=== PATIENT | female | born 1970 | race Caucasian/White ===

== ENCOUNTER → 2019-07-22 07:38 | Outpatient (CLI) | payer OTHER, SELFPAY ==
--- NOTE | 2019-07-22 | DI.RAD.S_ITS ---
PROCEDURE: FL BARIUM SWALLOW W SPEECH INDICATIONS: Other dysphagia TECHNIQUE: Examination was conducted in conjunction with speech pathology per standard protocol. In the lateral projection, filming was performed of the patient swallowing. AP projection filming may also be performed with patient swallowing. COMPARISON: [facility], [place], THORAX WITHOUT CONTRAST, 08/27/2014, 12:26. FINDINGS: Function: The oral preparatory phase appears normal, with proper containment. The subsequent oral propulsive phase, pharyngeal phase, and esophageal phase of swallowing also appear normal with all proffered substances. There is trace laryngotracheal penetration but no aspiration. There is vallecular pooling. The upper esophageal sphincter appears somewhat irregular. There is mild narrowing of the distal esophagus. The calibrated barium tablet was mildly obstructed in the distal esophagus, which eventually went down into the stomach with the help of additional water and thin liquid barium suspension. Morphology: No cricopharyngeal bar is identified. No cervical esophageal webs. No Zenker's diverticulum. No strictures. IMPRESSION: 1. Trace laryngeal penetration but no aspiration. 2. Vallecular pooling. 3. The upper esophageal sphincter appears somewhat irregular. There is mild narrowing of the distal esophagus. Mild obstruction of calibrated barium tablet in the distal esophagus is present. Recommend upper endoscopy for further evaluation. 4. Please see separate speech pathologist's report. Dictated by: Jarocho Barbosa M.D. on 07/22/2019 at 12:25 Approved by: Jarocho Barbosa M.D. on 07/22/2019 at 12:48
[2019-07-22 07:47] LABS: RBC Urine None Seen (0-5/HPF); WBC Urine None Seen (0-5/HPF)
[2019-07-22 08:22] LABS: Hematocrit 43.9 % (36-46); Hemoglobin 14.9 g/dL (12.0-16.0); Mean Corpuscular Hemoglobin 30.3 PG (26-34); Mean Corpuscular Volume 89.2 fL (80-100); Platelet Count 260 X10^3/uL (150-400); Red Blood Cell Count 4.92 X10^6/uL (4.0-5.2); Red Cell Distribution Width 13.7 % (11.6-14.8); White Blood Cell Count 8.8 X10^3/uL (4.5-11.0)
[2019-07-22 08:24] LABS: Appearance Urine UA SL CLOUDY; Bilirubin Urine UA NEGATIVE (NEGATIVE); Color Urine UA YELLOW; Glucose Urine UA NEGATIVE (Negative); Ketones Urine UA NEGATIVE (NEGATIVE); Leukocyte Esterase Urine UA NEGATIVE (NEGATIVE); Nitrite Urine UA NEGATIVE (Negative); Occult Blood Urine UA NEGATIVE (Negative); Protein Urine UA NEGATIVE (Negative); Specific Gravity Urine UA 1.025 (1.000-1.035); Urobilinogen Urine UA 0.2 E.U./dL (0.2)
[2019-07-22 08:33] LABS: Alanine Aminotransferase 33 IU/L (<35); Albumin 4.1 g/dL (3.5-5.0); Albumin Globulin Ratio 1.3 (1.0-2.8); Alkaline Phosphatase 59 U/L (38-126); Aspartate Aminotransferase 28 IU/L (14-36); BUN Creatinine Ratio 22.9 (6-22); Bilirubin Total 0.3 mg/dL (0.2-1.3); Blood Urea Nitrogen 16 mg/dL (7-17); Calcium 9.3 mg/dL (8.4-10.2); Carbon Dioxide 29 mmol/L (22-32); Chloride 106 mmol/L (98-107); Cholesterol 166 mg/dL (140-199); Estimated Glomerular Filt Rate > 60.0 mL/min (>60); Globulin 3.2 g/dL (1.7-4.1); Glucose 96 mg/dL (70-100); HDL Cholesterol 33 mg/dL (40-60); HEMOLYSIS < 15 (0-50); LDL Cholesterol Calculated 84 mg/dL (<100); Sodium 141 mmol/L (137-145); Total Protein 7.3 g/dL (6.3-8.2); Triglycerides 247 mg/dL (35-150)
[2019-07-22 08:44] LABS: Creatinine Urine Random 121.9 mg/dL
[2019-07-22 08:48] LABS: Microalbumi Creatinin Ratio Ur 9.8 ug/mg CR (<30); Microalbumin Urine Random 1.2 mg/dL (0-1.6)
[2019-07-22 08:55] LABS: pH Urine UA 6.5 (4.5-8.0)
[2019-07-22 08:56] LABS: Amorphous Sediment Urine 2+; Bacteria Urine Many (>30); Culture Indicated Urine Cult Not Indicated; Squamous Epithelial Cell Urine 10-30 /HPF (0-5/HPF)
[2019-07-22 09:04] LABS: Free T3, Triiodothyronine Free 3.79 pg/mL (2.77-5.27); Free T4, Direct Thyroxine 0.85 ng/dL (0.78-2.19)
[2019-07-22 09:17] LABS: Thyroid Stimulating Hormone 4.49 uIU/mL (0.47-4.68)
--- NOTE | 2019-07-22 13:33 | ST.SWALLOW ---
Visit Care Team Role Provider Type JENNIFER Carey Primary Care Provider Advanced Cleaning Technician Specialty: Family Practice Address: [address] [place] [address], [id number] Email: [email or web address] Manny Preston MD Attending Provider Physician Specialty: Ear, Nose, Throat Address: [address] [place] [address], [id number] Email: [email or web address] Modified Barium Swallow Study THREAD CUTTER Modified Barium Swallow Study Start: 07/22/19 10:03 Freq: Status: Active Protocol: Document 07/22/19 10:03 TLC (Rec: 07/22/19 10:32 TLC [id number]) Modified Barium Swallow Study Total Time Visit Start Time 09:30 Visit Stop Time 09:45 Total Visit Minutes [address] Preston, ENT Reason for Referral Dysphagia Setting Setting Outpatient Care Patient Information Identification Type Name Patient History Patient has a history of dysphagia following ACDF surgery in 2013. She reports pills often get stuck in her throat and she chokes on bread and water often having to regurgitate her food and pills . She had a previous MBS in [place] ~ 2 years ago and was told to take small bites/sips . She has a history of reflux. Subjective Observations Patient arrived on time. She was alert, oriented and cooperative. Patient Positioning Position View Lat-A/P Imaging Lateral View Textures Administered Trials Presented Thin Liquid via Spoon,Thin Liquid via Cup,Bison Liquid via Spoon,Bison Liquid via Cup,Honey Liquid via Spoon, Dysphagia Blenderized Textures ,Regular Textures Oral Phase Source: MBSIMP (TM) (C) Bolus Specific Scoring Grid Lip Closure No Impairment (WNL) Tongue Control During Bolus Hold No Impairment (WNL) Bolus Prep/Mastication No Impairment (WNL) Bolus Transport/Lingual Motion No Impairment (WNL) Oral Residue No Impairment (WNL) Pharyngeal Phase Source: MBSIMP (TM) (C) Bolus Specific Scoring Grid Soft Palate Elevation No Impairment (WNL) Tongue Base Strength/Range of Motion Minimal Impairment Laryngeal Elevation Minimal Impairment Anterior Hyoid Movement No Impairment (WNL) Epiglottic Range of Motion No Impairment (WNL) Vallecular Residue Yes: trace Laryngeal Vestibular Closure Minimal Impairment Pharyngeal Stripping Wave No Impairment (WNL) Upper Esophageal Sphincter Opening No Impairment (WNL) Residue in the Pyriform Sinuses Yes: trace Additional Pharyngeal Phase Observations Laryngeal elevation and laryngeal vestibular closure were incomplete. Observed flash penetration which was ejected from the airway after the swallow during consecutive cup sips of thin liquids consistent with a score of 2 on the Penetration Aspiration Scale. No other penetration or aspiration observed during the study. Trace pharyngeal residue in the vallecula and pyriform sinuses cleared with additional swallows. A/P View Textures Administered Trials Presented Thin Liquid via Cup,Barium Tablet A/P View Observations Additional Observations Minimal to no esophageal clearance of barium tablet after primary and secondary peristalsis. Clinical Impressions Findings Despite mild pharyngeal phase impairments characterized by incomplete laryngeal elevation and laryngeal vestibular closure, patient presents with functional oral and pharyngeal phases of swallowing. Verbal education was provided regarding ongoing implementation of compensatory strategies to assist with esophageal clearance including small bites/sips, slow rate, frequent rest breaks, upright posture. Recommend further evaluation of esophageal phase of swallow which are likely the cause of her symptoms. See radiologist report. Recommendations Diet Liquids Order Thin Diet Order Mechanical Soft Aspiration Precautions Recommended Precautions Upright at 90 Degrees, Alternate Liquids/Solids, Frequent Rest Periods,Small Bites/Sips Treatment Plan Recommended Referrals GI Consult Placement Recommendation After Discharge Home
== END ==
PROVIDERS: PCP Nurse Practitioner; Visit Provider Otolaryngology
DX: Z00.00 Encounter for general adult medical examination without abnormal findings (principal); R13.19 Other dysphagia; I10 Essential (primary) hypertension; Z78.0 Asymptomatic menopausal state
CPT/HCPCS: 36415; 74230; 80053; 80061; 81001; 82043; 82570; 83001; 84439; 84443; 84481; 85027; 92611

== ENCOUNTER 2019-08-15 22:07 | Emergency (ER) | payer OTHER, SELFPAY ==
[2019-08-15 22:14] VITALS: BP 149/86; PULSE 89; RESP 17; TEMP 37.1; O2SAT 97; BMI 24.0
--- NOTE | 2019-08-15 22:17 | PC.NURSE ---
reports recieving threatening phone calls from unknown number, calls to her and her daughter. Patient ok'd staff to call apd for her to report threatening calls.
--- NOTE | 2019-08-15 22:19 | DI.RAD.S_ITS ---
PROCEDURE: XR CHEST 1V INDICATIONS: chest pain TECHNIQUE: One view of the chest was acquired. COMPARISON: [facility], CHEST 2 VIEW, 04/13/2014, 10:57. [facility], CHEST 2 VIEW, 04/03/2012, 13:29. FINDINGS: Surgical changes and devices: Postoperative changes overlying the right breast are evident. Lungs and pleura: Vague area of increased attenuation is identified within the right infrahilar region. No large effusion or pneumothorax is identified. Mediastinum: Mediastinal contours appear normal. Heart size is normal. Bones and chest wall: No suspicious bony lesions. Overlying soft tissues appear unremarkable. IMPRESSION: Possible developing right lower lobe pneumonia versus atelectasis. Dictated by: Jack Manning M.D. on 08/15/2019 at 22:01 Approved by: Jack Manning M.D. on 08/15/2019 at 22:03
[2019-08-15 22:27] LABS: Add Manual Diff / Slide Review NO; Basophils Absolute Auto 100 /uL (0-100); Eosinophils Absolute Auto 500 /uL (0-450); Eosinophils Percent Auto 4.9 % (2-4); Hematocrit 43.9 % (36-46); Hemoglobin 15.3 g/dL (12.0-16.0); Lymphocytes Absolute Auto 3300 /uL (1100-4500); Lymphocytes Percent Auto 30.7 % (25-40); Mean Corpuscular HGB Conc 34.9 % (30-36); Mean Corpuscular Volume 88.6 fL (80-100); Monocytes Absolute Auto 900 /uL (0-900); Monocytes Percent Auto 8.1 % (3-14); Neutrophils Absolute Auto 6000 /uL (1500-7000); Neutrophils Percent Auto 55.3 % (50-75); Platelet Count 279 X10^3/uL (150-400); Red Blood Cell Count 4.95 X10^6/uL (4.0-5.2); White Blood Cell Count 10.9 X10^3/uL (4.5-11.0)
[2019-08-15] MEDS: SODIUM CHLORIDE 0.9% 1,000 ML 150 ML IV (22:33)
[2019-08-15] MEDS: ASPIRIN 81 MG CHEW TAB 324 MG PO (22:33)
[2019-08-15 22:34] LABS: Alanine Aminotransferase 63 IU/L (<35); Albumin 4.8 g/dL (3.5-5.0); Albumin Globulin Ratio 1.3 (1.0-2.8); Alkaline Phosphatase 72 U/L (38-126); Aspartate Aminotransferase 51 IU/L (14-36); BUN Creatinine Ratio 18.6 (6-22); Bilirubin Total 0.6 mg/dL (0.2-1.3); Blood Urea Nitrogen 13 mg/dL (7-17); Calcium 9.9 mg/dL (8.4-10.2); Carbon Dioxide 27 mmol/L (22-32); Chloride 106 mmol/L (98-107); Creatine Kinase 111 U/L (30-135); Estimated Glomerular Filt Rate > 60.0 mL/min (>60); Globulin 3.8 g/dL (1.7-4.1); Glucose 102 mg/dL (70-100); Lipase 164 U/L (23-300); Sodium 143 mmol/L (137-145); Total Protein 8.6 g/dL (6.3-8.2)
[2019-08-15 22:39] LABS: Potassium 4.2 mmol/L (3.4-5.1)
--- NOTE | 2019-08-15 22:40 | PC.NURSE ---
called 911 for patient, [facility] law en[employer] returned call, I gave him patient cell with patient permission. Patient now speaking with law enforcement
[2019-08-15 22:42] VITALS: BP 149/86; PULSE 97
[2019-08-15] MEDS: NITROGLYCERIN 0.4 MG SL TAB SL (22:42)
[2019-08-15 22:45] LABS: Troponin I < 0.012 ng/mL (0.01-0.034)
[2019-08-15 22:49] LABS: CKMB % Relative Index 0.6 % (1.5-5.0)
[2019-08-15 22:52] LABS: HEMOLYSIS 103 (0-50)
--- NOTE | 2019-08-15 22:57 | ED_ITS ---
HPI - Chest Pain General Chief Complaint: Chest Pain Stated Complaint: Chest Pain Time Seen by Provider: 08/15/19 22:45 Source: patient Mode of arrival: EMS Limitations: no limitations History of Present Illness HPI narrative: CC: chest pain HPI: The patient is a 48-year-old female [facility] chest pain. The pain and discomfort did not radiate to her neck jaw. The chest pain was intermittently sharp dull and achy. The patient felt mildly lightheaded. The pain and discomfort was made worse with movement. She denied having any cough or increased pain and discomfort on deep breathing or coughing. She denies any fall injury or trauma. She states that in the past she has had abnormal liver functions and has high cholesterol. She complains of posterior neck pain and left shoulder pain. She has had no numbness or tingling. She denies any palpitations or racing of her heart. She however has been mildly dizzy and lightheaded. She has had no fever chills but did feel little bit clammy. She has had no headache. She denies any abdominal pain nausea vomiting diarrhea. She has had no urinary symptoms frequency or urgency. Related Data Previous Rx's Medication Instructions Recorded amitriptyline 75 mg tablet 75 mg PO BEDTIME #90 tab 06/19/19 diph,pertuss(acel),tet vac(PF) 2 0.5 ml IM ONCE #0.5 ml 06/19/19 Lf-(2.5-5-3-5mcg)-5 Lf/0.5 mL IM syringe fluconazole 150 mg tablet 150 mg PO Q3D #2 tab 08/14/19 varenicline 0.5 mg (11)-1 mg (42) See Rx Instructions PO PER PKG DIR 08/14/19 tablets in a dose pack #53 each cyclobenzaprine 10 mg PO TID PRN #14 tab 08/16/19 naproxen 500 mg PO BID PRN #20 tab 08/16/19 nitroglycerin 0.4 mg SL Q5-15M PRN #20 tab 08/16/19 Allergies Allergy/AdvReac Type Severity Reaction Status Date / Time codeine [CODEINE] Allergy Mild RASH Verified 08/14/19 09:12 morphine [MORPHINE] Allergy Unknown Verified 08/14/19 09:12 PENICILLIN Allergy Mild RASH Uncoded 08/14/19 09:12 Review of Systems Review of Systems ROS Unobtainable: All systems reviewed & are unremarkable except as noted in HPI and below Patient History Medical History (Updated 08/18/19 @ 06:55 by JENNIFER Carey) Bulging of cervical intervertebral disc (Resolved) Cervical radiculopathy (Chronic) Hemorrhoids (Acute) IBS (irritable bowel syndrome) (Chronic) Interstitial cystitis (Chronic) Surgical History H/O left breast biopsy (Resolved) H/O right breast biopsy (Resolved) H/O: hysterectomy (Resolved) History of bilateral tubal ligation (Resolved) S/P cervical spinal fusion (Resolved 2013) S/P surgery on nasal septum (Resolved) Family History Father Alcoholism Cancer Lung cancer Mother Age: 70 Lung cancer Social History Smoking Status: Current every day smoker Smoking Status: Current every day smoker tobacco type: cigarettes alcohol intake frequency: 0-2 drinks per day Substance Use Type: does not use Exam Narrative Exam Narrative: PHYSICAL EXAM: CONSTITUTIONAL: Awake, Alert, Oriented, Coherent, Cooperative in mild distress. The patient is thin and appears older than her stated age.. HEAD: AT/NC EENT: PERRL, FROM of eyes, no discharge. Oral mucosa is moist and pink, posterior pharynx is without erythema or exudate. NECK: Supple, no obvious JVD, Trachea is midline without stridor, no palpable LN or masses. SPINE: No gross deformity. There is diffuse tenderness to palpation over the patient's cervical spine diffusely as well as the thoracic spine. To a lesser degree there is tenderness over the lumbar spine. There is no significant costovertebral angle tenderness. The patient is diffusely tender to palpation over the left trapezius muscle infraspinatus and supraspinatus as well as deltoid muscles. The patient has tenderness to abduction of the shoulder internal and external rotation as well as flexion and extension. THORAX: No deformity, retractions. However, there is tenderness to palpation along the left costal sternal margin without crepitus or subcutaneous emphysema which somewhat mimics the pain described. This discomfort is reproducible. LUNGS: Clear with symmetrical breath sounds without respiratory distress HEART: Normal heart tones, regular rhythm and rate without murmur. ABDOMEN: Soft, non-tender, normal bowel sounds without guarding, rebound, rigidity or palpable mass. EXTREMITIES: No edema, cyanosis, deformity or tenderness. SKIN: No rash, bruising, petechiae or purpura. NEURO: Awake, alert, oriented, conversive, cranial nerves II-XII are symmetrical and normal, moves all 4 extremities and is ambulatory Initial Vital Signs Initial Vital Signs: Vital Signs Temperature 98.7 F 08/15/19 22:14 Pulse Rate 89 08/15/19 22:14 Respiratory Rate 17 08/15/19 22:14 Blood Pressure 149/86 H 08/15/19 22:14 Pulse Oximetry 97 08/15/19 22:14 Course Course Course Narrative: 1238: The patient's 2nd troponin remains pending. The 1st troponin is negative. Orders Ordered: Discontinued Medications Aspirin (Aspirin Chew) 324 mg PO NOW ONE Stop: 08/15/19 22:20 Last Admin: 08/15/19 22:33 Dose: 324 mg Documented by: LUIZA Cyclobenzaprine HCl (Flexeril) 10 mg PO NOW ONE Stop: 08/15/19 22:58 Last Admin: 08/15/19 23:21 Dose: 10 mg Documented by: LUIZA Sodium Chloride (Normal Saline 0.9%) 1,000 mls @ 150 mls/hr IV CONT SANDRINE Last Infusion: 08/16/19 01:51 Dose: 0 mls/hr Documented by: Admin: 08/15/19 22:33 Dose: 150 mls/hr Documented by: LUIZA Ketorolac Tromethamine (Toradol) 30 mg IV NOW ONE Stop: 08/15/19 22:56 Last Admin: 08/15/19 23:21 Dose: 30 mg Documented by: LUIZA Nitroglycerin (Nitrostat) 0.4 mg SL [id number] PRN PRN Reason: Chest Pain Last Admin: 08/15/19 22:42 Dose: 0.4 mg Documented by: LUIZA Nitroglycerin (Nitro-Bid) 1 inch TOP NOW ONE Stop: 08/15/19 22:56 Last Admin: 08/15/19 23:19 Dose: 1 inch Documented by: LUIZA Vital Signs Vital signs: Vital Signs - 8 hr 08/15/19 23:43 08/16/19 01:20 08/16/19 01:43 Temperature 97.8 F Pulse Rate 82 79 80 Respiratory Rate 20 24 Blood Pressure 119/69 Blood Pressure [Right Arm] 129/75 119/69 Pulse Oximetry 98 99 MDM - Chest Pain Lab Data Attestation: I reviewed the patient's lab results. Result diagrams: 08/15/19 21:30 08/15/19 21:30 Labs: Lab Results 08/15/19 08/15/19 08/16/19 Range/Units 21:30 21:30 00:03 WBC 10.9 (4.5-11.0) X10^3/uL RBC 4.95 (4.0-5.2) X10^6/uL Hgb 15.3 (12.0-16.0) g/dL Hct 43.9 (36-46) % MCV 88.6 (80-100) fL MCH 31.0 (26-34) PG MCHC 34.9 (30-36) % RDW 14.0 (11.6-14.8) % Plt Count 279 (150-400) X10^3/uL Neut % (Auto) 55.3 (50-75) % Lymph % (Auto) 30.7 (25-40) % [place] % (Auto) 8.1 (3-14) % Eos % (Auto) 4.9 H (2-4) % Baso % (Auto) 1.0 (0-2) % Neut # (Auto) 6000 (2420-7617) /uL Lymph # (Auto) 3300 (7868-9906) /uL [place] # (Auto) 900 (0-900) /uL Eos # (Auto) 500 H (0-450) /uL Baso # (Auto) 100 (0-100) /uL Sodium 143 (137-145) mmol/L Potassium 4.2 (3.4-5.1) mmol/L Chloride 106 (98-107) mmol/L Carbon Dioxide 27 (22-32) mmol/L BUN 13 (7-17) mg/dL Creatinine 0.70 (0.52-1.04) mg/dL Estimated GFR > 60.0 (>60) mL/min BUN/Creatinine Ratio 18.6 (6-22) Glucose 102 H (70-100) mg/dL Calcium 9.9 (8.4-10.2) mg/dL Total Bilirubin 0.6 (0.2-1.3) mg/dL AST 51 H (14-36) IU/L ALT 63 H (<35) IU/L Alkaline Phosphatase 72 (38-126) U/L Total Creatine Kinase 111 (30-135) U/L CK-MB (CK-2) 0.70 (<2.37) ng/mL CK-MB (CK-2) Rel Index 0.6 L (1.5-5.0) % Troponin I < 0.012 < 0.012 (0.01-0.034) ng/mL Total Protein 8.6 H (6.3-8.2) g/dL Albumin 4.8 (3.5-5.0) g/dL Globulin 3.8 (1.7-4.1) g/dL Albumin/Globulin Ratio 1.3 (1.0-2.8) Lipase 164 (23-300) U/L ECG Data Attestation: I personally reviewed and interpreted this ECG as follows: Interpretation: The patient's EKG obtained on August 15 at 22:0 9:24 a.m. revealed a normal sinus rhythm with a ventricular rate of 96. Intervals are nor mal axis is normal. The patient has nonspecific ST segment changes. He she has ST depressions in lead V3 and V4 without any acute diagnostic changes. She has a T-wave inversion in V1 otherwise EKG looks normal. Discharge Plan Departure Patient Disposition: Home Clinical Impression: Atypical chest pain, Neck pain, Acute chest wall pain Back pain, thoracic Qualifiers: Chronicity: unspecified Back pain laterality: midline Qualified Code(s): M54.6 - Pain in thoracic spine Discharge Date/Time: 08/16/19 01:50 Instructions: DI for Atypical Chest Pain, DI for Neck Pain Activity Restrictions/Additional Instructions: TAKE MEDICATIONS PRESCRIBED FOR YOUR CHEST PAIN NECK PAIN. If you develop worsening shortness of breath, dizziness passing-out you need to return to the emergency department. Otherwise you need to follow-up with your primary care physician for further evaluation in 48-72 hours. Your chest pain does not appear to be cardiac in nature but musculoskeletal. Take the Naprosyn for your pain and discomfort and Flexeril. Prescriptions: New cyclobenzaprine 10 mg tablet 10 mg PO TID PRN (Reason: muscle spasm) Qty: 14 RF: 0 naproxen 500 mg tablet 500 mg PO BID PRN (Reason: pain) Qty: 20 RF: 0 nitroglycerin 0.4 mg tablet, sublingual 0.4 mg SL Q5-15M PRN (Reason: chest pain) Qty: 20 RF: 0 No Action Chantix Starting Month Box 0.5 mg (11)- 1 mg (42) tablets,dose pack See Rx Instructions PO PER PKG DIR Qty: 53 RF: 0 fluconazole 150 mg tablet 150 mg PO Q3D Qty: 2 RF: 0 Adacel(Tdap Adolesn/Adult)(PF) 2 Lf-(2.5-5-3-5 mcg)-5Lf/0.5 mL syringe 0.5 ml IM ONCE Qty: 0.5 RF: 0 amitriptyline 75 mg tablet 75 mg PO BEDTIME Qty: 90 RF: 3 Referrals: Destiny Mckeon ARNP [Primary Care Provider] - Stand Alone Forms: Work Release Note
[2019-08-15 23:19] VITALS: BP 134/79; PULSE 85
[2019-08-15] MEDS: NITROGLYCERIN OINT 1 INCH/GM OINT...G. TOP (23:19)
[2019-08-15] MEDS: KETOROLAC 60 MG/2 ML VIAL 30 MG IV (23:21)
[2019-08-15] MEDS: CYCLOBENZAPRINE 10 MG TABLET PO (23:21)
[2019-08-15 23:43] VITALS: BP 129/75; PULSE 82
--- NOTE | 2019-08-15 23:45 | PC.NURSE ---
patient reports a reduced pain number of 4/10 on nitro paste. Provider notified.
[2019-08-16 00:37] LABS: Troponin I < 0.012 ng/mL (0.01-0.034)
[2019-08-16 01:20] VITALS: BP 119/69; PULSE 79; RESP 20; TEMP 36.6; O2SAT 98
--- NOTE | 2019-08-16 01:34 | PC.NURSE ---
patient concerned for symptoms vs diagnosis. She wanted to know why her jaw, chest and left arm were hurting and why her blood pressure is elevated. Provider notified and went to bedside to explain better to patient.
[2019-08-16 01:43] VITALS: BP 119/69; PULSE 80; RESP 24; O2SAT 99
== END 2019-08-16 01:50 | disposition home or self-care (01) ==
PROVIDERS: Emergency Provider Emergency Medicine; PCP Nurse Practitioner
DX: R07.89 Other chest pain (principal); M54.2 Cervicalgia; M54.6 Pain in thoracic spine
CPT/HCPCS: 36415; 71045; 80053; 82550; 82553; 83690; 84484; 85025; 93005; 96361; 96374; 99284; 99285; J1885

== ENCOUNTER 2019-08-21 14:54 | Emergency (ER) | payer OTHER, SELFPAY ==
[2019-08-21] VITALS (8 sets, daily range): BP systolic 119–141; BP diastolic 76–84; PULSE 80–101; RESP 16–20; TEMP 36.7; O2SAT 98–100; BMI 22.6
--- NOTE | 2019-08-21 14:58 | DI.RAD.S_ITS ---
PROCEDURE: XR CHEST 1V INDICATIONS: chest pain TECHNIQUE: One view of the chest was acquired. COMPARISON: [facility], , XR CHEST 1V, 08/15/2019, 22:23. [facility], , CHEST 2 VIEW, 04/03/2012, 13:29. FINDINGS: Surgical changes and devices: Surgical clips are seen overlying the right breast. Lungs and pleura: Lungs are clear. No pleural effusions or pneumothorax. Mediastinum: Mediastinal contours appear normal. Heart size is normal. There may be a hiatal hernia. Bones and chest wall: No suspicious bony lesions. Overlying soft tissues appear unremarkable. IMPRESSION: No acute cardiopulmonary process is evident. Dictated by: Jcak Manning M.D. on 08/21/2019 at 14:47 Approved by: Jack Manning M.D. on 08/21/2019 at 14:47
[2019-08-21 15:20] LABS: Add Manual Diff / Slide Review NO; Basophils Absolute Auto 100 /uL (0-100); Basophils Percent Auto 0.8 % (0-2); Eosinophils Absolute Auto 300 /uL (0-450); Eosinophils Percent Auto 3.1 % (2-4); Hematocrit 45.4 % (36-46); Hemoglobin 15.5 g/dL (12.0-16.0); Lymphocytes Absolute Auto 2500 /uL (1100-4500); Lymphocytes Percent Auto 27.2 % (25-40); Mean Corpuscular HGB Conc 34.2 % (30-36); Mean Corpuscular Hemoglobin 30.5 PG (26-34); Mean Corpuscular Volume 89.3 fL (80-100); Monocytes Absolute Auto 600 /uL (0-900); Monocytes Percent Auto 6.7 % (3-14); Neutrophils Absolute Auto 5800 /uL (1500-7000); Neutrophils Percent Auto 62.2 % (50-75); Platelet Count 273 X10^3/uL (150-400); Red Blood Cell Count 5.08 X10^6/uL (4.0-5.2); Red Cell Distribution Width 13.7 % (11.6-14.8); White Blood Cell Count 9.3 X10^3/uL (4.5-11.0)
[2019-08-21 15:26] LABS: Prothrombin Time 11.7 SECONDS (10.1-12.7)
[2019-08-21 15:28] LABS: PTT Partial Thromboplastin Tim 33 SECONDS (26.4-36.2)
[2019-08-21 15:31] LABS: Alanine Aminotransferase 41 IU/L (<35); Albumin 4.5 g/dL (3.5-5.0); Albumin Globulin Ratio 1.4 (1.0-2.8); Alkaline Phosphatase 75 U/L (38-126); Aspartate Aminotransferase 36 IU/L (14-36); Bilirubin Total 0.4 mg/dL (0.2-1.3); Blood Urea Nitrogen 15 mg/dL (7-17); Calcium 9.6 mg/dL (8.4-10.2); Carbon Dioxide 24 mmol/L (22-32); Chloride 107 mmol/L (98-107); Creatine Kinase 60 U/L (30-135); Estimated Glomerular Filt Rate > 60.0 mL/min (>60); Globulin 3.3 g/dL (1.7-4.1); Glucose 152 mg/dL (70-100); HEMOLYSIS < 15 (0-50); Lipase 111 U/L (23-300); Potassium 3.7 mmol/L (3.4-5.1); Sodium 141 mmol/L (137-145); Total Protein 7.8 g/dL (6.3-8.2)
[2019-08-21 15:43] LABS: Troponin I < 0.012 ng/mL (0.01-0.034)
[2019-08-21] MEDS: SODIUM CHLORIDE 0.9% 1,000 ML 1000 ML IV (16:36)
[2019-08-21] MEDS: ONDANSETRON 4 MG/2 ML INJ (16:36)
--- NOTE | 2019-08-21 16:59 | ED.CHESTPAIN ---
HPI - Chest Pain General Chief Complaint: Chest Pain Stated Complaint: chest heaviness, difficulty breathing Time Seen by Provider: 08/21/19 16:33 Source: patient Mode of arrival: Ambulatory History of Present Illness HPI narrative: cc: Chest Pain HPI: The patient states that she was seen by her primary care physician and complained of having chest pain that she was sent into the emergency department to be evaluated. The patient was seen last week on Sunday and diagnosed to have musculoskeletal chest wall pain and was prescribed Naprosyn and Flexeril. The patient states that she took some of the medicine and still has it. She states that on Sunday she had high blood pressure associated with chest pain. She states that it feels like an elephant sitting on her chest. She has complained of shortness of breath with left arm numbness. She has had a headache with dizziness and being lightheaded. She has felt nauseous without any vomiting. She has had no diarrhea or abdominal pain. She denies any indigestion heartburn and admits to a history of migraine headaches. She has had intermittent periods in which she felt clammy but has had no fever or chills. She has been short of breath but has had no cough. She complains of palpitations and dizziness. She has had normal bowel movements without melena or hematochezia. She denies any urinary symptoms. She states that her last stress test was 25 years ago. Related Data Previous Rx's Medication Instructions Recorded amitriptyline 75 mg tablet 75 mg PO BEDTIME #90 tab 06/19/19 varenicline 0.5 mg (11)-1 mg (42) See Rx Instructions PO PER PKG DIR 08/14/19 tablets in a dose pack #53 each cyclobenzaprine 10 mg PO TID PRN #14 tab 08/16/19 naproxen 500 mg PO BID PRN #20 tab 08/16/19 nitroglycerin 0.4 mg SL Q5-15M PRN #20 tab 08/16/19 Allergies Allergy/AdvReac Type Severity Reaction Status Date / Time codeine [CODEINE] Allergy Mild RASH Verified 08/21/19 14:58 morphine [MORPHINE] Allergy Unknown Verified 08/21/19 14:58 PENICILLIN Allergy Mild RASH Uncoded 08/21/19 14:58 Review of Systems Review of Systems Narrative: Her review of systems were all negative except for those mentioned in the history of present illness. Patient History Medical History Bulging of cervical intervertebral disc (Resolved) Cervical radiculopathy (Chronic) Hemorrhoids (Acute) IBS (irritable bowel syndrome) (Chronic) Interstitial cystitis (Chronic) Surgical History H/O left breast biopsy (Resolved) H/O right breast biopsy (Resolved) H/O: hysterectomy (Resolved) History of bilateral tubal ligation (Resolved) S/P cervical spinal fusion (Resolved 2013) S/P surgery on nasal septum (Resolved) Social History Smoking Status: Current every day smoker Smoking Status: Current every day smoker tobacco type: cigarettes alcohol intake frequency: 0-2 drinks per day Substance Use Type: does not use Exam Narrative Exam Narrative: PHYSICAL EXAM: CONSTITUTIONAL: Awake, Alert, Oriented, Coherent, Cooperative in NAD. Does not appear toxic or ill. HEAD: AT/NC EENT: PERRL, FROM of eyes, no discharge, Oral mucosa is moist and pink, posterior pharynx is without erythema or exudate. NECK: Supple, no obvious JVD, Trachea is midline without stridor, SPINE: No gross deformity, no palpable tenderness of the cervical, thoracic, lumbar or sacral spine. No CVA tenderness. THORAX: There is no deformity of her ribs or chest wall. However chest pain is reproducible and mimics the chest pain described palpating along the left costal sternal margin and right costal sternal margin as well as directly over the sternum. LUNGS: Clear with symmetrical breath sounds without respiratory distress HEART: Normal heart tones, regular rhythm and rate without murmur. ABDOMEN: Soft, non-tender, normal bowel sounds without guarding, rebound, rigidity or palpable mass EXTREMITIES: No edema, cyanosis, deformity or tenderness. SKIN: No rash, bruising, petechiae or purpura. NEURO: Awake, alert, oriented, conversive, cranial nerves II-XII are symmetrical and normal, moves all 4 extremities and is ambulatory Initial Vital Signs Initial Vital Signs: Vital Signs Temperature 98.0 F 08/21/19 14:58 Pulse Rate 101 H 08/21/19 14:58 Respiratory Rate 16 08/21/19 14:58 Blood Pressure 140/84 08/21/19 14:58 Pulse Oximetry 100 08/21/19 14:58 Course Course Course Narrative: Both troponins are normal at 0.012. The patient states that her physician is Dr. navarrete who center into the emergency department to be evaluated. 1905: The patient states that she sees Dr. navarrete. I have been waiting for the hospitalist to call back to admit the patient to rule her out and to perform a stress test since this is the 2nd time the patient has been seen in the emergency department in less than a week for the same complaint. She now tells the nurse that she is worried about insurance pain for her stress test and hospitalization that she wants to go home. 1907 the patient states that she is still having some pain and discomfort. However on re-examination palpation of her chest wall mimics the pain and is reproducible. The patient has acute musculoskeletal chest wall pain. Orders Ordered: ED Orders 08/21/19 14:58 XR chest 1V Stat EKG-12 Lead Stat 08/21/19 15:06 Complete Blood Count AUTO DIFF Stat Comprehensive Metabolic Panel Stat Lipase Stat Partial Thromboplastin Time Stat Prothrombin Time INR Stat Troponin & CK Cardiac Panel Stat 08/21/19 17:16 Troponin I Stat Discontinued Medications Aspirin (Aspirin Chew) 324 mg PO NOW ONE Stop: 08/21/19 17:07 Last Admin: 08/21/19 17:32 Dose: 243 mg Documented by: YARELI Sodium Chloride (Normal Saline 0.9%) 1,000 mls @ 1,000 mls/hr IV BOLUS ONE Stop: 08/21/19 17:05 Last Admin: 08/21/19 17:33 Dose: Not Given Documented by: MARQUEZ Sodium Chloride (Normal Saline 0.9%) 1,000 mls @ 1,000 mls/hr IV BOLUS ONE Stop: 08/21/19 17:05 Last Infusion: 08/21/19 18:00 Dose: 0 mls/hr Documented by: Admin: 08/21/19 16:36 Dose: 1,000 mls/hr Documented by: YARELI Ketorolac Tromethamine (Toradol) 30 mg IV NOW ONE Stop: 08/21/19 17:07 Last Admin: 08/21/19 17:32 Dose: 30 mg Documented by: BTONER Nitroglycerin (Nitro-Bid) 1 inch TOP NOW ONE Stop: 08/21/19 17:07 Last Admin: 08/21/19 17:31 Dose: 1 inch Documented by: YARELI Tramadol HCl (Ultram) 50 mg PO NOW ONE Stop: 08/21/19 19:11 Last Admin: 08/21/19 19:19 Dose: 50 mg Documented by: MARQUEZ Vital Signs Vital signs: Vital Signs - 8 hr 08/21/19 14:58 08/21/19 16:05 08/21/19 16:30 Temperature 98.0 F Pulse Rate 101 H 90 90 Respiratory Rate 16 18 18 Blood Pressure 140/84 Blood Pressure [Left Arm] 129/81 119/76 Pulse Oximetry 100 98 99 08/21/19 17:00 08/21/19 17:30 08/21/19 17:31 Temperature Pulse Rate 84 80 80 Respiratory Rate 20 16 Blood Pressure 127/80 Blood Pressure [Left Arm] 127/80 128/81 Pulse Oximetry 99 99 08/21/19 18:35 08/21/19 19:05 Temperature Pulse Rate 83 87 Respiratory Rate 17 18 Blood Pressure Blood Pressure [Left Arm] 141/83 H 136/82 Pulse Oximetry 98 98 MDM - Chest Pain Medical Records Data Attestation: I reviewed the patient's medical records. Lab Data Attestation: I reviewed the patient's lab results. Result diagrams: 08/21/19 15:06 08/21/19 15:06 Labs: Lab Results 08/21/19 08/21/19 08/21/19 Range/Units 15:06 15:06 15:06 WBC 9.3 (4.5-11.0) X10^3/uL RBC 5.08 (4.0-5.2) X10^6/uL Hgb 15.5 (12.0-16.0) g/dL Hct 45.4 (36-46) % MCV 89.3 (80-100) fL MCH 30.5 (26-34) PG MCHC 34.2 (30-36) % RDW 13.7 (11.6-14.8) % Plt Count 273 (150-400) X10^3/uL Neut % (Auto) 62.2 (50-75) % Lymph % (Auto) 27.2 (25-40) % [place] % (Auto) 6.7 (3-14) % Eos % (Auto) 3.1 (2-4) % Baso % (Auto) 0.8 (0-2) % Neut # (Auto) 5800 (9086-6213) /uL Lymph # (Auto) 2500 (7415-2119) /uL [place] # (Auto) 600 (0-900) /uL Eos # (Auto) 300 (0-450) /uL Baso # (Auto) 100 (0-100) /uL PT 11.7 (10.1-12.7) SECONDS INR 1.0 (0.9-1.3) APTT 33 (26.4-36.2) SECONDS Sodium 141 (137-145) mmol/L Potassium 3.7 (3.4-5.1) mmol/L Chloride 107 (98-107) mmol/L Carbon Dioxide 24 (22-32) mmol/L BUN 15 (7-17) mg/dL Creatinine 0.60 (0.52-1.04) mg/dL Estimated GFR > 60.0 (>60) mL/min BUN/Creatinine Ratio 25.0 H (6-22) Glucose 152 H (70-100) mg/dL Calcium 9.6 (8.4-10.2) mg/dL Total Bilirubin 0.4 (0.2-1.3) mg/dL AST 36 (14-36) IU/L ALT 41 H (<35) IU/L Alkaline Phosphatase 75 (38-126) U/L Total Creatine Kinase 60 (30-135) U/L CK-MB (CK-2) TNP CK-MB (CK-2) Rel Index TNP Troponin I < 0.012 (0.01-0.034) ng/mL Total Protein 7.8 (6.3-8.2) g/dL Albumin 4.5 (3.5-5.0) g/dL Globulin 3.3 (1.7-4.1) g/dL Albumin/Globulin Ratio 1.4 (1.0-2.8) Lipase 111 (23-300) U/L 08/21/19 Range/Units 17:16 WBC (4.5-11.0) X10^3/uL RBC (4.0-5.2) X10^6/uL Hgb (12.0-16.0) g/dL Hct (36-46) % MCV (80-100) fL MCH (26-34) PG MCHC (30-36) % RDW (11.6-14.8) % Plt Count (150-400) X10^3/uL Neut % (Auto) (50-75) % Lymph % (Auto) (25-40) % [place] % (Auto) (3-14) % Eos % (Auto) (2-4) % Baso % (Auto) (0-2) % Neut # (Auto) (4170-2997) /uL Lymph # (Auto) (7047-6231) /uL [place] # (Auto) (0-900) /uL Eos # (Auto) (0-450) /uL Baso # (Auto) (0-100) /uL PT (10.1-12.7) SECONDS INR (0.9-1.3) APTT (26.4-36.2) SECONDS Sodium (137-145) mmol/L Potassium (3.4-5.1) mmol/L Chloride (98-107) mmol/L Carbon Dioxide (22-32) mmol/L BUN (7-17) mg/dL Creatinine (0.52-1.04) mg/dL Estimated GFR (>60) mL/min BUN/Creatinine Ratio (6-22) Glucose (70-100) mg/dL Calcium (8.4-10.2) mg/dL Total Bilirubin (0.2-1.3) mg/dL AST (14-36) IU/L ALT (<35) IU/L Alkaline Phosphatase (38-126) U/L Total Creatine Kinase (30-135) U/L CK-MB (CK-2) CK-MB (CK-2) Rel Index Troponin I < 0.012 (0.01-0.034) ng/mL Total Protein (6.3-8.2) g/dL Albumin (3.5-5.0) g/dL Globulin (1.7-4.1) g/dL Albumin/Globulin Ratio (1.0-2.8) Lipase (23-300) U/L Urine Dip Bedside Urine Glucose Negative Bedside Urine Bilirubin - Negative Bedside Urine Ketone - Negative Urine Specific [place] 1.015 Bedside Urine Occult Blood - Negative Bedside Urine pH 7.0 Bedside Urine Protein - Negative Bedside Urine Urobilinogen - Negative Bedside Urine Nitrite - Negative Bedside Urine Leukocytes - Negative Esterase ECG Data Attestation: I personally reviewed and interpreted this ECG as follows: Interpretation: The patient's EKG obtained on August 21 at 14:5 9:01 a.m. reveals a sinus tachycardia with a ventricular rate of 106. Intervals are normal axis is normal and there are nonspecific ST segment changes. The patient has an inverted T-wave in lead V1 and a questionable biphasic T-wave in lead III. ST segments are nonspecific and questionably slightly depressed in V4 V5 V6. Discharge Plan Departure Patient Disposition: Home Clinical Impression: Sinus tachycardia, Anterior chest wall pain Chest pain Qualifiers: Chest pain type: unspecified Qualified Code(s): R07.9 - Chest pain, unspecified Discharge Date/Time: 08/21/19 19:27 Instructions: DI for Angina, DI for Atypical Chest Pain Activity Restrictions/Additional Instructions: 1. Take 1 aspirin per day 325 mg. 2. Continue taking the cyclobenzaprine and Naprosyn that was prescribed for you last week. 3. Follow-up with your primary care physician to be scheduled for a cardiac stress test as an outpatient. 4. If you develop worsening pain fever chills sweats shortness of breath cough dizziness and feel as though your passing-out you need to be re-evaluated. Otherwise follow-up with your primary care physician. Drink 2-3 L of fluid per day. Prescriptions: No Action Chantix Starting Month Box 0.5 mg (11)- 1 mg (42) tablets,dose pack See Rx Instructions PO PER PKG DIR Qty: 53 RF: 0 amitriptyline 75 mg tablet 75 mg PO BEDTIME Qty: 90 RF: 3 cyclobenzaprine 10 mg tablet 10 mg PO TID PRN (Reason: muscle spasm) Qty: 14 RF: 0 naproxen 500 mg tablet 500 mg PO BID PRN (Reason: pain) Qty: 20 RF: 0 nitroglycerin 0.4 mg tablet, sublingual 0.4 mg SL Q5-15M PRN (Reason: chest pain) Qty: 20 RF: 0 Referrals: Destiny Navarrete ARNP [Primary Care Provider] -
[2019-08-21] MEDS: NITROGLYCERIN OINT 1 INCH/GM OINT...G. TOP (17:31)
[2019-08-21] MEDS: KETOROLAC 60 MG/2 ML VIAL 30 MG IV (17:32)
[2019-08-21] MEDS: ASPIRIN 81 MG CHEW TAB 324 MG PO (17:32)
[2019-08-21 17:54] LABS: Troponin I < 0.012 ng/mL (0.01-0.034)
[2019-08-21] MEDS: TRAMADOL 50 MG TABLET PO (19:19)
== END 2019-08-21 19:27 | disposition home or self-care (01) ==
PROVIDERS: Emergency Provider Emergency Medicine; PCP Nurse Practitioner
DX: R07.89 Other chest pain (principal)
CPT/HCPCS: 36415; 71045; 80053; 81003; 82550; 83690; 84484; 85025; 85610; 85730; 93005; 96361; 96374; 99284; 99285; J1885; J2405

== ENCOUNTER → 2019-09-29 11:00 | Outpatient (CLI) | payer OTHER, SELFPAY ==
--- NOTE | 2019-09-29 | DI.US.S_ITS ---
PROCEDURE: US ABDOMEN COMPLETE INDICATIONS: IBS AND EPIGATRIC PAIN TECHNIQUE: Real-time scanning was performed of the abdominal and retroperitoneal organs, with image documentation. COMPARISON: [facility], CT, KIDNEY/ URETER/BLADDER, 08/07/2010, 13:48. [facility], US, US PELVIC COMPLETE, 09/29/2019, 11:57. FINDINGS: Liver: The liver demonstrates normal size. The liver demonstrates generalized increased echogenicity. This decreases ultrasound sensitivity for detection of hepatic masses. Gallbladder: No findings of gallstones or sludge are seen. The gallbladder wall is not thickened, measuring 3 mm or less. No specific pericholecystic fluid is seen. The sonographic Vuong sign is negative. Biliary ducts: Intrahepatic bile ducts are non-dilated. Extrahepatic bile duct caliber measures 4 mm. Normal is 6-7 mm or less in diameter, or 10 mm or less post-cholecystectomy. Pancreas: Visualized portions of the pancreas are sonographically normal. Spleen: Spleen is normal in size and homogeneous in echotexture. Kidneys: Kidneys are normal in size and echotexture. Right kidney measures 10.5 cm long; left kidney measures 11.2 cm long. No hydronephrosis or nephrolithiasis. No solid masses. Aorta: Visualized aorta is normal in caliber at less than 3 cm. Iliacs: Proximal common iliac arteries are normal in caliber at less than 2.5 cm. IVC: Intrahepatic inferior vena cava is patent. Miscellaneous: No free abdominal fluid. IMPRESSION: The gallbladder demonstrates a normal sonographic appearance. No biliary dilatation is seen. The liver demonstrates increased echogenicity. This finding is nonspecific, yet it is most commonly attributed to fatty infiltration. Dictated by: Robert Cagle M.D. on 09/29/2019 at 13:49 Approved by: Robert Cagle M.D. on 09/29/2019 at 13:51
--- NOTE | 2019-09-29 11:02 | DI.US.S_ITS ---
PROCEDURE: US PELVIC COMPLETE INDICATIONS: ADNEXAL TENDERNESS BILATERALLY TECHNIQUE: Real-time scanning was performed of the pelvic organs, with image documentation. Additional endovaginal scanning was necessary due to incomplete visualization of the adnexal and endometrial structures by transabdominal scanning. COMPARISON: [facility], CT, KIDNEY/ URETER/BLADDER, 08/07/2010, 13:48. [facility], US, US ABDOMEN COMPLETE, 09/29/2019, 11:41. FINDINGS: Transabdominal scanning: Limited scanning through the kidneys shows no hydronephrosis. No pathologic free abdominal or pelvic fluid. Endovaginal scanning: Uterus: Removed. Ovaries: The right ovary measures 2.5 x 1.7 x 1.5 cm and demonstrates an unremarkable sonographic appearance. The left ovary measures 3.5 x 1.7 x 1.5 cm. Within the left ovary, there is a solid, well-circumscribed mass that measures 9 x 8 x 9 mm, without abnormal vascularity. A mildly complex cyst up to 1.4 cm calcification within the right ovary. There is a likely 1.6 cm left ovarian cysts also seen. There is an oblong tubular structure involving the left adnexa, which is attributed to hydrosalpinx, measuring 5 mm in diameter. Apparent right hydrosalpinx is also seen, measuring 6 mm in diameter. IMPRESSION: Apparent bilateral hydrosalpinx. A mildly complex cyst measuring 1.4 cm can be seen involving the left ovary. There is also a 9 mm solid-appearing focus within the left ovary. This may be related to a hemorrhagic cyst. Please consider a followup pelvic ultrasound in 6 weeks to assure resolution/ improvement. Status post hysterectomy. Dictated by: Robert Cagle M.D. on 09/29/2019 at 13:51 Approved by: Robert Cagle M.D. on 09/29/2019 at 13:55
== END ==
PROVIDERS: PCP Nurse Practitioner; Referring Provider Nurse Practitioner; Visit Provider Nurse Practitioner
DX: K58.9 Irritable bowel syndrome, unspecified (principal); R10.13 Epigastric pain; R10.2 Pelvic and perineal pain; N83.292 Other ovarian cyst, left side; N70.11 Chronic salpingitis; Z90.710 Acquired absence of both cervix and uterus
CPT/HCPCS: 76700; 76830; 76856

== ENCOUNTER → 2019-10-30 10:06 | Outpatient (CLI) | payer OTHER, SELFPAY ==
[2019-10-30 11:33] LABS: Add Manual Diff / Slide Review NO; Basophils Absolute Auto 100 /uL (0-100); Basophils Percent Auto 0.6 % (0-2); Eosinophils Absolute Auto 500 /uL (0-450); Eosinophils Percent Auto 4.7 % (2-4); Hematocrit 42.6 % (36-46); Hemoglobin 14.7 g/dL (12.0-16.0); Lymphocytes Absolute Auto 2800 /uL (1100-4500); Lymphocytes Percent Auto 24.9 % (25-40); Mean Corpuscular HGB Conc 34.6 % (30-36); Mean Corpuscular Volume 89.4 fL (80-100); Monocytes Absolute Auto 800 /uL (0-900); Neutrophils Absolute Auto 6900 /uL (1500-7000); Neutrophils Percent Auto 62.8 % (50-75); Platelet Count 275 X10^3/uL (150-400); Red Blood Cell Count 4.76 X10^6/uL (4.0-5.2); Red Cell Distribution Width 13.9 % (11.6-14.8)
[2019-10-30 12:11] LABS: Alanine Aminotransferase 52 IU/L (<35); Albumin 4.2 g/dL (3.5-5.0); Albumin Globulin Ratio 1.3 (1.0-2.8); Alkaline Phosphatase 73 U/L (38-126); Amylase 100 U/L (30-110); Aspartate Aminotransferase 41 IU/L (14-36); BUN Creatinine Ratio 23.5 (6-22); Bilirubin Total 0.3 mg/dL (0.2-1.3); Blood Urea Nitrogen 16 mg/dL (7-17); Calcium 9.2 mg/dL (8.4-10.2); Carbon Dioxide 27 mmol/L (22-32); Chloride 107 mmol/L (98-107); Estimated Glomerular Filt Rate > 60.0 mL/min (>60); Globulin 3.3 g/dL (1.7-4.1); Glucose 86 mg/dL (70-100); HEMOLYSIS < 15 (0-50); Lipase 141 U/L (23-300); Sodium 140 mmol/L (137-145); Total Protein 7.5 g/dL (6.3-8.2)
[2019-10-30 12:47] LABS: Hepatitis B Surface Antigen NEGATIVE s/c (NEGATIVE)
[2019-10-30 12:59] LABS: HIV 1 & 2 Ab/Ag 4th Gen Combo NEGATIVE (NEGATIVE); Hep C Virus Ab w/Reflex Quant NEGATIVE s/c (NEGATIVE)
[2019-11-01 11:37] LABS: H. Pylori Antigen Stool Negative (Negative)
== END ==
PROVIDERS: PCP Nurse Practitioner; Referring Provider Internal Medicine; Visit Provider Internal Medicine
DX: Z01.419 Encounter for gynecological examination (general) (routine) without abnormal findings (principal); K58.9 Irritable bowel syndrome, unspecified; R10.13 Epigastric pain; A64 Unspecified sexually transmitted disease; Z71.6 Tobacco abuse counseling; Z72.0 Tobacco use
CPT/HCPCS: 36415; 80053; 82150; 83001; 83690; 85025; 86803; 87338; 87340; 87389

== ENCOUNTER → 2020-01-22 11:14 | Outpatient (CLI) | payer OTHER, SELFPAY ==
[2020-01-25 12:11] LABS: COVID19 Sendout Not Detected (Not Detected)
== END ==
PROVIDERS: PCP Nurse Practitioner; Visit Provider Physician Assistant
DX: R05 Cough (principal)
CPT/HCPCS: 87635

== ENCOUNTER → 2020-01-22 11:45 | Outpatient (CLI) | payer OTHER, SELFPAY ==
--- NOTE | 2020-01-22 11:47 | DI.RAD.S_ITS ---
PROCEDURE: XR CHEST 2V INDICATIONS: Cough, chest pressure r/o copd/chf/infection TECHNIQUE: 2 views of the chest were acquired. COMPARISON: [facility], CR, XR CHEST 1V, 08/21/2019, 15:20. FINDINGS: Surgical changes and devices: Right breast surgical clips again noted. Lungs and pleura: Lungs are clear. No pleural effusions or pneumothorax. Mediastinum: Mediastinal contours are normal. Heart size is normal. Bones and chest wall: No suspicious bony abnormalities. Soft tissues appear unremarkable. IMPRESSION: No acute cardiopulmonary process demonstrated radiographically. Dictated by: Lewis Ayala M.D. on 01/22/2020 at 12:09 Approved by: Lewis Ayala M.D. on 01/22/2020 at 12:11
[2020-01-22 12:16] LABS: Add Manual Diff / Slide Review NO; Basophils Absolute Auto 100 /uL (0-100); Basophils Percent Auto 1.1 % (0-2); Eosinophils Absolute Auto 300 /uL (0-450); Eosinophils Percent Auto 3.3 % (2-4); Hematocrit 45.1 % (36-46); Hemoglobin 15.3 g/dL (12.0-16.0); Lymphocytes Absolute Auto 3100 /uL (1100-4500); Lymphocytes Percent Auto 31.1 % (25-40); Mean Corpuscular HGB Conc 34.1 % (30-36); Mean Corpuscular Hemoglobin 30.5 PG (26-34); Mean Corpuscular Volume 89.7 fL (80-100); Monocytes Absolute Auto 800 /uL (0-900); Monocytes Percent Auto 8.3 % (3-14); Neutrophils Absolute Auto 5600 /uL (1500-7000); Neutrophils Percent Auto 56.2 % (50-75); Platelet Count 269 X10^3/uL (150-400); Red Blood Cell Count 5.03 X10^6/uL (4.0-5.2); Red Cell Distribution Width 13.8 % (11.6-14.8)
[2020-01-22 12:30] LABS: Alanine Aminotransferase 59 IU/L (<35); Albumin 4.4 g/dL (3.5-5.0); Albumin Globulin Ratio 1.4 (1.0-2.8); Alkaline Phosphatase 63 U/L (38-126); Aspartate Aminotransferase 45 IU/L (14-36); BUN Creatinine Ratio 17.5 (6-22); Bilirubin Total 0.4 mg/dL (0.2-1.3); Blood Urea Nitrogen 11 mg/dL (7-17); Calcium 9.7 mg/dL (8.4-10.2); Carbon Dioxide 25 mmol/L (22-32); Chloride 109 mmol/L (98-107); Creatine Kinase 57 U/L (30-135); Estimated Glomerular Filt Rate > 60.0 mL/min (>60); Globulin 3.2 g/dL (1.7-4.1); Glucose 75 mg/dL (70-100); HEMOLYSIS 26 (0-50); Potassium 4.1 mmol/L (3.4-5.1); Sodium 140 mmol/L (137-145); Total Protein 7.6 g/dL (6.3-8.2)
[2020-01-22 12:42] LABS: NT-proBNP (BNP-Adult 18+) 36 pg/mL (<125); Troponin I < 0.012 ng/mL (0.01-0.034)
== END ==
PROVIDERS: PCP Nurse Practitioner; Referring Provider Physician Assistant; Visit Provider Physician Assistant
DX: Z20.828 Contact with and (suspected) exposure to other viral communicable diseases (principal); R05 Cough; R07.89 Other chest pain
CPT/HCPCS: 36415; 71046; 80053; 82550; 83880; 84484; 85025; 87635

== ENCOUNTER → 2020-03-21 10:54 | Outpatient (CLI) | payer OTHER, SELFPAY ==
[2020-03-24 06:49] LABS: COVID19 Sendout Not Detected (Not Detect)
== END ==
PROVIDERS: PCP Nurse Practitioner; Visit Provider Nurse Practitioner
DX: Z11.59 Encounter for screening for other viral diseases (principal)
CPT/HCPCS: 87635

== ENCOUNTER 2020-03-24 09:44 | Day surgery (SDC) | payer OTHER, SELFPAY ==
--- NOTE | 2020-03-24 | PATH_ITS ---
[facility] Accession Number: [id number] . 01 Material submitted: . PART A: esophagus - DISTAL ESOPHAGUS BIOPSY PART B: esophagus - PROXIMAL ESOPHAGUS BIOPSY PART C: colon - ASCENDING COLON MASS BIOPSY PART D: rectum - RECTAL SIGMOID AND RECTAL POLYP BIOPSY . 01 Clinical history: . SDC . 02 Diagnosis: A. Distal Esophagus, Biopsy: Squamous epithelium with increased intraepithelial eosinophils (greater than 50 per high-power field). See comment. Negative for dysplasia and malignancy. . B. Proximal Esophagus, Biopsy: Squamous mucosa with increased intraepithelial eosinophils (greater than 50 per high-power field). See comment. Negative for dysplasia and malignancy. . C. Ascending Colon Mass, Biopsy: Tubulovillous adenoma. Negative for high-grade dysplasia or malignancy; please see comment. Additional step sections examined. . D. Rectosigmoid and Rectal Polyp, Biopsy: Fragments of tubular adenoma. [facility] 03/29/2020 1343 Local . 02 Comment: A and B) In the proper clinical setting, the histopathologic appearance would support a clinical impression of eosinophilic esophagitis. The differential diagnosis includes drug reaction, gastroesophageal reflux, and food allergies. . C) The endoscopic impression of an ascending colon mass is noted. There is no evidence of high-grade dysplasia or malignancy in the sampled material. That said, given the endoscopic impression of a mass, assurance of complete removal of the lesion and close clinical followup are recommended. . 02 Electronically signed: . German Bose MD, PhD, Pathologist NPI- [id number] . 01 Gross description: . A. Received in formalin, labeled distal esophagus, and consists of three bright-white fragments of soft tissue measuring 0.5 x 0.5 x 0.2 cm in aggregate. The specimen is entirely submitted in cassette A1. B. Received in formalin, labeled proximal esophagus, and consists of three bright-white fragments of soft tissue measuring 0.6 x 0.5 x 0.2 cm in aggregate. The specimen is entirely submitted in cassette B1. C. Received in formalin, labeled ascending colon mass, and consists of two bright fragments of soft tissue measuring 0.4 x 0.3 x 0.2 cm in aggregate. The specimen is entirely submitted in cassette C1. D. Received in formalin, labeled rectosigmoid and rectal polyp, and consists of two bright-pink polyps measuring 0.5 and 0.5 cm. The specimen is entirely submitted in cassette D1. (EA/[id number]) /MRV 03/25/2020 1258 Local . 02 Pathologist provided ICD-10: K20.0, D12.2, D12.7 . 02 CPT . 614018, [id number], [id number], [id number] Performed at: 01 [facility] [address] [id number] MD Abrahan Duffy MD Phone: [phone] Performed at: 02 [facility] [place] [address] [place] [id number] MD Michelle Luna MD Phone: [phone]
[2020-03-24] MEDS: LACTATED RINGERS 1,000 ML 42 ML IV ×2 (10:35→13:19)
[2020-03-24 10:40] VITALS: BP 131/80; PULSE 101; RESP 16; TEMP 36.7; O2SAT 94; BMI 25.7
--- NOTE | 2020-03-24 12:38 | PM.PREOP ---
Pre-operative Note COVID-19 COVID-19 status: Negative Interval Note History & Physical reviewed/Exam performed by Physician: Yes Changes to H&P: No ASA Class (for procedural sedation): I
--- NOTE | 2020-03-24 12:50 | PM.OP.ENDO ---
Operative Date/Time/Diagnoses Date of procedure: 03/24/20 Procedure & Clinicians Study performed: EGD with biopsy Moderate conscious sedation was administered by the endoscopy nurse and supervised by the endoscopist. The following parameters were monitored: Oxygen saturation, heart rate, blood pressure, and response to care. 4 mg midazolam and 100 mcg fentanyl given Same procedure as scheduled: Yes Indications: Esophageal dysphagia. History of EOE, assess response to therapy Procedure Notes Procedure in detail: Prior to the procedure, history and physical was performed, and patient medications and allergies were reviewed. Preprocedure nursing history and assessment was reviewed. Patient identification and proposed procedure were verified by the physician and nurse in the procedure room. The physical status of the patient was reassessed after the procedure. After informed consent was obtained including risks, benefits, and alternatives, the scope was passed under direct vision. Throughout the procedure, the patient's blood pressure, pulse, and oxygen saturations were monitored continuously. The upper endoscope was introduced through the mouth and advanced to the 2nd portion of the duodenum. Retroflexion was performed in the stomach. The patient tolerated the procedure well. Mucosal changes in the esophagus included mild rings and mild longitudinal furrows throughout the entire esophagus. Biopsies were taken in the proximal and distal esophagus respectively. The Z-line was regular and was located at 40 cm. 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 Biopsied Normal appearing stomach and duodenum Complications: other (EBL minimal, no complications) Post-procedure Plan for aftercare: Follow-up pathology results Colonoscopy today. Additional recommendations to follow
[2020-03-24] MEDS: fentaNYL 250 MCG/5 ML INJ IV (13:09)
[2020-03-24] MEDS: MIDAZOLAM 5 MG/5 ML VIAL IV (13:09)
--- NOTE | 2020-03-24 13:38 | PM.OP.ENDO ---
Operative Date/Time/Diagnoses Date of procedure: 03/24/20 Procedure & Clinicians Study performed: Colonoscopy with biopsy, snare polypectomy, tattoo ink injection, hemoclip placement Moderate conscious sedation was administered by the endoscopy nurse and supervised by the endoscopist. The following parameters were monitored: Oxygen saturation, heart rate, blood pressure, and response to care. 4 mg midazolam and 100 mcg fentanyl given plus medications given during EGD Same procedure as scheduled: Yes Indications: Colon cancer screening. Last colonoscopy was in 2009. Procedure Notes Procedure in detail: Prior to the procedure, history and physical was performed, and patient medications and allergies were reviewed. Preprocedure nursing history and assessment was reviewed. Patient identification and proposed procedure were verified by the physician and nurse in the procedure room. The physical status of the patient was reassessed after the procedure. After informed consent was obtained including risks, benefits, and alternatives, the scope was passed under direct vision. Throughout the procedure, the patient's blood pressure, pulse, and oxygen saturations were monitored continuously. The colonoscope was introduced through the anus and advanced to the cecum as identified by the appendiceal orifice and ileocecal valve. The patient tolerated the procedure well. Bowel prep was deemed adequate to detect polyps greater than 5 mm. KASH and perianal exam, and retroflexion in the rectum notable for grade 2 internal hemorrhoids. Two sessile polyps measuring 7 mm and 9 mm were noted in the rectosigmoid colon and rectum respectively. These were removed with a cold snare and retrieved. A hemoclip was applied to the polypectomy defect in the rectum due to mucosal hemorrhage related to polypectomy. A few small diverticula were noted in the sigmoid colon A 2.5 cm semi pedunculated mass was noted in the proximal ascending colon. This was biopsied. A tattoo was placed using spot ink just proximal and just distal to the mass. Sedation minutes: 53 Complications: other (EBL minimal. No complications) Post-procedure Plan for aftercare: Follow-up pathology results Consider referral to a surgeon for removal of ascending colon mass Make a gastroenterology follow-up appointment Repeat colonoscopy at a date to be determined based on pathology results Resume home medications Resume previous diet Patient has a contact number available for emergencies. The signs and symptoms of potential delayed complications were discussed with the patient. Return to normal activities tomorrow. Written discharge instructions were provided to the patient. Discharge home with escort
[2020-03-24 13:42] VITALS: BP 116/83; PULSE 83; RESP 14; TEMP 37; O2SAT 94
[2020-03-24 13:47] VITALS: BP 113/81; PULSE 86; RESP 23; O2SAT 96
--- NOTE | 2020-03-24 13:49 | SUR.PHASEI ---
hand off to Hector Jones RN
[2020-03-24 13:53] VITALS: BP 130/89; PULSE 91; RESP 14; O2SAT 97
[2020-03-24 13:57] VITALS: BP 129/87; PULSE 89; RESP 15; TEMP 36.2; O2SAT 96
[2020-03-24 14:10] VITALS: BP 121/84; PULSE 90; RESP 16; TEMP 36.6; O2SAT 97
--- NOTE | 2020-03-24 14:24 | SUR.PHASEII ---
Pt dcd in stable condition via wc with all dc instructions pt verbalized understanding.
== END 2020-03-24 14:21 | disposition home or self-care (01) ==
PROVIDERS: PCP Nurse Practitioner; Referring Provider Internal Medicine; Visit Provider Internal Medicine
PROC: 0DJ08ZZ Inspection of Upper Intestinal Tract, Via Natural or Artificial Opening Endoscopic (ICD-10-PCS; CPT 43235; principal; 2020-03-24 11:00)
PROC: 0DJD8ZZ Inspection of Lower Intestinal Tract, Via Natural or Artificial Opening Endoscopic (ICD-10-PCS; CPT 45378; 2020-03-24 11:00)
DX: Z12.11 Encounter for screening for malignant neoplasm of colon (principal); Z86.010 Personal history of colon polyps; K57.30 Diverticulosis of large intestine without perforation or abscess without bleeding; K64.1 Second degree hemorrhoids; K20.0 Eosinophilic esophagitis; D12.2 Benign neoplasm of ascending colon; D12.7 Benign neoplasm of rectosigmoid junction
CPT/HCPCS: 45385; 45381; 45382; 45380; 43239; J2250; J3010

== ENCOUNTER → 2020-04-29 13:12 | Outpatient (CLI) | payer OTHER, SELFPAY ==
[2020-04-29 14:09] LABS: Alanine Aminotransferase 63 IU/L (<35); Albumin 4.4 g/dL (3.5-5.0); Albumin Globulin Ratio 1.4 (1.0-2.8); Alkaline Phosphatase 70 U/L (38-126); Aspartate Aminotransferase 47 IU/L (14-36); Bilirubin Total 0.5 mg/dL (0.2-1.3); Bilirubin Unconjugated 0.5 mg/dL (0.0-1.1); Globulin 3.1 g/dL (1.7-4.1); HEMOLYSIS < 15 (0-50); Total Protein 7.5 g/dL (6.3-8.2)
== END ==
PROVIDERS: PCP Nurse Practitioner; Referring Provider Internal Medicine; Visit Provider Internal Medicine
DX: R79.89 Other specified abnormal findings of blood chemistry (principal)
CPT/HCPCS: 36415; 80076

== ENCOUNTER → 2020-04-30 14:01 | Outpatient (CLI) | payer OTHER, SELFPAY ==
[2020-05-01 19:20] LABS: COVID19 Sendout Not Detected (Not Detect)
== END ==
PROVIDERS: PCP Nurse Practitioner; Visit Provider Physician Assistant
DX: Z11.59 Encounter for screening for other viral diseases (principal)
CPT/HCPCS: 87635

== ENCOUNTER 2020-05-03 09:53 | Inpatient (IN) | payer OTHER, SELFPAY ==
[2020-04-26 10:03] VITALS: BMI 23.0
[2020-05-03] VITALS (18 sets, daily range): BP systolic 89–127; BP diastolic 50–96; PULSE 80–104; RESP 10–22; TEMP 36.2–37.2; O2SAT 91–99; BMI 23.0
--- NOTE | 2020-05-03 | PATH_ITS ---
[facility] Accession Number: [id number] . 01 Material submitted: . colon - RIGHT HEMICOLECTOMY . 02 Diagnosis: Right Hemicolectomy: 1. Tubulovillous adenoma, 3 cm. 2. Appendix with no diagnostic abnormality. 3. All margins are negative for neoplasm. 4. Negative for malignancy or high-grade dysplasia. MRV 05/06/2020 1526 Local . 02 Electronically signed: . Michelle Luna MD, Pathologist NPI- [id number] . 01 Gross description: . The specimen is received in formalin, labeled right hemicolectomy and consists of a 2.5 cm in length x 2.5 cm in diameter portion of terminal ileum with attached cecum and ascending colon, measuring 15 cm in length x 6.0 cm in circumference. The proximal and distal margins are stapled. The serosa is bright-pink and smooth, and there is a moderate amount of attached mesenteric adipose tissue. The attached appendix measures 5.0 cm in length x 0.5 cm in diameter and displays a bright-pink smooth serosa. Sectioning reveals a bright mucosa and a lumen measuring 0.2 cm in diameter. The specimen is opened to reveal a 3.0 x 2.5 x 1.2 cm bright-pink exophytic mass within the ascending colon, located greater than 5 cm from the proximal and distal margins. Sectioning reveals no gross extension into the muscularis propria. The mass comes to within 2.5 cm from the nearest mesenteric margin. The remaining mucosa is brihgt-pink with normal mucosal folds, and the wall thickness ranges from 0.1 to 0.2 cm. There is a 15.0 x 8.5 x 4.0 cm portion of attached omentum with bright-yellow lobulated cut surfaces. Sectioning through the attached adipose tissue reveals multiple lymph nodes ranging from 0.2 to 0.4 cm. Also, identified is a 2.0 x 2.0 cm area of submucosal tattooing within the cecum, located 1.5 cm from the mass. Clerk Typist sections are submitted. . A1 - Proximal margin, sales and merchandising representative perpendicular sections (blue). A2 - Distal margin, sales and merchandising representative perpendicular sections (blue). A3 - Closest mesenteric margin, sales and merchandising representative perpendicular sections (blue). A4-A5 - Full thickness mass. A6 - Remainder of mass. A7 - Ileocecal valve. A8 - Appendix, cross-sections and bisected tip. A9 - Clerk Typist omentum. A10-A11 - Intact lymph nodes. A12 - Clerk Typist submucosal tattooing. ([id number]) /[facility] 05/04/2020 1737 Local . 02 Pathologist provided ICD-10: D12.2 . 02 CPT . 180349 Performed at: 01 [facility] [address] [address] [place] [address], [place], [place] [id number] MD Abrahan Duffy MD Phone: [phone] Performed at: 02 [facility] [address] [place] [id number] MD Michelle Luna MD Phone: [phone]
[2020-05-03] MEDS: LACTATED RINGERS 1,000 ML 100 ML IV ×3 (10:20→13:37)
[2020-05-03] MEDS: levoFLOXacin 500 MG/100 ML PIGGYBACK 100 MG IV (10:25)
--- NOTE | 2020-05-03 10:25 | PM.PREOP ---
Pre-operative Note COVID-19 COVID-19 status: Negative Result date/Date tested (Pos, Neg/Pending): 04/30/20 Interval Note History & Physical reviewed/Exam performed by Physician: Yes Changes to H&P: Yes H&P completed within 30 days and has changed as indicated here:: Patient hypoglycemic this morning. She is not diabetic and takes no medication to reduce her blood glucose. Given a half amp of but 50% dextrose.
[2020-05-03] MEDS: DEXTROSE 50 % IN WATER 25 GM/50 ML SYRINGE IV (10:26)
--- NOTE | 2020-05-03 10:47 | SUR.PREOP ---
Pt arrived, stated she was very nervous about pending surgery. Pt diaphoretic, blood sugar checked per orders, 48, rechecked at 47, Dr Alcaraz here, 1/2 amp glucose ordered and administered. Pt with no further diaphoresis, attentive.
--- NOTE | 2020-05-03 11:07 | SUR.PREOP ---
repeat blood sugar 89, lab up and ordered blood drawn.
[2020-05-03] MEDS: metroNIDAZOLE 500 MG/100 ML PIGGYBACK 100 MG IV (11:18)
[2020-05-03 11:26] LABS: Add Manual Diff / Slide Review NO; Basophils Absolute Auto 100 /uL (0-100); Basophils Percent Auto 1.2 % (0-2); Eosinophils Absolute Auto 300 /uL (0-450); Eosinophils Percent Auto 3.4 % (2-4); Hematocrit 46.1 % (36-46); Hemoglobin 15.4 g/dL (12.0-16.0); Lymphocytes Absolute Auto 2300 /uL (1100-4500); Lymphocytes Percent Auto 22.6 % (25-40); Mean Corpuscular HGB Conc 33.5 % (30-36); Mean Corpuscular Hemoglobin 29.9 PG (26-34); Mean Corpuscular Volume 89.4 fL (80-100); Monocytes Absolute Auto 800 /uL (0-900); Monocytes Percent Auto 7.9 % (3-14); Neutrophils Absolute Auto 6500 /uL (1500-7000); Neutrophils Percent Auto 64.9 % (50-75); Platelet Count 260 X10^3/uL (150-400); Red Blood Cell Count 5.16 X10^6/uL (4.0-5.2); Red Cell Distribution Width 13.4 % (11.6-14.8); White Blood Cell Count 10.1 X10^3/uL (4.5-11.0)
[2020-05-03 11:35] LABS: Prothrombin Time 11.7 SECONDS (10.1-12.7)
--- NOTE | 2020-05-03 11:36 | SUR.OPER ---
Lithotomy on padded OR bed. [place] Pad Positioner under torso. Head on pillow, left arm padded and tucked at side, right arm supported on armboard. Legs secured in padded yellow fins stirrups.
[2020-05-03 11:38] LABS: PTT Partial Thromboplastin Tim 32 SECONDS (26.4-36.2)
[2020-05-03] MEDS: BUPIVACAINE 0.5% (PF) VIAL 30 ML INJ (12:10)
--- NOTE | 2020-05-03 15:46 | P.OP_ITS ---
Operative Date/Time/Diagnoses Date of procedure: 05/03/20 Time of procedure: 15:46 Pre-op diagnosis: Neoplasm of uncertain behavior in the ascending colon. Post-op diagnosis: same Procedure & Clinicians Procedure: Laparoscopic Right hemicolectomy with primary and end anastomosis Same procedure as scheduled: Yes Indications: Patient has a lesion in her ascending colon too large to snare. Biopsies consistent with adenoma however patient did not want read biopsied and wanted this treated with a more extensive resection than just a simple resection of the lesion. She was brought in for right colon resection after outpatient bowel prep that included oral antibiotics. Surgeon: Casper Alcaraz Manager Food Beverage: Mitchell Oliver Anesthesia Type: General Operative Notes Findings: Fairly large polyp in the ascending colon. Limited mobility of the terminal ileum. Closure Type: primary Specimen(s): other (Right colon) Estimated Blood Loss (mL): 50 Blood products transfused: none Procedure in detail: The patient was placed supine on the operating room table u nderwent general endotracheal anesthesia. She had a Moy placed and was put in low lithotomy. Patient was prepped and draped the usual fashion. Small incision was made beneath the umbilicus through an old scar and carried under direct vision in the peritoneal cavity. Stay sutures of 0 Vicryl were placed and the fascia. A 12 mm port was inserted. Two additional ports were placed 1 in the upper mid abdomen and 1 in the left upper quadrant. Dissection was begun along the ascending colon where the ink injection area was quite visible. Attachments of the colon to this area were taken down using the Harmonic scalpel. I divided the attachments along the transverse colon and dissected it inferiorly. I returned to the right colon and dissected all along the right colon flipping it medially to the point where I could easily see the duodenum. The terminal ileum was somewhat stuck down and I dissected it is best I could and felt I had adequately done so. I then decided to complete the operation and removed the colon through a small midline incision. Vertical midline incision was made and carried in the peritoneal cavity. An Trini was inserted to protect the skin From contamination. The colon was easily delivered into the wound but the terminal ileum had limited mobility. With great difficulty I was able to expose the attachments and divide them. I literally have to had to dissect this off the 3rd portion of the duodenum. Ultimately was mobile enough to bring into the wound but not so mobile that I could do a stapled anastomosis. Therefore I cleaned the edges of the cut ends and placed a back wall of interrupted 3 0 silk sutures. The staple lines were removed and a running classic Symone inner layer of 3 0 Vicryl was placed. That another outer layer on the anterior wall of interrupted 3 0 silk. The anastomosis was tested and palpated and appeared to be patent with no leak. The abdomen was irrigated and suctioned free of fluid. There was no ongoing bleeding noted. The midline fascia was closed with a a running 0 PDS double-stranded suture and occasional interrupted [id number] o Vicryl. The subcu was irrigated and loosely reapproximated with 3 0 Vicryl the skin was closed a running 4 0 Vicryl subcuticular stitch and interrupted Vicryl is in the 2 other port sites that remained. And occasional interrupted 5 O nylon was used around the umbilicus to approximate the skin there well. Mastisol and Steri-Strips were applied and the dressing was applied the patient was awakened extubated taken recovery room good condition. Complications: none Post-operative Condition: stable Disposition: PACU Plan for aftercare: admit
[2020-05-03] MEDS: fentaNYL 100 MCG/2 ML INJ IV ×4 (15:50→16:55)
[2020-05-03] MEDS: HYDROMORPHONE 2 MG INJ IV ×4 (16:00→16:15)
[2020-05-03] MEDS: diphenhydrAMINE 50 MG/ML VIAL 25 MG IV ×2 (16:30→17:10)
--- NOTE | 2020-05-03 16:58 | SUR.PHASEI ---
Report called to THOMAS Browning
--- NOTE | 2020-05-03 17:28 | SUR.PHASEI ---
Pt transferred upstairs to room 208 in stable condition and handoff to THOMAS Browning in room
[2020-05-03] MEDS: LACTATED RINGERS 1,000 ML 125 ML IV (17:45)
[2020-05-03] MEDS: hydrOXYzine pamoate 25 MG CAPSULE PO ×2 (17:45→21:21)
[2020-05-03] MEDS: KETOROLAC 30 MG/ML VIAL IV (17:56)
[2020-05-03] MEDS: NICOTINE 21 MG PATCH TOP (18:58)
[2020-05-03] MEDS: GABAPENTIN 300 MG CAPSULE PO (20:08)
[2020-05-03] MEDS: HYDROMORPHONE 1 MG INJ IV (20:08)
[2020-05-03] MEDS: LORazepam 2 MG/ML INJ 1 MG IV (22:52)
[2020-05-03] MEDS: TRAMADOL 50 MG TABLET 100 MG PO (22:52)
--- NOTE | 2020-05-03 23:29 | PC.NURSE ---
Evening Shift/Admit Note- Patient arrived to room via bed from PACU at 1915. Patient alert and oriented and able to make needs known to staff. Patient complaints of abdominal pain at 8-10/10. PRN pain medications given as ordered. Patient NPO except for chips and sips. dressing to abdomin c/d/i. admit questions done, medications reviewed, physical assessment done, and skin check completed. Oriented patient to bed and bed cointrols, room, lights, phone, and call max/tv remote. Safety measures in place. bed alarm activated. Call max and phone within reach. will continue to monitor.
[2020-05-04] VITALS (10 sets, daily range): BP systolic 108–132; BP diastolic 57–80; PULSE 83–115; RESP 16–20; TEMP 37.2–37.9; O2SAT 94–98
[2020-05-04] MEDS: HYDROMORPHONE 1 MG INJ IV ×5 (00:10→16:19)
[2020-05-04] MEDS: LACTATED RINGERS 1,000 ML 125 ML IV ×3 (01:36→17:12)
[2020-05-04] MEDS: KETOROLAC 30 MG/ML VIAL IV ×3 (04:39→20:04)
[2020-05-04 05:36] LABS: Add Manual Diff / Slide Review NO; Basophils Absolute Auto 100 /uL (0-100); Basophils Percent Auto 0.4 % (0-2); Eosinophils Absolute Auto 0 /uL (0-450); Hematocrit 38.5 % (36-46); Hemoglobin 12.8 g/dL (12.0-16.0); Lymphocytes Absolute Auto 1200 /uL (1100-4500); Mean Corpuscular HGB Conc 33.2 % (30-36); Mean Corpuscular Hemoglobin 29.6 PG (26-34); Mean Corpuscular Volume 89.1 fL (80-100); Monocytes Absolute Auto 1000 /uL (0-900); Monocytes Percent Auto 5.8 % (3-14); Neutrophils Absolute Auto 15000 /uL (1500-7000); Neutrophils Percent Auto 86.8 % (50-75); Platelet Count 230 X10^3/uL (150-400); Red Blood Cell Count 4.32 X10^6/uL (4.0-5.2); Red Cell Distribution Width 13.5 % (11.6-14.8); White Blood Cell Count 17.2 X10^3/uL (4.5-11.0)
[2020-05-04 05:47] LABS: BUN Creatinine Ratio 15.4 (6-22); Blood Urea Nitrogen 10 mg/dL (7-17); Calcium 8.7 mg/dL (8.4-10.2); Carbon Dioxide 26 mmol/L (22-32); Chloride 109 mmol/L (98-107); Estimated Glomerular Filt Rate > 60.0 mL/min (>60); Glucose 125 mg/dL (70-100); HEMOLYSIS < 15 (0-50); Magnesium 1.8 mg/dL (1.6-2.3); Sodium 138 mmol/L (137-145)
--- NOTE | 2020-05-04 08:27 | PC.NURSE ---
Day shift: Per Dr Alcaraz telephone order it is ok for Pt to have PO medications at this time.
[2020-05-04] MEDS: NICOTINE 21 MG PATCH TOP (08:35)
[2020-05-04] MEDS: GABAPENTIN 300 MG CAPSULE PO ×2 (08:35→20:04)
[2020-05-04] MEDS: hydrOXYzine pamoate 25 MG CAPSULE PO ×2 (08:35→11:58)
[2020-05-04] MEDS: ENOXAPARIN 40 MG/0.4 ML SYRINGE SUBCUT (08:36)
[2020-05-04] MEDS: diphenhydrAMINE 50 MG/ML VIAL 25 MG IV ×2 (08:37→11:58)
[2020-05-04] MEDS: ACETAMINOPHEN 325 MG TABLET 650 MG PO (12:04)
--- NOTE | 2020-05-04 15:53 | CM.DANOTE ---
Addendum entered by Nikia Galindo 05/19/20 17:03: Received call on 05-19-20 from NATHAN/Diane phone# [phone]. Diane requesting clarification of admit and d/c dates. Clinical faxed as requested to [phone] case# [id number]. Diane requesting clinical from patient's first visit which was 05-03 thru 05-06-20. HERON/Lizzeth notified and will follow up as requested by insurance carrier. WILLIAMS Original Note: DCP/Assessment: Reviewed chart. Patient is a 49yr old female admitted to [facility] for right hemicolectomy performed on 05-03-[address] Alcaraz. PCP listed is Destiny Mckeon. Primary payor is 1)Healthcare Management. Met with patient explained CM/SW role. Patient reports that she is in a lot of pain. RN notified. Current d/c plan is for patient to d/c home when medically stable. Patient reports that she resides with her family and is completely I in all ADL's. P: Home when stable. CM team to continue to follow. INEZ Eaton Discharge Planning/Care Management CM Discharge Assessment Start: 05/04/20 15:14 Freq: Status: Active Protocol: Document 05/04/20 15:14 WILLIAMS (Rec: 05/04/20 15:53 KJ [id number]) Discharge Planning Assessment Assigned Medical Records Analyst INEZ Eaton Contact Information Carlos A Fields (spouse) [phone] Advance Directives? No History Provided By Patient Prior Living Arrangements Apartment/Condo Household Members spouse Type of transporation used prior to Drives own vehicle admit Independent with ADL's Yes Is patient alert and oriented? Yes Caregiver for Another No Barriers to Discharge No Transportation Arrangement Family to provide transport. Referrals Initiated None needed Whiteboard Updated in Patient Room with Yes name and ext. # of Medical Records Analyst Review Status In Process Next Review Type Continued Stay Review Pre-Anesthesia Assessment Start: 04/26/20 10:03 Freq: Status: Complete Protocol: Document 04/26/20 10:03 CAB (Rec: 04/26/20 10:40 CAB [id number]) Pre-Anesthesia Assessment PAC Comment Difficult IV start, I was poked 6 times last time and it was an awful experience Pt would like a nicotine patch for inpatient stay Preferred Name Kellie Patient Information Reviewed Via Phone Assessment Assessment Completed With Patient Comment COVID screen @ 04/30/20 Primary Care Provider Destiny Mckeon Seen Specialist in Last 12 Months Yes Specialist Seen General surgeon,Other Comment GI Primary Language Congolese Preferred Language Congolese Height 175.26 cm Weight 70.76 kg Body Mass Index (BMI) 23.0 Hearing Ability Normal Visual Assist Glasses Dentition Type Full- Upper & Lower Barriers to Learning None Hx Anesthesia Reactions No Hx Family Anesthesia Reaction No Hx Malignant Hyperthermia No Hx Blood Transfusions No Hx Blood Transfusion Reaction No Anesthesia Review Requested No alcohol intake current alcohol intake frequency a few times a month Smoking Status Current every day smoker Tobacco type cigarettes Smoking cigarettes per day 8 Substance Use Type does not use Pain Present Pain Reported Comment Colon from biopsy area History of Falling (Recent or History of No ) Patient is completely paralyzed or No completely immobile Mental Status Oriented to own ability Is patient on oxygen? No Does patient have TOBIAS/SOB Yes: Because I smoke Hx Sleep Apnea No CPAP/BIPAP use not prescribed Currently Taking a Beta Edith No Can You Climb a Flight of Stairs Without No: Because I smoke SOB Hx Chest Pain No Hx SOB No Hx Syncope or Dizziness No Anti-Coagulant Therapy No Has a Fixture Fabricator Repairer No Cardiac Testing No Hx Pacemaker/ICD No Pacemaker Rep Required? No Diet Type At Home Gluten Free dysphagia Yes: Also diary-free. Difficulty w/breads, chicken, noodles, rice Gastrointestinal Symptoms Abdominal Pain,Bloating, Constipation,Cramping,Diarrhea ,Painful Swallowing Bladder Pattern Urgency Urinary Catheter Present No Hx Urinary Self Catheterization No Diabetes No Patient No Lactating No Hx Drug Resistant Organism No Presence of External or Internal Medical Yes: Cervical hardware Devices Have you had any close contact with Yes: 4 months ago someone diagnosed with COVID-19? Marital Status Lives With spouse Prior Living Arrangements Apartment/Condo Support System Child/Children,Spouse Does the Patient Have Assistance After Yes Surgery Patient Discharge Plan Description Return Home Comment Pt advised 3-4 day length of stay per surgeon Feels Safe in Current Environment Yes Been Physically Hurt or Threatened By a No Person in Current Environment Do you have thoughts of harming yourself None or others? Are you currently considering suicide? No Do you have a plan to hurt yourself or No Plan others? Do You Have Any Spiritual Beliefs That No May Affect Your HC Choices? Do You Have Any Cultural Practices That No May Affect Your HC Choices? Comment Alonzo Who Can We Speak to About Patient's Care Family, friends Identifying Code for Release of Patient Declines to issue Information Health Care Proxy/Next of Kin [place] (daughter) Health Care Proxy Emergency Contact Name Carlos A () Emergency Contact Advance Directives? No Power of Display Associate No PAC Instructions No ETOH/petroleum product on skin DOS,NPO,Pre-op antibiotic ,Pre-surgical wash,Sturdy shoes/comfortable clothes,Do not bring valuables and remove jewelry
--- NOTE | 2020-05-04 19:52 | PM.PNPO.1 ---
Subjective Subjective Date Patient Seen: 05/04/20 Time Patient Seen: 19:52 Interval history: Patient was OOB today. She has had several loose stools and is passing flatus. c/o severe pain. still itching. dilaudid not helping pain much Exam Vital Signs (past 8 hours): - 05/04/20 12:04 05/04/20 12:30 05/04/20 14:17 Temperature 100.1 F H 100.1 F H 100.2 F H Pulse Rate 103 H Respiratory Rate 18 Blood Pressure 125/77 Pulse Oximetry 94 05/04/20 15:25 05/04/20 16:45 05/04/20 19:22 Temperature 99.4 F 99.6 F 98.9 F Pulse Rate 98 H 99 H Respiratory Rate 17 16 Blood Pressure 121/80 132/79 Pulse Oximetry 94 94 Oxygen Delivery Method Room Air Oxygen Flow Rate 0 Narrative Exam Narrative: lungs decrease breath sounds in the bases. Clear anteriorly. heart rrr. abd moderately distended but soft. Dressing intact. One small area of drainage. Objective Labs Result Diagrams: 05/04/20 05:00 05/04/20 05:00 Labs: Laboratory Results - last 24 hr 05/04/20 05/04/20 05:00 05:00 WBC 17.2 H D RBC 4.32 Hgb 12.8 Hct 38.5 MCV 89.1 MCH 29.6 MCHC 33.2 RDW 13.5 Plt Count 230 Neut % (Auto) 86.8 H D Lymph % (Auto) 7.0 L [place] % (Auto) 5.8 Eos % (Auto) 0.0 L Baso % (Auto) 0.4 Neut # (Auto) 44086 H Lymph # (Auto) 1200 [place] # (Auto) 1000 H Eos # (Auto) 0 Baso # (Auto) 100 Sodium 138 Potassium 4.0 Chloride 109 H Carbon Dioxide 26 BUN 10 Creatinine 0.65 Estimated GFR > 60.0 BUN/Creatinine Ratio 15.4 Glucose 125 H Calcium 8.7 Magnesium 1.8 Assessment & Plan Post-op Postoperative Procedures: Procedures Operation Date: 05/03/20 11:15 Actual Procedures Side Surgeon p Laparoscopic Right Hemicolectomy Right Casper Alcaraz MD Postoperative status: doing well Postoperative status narrative: pain control limited by rx to narcotics. will try to rely more on NSAIA and ativan. Postoperative plan narrative: work on deep breathing. Encourage ambulation. Will try to advance diet cautiously. check labs in AM
[2020-05-04] MEDS: LORazepam 2 MG/ML INJ 1 MG IV (20:04)
[2020-05-05 01:10] VITALS: BP 125/77; PULSE 104; RESP 18; TEMP 36.6; O2SAT 95
[2020-05-05] MEDS: HYDROMORPHONE 1 MG INJ IV (01:19)
[2020-05-05] MEDS: LACTATED RINGERS 1,000 ML 125 ML IV (01:22)
[2020-05-05] MEDS: LORazepam 2 MG/ML INJ 1 MG IV (03:43)
[2020-05-05] MEDS: KETOROLAC 30 MG/ML VIAL IV ×4 (03:43→20:14)
[2020-05-05 04:20] VITALS: BP 133/77; PULSE 96; RESP 18; TEMP 36.8; O2SAT 92
[2020-05-05 06:12] LABS: Add Manual Diff / Slide Review NO; Basophils Absolute Auto 100 /uL (0-100); Basophils Percent Auto 0.8 % (0-2); Eosinophils Absolute Auto 100 /uL (0-450); Eosinophils Percent Auto 0.9 % (2-4); Hematocrit 34.3 % (36-46); Hemoglobin 11.5 g/dL (12.0-16.0); Lymphocytes Absolute Auto 2800 /uL (1100-4500); Lymphocytes Percent Auto 24.7 % (25-40); Mean Corpuscular HGB Conc 33.5 % (30-36); Mean Corpuscular Hemoglobin 30.1 PG (26-34); Monocytes Absolute Auto 800 /uL (0-900); Monocytes Percent Auto 6.7 % (3-14); Neutrophils Absolute Auto 7600 /uL (1500-7000); Neutrophils Percent Auto 66.9 % (50-75); Platelet Count 202 X10^3/uL (150-400); Red Blood Cell Count 3.81 X10^6/uL (4.0-5.2); Red Cell Distribution Width 13.8 % (11.6-14.8); White Blood Cell Count 11.4 X10^3/uL (4.5-11.0)
[2020-05-05 06:34] LABS: BUN Creatinine Ratio 13.3 (6-22); Blood Urea Nitrogen 8 mg/dL (7-17); Calcium 8.1 mg/dL (8.4-10.2); Carbon Dioxide 31 mmol/L (22-32); Chloride 109 mmol/L (98-107); Estimated Glomerular Filt Rate > 60.0 mL/min (>60); Glucose 104 mg/dL (70-100); HEMOLYSIS < 15 (0-50); Potassium 3.4 mmol/L (3.4-5.1); Sodium 139 mmol/L (137-145)
[2020-05-05 08:00] VITALS: BP 129/83; PULSE 97; RESP 15; TEMP 36.7; O2SAT 96
[2020-05-05] MEDS: TRAMADOL 50 MG TABLET 100 MG PO ×3 (08:57→19:13)
[2020-05-05] MEDS: GABAPENTIN 300 MG CAPSULE PO ×2 (09:04→20:14)
[2020-05-05] MEDS: SODIUM CHLORIDE 0.9% FLUSH 10 ML IV ×2 (09:04→20:14)
[2020-05-05] MEDS: ENOXAPARIN 40 MG/0.4 ML SYRINGE SUBCUT (09:04)
[2020-05-05] MEDS: NICOTINE 21 MG PATCH TOP (09:04)
--- NOTE | 2020-05-05 10:24 | PC.NURSE ---
Addendum entered by Nell Mendoza R.N. 05/05/20 13:47: Patient given toradol around 1300. She states that no pain medication is really effective for her pain but she wants to keep the tramadol and toradol going. No ativan needed. Patient has been calm and not anxious this shift. She is resting now. Original Note: Patient given toradol and tramadol for discomfort. She has been up to the bathroom and had a loose bowel movement and is voiding. She has a ml incision that is dressed and cdi. Steady on her feet with walker. Abdomen is distended but bowel tones are active x4. She tolerated her full liquid diet, but states that she may have eaten to fast. This RN encouraged her to eat slowly before the meal was brought. She has no nausea, and was able to get her po meds down fine. Resting in bed now.
[2020-05-05 11:00] VITALS: BP 149/96; PULSE 106; RESP 16; TEMP 37.4; O2SAT 96
--- NOTE | 2020-05-05 15:03 | P.PN_ITS ---
Subjective Subjective Date Patient Seen: 05/05/20 Time Patient Seen: 15:03 Interval history: Patient complains of continued pain. She is moving she says much better. Breathing better. She would like to shower. Tolerated full liquids but found that she could not eat many the items brought because she does not tolerate them. She did not make me aware of these issues but I have since the changed my dietary orders. Exam Vital Signs (past 8 hours): - 05/05/20 08:00 05/05/20 11:00 Temperature 98.0 F 99.3 F Pulse Rate 97 H 106 H Respiratory Rate 15 16 Blood Pressure 129/83 149/96 H Pulse Oximetry 96 96 Oxygen Delivery Method Room Air Oxygen Flow Rate 0 Narrative Exam Narrative: Cooperative in no apparent distress. Moving freely as compared other days. Lungs are clear. Good respiratory effort. Heart regular rate and rhythm without murmur gallop. Abdomen is still mildly distended but soft. The midline is intact. No cellulitis. Dressing was removed. Objective Labs Result Diagrams: 05/05/20 05:45 05/05/20 05:45 Labs: Laboratory Results - last 24 hr 05/05/20 05/05/20 05:45 05:45 WBC 11.4 H RBC 3.81 L Hgb 11.5 L Hct 34.3 L MCV 90.0 MCH 30.1 MCHC 33.5 RDW 13.8 Plt Count 202 Neut % (Auto) 66.9 Lymph % (Auto) 24.[address] [place] [place] % (Auto) 6.7 Eos % (Auto) 0.9 L Baso % (Auto) 0.8 Neut # (Auto) 7600 H Lymph # (Auto) 2800 [place] # (Auto) 800 Eos # (Auto) 100 Baso # (Auto) 100 Sodium 139 Potassium 3.4 Chloride 109 H Carbon Dioxide 31 BUN 8 Creatinine 0.60 Estimated GFR > 60.0 BUN/Creatinine Ratio 13.3 Glucose 104 H Calcium 8.1 L Assessment & Plan Post-op Postoperative Procedures: Procedures Operation Date: 05/03/20 11:15 Actual Procedures Side Surgeon p Laparoscopic Right Hemicolectomy Right Casper Alcaraz MD Postoperative day: 2 Postoperative status narrative: Patient doing much better today. Still experiencing some pain issues which have not responded to the variety of meds she is on. Tolerating diet. Postoperative plan narrative: Will stop her IV fluids and lower to shower. Adjusted her diet. Regular food in the morning.
[2020-05-05 15:25] VITALS: BP 146/96; PULSE 94; RESP 16; TEMP 36.6; O2SAT 94
[2020-05-05 19:50] VITALS: BP 144/87; PULSE 103; RESP 16; TEMP 36.6; O2SAT 96
--- NOTE | 2020-05-05 20:17 | PC.NURSE ---
Patient reports no change in her pain level despite multiple modalities but would like to keep taking them. aware.
[2020-05-06] VITALS: BP 134/82; PULSE 98; RESP 18; TEMP 37.2; O2SAT 96
[2020-05-06] MEDS: ACETAMINOPHEN 325 MG TABLET 650 MG PO ×3 (00:05→13:29)
[2020-05-06] MEDS: LORazepam 2 MG/ML INJ 1 MG IV ×2 (00:05→06:15)
[2020-05-06 08:10] VITALS: BP 135/96; PULSE 94; RESP 16; TEMP 37.1; O2SAT 96
[2020-05-06] MEDS: ENOXAPARIN 40 MG/0.4 ML SYRINGE SUBCUT (08:25)
[2020-05-06] MEDS: TRAMADOL 50 MG TABLET 100 MG PO (08:25)
[2020-05-06] MEDS: NICOTINE 21 MG PATCH TOP (08:26)
[2020-05-06] MEDS: GABAPENTIN 300 MG CAPSULE PO (08:26)
[2020-05-06] MEDS: KETOROLAC 30 MG/ML VIAL IV (08:26)
[2020-05-06] MEDS: SODIUM CHLORIDE 0.9% FLUSH 10 ML IV (08:31)
[2020-05-06] MEDS: hydrOXYzine pamoate 25 MG CAPSULE PO (08:31)
[2020-05-06] MEDS: ONDANSETRON 4 MG/2 ML INJ IV (12:22)
[2020-05-06] MEDS: diphenhydrAMINE 50 MG/ML VIAL 25 MG IV (12:22)
[2020-05-06] MEDS: HYDROMORPHONE 2 MG TABLET PO (13:29)
[2020-05-06] MEDS: LORazepam 1 MG TABLET PO (13:29)
--- NOTE | 2020-05-09 14:53 | P.DS_ITS ---
History of Present Illness History of Present Illness Chief complaint: Right Laparoscopically Assisted Colectomy Discharge Providers Provider Date of admission: 05/03/20 09:53 Discharge Date: 05/06/20 Primary care physician: JENNIFER Carey Consults: 04/26/20 10:40 Consult to Respiratory Therapy Evaluate & Treat Comment: INPT 05/03-Pt is wanting a nicotine patch Physician Instructions: Evaluate and treat 05/03/20 10:25 Consult to Respiratory Therapy Evaluate & Treat Comment: Physician Instructions: Evaluate and treat 05/03/20 10:41 Consult to Respiratory Therapy Evaluate & Treat Comment: Physician Instructions: Evaluate and treat 05/03/20 17:23 Consult to Discharge Planning Routine Comment: Discharge provider: Casper Alcaraz MD Summary Hospital Course Discharge Diagnosis: Tubulovillous adenoma of the ascending colon. Postoperative anemia acute Eosinophilic esophagitis chronic Chronic tobacco use Hospital Course: Patient underwent a right hemicolectomy with a primary anastomosis. Her postoperative course was smooth. She did have a fair amount of itching related to narcotic use which is a chronic problem for her. We tried multiple narcotics ended up settling for oxycodone on discharge. She was discharged on a general diet. Status at Discharge Cognitive/behavioral status at discharge: oriented Functional status at discharge: independent ambulation Overall status at discharge: patient is progressing back to baseline Exam Vital Signs (past 8 hours): Oxygen Delivery Method Room Air Oxygen Flow Rate 0 Narrative Exam Narrative: Lungs were clear no rales or rhonchi. Excellent effort. Heart regular rate and rhythm without murmur gallop. Abdomen is soft mild tenderness in the right upper quadrant. Incision is intact. No cellulitis. Objective Labs Result Diagrams: 05/05/20 05:45 05/05/20 05:45 Discharge Plan Discharge Plan Patient Disposition: Home Provider Discharge Comment: If you become constipated use a laxative such as milk of magnesia. If you have any questions or problems please call our office. You should take a multiple vitamin that has iron in it each day for the next 2 months. Discharge orders & Medications Prescriptions: New oxycodone 5 mg tablet See Rx Instructions .ROUTE .COMPLEX PRN (Reason: pain) Qty: 25 RF: 0 Continued Chantix Starting Month Box 0.5 mg (11)- 1 mg (42) tablets,dose pack See Rx Instructions PO PER PKG DIR Qty: 53 RF: 0 budesonide 0.5 mg/2 mL suspension for nebulization See Rx Instructions INHALATION .COMPLEX Qty: 60 RF: 0 amitriptyline 25 mg tablet 25 mg PO BEDTIME RF: 0 Discontinued erythromycin 500 mg tablet See Rx Instructions PO TID Qty: 6 RF: 0 neomycin 500 mg tablet 1 gram PO TID Qty: 6 RF: 0 Follow up/Referrals: Destiny Mckeon ARNP [Primary Care Provider] - Casper Alcaraz MD [Physician] - 05/13/20 1:15 pm (If you need to reach a doctor please call our office. If our office is closed please listen to the entire message and at the end you will be connected to the page felt hat mellowing machine operator who will page the doctor on-call for our practice.) Diet/Activity/Treatments Diet: Diet as Tolerated Activity: Do not drive until pain-free off of medication. Do not lift over 10 lb or strain for the next 6 weeks. You may walk. You may shower. No pool or tub for least 2 weeks. Skin/Wound/Dressing Care Report to your healthcare provider any signs of infection, such as:: increased pain, unusual drainage and unusual redness Visit Report/Discharge Packet Instructions: DI for Colectomy, DI for Laparoscopy, DI for Prescription Opioid Use Visit Report Forms: Patient Portal/API, Stroke Signs & Symptoms Discharge Data Primary Care Provider: Destiny Mckeon Discharges patient from system. Discharge Date/Time: 05/06/20 14:20
== END 2020-05-06 14:20 | disposition home or self-care (01) | DRG 331 ==
PROVIDERS: Admitting Provider Specialist; PCP Nurse Practitioner; Referring Provider Specialist; Visit Provider Specialist
PROC: 0DTE0ZZ Resection of Large Intestine, Open Approach (ICD-10-PCS; principal; 2020-05-03 11:15)
DX: D12.2 Benign neoplasm of ascending colon (principal); K20.0 Eosinophilic esophagitis; F17.210 Nicotine dependence, cigarettes, uncomplicated
CPT/HCPCS: 36415; 44204; 80048; 83735; 85025; 85610; 85730; 94762; 99406; J1100; J1170; J1200; J1650; J1885; J1956; J2060; J2250; J2405; J2704; J3010

== ENCOUNTER 2020-05-06 22:07 | Observation (INO) | payer OTHER, SELFPAY ==
[2020-05-06 12:58] VITALS: BMI 23.0
[2020-05-06 22:08] VITALS: BP 143/87; PULSE 110; RESP 20; TEMP 37.1; O2SAT 96
--- NOTE | 2020-05-06 22:42 | ED.GENADULT ---
HPI - General Adult General Chief complaint: Abdominal Pain Stated complaint: Bloody stool s/p surgery today Time Seen by Provider: 05/06/20 22:38 Source: patient Mode of arrival: Ambulatory Limitations: no limitations History of Present Illness HPI narrative: Patient is a 49-year-old female who within the past couple days underwent a right colon resection secondary to a fairly large polyp that was seen on a colonoscopy. She was discharged from the hospital within the past 24 hours. She states that earlier today she had 1 bloody bowel movement. Afterwards she started having bilateral lower abdominal pain. She contact the on-call surgeon who told her that if the symptoms happened again that she should return to the emergency department. She states she had another episode of bloody bowel movement so she came the emergency department. Related Data Home Medications Medication Instructions Recorded Confirmed amitriptyline 25 mg tablet 25 mg PO BEDTIME 11/19/19 05/07/20 Excedrin Migraine 1 tab PO DAILY 04/26/20 05/07/20 Previous Rx's Medication Instructions Recorded varenicline 0.5 mg (11)-1 mg (42) See Rx Instructions PO PER PKG DIR 08/14/19 tablets in a dose pack #53 each budesonide 0.5 mg/2 mL suspension See Rx Instructions INHALATION 11/19/19 for nebulization .COMPLEX #60 ml oxycodone See Rx Instructions .ROUTE 05/06/20 .COMPLEX PRN #25 tab Allergies Allergy/AdvReac Type Severity Reaction Status Date / Time Penicillins Allergy Intermediate Rash Verified 05/03/20 08:01 codeine [CODEINE] Allergy Mild RASH Verified 04/06/20 15:23 morphine [MORPHINE] Allergy Mild Rash Verified 04/26/20 10:10 Review of Systems Constitutional Constitutional: Denies fever(s) and Denies headache(s) ENT Ears, Nose, Mouth, and Throat: Denies headache(s) Cardiovascular Cardiovascular: Denies chest pain and Denies dyspnea Respiratory Respiratory: Denies dyspnea Gastrointestinal Gastrointestinal: Reports abdominal pain, Reports hematochezia, Denies nausea and Denies vomiting Genitourinary Genitourinary: Denies dysuria Genitourinary: Denies dysuria and Denies vaginal discharge Musculoskeletal Musculoskeletal: Denies arthralgias and Denies myalgias Integumentary/Breasts Skin/Breast: Denies rash Neurologic Neurologic: Denies behavioral changes and Denies headache(s) Psychiatric Psychiatric: Denies behavioral changes Hematologic/Lymphatic Hematologic/Lymphatic: Denies easy bleeding and Denies easy bruising Patient History Medical History Bulging of cervical intervertebral disc (Resolved) Cervical radiculopathy (Chronic) Cough (Acute) Depression with anxiety (Acute) Dilation of bladder (Acute) Eczema (Acute) Elevated liver enzymes (Acute) Eosinophilic esophagitis (Acute) Esophageal obstruction (Acute) Exposure to COVID-19 virus (Acute) Hemorrhoids (Acute) IBS (irritable bowel syndrome) (Chronic) Interstitial cystitis (Chronic) Swallowing disorder (Acute) Surgical History (Updated 04/26/20 @ 10:12 by Oanh Dotson RN) H/O left breast biopsy (Resolved) H/O right breast biopsy (Resolved) H/O: hysterectomy (Resolved) History of bilateral tubal ligation (Resolved) Hx of tonsillectomy (Acute) S/P cervical spinal fusion (Resolved 2013) S/P surgery on nasal septum (Resolved) Family History Father Alcoholism Cancer Lung cancer Mother Age: 71 Lung cancer Diabetes mellitus Hypertension Social History marital status: household members: spouse occupational status: employed Smoking Status: Current every day smoker alcohol intake: current substance use type: does not use Smoking Status: Current every day smoker tobacco type: cigarettes alcohol intake frequency: holidays/special occasions only Substance Use Type: does not use Exam Initial Vital Signs Initial Vital Signs: Vital Signs Temperature 98.7 F 05/06/20 22:08 Pulse Rate 110 H 05/06/20 22:08 Respiratory Rate 20 05/06/20 22:08 Blood Pressure 143/87 H 05/06/20 22:08 Pulse Oximetry 96 05/06/20 22:08 Const General: cooperative and comfortable Limitations: mental status not altered HENMT Head: normal to inspection and normocephalic Resp Effort & Inspection: normal respiratory effort Auscultation: clear to auscultation bilaterally Cardio Rate: tachycardic Rhythm: regular rhythm Pulses: radial pulses present GI Inspection: non-distended Palpation: soft, No guarding and tender (Bilateral lower abdomen) Skin Other: Surgical incision midline abdomen appears well without dehiscence or drainage or redness Neuro General: patient alert and patient awake Cognition: normal cognition Speech: speech normal Extrem General: normal to inspection and capillary refill normal Psych Appearance: grossly normal and well kempt Course Orders Ordered: ED Orders 05/06/20 23:45 Complete Blood Count AUTO DIFF Stat Comprehensive Metabolic Panel Stat Lactate (Lactic Acid) Stat Lipase Stat 05/06/20 23:54 Consult to General Surgery Urgent 05/06/20 23:59 COVID19 -ED/INPAT/OR/L&D Stat Hydromorphone HCl (Dilaudid) 0.5 mg IV Q2H PRN PRN Reason: Pain, Severe (7-10) Sodium Chloride (Normal Saline 0.9%) 1,000 mls @ 125 mls/hr IV CONT SANDRINE Last Infusion: 05/07/20 00:17 Dose: 125 mls/hr Documented by: Admin: 05/06/20 23:52 Dose: 125 mls/hr Documented by: АЛЕКСАНДР Ondansetron HCl (Zofran) 4 mg IV Q4HR PRN PRN Reason: Nausea And Vomiting Last Admin: 05/07/20 01:48 Dose: 4 mg Documented by: ESTHER Discontinued Medications Hydromorphone HCl (Dilaudid) 0.5 mg IV NOW ONE Stop: 05/06/20 23:32 Last Admin: 05/06/20 23:52 Dose: 0.5 mg Documented by: АЛЕКСАНДР Vital Signs Vital signs: Vital Signs - 8 hr 05/06/20 22:08 Temperature 98.7 F Pulse Rate 110 H Respiratory Rate 20 Blood Pressure [Left Arm] 143/87 H Pulse Oximetry 96 Medical Decision Making Lab Data Lab results reviewed: Yes I reviewed the patient's lab results. Result diagrams: 05/06/20 23:45 05/06/20 23:45 Labs: Lab Results 05/06/20 05/06/20 05/06/20 Range/Units 23:45 23:45 23:45 WBC 11.7 H (4.5-11.0) X10^3/uL RBC 4.31 (4.0-5.2) X10^6/uL Hgb 12.8 (12.0-16.0) g/dL Hct 38.3 (36-46) % MCV 89.0 (80-100) fL MCH 29.6 (26-34) PG MCHC 33.3 (30-36) % RDW 13.6 (11.6-14.8) % Plt Count 261 (150-400) X10^3/uL Neut % (Auto) 65.6 (50-75) % Lymph % (Auto) 22.8 L (25-40) % [place] % (Auto) 6.6 (3-14) % Eos % (Auto) 4.1 H (2-4) % Baso % (Auto) 0.9 (0-2) % Neut # (Auto) 7700 H (2020-1797) /uL Lymph # (Auto) 2700 (6157-6547) /uL [place] # (Auto) 800 (0-900) /uL Eos # (Auto) 500 H (0-450) /uL Baso # (Auto) 100 (0-100) /uL Sodium 141 (137-145) mmol/L Potassium 3.2 L (3.4-5.1) mmol/L Chloride 105 (98-107) mmol/L Carbon Dioxide 31 (22-32) mmol/L BUN 7 (7-17) mg/dL Creatinine 0.58 (0.52-1.04) mg/dL Estimated GFR > 60.0 (>60) mL/min BUN/Creatinine Ratio 12.1 (6-22) Glucose 117 H (70-100) mg/dL Lactate 1.4 (0.7-2.1) mmol/L Calcium 9.0 (8.4-10.2) mg/dL Total Bilirubin 0.5 (0.2-1.3) mg/dL AST 115 H (14-36) IU/L ALT 129 H (<35) IU/L Alkaline Phosphatase 67 (38-126) U/L Total Protein 6.8 (6.3-8.2) g/dL Albumin 3.7 (3.5-5.0) g/dL Globulin 3.1 (1.7-4.1) g/dL Albumin/Globulin Ratio 1.2 (1.0-2.8) Lipase 62 (23-300) U/L [facility] Narrative Medical decision making narrative: Patient does have bilateral lower abdominal tenderness. The surgical incision looks well. I did discuss the case with Dr. Oliver with General surgery who recommended that we admit the patient for observation. He stated that we could hold on radiologic studies for now. Labs were ordered per his request. Patient does have a relatively benign exam however she did have a significant abdominal surgery within the past week. I did discuss admission to the hospital in the reasons for this with the patient. She expressed understanding and agreement. Discharge Plan Departure Patient Disposition: Admitted as Observation Clinical Impression: Bright red rectal bleeding Abdominal pain Qualifiers: Abdominal location: generalized Qualified Code(s): R10.84 - Generalized abdominal pain Discharge Date/Time: 05/07/20 00:18 Admit Date/Time: 05/06/20 23:55 Admit Provider: Mitchell Oliver
[2020-05-06] MEDS: HYDROMORPHONE 0.5 MG INJ IV (23:52)
[2020-05-06] MEDS: SODIUM CHLORIDE 0.9% 1,000 ML 125 ML IV (23:52)
[2020-05-06 23:58] LABS: Add Manual Diff / Slide Review NO; Basophils Absolute Auto 100 /uL (0-100); Basophils Percent Auto 0.9 % (0-2); Eosinophils Absolute Auto 500 /uL (0-450); Eosinophils Percent Auto 4.1 % (2-4); Hematocrit 38.3 % (36-46); Hemoglobin 12.8 g/dL (12.0-16.0); Lymphocytes Absolute Auto 2700 /uL (1100-4500); Lymphocytes Percent Auto 22.8 % (25-40); Mean Corpuscular HGB Conc 33.3 % (30-36); Mean Corpuscular Hemoglobin 29.6 PG (26-34); Monocytes Absolute Auto 800 /uL (0-900); Monocytes Percent Auto 6.6 % (3-14); Neutrophils Absolute Auto 7700 /uL (1500-7000); Neutrophils Percent Auto 65.6 % (50-75); Platelet Count 261 X10^3/uL (150-400); Red Blood Cell Count 4.31 X10^6/uL (4.0-5.2); Red Cell Distribution Width 13.6 % (11.6-14.8); White Blood Cell Count 11.7 X10^3/uL (4.5-11.0)
[2020-05-07] VITALS (10 sets, daily range): BP systolic 120–147; BP diastolic 71–94; PULSE 82–94; RESP 14–19; TEMP 36.2–36.9; O2SAT 94–99; BMI 24.6
[2020-05-07 00:05] LABS: Alanine Aminotransferase 129 IU/L (<35); Albumin 3.7 g/dL (3.5-5.0); Albumin Globulin Ratio 1.2 (1.0-2.8); Alkaline Phosphatase 67 U/L (38-126); Aspartate Aminotransferase 115 IU/L (14-36); BUN Creatinine Ratio 12.1 (6-22); Bilirubin Total 0.5 mg/dL (0.2-1.3); Blood Urea Nitrogen 7 mg/dL (7-17); Carbon Dioxide 31 mmol/L (22-32); Chloride 105 mmol/L (98-107); Estimated Glomerular Filt Rate > 60.0 mL/min (>60); Globulin 3.1 g/dL (1.7-4.1); Glucose 117 mg/dL (70-100); HEMOLYSIS < 15 (0-50); Lipase 62 U/L (23-300); Potassium 3.2 mmol/L (3.4-5.1); Sodium 141 mmol/L (137-145); Total Protein 6.8 g/dL (6.3-8.2)
[2020-05-07 00:06] LABS: Lactate (Lactic Acid) 1.4 mmol/L (0.7-2.1)
--- NOTE | 2020-05-07 00:13 | PC.NURSE ---
0005 - Pt received into room 210. Able to walk from the stretcher to the bed. Then need to use the bathroom. With ambulation to the bathroom, patient reported feeling slightly lightheaded, unsteady gait. VSS. Educated to safety, call light use, and bedside commode. Bed alarm on. Pt requesting water. Oral swab provided, educated to NPO until evaluated by .
[2020-05-07 00:18] LABS: COVID19 -Nasal RAPID Negative (Negative)
--- NOTE | 2020-05-07 01:27 | PC.NURSE ---
in one liter ns was started at 0017 05/07/20 and she was transferred to the [facility] floor at 0018 so appox 1 ml ns infused in the ED.The iv was still infusing at a rate of 125ml per hour when she was transferred.
[2020-05-07] MEDS: ONDANSETRON 4 MG/2 ML INJ IV ×2 (01:48→17:38)
--- NOTE | 2020-05-07 03:06 | PC.ADMIT ---
Addendum entered by Nikki Alves R.N. 05/07/20 06:13: Slept most of shift. Complains of sharp, stabbing pain in abdomen this morning; medicated with Dilaudid. Original Note: Patient admitted to room 210 per stretcher from ER. States she was discharged yesterday following surgery for colon resection and began having bloody, liquid stools. Is alert and oriented. Breath sounds CTA with RA sat of 98%. HRR w/BP of 147/71. Initially denied nausea but then at 0148 requested/medicated with Zofran for complaint of nausea. BT present. Complained of 7/10 burning, sharp, stabbing abdominal pain which she states had improved since receiving pain medication in ER prior to transfer to floor. Is able to turn herself in bed. Is getting up to bathroom with 1 assist as is unsteady and complained of lightheadedness. Incision to abdomen is well approximated with steri strips in place. Bruising noted around incision. Denies dysuria, frequency or urgency with urination. Fall risk score is moderate and bed alarm is activated; patient instructed not to get out of bed without assistance. [email or web address] [facility]. [address] Admission Note: The patient,Cecy Fields,49 y/o, was given written information regarding hospital policies, unit procedures and contact persons. Patient's smoking status: Current every day smoker. Vital Signs - 8 hr 05/06/20 22:08 05/07/20 00:13 Temperature 98.7 F 97.1 F L Pulse Rate 110 H 91 H Respiratory Rate 20 16 Blood Pressure 147/71 H Blood Pressure [Left Arm] 143/87 H Pulse Oximetry 96 98
[2020-05-07] MEDS: HYDROMORPHONE 0.5 MG INJ IV ×6 (06:06→21:38)
[2020-05-07] MEDS: SODIUM CHLORIDE 0.9% 1,000 ML 125 ML IV ×2 (07:46→16:36)
--- NOTE | 2020-05-07 07:50 | P.HP_ITS ---
History of Present Illness History of Present Illness Date Patient Seen: 05/07/20 Time Patient Seen: 07:50 Chief complaint: Bloody stool s/p surgery today Narrative: 49-year-old female admitted for anastamotic bleed sp right hemicolectomy 4 days ago. Hospital course unremarkable was discharged home yesterday. Last night had angelo hematochezia presented to ER and had a second similar episodes, none further. Currently, 120/78, Hr 90, Hct 38 was 34 yesterday prior to symptoms. Mild incisional abodminal pain no nausea emesis. Patient History Medical History Bulging of cervical intervertebral disc (Resolved) Cervical radiculopathy (Chronic) Cough (Acute) Depression with anxiety (Acute) Dilation of bladder (Acute) Eczema (Acute) Elevated liver enzymes (Acute) Eosinophilic esophagitis (Acute) Esophageal obstruction (Acute) Exposure to COVID-19 virus (Acute) Hemorrhoids (Acute) IBS (irritable bowel syndrome) (Chronic) Interstitial cystitis (Chronic) Swallowing disorder (Acute) Surgical History H/O left breast biopsy (Resolved) H/O right breast biopsy (Resolved) H/O: hysterectomy (Resolved) History of bilateral tubal ligation (Resolved) Hx of tonsillectomy (Acute) S/P cervical spinal fusion (Resolved 2013) S/P surgery on nasal septum (Resolved) Family & Social History Family History Father Alcoholism Cancer Lung cancer Mother Age: 71 Lung cancer Diabetes mellitus Hypertension Social History: household members spouse Prior Living Arrangements Apartment/Condo Safety & Behavioral: Feels Safe in Current Yes Environment Been Physically Hurt or No Threatened By a Person Suicidal Ideation Description None Tobacco & Substance use: Tobacco type cigarettes Smoking Status Current every day smoker alcohol intake current alcohol intake frequency holiday/special occasion Substance Use Type does not use Meds Home Medications and Allergies Home Medications Medication Instructions Recorded Confirmed Type varenicline 0.5 mg (11)-1 mg (42) See Rx Instructions PO PER PKG DIR 08/14/19 05/07/20 Rx tablets in a dose pack #53 each amitriptyline 25 mg tablet 25 mg PO BEDTIME 11/19/19 05/07/20 History budesonide 0.5 mg/2 mL suspension See Rx Instructions INHALATION 11/19/19 05/07/20 Rx for nebulization .COMPLEX #60 ml Excedrin Migraine 1 tab PO DAILY 04/26/20 05/07/20 History oxycodone See Rx Instructions .ROUTE 05/06/20 05/07/20 Rx .COMPLEX PRN #25 tab Allergies Allergy/AdvReac Type Severity Reaction Status Date / Time Penicillins Allergy Intermediate Rash Verified 05/03/20 08:01 codeine [CODEINE] Allergy Mild RASH Verified 04/06/20 15:23 morphine [MORPHINE] Allergy Mild Rash Verified 04/26/20 10:10 Review of Systems Review of Systems Narrative: A 10 point review of systems is negative except as noted in the HPI Exam Vital Signs (past 8 hours): - 05/07/20 00:13 05/07/20 06:00 Temperature 97.1 F L 98.4 F Pulse Rate 91 H 89 Respiratory Rate 16 16 Blood Pressure 147/71 H 120/78 Pulse Oximetry 98 94 Oxygen Delivery Method Room Air Oxygen Flow Rate 0 Narrative Exam Narrative: General-no acute distress, adult female HEENT-moist mucous membranes, no scleral icterus Neck-supple, no lymphadenopathy Chest- non labored respirations, clear to auscultation bilaterally Cardiac-regular rate no peripheral edema Abdomen-soft, appropriately tender to palpation, midline incision clean dry intact Steri-Strips, Rectal-no gross blood Extremities-warm, well perfused Neurological-alert and oriented, no focal deficits Objective Labs Result Diagrams: 05/06/20 23:45 05/06/20 23:45 Labs: Laboratory Results - last 24 hr 05/06/20 05/06/20 05/06/20 23:45 23:45 23:45 WBC 11.7 H RBC 4.31 Hgb 12.8 Hct 38.3 MCV 89.0 MCH 29.6 MCHC 33.3 RDW 13.6 Plt Count 261 Neut % (Auto) 65.6 Lymph % (Auto) 22.8 L [place] % (Auto) 6.6 Eos % (Auto) 4.1 H Baso % (Auto) 0.9 Neut # (Auto) 7700 H Lymph # (Auto) 2700 [place] # (Auto) 800 Eos # (Auto) 500 H Baso # (Auto) 100 Sodium 141 Potassium 3.2 L Chloride 105 Carbon Dioxide 31 BUN 7 Creatinine 0.58 Estimated GFR > 60.0 BUN/Creatinine Ratio 12.1 Glucose 117 H Lactate 1.4 Calcium 9.0 Total Bilirubin 0.5 AST 115 H ALT 129 H Alkaline Phosphatase 67 Total Protein 6.8 Albumin 3.7 Globulin 3.1 Albumin/Globulin Ratio 1.2 Lipase 62 COVID-19 PCR 05/06/20 23:59 WBC RBC Hgb Hct MCV MCH MCHC RDW Plt Count Neut % (Auto) Lymph % (Auto) [place] % (Auto) Eos % (Auto) Baso % (Auto) Neut # (Auto) Lymph # (Auto) [place] # (Auto) Eos # (Auto) Baso # (Auto) Sodium Potassium Chloride Carbon Dioxide BUN Creatinine Estimated GFR BUN/Creatinine Ratio Glucose Lactate Calcium Total Bilirubin AST ALT Alkaline Phosphatase Total Protein Albumin Globulin Albumin/Globulin Ratio Lipase COVID-19 PCR Negative Assessment & Plan Assessment and plan (1) Hemorrhage of surgical anastomosis site of digestive tract: Status: Acute Assessment & Plan narrative: 49-year-old female readmitted to the hospital for anastomotic bleed 4 days after a right hemicolectomy. She is hemodynamically stable initial hematocrit 38 no further hematochezia in the past 8 hours. I told her majority anastomotic bleeding stops spontaneously with conservative management and if does not that she may require colonoscopy for therapeutic purpose. Plan -observation -clear liquid diet -SCDs -pain control
[2020-05-07] MEDS: OXYCODONE IR 5 MG TABLET PO (09:08)
[2020-05-07] MEDS: NICOTINE 21 MG PATCH TOP (12:24)
[2020-05-07] MEDS: OXYCODONE IR 10 MG TABLET PO ×2 (12:24→18:39)
[2020-05-07] MEDS: ACETAMINOPHEN 325 MG TABLET 650 MG PO ×2 (12:25→18:39)
--- NOTE | 2020-05-07 15:30 | DIET.PN ---
Addendum entered by Kaylah Valadez 05/07/20 15:37: Monitoring/ Evaluation: Stew and overall PO tolerance Original Note: Dietary Progress Note Assessment: 49y F readmission c anastomotic bleed 4 days post hemicolectomy. Pt has hx of Eosinophilic esophagitis (EoE). Pt indicates she has had EoE for a few years but was only dx apr 2019. Reports taking steroids has helped, initially she couldn?t swallow pills at all but now she can swallow small pills but still needs larger pills broken up. Pt says she has not had much of an appetite for a while now. She says she has somewhat of a fear of food because of her EoE and being unsure of when she might have a reaction. Pt says she cannot have fish, eggs, or gluten and has a reaction with grains of rice, noodles, whole nuts and seeds, seafood, gluten, soy sauce, and has a problem with chunks of meat.] Pt says she can handle purred beans like hummus, nut and seed butters, soft cooked moist meats, rice cereal. Says she loves hummus. Pt reports eating mostly just vegetables and fruits for the day and knows her appetite is poor but unsure what to eat. Gets a lot of salads from work. Reports she has oatmeal for breakfast occasionally but doesn't typically eat breakfast. Pt reports making a lot of smoothies at home with lactose free yogurt and fruit. Pt says she did try to drink some boost or ensure meal replacements in the weeks leading up to the surgery to supplement her nutrition. Pt cannot handle lactose and using lactose free milk and yogurt at home. Pt open to trying non-dairy versions of these while once diet is transitioned. Pt want to try an elimination diet but has been discouraged because she can't figure out what foods she can eat with her EoE. Pt says she really needs someone to help her because she knows her diet is poor but doesn't know what to do. Pt is very interested in outpatient nutrition educations with an RD. HT: 167.64cm WT:69.2kg BMI: 24.6 MNA:8 at risk for malnutrition Abbe: 18 Nutrition Diagnosis: Inadequate protein energy intake r/t significant food avoidance and food and nutrition related knowledge deficit aeb pt having EoE with significant food avoidances, pt reporting low protein intake in usual diet, increased protein needs 4 days post hemicolectomy and pt on clear liquid diet. Interventions: 1.Prioritize protein in diet to support healing. Encouraged pt to incorporate protein with all meals by including hummus, nut butters and soft moist meat more frequently in her diet at home post surgery. Pt trialling Stew to support protein needs while on clear liquid diet. Recc Stew BID with lunch and dinner to provide 32g Pro. Diet Order: Clear liquid diet EER: 1730kcal ( 25kcal/kg) 83g Pro (1.2g/kg) Monitoring/Evaluations:
--- NOTE | 2020-05-07 15:58 | CM.IDA ---
Initial DCP Assessment Note Patient is a 49 yo, resident of [place]. Patient is s/p right hemicolectomy 4 days ago, DC home w/no needs yesterday, now returns w/Hemorrhage of surgical anastomosis site of digestive tract PCP listed is Destiny Mckeon. Primary payor is 1)[employer]. Details of DCP assessment completed 05.04.20 remain the same: Current d/c plan is for patient to d/c home when medically stable. Patient reports that she resides with her family and is completely I in all ADL's. P: Home when stable. CM team to continue to follow. Dr martinez hoping to keep management conservative and DC patient home if bleeding stops, otherwise may need colonoscopy. observation, clear liquid diet, pain control today. Will follow closely for needs JW
--- NOTE | 2020-05-07 16:35 | PC.NURSE ---
Pain: Having crampy type pain and abd feels bloated. oxy 5mg hasn't been effective for pain. MD Oliver made aware. No changes for now, give IV med. Given Dilaudid IV. Med giving fair relief. Pt reports she needs her oxy increased for pain if it will work. Requesting 10mg. Has been teary off and on today. Doesn't want to be here but understands why. She still doesn't know what the pathology is, she is missing her family, doesn't want to be here for Halloween. Dr. Darby notified in OR about pt's requests for her pain meds. MD Thornton did come and see pt, oxy was increased. Did receive 10mg dose but requesting IV dilaudid after 30 mins. Rubbing abd, saying she is still having crampy pain. IV Dilaudid was given. Results have been mixed, she was able to sleep for a short time but still rates her pain at 6-7. She is willing to see how things go. She also had a 200ml bloody stool and made aware of same. Had a scant amt of bloody stool later in the shift. Pt has been speaking with her family off and on via phone. They bring her comfort.
[2020-05-07] MEDS: AMITRIPTYLINE 25 MG TABLET PO (21:37)
[2020-05-08] VITALS (9 sets, daily range): BP systolic 119–138; BP diastolic 78–92; PULSE 80–90; RESP 15–17; TEMP 36.5–36.7; O2SAT 95–100
[2020-05-08] MEDS: OXYCODONE IR 5 MG TABLET PO ×3 (01:10→11:33)
[2020-05-08] MEDS: ACETAMINOPHEN 325 MG TABLET 650 MG PO ×5 (01:10→23:26)
[2020-05-08] MEDS: SODIUM CHLORIDE 0.9% 1,000 ML 125 ML IV ×3 (01:14→17:22)
--- NOTE | 2020-05-08 03:39 | PC.NURSE ---
Patient having 8/10 pain consistently throughout shift. Given PRN oxycodone 5 mg and IV Dilaudid 0.5 mg with some relief.
--- NOTE | 2020-05-08 03:43 | PC.NURSE ---
Pt is resting in bed with eyes closed at time of safety checks with nurse change.
[2020-05-08 05:53] LABS: Add Manual Diff / Slide Review NO; Basophils Absolute Auto 100 /uL (0-100); Basophils Percent Auto 1.2 % (0-2); Eosinophils Absolute Auto 600 /uL (0-450); Eosinophils Percent Auto 7.4 % (2-4); Hematocrit 35.9 % (36-46); Hemoglobin 12.1 g/dL (12.0-16.0); Lymphocytes Absolute Auto 2600 /uL (1100-4500); Lymphocytes Percent Auto 31.5 % (25-40); Mean Corpuscular HGB Conc 33.7 % (30-36); Mean Corpuscular Volume 89.1 fL (80-100); Monocytes Absolute Auto 600 /uL (0-900); Monocytes Percent Auto 7.2 % (3-14); Neutrophils Absolute Auto 4300 /uL (1500-7000); Neutrophils Percent Auto 52.7 % (50-75); Platelet Count 260 X10^3/uL (150-400); Red Blood Cell Count 4.02 X10^6/uL (4.0-5.2); Red Cell Distribution Width 13.4 % (11.6-14.8); White Blood Cell Count 8.1 X10^3/uL (4.5-11.0)
[2020-05-08 06:06] LABS: BUN Creatinine Ratio 9.6 (6-22); Blood Urea Nitrogen 5 mg/dL (7-17); Calcium 8.4 mg/dL (8.4-10.2); Carbon Dioxide 29 mmol/L (22-32); Chloride 109 mmol/L (98-107); Estimated Glomerular Filt Rate > 60.0 mL/min (>60); Glucose 90 mg/dL (70-100); HEMOLYSIS < 15 (0-50); Potassium 3.3 mmol/L (3.4-5.1); Sodium 140 mmol/L (137-145)
[2020-05-08] MEDS: NICOTINE 21 MG PATCH TOP (08:08)
--- NOTE | 2020-05-08 12:02 | PC.NURSE ---
Day Shift- Took over care and rec'd report form THOMAS Ramsey at 1100. Pt alert, states pain to right upper abd/flank 8/10 aching. Pt is currently abd splinting. Pain management plan discussed. PRN Oxycodone and scheduled Tylenol at 1130. Pt OOB to BR with SBA, slightly unsteady gait, stated feeling slightly light-headed. This RN ambulated with pt around [place] and Main nursing station then settled back into recliner chair at bedside. Pt wants to upgrade diet, does not like clear liquid diet choices, doesn't taste good. Awaiting surgery to round on pt.
--- NOTE | 2020-05-08 14:15 | PM.DS.1 ---
History of Present Illness History of Present Illness Date Patient Seen: 05/09/20 Time Patient Seen: 15:01 Chief complaint: Bloody stool s/p surgery today Narrative: The patient underwent a right hemicolectomy and was actually discharged earlier the day of re-admission. She developed rectal bleeding and was brought in for observation. Discharge Providers Provider Date of admission: 05/06/20 23:55 Discharge Date: 05/09/20 Primary care physician: JENNIFER Carey Consults: 05/06/20 23:54 Consult to General Surgery Urgent Comment: Consulting Provider: Mitchell Oliver Reason for consultation: Admission Has provider been notified: Yes 05/07/20 00:30 Consult to Dietitian, Adult Routine Comment: Reason For Exam: MNA score = 8 has many food allergies Discharge provider: Casper Alcaraz MD Summary Hospital Course Discharge Diagnosis: GI tract bleeding presumptively from the anastomosis. Limited and spontaneously resolved. Eosinophilic esophagitis chronic Depression with anxiety. Chronic. Tobacco dependency. Acute blood loss anemia Hospital Course: The patient had a right hemicolectomy performed several days prior to admission. She developed GI tract bleeding. She was brought in observe. Once she was off any medication that would cause dysfunction of her bleeding cascade or platelet function her bleeding ceased. She was observed and the advanced in her diet. She was discharged to follow up in the office. Status at Discharge Cognitive/behavioral status at discharge: at baseline, oriented Functional status at discharge: independent ambulation Overall status at discharge: patient is progressing back to baseline Exam Vital Signs (past 8 hours): - 05/08/20 06:35 05/08/20 08:18 05/08/20 08:19 Temperature 98.0 F Pulse Rate 80 81 Respiratory Rate 15 16 Blood Pressure 120/89 119/79 Pulse Oximetry 96 95 95 05/08/20 13:00 Temperature 98.1 F Pulse Rate 90 Respiratory Rate 16 Blood Pressure 137/92 H Pulse Oximetry 97 Oxygen Delivery Method Room Air Oxygen Flow Rate 0 Narrative Exam Narrative: Cooperative no apparent distress. Lungs clear. Good effort. Heart regular rate and rhythm without murmur gallop. Abdomen is soft nontender except for mild incisional tenderness. No cellulitis. Incision is intact. Objective Labs Result Diagrams: 05/09/20 05:25 05/09/20 05:25 Labs: Laboratory Results - last 24 hr 05/08/20 05/08/20 05:10 05:10 WBC 8.1 RBC 4.02 Hgb 12.1 Hct 35.9 L MCV 89.1 MCH 30.0 MCHC 33.7 RDW 13.4 Plt Count 260 Neut % (Auto) 52.7 Lymph % (Auto) 31.5 [place] % (Auto) 7.2 Eos % (Auto) 7.4 H Baso % (Auto) 1.2 Neut # (Auto) 4300 Lymph # (Auto) 2600 [place] # (Auto) 600 Eos # (Auto) 600 H Baso # (Auto) 100 Sodium 140 Potassium 3.3 L Chloride 109 H Carbon Dioxide 29 BUN 5 L Creatinine 0.52 Estimated GFR > 60.0 BUN/Creatinine Ratio 9.6 Glucose 90 Calcium 8.4 Discharge Plan Discharge Plan Patient Disposition: Home Discharge orders & Medications Prescriptions: Continued Chantix Starting Month Box 0.5 mg (11)- 1 mg (42) tablets,dose pack See Rx Instructions PO PER PKG DIR Qty: 53 RF: 0 budesonide 0.5 mg/2 mL suspension for nebulization See Rx Instructions INHALATION .COMPLEX Qty: 60 RF: 0 amitriptyline 25 mg tablet 25 mg PO BEDTIME RF: 0 oxycodone 5 mg tablet See Rx Instructions .ROUTE .COMPLEX PRN (Reason: pain) Qty: 25 RF: 0 Discontinued Excedrin Migraine 250-250-65 mg Tablet 1 tab PO DAILY RF: 0 Follow up/Referrals: Destiny Mckeon ARNP [Primary Care Provider] - Casper Alcaraz MD [Physician] - As previously scheduled Diet/Activity/Treatments Diet: Diet as Tolerated Diet comment: As tolerated Activity: Do not lift over 10 lb or strain for the next 5 weeks. You may walk. Do not drive into your pain-free off medication. No pool or tub for least 2 weeks. Skin/Wound/Dressing Care Report to your healthcare provider any signs of infection, such as:: chills, fever, night sweats, increased pain, unusual drainage and unusual redness Dressing: None needed Visit Report/Discharge Packet Instructions: DI for Rectal Bleeding, How to Prevent Falls, DI for Postoperative Pain, Gastrointestinal Bleeding Visit Report Forms: Patient Portal/API, Stroke Signs & Symptoms Discharge Data Primary Care Provider: Destiny Mckeon Attending Provider: Mitchell Oliver Admit Date/Time: 05/06/20 23:55 Discharges patient from system. Discharge Date/Time: 05/09/20 14:22
--- NOTE | 2020-05-08 14:22 | PM.PNPO.1 ---
Subjective Subjective Date Patient Seen: 05/08/20 Time Patient Seen: 14:22 Interval history: Patient is a woman who had a right hemicolectomy with an end-to-end hand-sewn anastomosis. She is having rectal bleeding presumptively from her anastomosis. Bleeding has slowed in according to what I see in the stool right now appears to have stopped. Brown stool is in the specimen collection container. She is feeling all right. Having right-sided abdominal pain. Remainder abdomen is not tender. Exam Vital Signs (past 8 hours): - 05/08/20 06:35 05/08/20 08:18 05/08/20 08:19 Temperature 98.0 F Pulse Rate 80 81 Respiratory Rate 15 16 Blood Pressure 120/89 119/79 Pulse Oximetry 96 95 95 05/08/20 13:00 Temperature 98.1 F Pulse Rate 90 Respiratory Rate 16 Blood Pressure 137/92 H Pulse Oximetry 97 Oxygen Delivery Method Room Air Oxygen Flow Rate 0 Narrative Exam Narrative: Lungs clear. Good effort. Heart regular rate and rhythm without murmur gallop. Abdomen is soft mildly protuberant. Has some mild tenderness without guarding in the right abdomen. No cellulitis. Wound is intact. Objective Labs Result Diagrams: 05/08/20 05:10 05/08/20 05:10 Labs: Laboratory Results - last 24 hr 05/08/20 05/08/20 05:10 05:10 WBC 8.1 RBC 4.02 Hgb 12.1 Hct 35.9 L MCV 89.1 MCH 30.0 MCHC 33.7 RDW 13.4 Plt Count 260 Neut % (Auto) 52.7 Lymph % (Auto) 31.5 [place] % (Auto) 7.2 Eos % (Auto) 7.4 H Baso % (Auto) 1.2 Neut # (Auto) 4300 Lymph # (Auto) 2600 [place] # (Auto) 600 Eos # (Auto) 600 H Baso # (Auto) 100 Sodium 140 Potassium 3.3 L Chloride 109 H Carbon Dioxide 29 BUN 5 L Creatinine 0.52 Estimated GFR > 60.0 BUN/Creatinine Ratio 9.6 Glucose 90 Calcium 8.4 Assessment & Plan Post-op Postoperative Postoperative status narrative: Doing well. Bleeding seems to have ceased. Postoperative plan narrative: Advance diet. Check labs in the morning.
[2020-05-08] MEDS: OXYCODONE IR 10 MG TABLET PO ×2 (17:22→23:26)
--- NOTE | 2020-05-08 20:13 | PC.NURSE ---
Pt having a relatively uneventful evening. States discomfort in right flank area Med at 1720 for discomfort w/ relief. IVF infusing into RFA via pump as per orders w/o incidence. Steri strips on abd. CDI Assisted to BR w/o issues. Call light w/in reach, pt calls appropriately for needs. Continue w/plan of care.
[2020-05-08] MEDS: AMITRIPTYLINE 25 MG TABLET PO (22:17)
[2020-05-09] VITALS: BP 159/94; PULSE 87; RESP 18; TEMP 36.6; O2SAT 100
--- NOTE | 2020-05-09 01:31 | PC.NURSE ---
Addendum entered by Nikki Alves R.N. 05/09/20 05:14: Complaining of 7/10 right abdominal pain which remains sharp in nature; medicated with Oxycodone + scheduled Tylenol. Original Note: Patient seen and assessed at 2334. Is alert and oriented. Breath sounds diminished throughout with RA sat of 100%; discussed smoking cessation and CDB. HRR but BP elevated at 159/94. Denies nausea. Complains of pain/tenderness in right abdomen with 8/10 severity so was medicated with Oxycodone as well as scheduled Tylenol and is now asleep. BT present and abdomen is soft. Patient states she is still passing some blood rectally but has decreased. Incision to abdomen is well approximated with intact steri strips. Denies dysuria, frequency or urgency with urination Is able to move herself in bed and gets up with SBA for safety but reports no dizziness and appears steady. Refusing SCD's so reminded to ankle wave. Noted to have scratches on upper back and inner buttocks; patient reports she has been scratching. Fall risk score is moderate; verbalizes agreement to call for staff assist when getting out of bed. Spouse rooming in.
[2020-05-09] MEDS: SODIUM CHLORIDE 0.9% 1,000 ML 125 ML IV ×2 (01:32→08:42)
[2020-05-09 05:00] VITALS: BP 135/79; PULSE 77; RESP 18; TEMP 36.6; O2SAT 97
[2020-05-09] MEDS: OXYCODONE IR 5 MG TABLET PO ×2 (05:11→11:22)
[2020-05-09] MEDS: ACETAMINOPHEN 325 MG TABLET 650 MG PO ×2 (05:11→11:23)
[2020-05-09 05:46] LABS: Add Manual Diff / Slide Review NO; Basophils Absolute Auto 0 /uL (0-100); Basophils Percent Auto 0.3 % (0-2); Eosinophils Absolute Auto 600 /uL (0-450); Eosinophils Percent Auto 7.7 % (2-4); Hematocrit 37.9 % (36-46); Hemoglobin 12.7 g/dL (12.0-16.0); Lymphocytes Absolute Auto 2700 /uL (1100-4500); Mean Corpuscular HGB Conc 33.6 % (30-36); Mean Corpuscular Hemoglobin 29.9 PG (26-34); Mean Corpuscular Volume 88.9 fL (80-100); Monocytes Absolute Auto 600 /uL (0-900); Monocytes Percent Auto 7.8 % (3-14); Neutrophils Absolute Auto 4200 /uL (1500-7000); Neutrophils Percent Auto 51.2 % (50-75); Platelet Count 281 X10^3/uL (150-400); Red Blood Cell Count 4.26 X10^6/uL (4.0-5.2); Red Cell Distribution Width 13.7 % (11.6-14.8); White Blood Cell Count 8.2 X10^3/uL (4.5-11.0)
[2020-05-09 05:53] LABS: BUN Creatinine Ratio 9.1 (6-22); Blood Urea Nitrogen 5 mg/dL (7-17); Calcium 8.7 mg/dL (8.4-10.2); Carbon Dioxide 28 mmol/L (22-32); Chloride 110 mmol/L (98-107); Estimated Glomerular Filt Rate > 60.0 mL/min (>60); Glucose 104 mg/dL (70-100); HEMOLYSIS < 15 (0-50); Potassium 3.4 mmol/L (3.4-5.1); Sodium 140 mmol/L (137-145)
[2020-05-09 08:00] VITALS: BP 133/82; PULSE 82; RESP 17; TEMP 36.4; O2SAT 97
[2020-05-09] MEDS: MULTIVIT,CALC,MINS/IRON/FOLIC 1 TABLET 1 TAB PO (08:45)
[2020-05-09] MEDS: NICOTINE 21 MG PATCH TOP (08:45)
[2020-05-09 11:49] VITALS: BP 138/91; PULSE 89; RESP 19; TEMP 36.9; O2SAT 97
--- NOTE | 2020-05-09 14:22 | PC.NURSE ---
Day Shift- Discharge summary packet reviewed with pt, pt states already having follow up appointment with Dr. Velásquez scheduled. No new medications upon discharge. No further voiced concerns. Pt states is ready to go home. pt left unit via wheelchair at 1422 with all belongings with [employer] escort. Pt's at ED entrance to drive pt home.
--- NOTE | 2020-05-12 14:10 | CM.DPNOTE ---
Faxed DC Summary to [facility]# [phone] per request
== END 2020-05-09 14:22 | disposition home or self-care (01) ==
LOC: ED 23:54 → AC 05-07 07:29
PROVIDERS: Specialist; Admitting Provider Surgery; Emergency Provider Emergency Medicine; PCP Nurse Practitioner; Referring Provider Emergency Medicine; Visit Provider Surgery
DX: K91.840 Postprocedural hemorrhage of a digestive system organ or structure following a digestive system procedure (principal); F17.210 Nicotine dependence, cigarettes, uncomplicated; Z90.49 Acquired absence of other specified parts of digestive tract; K20.0 Eosinophilic esophagitis; F32.9 Major depressive disorder, single episode, unspecified; F41.9 Anxiety disorder, unspecified; D62 Acute posthemorrhagic anemia; Z11.59 Encounter for screening for other viral diseases
CPT/HCPCS: 36415; 80048; 80053; 82962; 83605; 83690; 85025; 87635; 96361; 96374; 96375; 96376; 99284; 99406; G0378; J1170; J2405

== ENCOUNTER 2020-05-29 19:36 | Observation (INO) | payer OTHER, SELFPAY ==
[2020-05-07 00:21] VITALS: BMI 24.6
[2020-05-29] VITALS (10 sets, daily range): BP systolic 132–167; BP diastolic 84–100; PULSE 90–114; RESP 18–28; TEMP 36.2–36.6; O2SAT 86–99; BMI 23.6
--- NOTE | 2020-05-29 19:48 | DI.CT.S_ITS ---
PROCEDURE: CT ABDOMEN PELVIS W CON INDICATIONS: severe abdominal pain, recent bowel resection TECHNIQUE: After the administration of intravenous contrast, 5 mm thick sections acquired from the diaphragm to the symphysis. 5 mm coronal and sagittal reformats were acquired. For radiation dose reduction, the following was used: automated exposure control, adjustment of mA and/or kV according to patient size. COMPARISON: None. FINDINGS: Image quality: Excellent. ABDOMEN: Lung bases: Lung bases are clear. Heart size is normal. Solid organs: Moderate hepatic steatosis. Otherwise normal CT appearance of the liver, spleen, pancreas, gallbladder, adrenal glands, and kidneys. Peritoneum and bowel: Postsurgical changes of midline laparotomy. Small volume free fluid in the right pericolic gutter with adjacent mild peritoneal thickening and fat stranding surrounding the ascending colon and cecum in this region. There is no free air. No abnormally dilated loop of bowel. Nodes and vessels: No retroperitoneal or mesenteric adenopathy by size criteria. Aorta and inferior vena cava are normal in size. Miscellaneous: No ventral hernias. PELVIS: Genitourinary: Bladder wall thickness is normal. Miscellaneous: No inguinal hernias or adenopathy. Bones: No suspicious bony lesions. No vertebral body compression fractures. IMPRESSION: Postsurgical changes of midline laparotomy, presumably for the provided history of bowel resection. A fluid and inflammatory changes adjacent to the ascending colon, nonspecific. No intra-abdominal abscess. Dictated by: Lewis Ayala M.D. on 05/29/2020 at 20:14 Approved by: Lewis Ayala M.D. on 05/29/2020 at 20:17
--- NOTE | 2020-05-29 19:52 | ED_ITS ---
HPI - Abdominal Pain General Chief Complaint: Abdominal Pain Stated Complaint: recent abdominal surgery, now has extreme pain Time Seen by Provider: 05/29/20 19:36 Source: patient Mode of arrival: Ambulatory Limitations: no limitations History of Present Illness HPI narrative: 49F daily smoker with a history of a benign cyst in her bowel and a recent hemicolectomy presents with a chief complaint of severe right lower quadrant pain has been gradually worsening over the past 3 days. Today she has had a few episodes of nausea and vomiting and has a poor appetite. She is passing gas but denies bowel movement. She has had chills but denies any fever. She denies runny nose, sore throat or cough. She has been taking her medications as directed and denies any abnormal or significantly exertional activities. She had her surgery here in the end of April and had her most recent postoperative follow-up last week MD complaint: abdominal pain Onset (ago): day(s) Pain Consistency: constant Location: RLQ Severity: severe Quality: stabbing and aching Relieving factors: rest Exacerbating factors: bowel movement and movement Associated symptoms: nausea, vomiting and chills Related Data Home Medications Medication Instructions Recorded Confirmed amitriptyline 25 mg tablet 25 mg PO BEDTIME 11/19/19 05/26/20 Previous Rx's Medication Instructions Recorded varenicline 0.5 mg (11)-1 mg (42) See Rx Instructions PO PER PKG DIR 08/14/19 tablets in a dose pack #53 each budesonide 0.5 mg/2 mL suspension See Rx Instructions INHALATION 11/19/19 for nebulization .COMPLEX #60 ml oxycodone See Rx Instructions .ROUTE 05/06/20 .COMPLEX PRN #25 tab nystatin-triamcinolone 100,000 See Rx Instructions TOP BID #30 05/13/20 unit/g-0.1 % topical cream gram Allergies Allergy/AdvReac Type Severity Reaction Status Date / Time gluten Allergy Severe Anaphylaxis Verified 05/26/20 13:08 lactose Allergy Intermediate Swelling Verified 05/26/20 13:08 of Lip/Tongue/Throat Penicillins Allergy Intermediate Rash Verified 05/26/20 13:08 codeine [CODEINE] Allergy Mild RASH Verified 05/26/20 13:08 morphine [MORPHINE] Allergy Mild Rash Verified 05/26/20 13:08 egg AdvReac Severe Diarrhea Verified 05/26/20 13:08 Review of Systems Constitutional Constitutional: Reports chills, Denies fatigue, Denies fever(s), Denies frequent falls, Denies lethargy and Denies weakness Eyes Eyes: Denies change in vision, Denies eye discharge, Denies irritation and Denies loss of vision ENT Ears, Nose, Mouth, and Throat: Denies change in voice, Denies dizziness, Denies neck pain, Denies sore throat and Denies throat swelling Cardiovascular Cardiovascular: Denies chest pain, Denies irregular heart rhythm, Denies lightheadedness, Denies palpitations, Denies dyspnea, Denies dyspnea on exertion and Denies orthopnea Respiratory Respiratory: Denies cough, Denies dyspnea, Denies dyspnea on exertion and Denies wheezing Gastrointestinal Gastrointestinal: Reports abdominal pain, Reports change in bowel habits, Denies diarrhea, Reports nausea and Reports vomiting Musculoskeletal Musculoskeletal: Denies neck pain and Denies numbness Integumentary/Breasts Skin/Breast: Denies pruritus, Denies erythema, Denies rash and Denies wounds Neurologic Neurologic: Denies behavioral changes, Denies confusion, Denies dizziness, Denies frequent falls, Denies loss of vision, Denies numbness and Denies weakness Psychiatric Psychiatric: Denies anxiety, Denies behavioral changes, Denies confusion, Denies depression, Denies homicidal ideation and Denies suicidal ideation Endocrine Endocrine: Denies fatigue, Denies flushing and Denies palpitations Hematologic/Lymphatic Hematologic/Lymphatic: Denies easy bruising Allergic/Immunologic Allergic/Immunologic: Denies urticaria, Denies throat swelling and Denies wheezing Patient History Medical History (Updated 05/30/20 @ 02:08 by Mike Trivedi DO) Bulging of cervical intervertebral disc Cervical radiculopathy Cough Depression with anxiety Dilation of bladder Eczema Elevated liver enzymes Eosinophilic esophagitis Esophageal obstruction Exposure to COVID-19 virus Hemorrhoids IBS (irritable bowel syndrome) Interstitial cystitis Swallowing disorder Surgical History H/O left breast biopsy H/O right breast biopsy H/O: hysterectomy History of bilateral tubal ligation Hx of tonsillectomy S/P cervical spinal fusion (2013) S/P surgery on nasal septum Family History Father Alcoholism Cancer Lung cancer Mother Age: 71 Lung cancer Diabetes mellitus Hypertension Social History marital status: household members: spouse occupational status: employed Smoking Status: Current every day smoker alcohol intake: current substance use type: does not use Smoking Status: Current every day smoker tobacco type: cigarettes alcohol intake frequency: holidays/special occasions only Substance Use Type: does not use Exam Narrative Exam Narrative: GENERAL: [49] year old patient appears stated age. Well- nourished, well-developed patient, in obvious distress. Tearful, obviously in significant pain and rubbing her right lower abdomen HEAD: Atraumatic. Normocephalic. EYES: Pupils equal round and reactive. Extraocular motions intact. No scleral icterus. No injection or drainage. ENT: Nose without bleeding, purulent drainage. Throat without erythema, tonsillar hypertrophy or exudate. Airway patent. NECK: Trachea midline. Non tender CARDIOVASCULAR: Regular rate and rhythm without murmurs, gallops, or rubs. RESPIRATORY: Clear to auscultation. Breath sounds equal bilaterally. No wheezes, rales, or rhonchi. GASTROINTESTINAL: Abdomen soft, significant tenderness in the right lower quadrant with decreased bowel sounds on the right, normal on the left, nondistended. EXTREMITIES: No edema or joint tenderness. BACK: Nontender without deformity or crepitance. No flank tenderness. NEURO: AOx3. SKIN: No rash or erythema of visible areas Initial Vital Signs Initial Vital Signs: Vital Signs Temperature 98 F 05/29/20 19:47 Pulse Rate 111 H 05/29/20 19:47 Respiratory Rate 20 05/29/20 19:47 Blood Pressure 167/100 H 05/29/20 19:47 Pulse Oximetry 97 05/29/20 19:47 Course Orders Ordered: ED Orders 05/29/20 19:47 EKG-12 Lead Stat 05/29/20 19:48 CT abdomen pelvis w con Stat 05/29/20 19:49 COVID19 Stat Complete Blood Count AUTO DIFF Stat Comprehensive Metabolic Panel Stat Lactate (Lactic Acid) Stat Lipase Stat Diphenhydramine HCl (Diphenhydramine 50 Mg/Ml Vial) 25 mg IV Q4HR PRN PRN Reason: Itching Last Admin: 05/30/20 00:16 Dose: 25 mg Documented by: SAUL Hydromorphone HCl (Hydromorphone 0.5 Mg Inj) 0.5 mg IV Q2H PRN PRN Reason: Pain, Severe (7-10) Last Admin: 05/30/20 01:15 Dose: 0.5 mg Documented by: Admin: 05/29/20 22:34 Dose: 0.5 mg Documented by: KRISTYN Sodium Chloride (Normal Saline 0.9%) 1,000 mls @ 150 mls/hr IV CONT COUNTS INCLUDE 234 BEDS AT THE [facility] Last Infusion: 05/30/20 00:52 Dose: 150 mls/hr Documented by: Infusion: 05/29/20 21:36 Dose: 0 mls/hr Documented by: Admin: 05/29/20 19:57 Dose: 150 mls/hr Documented by: ELIESER Metronidazole (Flagyl) 500 mg in 100 mls @ 100 mls/hr IV Q8H COUNTS INCLUDE 234 BEDS AT THE [facility] Last Admin: 05/30/20 01:16 Dose: 100 mls/hr Documented by: SAUL Ondansetron HCl (Ondansetron 4 Mg/2 Ml Inj) 4 mg IV Q4HR PRN PRN Reason: Nausea And Vomiting Discontinued Medications Diphenhydramine HCl (Diphenhydramine 50 Mg/Ml Vial) 25 mg IV NOW ONE Stop: 05/29/20 20:59 Last Admin: 05/29/20 21:02 Dose: 25 mg Documented by: LEXUS Hydromorphone HCl (Hydromorphone 0.5 Mg Inj) 0.5 mg IV NOW ONE Stop: 05/29/20 19:48 Last Admin: 05/29/20 20:35 Dose: 0.5 mg Documented by: LEXUS Levofloxacin (Levaquin) 500 mg in 100 mls @ 100 mls/hr IV NOW ONE Stop: 05/29/20 21:39 Last Infusion: 05/29/20 21:36 Dose: 0 mls/hr Documented by: Admin: 05/29/20 21:32 Dose: 100 mls/hr Documented by: MEENA Metronidazole (Flagyl) 500 mg in 100 mls @ 100 mls/hr IV NOW ONE Stop: 05/29/20 21:39 Last Admin: 05/30/20 01:08 Dose: Not Given Documented by: DLOUIS Famotidine (Pepcid) 20 mg in 50 mls @ 200 mls/hr IV NOW ONE Stop: 05/29/20 21:12 Last Infusion: 05/29/20 21:31 Dose: 0 mls/hr Documented by: Admin: 05/29/20 21:13 Dose: 200 mls/hr Documented by: MEENA Metronidazole (Flagyl) 500 mg in 100 mls @ 100 mls/hr IV Q8H SANDRINE Ondansetron HCl (Ondansetron 4 Mg/2 Ml Inj) 4 mg IV NOW ONE Stop: 05/29/20 19:48 Last Admin: 05/29/20 19:57 Dose: 4 mg Documented by: ELIESER Consultations Consultation #1: Dr. Oliver happy to accept patient on his service. Requests NPO, fluids, pain meds, nausea, ABX (levaquin/flagyl) Vital Signs Vital signs: Vital Signs - 8 hr 05/29/20 19:47 05/29/20 19:49 05/29/20 19:50 Temperature 98 F Pulse Rate 111 H 114 H 111 H Respiratory Rate 20 25 H 19 Blood Pressure 167/100 H 167/100 H Pulse Oximetry 97 86 L 99 05/29/20 20:00 05/29/20 20:30 05/29/20 20:31 Temperature Pulse Rate 108 H 101 H 100 H Respiratory Rate 23 28 H 22 Blood Pressure 161/95 H 132/86 Pulse Oximetry 98 98 98 MDM - Abdominal Pain Lab Data Result diagrams: 05/29/20 19:49 05/29/20 19:49 Labs: Lab Results 05/29/20 05/29/20 05/29/20 Range/Units 19:49 19:49 19:49 WBC 11.5 H (4.5-11.0) X10^3/uL RBC 4.71 (4.0-5.2) X10^6/uL Hgb 14.2 (12.0-16.0) g/dL Hct 42.1 (36-46) % MCV 89.3 (80-100) fL MCH 30.1 (26-34) PG MCHC 33.7 (30-36) % RDW 13.6 (11.6-14.8) % Plt Count 323 (150-400) X10^3/uL Neut % (Auto) 56.4 (50-75) % Lymph % (Auto) 31.0 (25-40) % [place] % (Auto) 7.1 (3-14) % Eos % (Auto) 4.4 H (2-4) % Baso % (Auto) 1.1 (0-2) % Neut # (Auto) 6500 (8205-4508) /uL Lymph # (Auto) 3600 (1813-8117) /uL [place] # (Auto) 800 (0-900) /uL Eos # (Auto) 500 H (0-450) /uL Baso # (Auto) 100 (0-100) /uL Sodium 140 (137-145) mmol/L Potassium 3.6 (3.4-5.1) mmol/L Chloride 106 (98-107) mmol/L Carbon Dioxide 27 (22-32) mmol/L BUN 10 (7-17) mg/dL Creatinine 0.78 (0.52-1.04) mg/dL Estimated GFR > 60.0 (>60) mL/min BUN/Creatinine Ratio 12.8 (6-22) Glucose 102 H (70-100) mg/dL Lactate 1.7 (0.7-2.1) mmol/L Calcium 9.7 (8.4-10.2) mg/dL Total Bilirubin 0.5 (0.2-1.3) mg/dL AST 59 H (14-36) IU/L ALT 67 H (<35) IU/L Alkaline Phosphatase 97 (38-126) U/L Total Protein 8.2 (6.3-8.2) g/dL Albumin 4.7 (3.5-5.0) g/dL Globulin 3.5 (1.7-4.1) g/dL Albumin/Globulin Ratio 1.3 (1.0-2.8) Lipase 140 (23-300) U/L COVID-19 PCR (Negative) 05/29/20 Range/Units 19:49 WBC (4.5-11.0) X10^3/uL RBC (4.0-5.2) X10^6/uL Hgb (12.0-16.0) g/dL Hct (36-46) % MCV (80-100) fL MCH (26-34) PG MCHC (30-36) % RDW (11.6-14.8) % Plt Count (150-400) X10^3/uL Neut % (Auto) (50-75) % Lymph % (Auto) (25-40) % [place] % (Auto) (3-14) % Eos % (Auto) (2-4) % Baso % (Auto) (0-2) % Neut # (Auto) (4089-7000) /uL Lymph # (Auto) (3883-9309) /uL [place] # (Auto) (0-900) /uL Eos # (Auto) (0-450) /uL Baso # (Auto) (0-100) /uL Sodium (137-145) mmol/L Potassium (3.4-5.1) mmol/L Chloride (98-107) mmol/L Carbon Dioxide (22-32) mmol/L BUN (7-17) mg/dL Creatinine (0.52-1.04) mg/dL Estimated GFR (>60) mL/min BUN/Creatinine Ratio (6-22) Glucose (70-100) mg/dL Lactate (0.7-2.1) mmol/L Calcium (8.4-10.2) mg/dL Total Bilirubin (0.2-1.3) mg/dL AST (14-36) IU/L ALT (<35) IU/L Alkaline Phosphatase (38-126) U/L Total Protein (6.3-8.2) g/dL Albumin (3.5-5.0) g/dL Globulin (1.7-4.1) g/dL Albumin/Globulin Ratio (1.0-2.8) Lipase (23-300) U/L COVID-19 PCR Negative (Negative) Point of care testing: Urine Dip Bedside Urine Glucose Negative Bedside Urine Bilirubin - Negative Bedside Urine Ketone - Negative Urine Specific [place] 1.015 Bedside Urine Occult Blood - Negative Bedside Urine pH 6.5 Bedside Urine Protein - Negative Bedside Urine Urobilinogen - Negative Bedside Urine Nitrite - Negative Bedside Urine Leukocytes - Negative Esterase Imaging Data CT scan - abdomen/pelvis: Radiologist's Impression: [address] [id number] Scan ReportSigned Patient: Cecy Fields ZMR#: [id number]: 1970Acct:[id number]/Sex: 49 / FDate of Service: 05/29/20Loc: EDAccession Number: [id number] Procedure: CT abdomen pelvis w con Ordering Provider: Mike Trivedi D.O. PROCEDURE: CT ABDOMEN PELVIS W CON INDICATIONS: severe abdominal pain, recent bowel resection TECHNIQUE: After the administration of intravenous contrast, 5 mm thick sections acquired from the diaphragm to the symphysis. 5 mm coronal and sagittal reformats were acquired. For radiation dose reduction, the following was used: automated exposure control, adjustment of mA and/or kV according to patient size. COMPARISON: None. FINDINGS: Image quality: Excellent. ABDOMEN: Lung bases: Lung bases are clear. Heart size is normal. Solid organs: Moderate hepatic steatosis. Otherwise normal CT appearance of the liver, spleen, pancreas, gallbladder, adrenal glands, and kidneys. Peritoneum and bowel: Postsurgical changes of midline laparotomy. Small volume free fluid in the right pericolic gutter with adjacent mild peritoneal thickening and fat stranding surrounding the ascending colon and cecum in this region. There is no free air. No abnormally dilated loop of bowel. Nodes and vessels: No retroperitoneal or mesenteric adenopathy by size criteria. Aorta and inferior vena cava are normal in size. Miscellaneous: No ventral hernias. PELVIS: Genitourinary: Bladder wall thickness is normal. Miscellaneous: No inguinal hernias or adenopathy. Bones: No suspicious bony lesions. No vertebral body compression fractures. IMPRESSION: Postsurgical changes of midline laparotomy, presumably for the provided history of bowel resection. A fluid and inflammatory changes adjacent to the ascending colon, nonspecific. No intra-abdominal abscess. Dictated by: Lewis Ayala M.D. on 05/29/2020 at 20:14 Approved by: Lewis Ayala M.D. on 05/29/2020 at 20:17 [facility] Narrative Medical decision making narrative: Patient with 3 days of gradually worsening abdominal pain vomiting, subjective fever and chills with CT findings suggesting inflammatory change and fat stranding. She has a slight elevation in her white blood cell count and was feeling quite well with a normal exam a few days ago on a postsurgical follow-up. She requires admission for IV antibiotics, serial abdominal exams and monitoring. Discharge Plan Departure Patient Disposition: Admitted As Inpatient Clinical Impression: Abdominal pain Qualifiers: Abdominal location: right lower quadrant Qualified Code(s): R10.31 - Right lower quadrant pain Leukocytosis Qualifiers: Leukocytosis type: unspecified Qualified Code(s): D72.829 - Elevated white blood cell count, unspecified Admit Date/Time: 05/29/20 20:47 Admit Provider: Mitchell Oliver
[2020-05-29 19:57] LABS: Add Manual Diff / Slide Review NO; Basophils Absolute Auto 100 /uL (0-100); Basophils Percent Auto 1.1 % (0-2); Eosinophils Absolute Auto 500 /uL (0-450); Eosinophils Percent Auto 4.4 % (2-4); Hematocrit 42.1 % (36-46); Hemoglobin 14.2 g/dL (12.0-16.0); Lymphocytes Absolute Auto 3600 /uL (1100-4500); Mean Corpuscular HGB Conc 33.7 % (30-36); Mean Corpuscular Hemoglobin 30.1 PG (26-34); Mean Corpuscular Volume 89.3 fL (80-100); Monocytes Absolute Auto 800 /uL (0-900); Monocytes Percent Auto 7.1 % (3-14); Neutrophils Absolute Auto 6500 /uL (1500-7000); Neutrophils Percent Auto 56.4 % (50-75); Platelet Count 323 X10^3/uL (150-400); Red Blood Cell Count 4.71 X10^6/uL (4.0-5.2); Red Cell Distribution Width 13.6 % (11.6-14.8); White Blood Cell Count 11.5 X10^3/uL (4.5-11.0)
[2020-05-29] MEDS: SODIUM CHLORIDE 0.9% 1,000 ML 150 ML IV (19:57)
[2020-05-29] MEDS: ONDANSETRON 4 MG/2 ML INJ IV (19:57)
[2020-05-29 20:09] LABS: Alanine Aminotransferase 67 IU/L (<35); Albumin 4.7 g/dL (3.5-5.0); Albumin Globulin Ratio 1.3 (1.0-2.8); Alkaline Phosphatase 97 U/L (38-126); Aspartate Aminotransferase 59 IU/L (14-36); BUN Creatinine Ratio 12.8 (6-22); Bilirubin Total 0.5 mg/dL (0.2-1.3); Blood Urea Nitrogen 10 mg/dL (7-17); Calcium 9.7 mg/dL (8.4-10.2); Carbon Dioxide 27 mmol/L (22-32); Chloride 106 mmol/L (98-107); Estimated Glomerular Filt Rate > 60.0 mL/min (>60); Globulin 3.5 g/dL (1.7-4.1); Glucose 102 mg/dL (70-100); HEMOLYSIS < 15 (0-50); Lactate (Lactic Acid) 1.7 mmol/L (0.7-2.1); Lipase 140 U/L (23-300); Potassium 3.6 mmol/L (3.4-5.1); Sodium 140 mmol/L (137-145); Total Protein 8.2 g/dL (6.3-8.2)
[2020-05-29 20:12] LABS: COVID19 -Nasal RAPID Negative (Negative)
[2020-05-29] MEDS: HYDROMORPHONE 0.5 MG INJ IV ×2 (20:35→22:34)
[2020-05-29] MEDS: diphenhydrAMINE 50 MG/ML VIAL 25 MG IV (21:02)
[2020-05-29] MEDS: FAMOTIDINE 20 MG/50 ML PIGGYBACK 200 MG IV (21:13)
[2020-05-29] MEDS: levoFLOXacin 500 MG/100 ML PIGGYBACK 100 MG IV (21:32)
--- NOTE | 2020-05-29 23:11 | PC.NURSE ---
Admit/Evening Shift Note- Patient arrived to [facility] via stretcher from ER at 2140. Patient walked on her own with steady gait from stretcher to bed. Admit questions done, medicals reviewed, physical assessment compeleted. PRN IV dilaudid given for complaints of pain at 8/10. Patient oriented to bed and bed controls, room, bathroom, lights, phone, menu, and call max/tv remote. Safety measures in place. Patient agrees to call for assistance. call max and phone within reach. will continue to monitor.
[2020-05-30 00:05] VITALS: BP 140/92; PULSE 90; RESP 12; TEMP 36.5; O2SAT 96
[2020-05-30] MEDS: diphenhydrAMINE 50 MG/ML VIAL 25 MG IV ×2 (00:16→05:19)
[2020-05-30] MEDS: HYDROMORPHONE 0.5 MG INJ IV ×3 (01:15→07:51)
[2020-05-30] MEDS: metroNIDAZOLE 500 MG/100 ML PIGGYBACK 100 MG IV ×2 (01:16→07:52)
[2020-05-30 05:18] VITALS: BP 120/70; PULSE 97; RESP 12; TEMP 36.2; O2SAT 96
[2020-05-30] MEDS: SODIUM CHLORIDE 0.9% 1,000 ML 150 ML IV (06:47)
[2020-05-30 07:42] VITALS: BP 123/77; PULSE 88; RESP 19; TEMP 36.4; O2SAT 96
[2020-05-30 09:23] LABS: Add Manual Diff / Slide Review NO; Basophils Absolute Auto 100 /uL (0-100); Basophils Percent Auto 0.9 % (0-2); Eosinophils Absolute Auto 500 /uL (0-450); Eosinophils Percent Auto 6.5 % (2-4); Hemoglobin 12.8 g/dL (12.0-16.0); Lymphocytes Absolute Auto 2500 /uL (1100-4500); Lymphocytes Percent Auto 35.9 % (25-40); Mean Corpuscular HGB Conc 33.6 % (30-36); Mean Corpuscular Volume 89.3 fL (80-100); Monocytes Absolute Auto 600 /uL (0-900); Monocytes Percent Auto 8.9 % (3-14); Neutrophils Absolute Auto 3400 /uL (1500-7000); Neutrophils Percent Auto 47.8 % (50-75); Platelet Count 262 X10^3/uL (150-400); Red Blood Cell Count 4.25 X10^6/uL (4.0-5.2); Red Cell Distribution Width 13.5 % (11.6-14.8); White Blood Cell Count 7.1 X10^3/uL (4.5-11.0)
[2020-05-30 09:26] LABS: BUN Creatinine Ratio 13.2 (6-22); Blood Urea Nitrogen 9 mg/dL (7-17); Calcium 8.6 mg/dL (8.4-10.2); Carbon Dioxide 28 mmol/L (22-32); Chloride 109 mmol/L (98-107); Estimated Glomerular Filt Rate > 60.0 mL/min (>60); Glucose 91 mg/dL (70-100); HEMOLYSIS < 15 (0-50); Potassium 3.7 mmol/L (3.4-5.1); Sodium 139 mmol/L (137-145)
--- NOTE | 2020-05-30 09:55 | CM.DANOTE ---
DCP: Case received, EMR reviewed and met with patient. Introduced self and role. Was able to obtain information from patient regarding her baseline status prior to hospitalization, as well as some health information. DCP assessment completed with information currently available. Patient is a 49 year old female who admitted yesterday evening to the care of the hospitalist/surgical team. PCP: JENNIFER Carey. Payer: confirmed: [employer]. Patient came to the hospital secondary to having right lower quadrant pain, as well as nausea. She was recently here in April with abdominal surgery. She is noted to have increased WBC, and is currently getting some IV antibiotics. Her CT scan noted some inflammatory changes. Met with patient in her room. She is alert and oriented. She resides in [place] with her spouse, Carlos A. Patient indicated and confirmed that she is employed at [employer] in [employer], and stated, 'I think that I'm going to get fired, because I have called out sick so much. Asked her if she needed any type of note, and stated, it doesn't matter, they will probably fire me anyways. Patient concerned that her insurance will not pay much for her hospital stay, and is concerned about finances. Encouraged her to contact the admission counselors tomorrow, when they are in, to discuss, and can discuss her bill as well. P: DCP to continue to be available for any resources needed. She should be able to go home when she is medically stable. Veronique Earl RN/Hr Operations Advisor
[2020-05-30] MEDS: ACETAMINOPHEN 325 MG TABLET 650 MG PO (09:59)
[2020-05-30] MEDS: ONDANSETRON 4 MG/2 ML INJ IV (09:59)
--- NOTE | 2020-05-30 10:33 | P.HP_ITS ---
History of Present Illness History of Present Illness Date Patient Seen: 05/30/20 Time Patient Seen: 10:33 Chief complaint: recent abdominal surgery, now has extreme pain Narrative: 49-year-old female who underwent a recent right ariadne colectomy for benign disease 3 weeks ago presents with principally right sided abdominal pain. Her operation was unremarkable as was her early postoperative course. She was seen in the clinic 4 days ago where she was doing fairly well was having some occasional episodes of diarrhea but she was off all pain medication and return ing to work. She says that she has been unable have a bowel movement for the last 4 days she is passing flatus has nausea but no emesis and feels bloated. CT abdomen pelvis demonstrates no bowel obstruction, no intra-abdominal abscess, there is some fluid along the right colic gutter and constipation. Admission white blood cell count 11.5 she received antibiotics in the emergency room and fluid resuscitation repeat this morning is now 7. She is hungry this morning and her pain has improved somewhat. Patient History Medical History Bulging of cervical intervertebral disc Cervical radiculopathy Cough Depression with anxiety Dilation of bladder Eczema Elevated liver enzymes Eosinophilic esophagitis Esophageal obstruction Exposure to COVID-19 virus Hemorrhoids IBS (irritable bowel syndrome) Interstitial cystitis Swallowing disorder Surgical History H/O left breast biopsy H/O right breast biopsy H/O: hysterectomy History of bilateral tubal ligation Hx of tonsillectomy S/P cervical spinal fusion (2013) S/P surgery on nasal septum Family & Social History Family History Father Alcoholism Cancer Lung cancer Mother Age: 71 Lung cancer Diabetes mellitus Hypertension Social History: household members spouse Prior Living Arrangements House Safety & Behavioral: Feels Safe in Current Yes Environment Been Physically Hurt or No Threatened By a Person Suicidal Ideation Description None Suicide Plan Description No Plan Tobacco & Substance use: Tobacco type cigarettes Smoking Status Current every day smoker Smoking packs per day 0.5 alcohol intake current alcohol intake frequency holiday/special occasion Substance Use Type does not use Meds Home Medications and Allergies Home Medications Medication Instructions Recorded Confirmed Type varenicline 0.5 mg (11)-1 mg (42) See Rx Instructions PO PER PKG DIR 08/14/19 05/30/20 Rx tablets in a dose pack #53 each amitriptyline 25 mg tablet 25 mg PO BEDTIME 11/19/19 05/30/20 History budesonide 0.5 mg/2 mL suspension See Rx Instructions INHALATION 11/19/19 05/30/20 Rx for nebulization .COMPLEX #60 ml acetaminophen [Tylenol Extra 1,000 mg PO Q6H PRN 05/30/20 05/30/20 History Strength] Allergies Allergy/AdvReac Type Severity Reaction Status Date / Time gluten Allergy Severe Anaphylaxis Verified 05/26/20 13:08 lactose Allergy Intermediate Swelling Verified 05/26/20 13:08 of Lip/Tongue/Throat Penicillins Allergy Intermediate Rash Verified 05/26/20 13:08 codeine [CODEINE] Allergy Mild RASH Verified 05/26/20 13:08 morphine [MORPHINE] Allergy Mild Rash Verified 05/26/20 13:08 egg AdvReac Severe Diarrhea Verified 05/26/20 13:08 Review of Systems Review of Systems Narrative: A 10 point review of systems is negative except as noted in the HPI Exam Vital Signs (past 8 hours): - 05/30/20 05:18 05/30/20 07:42 Temperature 97.2 F L 97.5 F L Pulse Rate 97 H 88 Respiratory Rate 12 19 Blood Pressure 120/70 123/77 Pulse Oximetry 96 96 Oxygen Delivery Method Room Air Oxygen Flow Rate 0 Narrative Exam Narrative: General-no acute distress, well nourished adult woman HEENT-moist mucous membranes, no scleral icterus Neck-supple, no lymphadenopathy Chest- non labored respirations, clear to auscultation bilaterally Cardiac-regular rate no peripheral edema Abdomen-moderately tender mid right abdomen no peritonitis, incisions have healed well Extremities-warm, well perfused Neurological-alert and oriented, no focal deficits Objective Labs Result Diagrams: 05/30/20 09:08 05/30/20 09:08 Labs: Laboratory Results - last 24 hr 05/29/20 05/29/20 05/29/20 19:49 19:49 19:49 WBC 11.5 H RBC 4.71 Hgb 14.2 Hct 42.1 MCV 89.3 MCH 30.1 MCHC 33.7 RDW 13.6 Plt Count 323 Neut % (Auto) 56.4 Lymph % (Auto) 31.0 [place] % (Auto) 7.1 Eos % (Auto) 4.4 H Baso % (Auto) 1.1 Neut # (Auto) 6500 Lymph # (Auto) 3600 [place] # (Auto) 800 Eos # (Auto) 500 H Baso # (Auto) 100 Sodium 140 Potassium 3.6 Chloride 106 Carbon Dioxide 27 BUN 10 Creatinine 0.78 Estimated GFR > 60.0 BUN/Creatinine Ratio 12.8 Glucose 102 H Lactate 1.7 Calcium 9.7 Total Bilirubin 0.5 AST 59 H ALT 67 H Alkaline Phosphatase 97 Total Protein 8.2 Albumin 4.7 Globulin 3.5 Albumin/Globulin Ratio 1.3 Lipase 140 COVID-19 PCR 05/29/20 05/30/20 05/30/20 19:49 09:08 09:08 WBC 7.1 RBC 4.25 Hgb 12.8 Hct 38.0 MCV 89.3 MCH 30.0 MCHC 33.6 RDW 13.5 Plt Count 262 Neut % (Auto) 47.8 L Lymph % (Auto) 35.9 [place] % (Auto) 8.9 Eos % (Auto) 6.5 H Baso % (Auto) 0.9 Neut # (Auto) 3400 Lymph # (Auto) 2500 [place] # (Auto) 600 Eos # (Auto) 500 H Baso # (Auto) 100 Sodium 139 Potassium 3.7 Chloride 109 H Carbon Dioxide 28 BUN 9 Creatinine 0.68 Estimated GFR > 60.0 BUN/Creatinine Ratio 13.2 Glucose 91 Lactate Calcium 8.6 Total Bilirubin AST ALT Alkaline Phosphatase Total Protein Albumin Globulin Albumin/Globulin Ratio Lipase COVID-19 PCR Negative Assessment & Plan Assessment and plan (1) Abdominal pain: Qualifiers: Abdominal location: right lower quadrant Qualified Code(s): R10.31 - Right lower quadrant pain Status: Acute Assessment & Plan narrative: 49-year-old female 3 weeks status post right hemicolectomy for benign disease admitted for acute abdominal pain. CT abdomen pelvis is fairly unremarkable, there are some postsurgical changes but no abscess or bowel obstruction. At admission she had a mild leukocytosis of 11.5 which is now normalized to 7 after Levaquin + Flagyl and IV hydration. I suspect this was largely due to dehydration. -Observation -DC IV Antibiotics -Miralax + Suppository for constipation -Clears will advance if tolerates -SCDs Quality VTE Deep Vein Thrombosis/Pulmonary Embolism Present on Admission: No
[2020-05-30] MEDS: polyethylene glycoL 3350 17 GM POWD.PACK 34 GM PO (11:24)
[2020-05-30] MEDS: CYCLOBENZAPRINE 5 MG TABLET PO ×2 (11:26→14:28)
[2020-05-30] MEDS: KETOROLAC 30 MG/ML VIAL IV (11:26)
[2020-05-30] MEDS: BISACODYL 10 MG SUPP PR (11:27)
[2020-05-30 12:06] VITALS: BP 135/78; PULSE 78; RESP 16; TEMP 36.4; O2SAT 98
--- NOTE | 2020-05-30 13:08 | PC.NURSE ---
Addendum entered by Jackelin Felder R.N. 05/30/20 14:17: Pt requesting to d/c home. Has been able to tolerate diet. MD called and made aware. Pt can be discharged home. MD will call in rx for flexaril and pt made aware of this. Original Note: GI: Pt reports she wants to d/c home if able. If she doesn't make it to work tomorrow she may lose her job and benefits. Had felt better this am, then had some bowen and was nauseated. Vomited 150mls, received zofran and nausea resolved. Took some clear liquids at lunch and a few bites of yogurt. So far no nausea. So far pain is in control. Did get a supp, lots of gas but no bm. If she conts to improve will make md aware.
== END 2020-05-30 15:00 | disposition home or self-care (01) ==
LOC: ED 19:46 → AC 05-30 02:08
PROVIDERS: Admitting Provider Surgery; Emergency Provider Emergency Medicine; PCP Nurse Practitioner; Referring Provider Emergency Medicine; Visit Provider Surgery
DX: R10.31 Right lower quadrant pain (principal); R11.2 Nausea with vomiting, unspecified; D72.829 Elevated white blood cell count, unspecified; Z90.49 Acquired absence of other specified parts of digestive tract; F17.210 Nicotine dependence, cigarettes, uncomplicated; K59.00 Constipation, unspecified; Z11.59 Encounter for screening for other viral diseases
CPT/HCPCS: 36415; 74177; 80048; 80053; 81003; 83605; 83690; 85025; 87635; 93005; 96361; 96365; 96366; 96367; 96375; 96376; 99218; 99283; 99284; G0378; J1170; J1200; J1885; J1956; J2405; Q9967

== ENCOUNTER 2020-07-05 10:20 | Emergency (ER) | payer OTHER, SELFPAY ==
[2020-06-28 13:23] VITALS: BMI 23.6
[2020-07-05] VITALS (10 sets, daily range): BP systolic 128–206; BP diastolic 67–105; PULSE 80–103; RESP 20; TEMP 36.6; O2SAT 95–100; BMI 23.3
--- NOTE | 2020-07-05 10:37 | ED_ITS ---
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 Patient reports associated symptoms such as chills, nausea, chronic urinary urgency from interstitial cystitis. Patient reports burning with bowel movements since the surgery and some loose stools. Patient reports pain is constant and worse with movement, cough, and sneeze. Patient has not taken any medications for pain. Patient denies chest pain, short of breath, dizziness, or known previous cardiac history. Patient has on appointment with Dr. Alcaraz tomorrow but decided to visit ED today since her pain is severe. Related Data Home Medications Medication Instructions Recorded Confirmed amitriptyline 25 mg tablet 25 mg PO BEDTIME 11/19/19 05/30/20 acetaminophen [Tylenol Extra 1,000 mg PO Q6H PRN 05/30/20 05/30/20 Strength] Previous Rx's Medication Instructions Recorded varenicline 0.5 mg (11)-1 mg (42) See Rx Instructions PO PER PKG DIR 08/14/19 tablets in a dose pack #53 each budesonide 0.5 mg/2 mL suspension See Rx Instructions INHALATION 11/19/19 for nebulization .COMPLEX #60 ml cyclobenzaprine 5 mg PO TID #30 tab 05/30/20 oxycodone-acetaminophen 5 mg-325 1 tab PO Q6H PRN #20 tab 06/02/20 mg tablet ondansetron 4 mg PO BID-TID PRN #10 tab 07/05/20 oxycodone-acetaminophen [Percocet] 1 tab PO Q6H PRN #10 tab 07/05/20 valacyclovir 1,000 mg PO TID 7 Days #21 tab 07/05/20 Allergies Allergy/AdvReac Type Severity Reaction Status Date / Time gluten Allergy Severe Anaphylaxis Verified 05/26/20 13:08 lactose Allergy Intermediate Swelling Verified 05/26/20 13:08 of Lip/Tongue/Throat Penicillins Allergy Intermediate Rash Verified 05/26/20 13:08 codeine [CODEINE] Allergy Mild RASH Verified 05/26/20 13:08 morphine [MORPHINE] Allergy Mild Rash Verified 05/26/20 13:08 egg AdvReac Severe Diarrhea Verified 05/26/20 13:08 Review of Systems <JENNIFER Hernandes - Last Filed: 07/05/20 15:47> Review of Systems Narrative: General: Denies fever, (+) chills, fatigue, malaise, sweats. HEENT: Denies sinus pain, ear pain, sore throat, difficulty swallowing, dizziness. Respiratory: Denies dyspnea, cough, wheezing, hemoptysis, sputum. Cardiovascular: Denies chest pain, palpitations, orthopnea, edema. Gastrointestinal: See HPI : Denies dysuria, (+) chronic urinary frequency, incontinence, hematuria, urinary retention. Musculoskeletal: See HPI. Skin: Denies rash, skin lesions, or other. Neurologic: Denies weakness, headache, numbness, change in speech, confusion, seizures, incoordination. Psychiatric: No concerning psychosocial issues. 12-point review of systems is negative except for those stated above. Patient History <JENNIFER Hernandes - Last Filed: 07/05/20 15:47> Medical History (Updated 07/05/20 @ 14:29 by JENNIFER Hernandes) Bulging of cervical intervertebral disc Cervical radiculopathy Cough Depression with anxiety Dilation of bladder Eczema Elevated liver enzymes Eosinophilic esophagitis Esophageal obstruction Exposure to COVID-19 virus Hemorrhoids IBS (irritable bowel syndrome) Interstitial cystitis Swallowing disorder Surgical History H/O left breast biopsy H/O right breast biopsy H/O: hysterectomy History of bilateral tubal ligation Hx of tonsillectomy S/P cervical spinal fusion (2013) S/P surgery on nasal septum Family History Father Alcoholism Cancer Lung cancer Mother Age: 71 Lung cancer Diabetes mellitus Hypertension Social History marital status: household members: spouse occupational status: employed Smoking Status: Current every day smoker alcohol intake: current substance use type: does not use Smoking Status: Current every day smoker tobacco type: cigarettes alcohol intake frequency: holidays/special occasions only Substance Use Type: does not use Exam <Sukhwinder JENNIFER Wilson - Last Filed: 07/05/20 15:47> Narrative Exam Narrative: GEN: Alert, oriented x 3, well nourished, and in moderate distress from pain. Head: Normal cephalic, atraumatic. No scalp or temporal tenderness, palpable mass or rash. EYES: Pupils are equal, round, and reactive to light and accommodation. Extraocular muscles are intact bilaterally. There is no subconjunctival hemor rhage, exudate and sclera non-icteric. ENT: Bilateral auditory canals and tympanic membranes clear. Hearing grossly intact. Nose without bleeding, purulent discharge or deviation. Facial sinuses nontender to palpate. Mucous membrane moist, no mucosal lesion. Throat without erythema, tonsillar hypertrophy or exudate. Uvula in midline, airway patent. Neck: Trachea in midline. No JVD, non-tender without lymphadenopathy. No masses or thyroid megaly. Supple, non-tender and no meningeal signs. CARDIAC: Normal regular rate and rhythm without murmurs, gallops, or rubs. No chest wall tenderness. No peripheral edema, cyanosis or pallor. Capillary refill is less than 2 seconds. RESPIRATORY: Lungs are clear to auscultate bilaterally. No cough, wheezes, rales, or rhonchi. No stridor, respiratory distress, increase work of breathing, or accessary muscle used. ABD: Abdomen soft and non-distended. Tender to palpate in mid epigastric and right upper quadrant. No guarding or rebound tenderness to palpate. Bowel sounds are normal in all 4 quadrants. There is no palpable masses or organomegaly. EXT: Full painless ROM of all extremities with no loss of sensation, strength, e ffusion or edema. SKIN: Warm, dry, normal color for patient. BACK: No deformity or crepitance. Right flank tenderness. Two erythematous lesions on right side adjacent to back. NEUROLOGICAL: Alert and oriented to place, time and person. Sensation and motor function intact bilaterally. No facial droops, dysphasia. PSYCHIATRIC: Good judgement and reason, without hallucinations, abnormal affect or abnormal behaviors during the examination. Patient is not suicidal. Initial Vital Signs Initial Vital Signs: Vital Signs Temperature 97.9 F 07/05/20 10:41 Pulse Rate 103 H 07/05/20 10:41 Respiratory Rate 20 07/05/20 10:41 Blood Pressure 206/105 H 07/05/20 10:41 Pulse Oximetry 100 07/05/20 10:41 <Mike Trivedi DO - Last Filed: 07/06/20 09:02> Initial Vital Signs Initial Vital Signs: Vital Signs Temperature 97.9 F 07/05/20 10:41 Pulse Rate 103 H 07/05/20 10:41 Respiratory Rate 07/05/20 10:41 Blood Pressure 206/105 H 07/05/20 10:41 Pulse Oximetry 100 07/05/20 10:41 Scores <JENNIFER Hernandes - Last Filed: 07/05/20 15:47> GCS [place] coma scale eye opening: Spontaneous [place] coma scale verbal response: Orientated [place] coma scale motor response: Obey commands [place] coma scale total score: 15 qSOFA Altered Mental Status (GCS <15): No Respiratory rate greater than/equal to 22: No Systolic blood pressure less than or equal to 100: No qSOFA Total: 0 0-1 Not High Risk 1-3 High risk Course <JENNIFER Hernandes - Last Filed: 07/05/20 15:47> Orders Ordered: Discontinued Medications Hydromorphone HCl (Hydromorphone 0.5 Mg Inj) 0.5 mg IV NOW ONE Stop: 07/05/20 10:37 Last Admin: 07/05/20 10:48 Dose: 0.5 mg Documented by: KESHIA Hydromorphone HCl (Hydromorphone 0.5 Mg Inj) 0.5 mg IV NOW ONE Stop: 07/05/20 11:44 Last Admin: 07/05/20 11:52 Dose: 0.5 mg Documented by: KESHIA Hydromorphone HCl (Hydromorphone 0.5 Mg Inj) 0.5 mg IV NOW ONE Stop: 07/05/20 13:58 Last Admin: 07/05/20 14:02 Dose: 0.5 mg Documented by: MARQUEZ Sodium Chloride (Normal Saline 0.9%) 1,000 mls @ 1,000 mls/hr IV CONT SANDRINE Last Infusion: 07/05/20 12:25 Dose: 0 mls/hr Documented by: Admin: 07/05/20 10:48 Dose: 1,000 mls/hr Documented by: KESHIA Ondansetron HCl (Ondansetron 4 Mg/2 Ml Inj) 4 mg IV NOW ONE Stop: 07/05/20 10:36 Last Admin: 07/05/20 10:48 Dose: 4 mg Documented by: KESHIA Pantoprazole Sodium (Pantoprazole 40 Mg Vial) 40 mg IV NOW ONE Stop: 07/05/20 13:59 Last Admin: 07/05/20 14:03 Dose: 40 mg Documented by: MARQUEZ Reevaluation(s) Reevaluation #1: Patient reports pain slightly improved and rates as 7/10 at this time and requesting another dose of pain medications. Time: 11:44 Reevaluation #2: Patient reports pain still about 7/10 and requesting another dose of Dilaudid. Time: 13:59 Consultations Consultation #1: Dr. Alcaraz consulted with lab, CT and US findings and physical exam. He will review CT and US images and will return a call. Time: 13:59 Consultation #2: Dr. Alcaraz called back. Advised if the patient prefers she could be hospitalized under observation with antibiotic medication or discharge home for pain medication and follow-up as scheduled next week. Time: 14:10 Consultation #3: Patient informed about the options for observation for admission versus pain management out patiently. Patient declined admission to hospitalization. Patient reassessed and states the pain in RUQ was burning in addition to sharp. She also states had some tingling and itching sensation as well. She noticed two skin lesions on right side. We discussed her pain may due to early shingles and she agrees to get treatment with antiviral medication. Time: 14:22 Vital Signs Vital signs: Vital Signs - 8 hr 07/05/20 10:41 07/05/20 10:57 07/05/20 11:00 Temperature 97.9 F Pulse Rate 103 H 98 H 91 H Respiratory Rate 20 Blood Pressure 206/105 H 140/79 Pulse Oximetry 100 96 97 07/05/20 11:30 07/05/20 12:00 07/05/20 12:30 Temperature Pulse Rate 88 85 80 Respiratory Rate Blood Pressure 145/77 H 133/76 140/81 Pulse Oximetry 99 95 97 07/05/20 13:00 07/05/20 13:30 07/05/20 14:00 Temperature Pulse Rate 83 83 83 Respiratory Rate Blood Pressure 153/77 H 134/79 128/67 Pulse Oximetry 97 99 96 07/05/20 14:30 Temperature Pulse Rate 81 Respiratory Rate Blood Pressure 130/79 Pulse Oximetry 98 <Mike Trivedi, - Last Filed: 07/06/20 09:02> Orders Ordered: Discontinued Medications Hydromorphone HCl (Hydromorphone 0.5 Mg Inj) 0.5 mg IV NOW ONE Stop: 07/05/20 10:37 Last Admin: 07/05/20 10:48 Dose: 0.5 mg Documented by: KESHIA Hydromorphone HCl (Hydromorphone 0.5 Mg Inj) 0.5 mg IV NOW ONE Stop: 07/05/20 11:44 Last Admin: 07/05/20 11:52 Dose: 0.5 mg Documented by: KESHIA Hydromorphone HCl (Hydromorphone 0.5 Mg Inj) 0.5 mg IV NOW ONE Stop: 07/05/20 13:58 Last Admin: 07/05/20 14:02 Dose: 0.5 mg Documented by: MARQUEZ Sodium Chloride (Normal Saline 0.9%) 1,000 mls @ 1,000 mls/hr IV CONT SANDRINE Last Infusion: 07/05/20 12:25 Dose: 0 mls/hr Documented by: Admin: 07/05/20 10:48 Dose: 1,000 mls/hr Documented by: KESHIA Ondansetron HCl (Ondansetron 4 Mg/2 Ml Inj) 4 mg IV NOW ONE Stop: 07/05/20 10:36 Last Admin: 07/05/20 10:48 Dose: 4 mg Documented by: KESHIA Pantoprazole Sodium (Pantoprazole 40 Mg Vial) 40 mg IV NOW ONE Stop: 07/05/20 13:59 Last Admin: 07/05/20 14:03 Dose: 40 mg Documented by: MARQUEZ Vital Signs Vital signs: Vital Signs - 8 hr 07/05/20 10:41 12/28/20 10:57 07/05/20 11:00 Temperature 97.9 F Pulse Rate 103 H 98 H 91 H Respiratory Rate 20 Blood Pressure 206/105 H 140/79 Pulse Oximetry 100 96 97 07/05/20 11:30 07/05/20 12:00 07/05/20 12:30 Temperature Pulse Rate 88 85 80 Respiratory Rate Blood Pressure 145/77 H 133/76 140/81 Pulse Oximetry 99 95 97 07/05/20 13:00 07/05/20 13:30 07/05/20 14:00 Temperature Pulse Rate 83 83 83 Respiratory Rate Blood Pressure 153/77 H 134/79 128/67 Pulse Oximetry 97 99 96 07/05/20 14:30 Temperature Pulse Rate 81 Respiratory Rate Blood Pressure 130/79 Pulse Oximetry 98 MDM - Abdominal Pain <Sukhwinder JENNIFER Wilson - Last Filed: 07/05/20 15:47> Differential Diagnosis Differential diagnosis: Likely diverticulitis, small bowel obstruction and other (liver disease etiology, cholecystitis, cholelithiasis, tumor, shingles) Medical Records Attestation: I reviewed the patient's medical records. Lab Data Attestation: I reviewed the patient's lab results. Result diagrams: 07/05/20 10:36 07/05/20 10:36 Labs: Lab Results 07/05/20 07/05/20 07/05/20 Range/Units 10:36 10:36 10:36 WBC 7.9 (4.5-11.0) X10^3/uL RBC 4.93 (4.0-5.2) X10^6/uL Hgb 14.8 (12.0-16.0) g/dL Hct 43.8 (36-46) % MCV 88.9 (80-100) fL MCH 30.0 (26-34) PG MCHC 33.8 (30-36) % RDW 13.5 (11.6-14.8) % Plt Count 280 (150-400) X10^3/uL Neut % (Auto) 55.7 (50-75) % Lymph % (Auto) 31.3 (25-40) % [place] % (Auto) 7.5 (3-14) % Eos % (Auto) 4.2 H (2-4) % Baso % (Auto) 1.3 (0-2) % Neut # (Auto) 4400 (0826-5357) /uL Lymph # (Auto) 2500 (3177-8324) /uL [place] # (Auto) 600 (0-900) /uL Eos # (Auto) 300 (0-450) /uL Baso # (Auto) 100 (0-100) /uL Sodium 141 (137-145) mmol/L Potassium 3.7 (3.4-5.1) mmol/L Chloride 108 H (98-107) mmol/L Carbon Dioxide 29 (22-32) mmol/L BUN 14 (7-17) mg/dL Creatinine 0.62 (0.52-1.04) mg/dL Estimated GFR > 60.0 (>60) mL/min BUN/Creatinine Ratio 22.6 H (6-22) Glucose 106 H (70-100) mg/dL Lactate 1.1 (0.7-2.1) mmol/L Calcium 9.4 (8.4-10.2) mg/dL Total Bilirubin 0.3 (0.2-1.3) mg/dL AST 47 H (14-36) IU/L ALT 56 H (<35) IU/L Alkaline Phosphatase 83 (38-126) U/L Total Creatine Kinase (30-135) U/L CK-MB (CK-2) CK-MB (CK-2) Rel Index Troponin I (0.01-0.034) ng/mL Total Protein 7.6 (6.3-8.2) g/dL Albumin 4.4 (3.5-5.0) g/dL Globulin 3.2 (1.7-4.1) g/dL Albumin/Globulin Ratio 1.4 (1.0-2.8) Lipase 120 (23-300) U/L Serum , Qual (Negative) 07/05/20 07/05/20 Range/Units 10:36 13:01 WBC (4.5-11.0) X10^3/uL RBC (4.0-5.2) X10^6/uL Hgb (12.0-16.0) g/dL Hct (36-46) % MCV (80-100) fL MCH (26-34) PG MCHC (30-36) % RDW (11.6-14.8) % Plt Count (150-400) X10^3/uL Neut % (Auto) (50-75) % Lymph % (Auto) (25-40) % [place] % (Auto) (3-14) % Eos % (Auto) (2-4) % Baso % (Auto) (0-2) % Neut # (Auto) (4821-9665) /uL Lymph # (Auto) (8083-8101) /uL [place] # (Auto) (0-900) /uL Eos # (Auto) (0-450) /uL Baso # (Auto) (0-100) /uL Sodium (137-145) mmol/L Potassium (3.4-5.1) mmol/L Chloride (98-107) mmol/L Carbon Dioxide (22-32) mmol/L BUN (7-17) mg/dL Creatinine (0.52-1.04) mg/dL Estimated GFR (>60) mL/min BUN/Creatinine Ratio (6-22) Glucose (70-100) mg/dL Lactate (0.7-2.1) mmol/L Calcium (8.4-10.2) mg/dL Total Bilirubin (0.2-1.3) mg/dL AST (14-36) IU/L ALT (<35) IU/L Alkaline Phosphatase (38-126) U/L Total Creatine Kinase 54 (30-135) U/L CK-MB (CK-2) TNP CK-MB (CK-2) Rel Index TNP Troponin I < 0.012 (0.01-0.034) ng/mL Total Protein (6.3-8.2) g/dL Albumin (3.5-5.0) g/dL Globulin (1.7-4.1) g/dL Albumin/Globulin Ratio (1.0-2.8) Lipase (23-300) U/L Serum , Qual Negative (Negative) Point of care testing: Urine Dip Bedside Urine Glucose Negative Bedside Urine Bilirubin - Negative Bedside Urine Ketone - Negative Urine Specific [place] 1.030 Bedside Urine Occult Blood - Negative Bedside Urine pH 7.5 Bedside Urine Protein - Negative Bedside Urine Urobilinogen - Negative Bedside Urine Nitrite - Negative Bedside Urine Leukocytes - Negative Esterase Imaging Data CT scan - abdomen/pelvis: Radiologist's Impression: [address] [place] [id number] Scan ReportSigned Patient: Cecy Fields ZMR#: [id number]: 1970Acct:[id number]/Sex: 49 / FDate of Service: 07/05/20Loc: EDAccession Number: [id number] Procedure: CT abdomen pelvis w con Ordering Provider: Sukhwinder Wilson PROCEDURE: CT ABDOMEN PELVIS W CON INDICATIONS: RUQ pain, hx 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 5 mm coronal and sagittal reformats were acquired. For radiation dose reduction, the following was used: automated exposure control, adjustment of mA and/or kV according to patient size. COMPARISON: [facility], CT, CT ABDOMEN PELVIS W CON, 05/29/2020, 20:05. FINDINGS: Image quality: Excellent. ABDOMEN: Lung bases: Dependent atelectasis at lung bases. Heart size is normal. Solid organs: There is hepatic steatosis. Liver is normal in size and enhancement. Gallbladder contains gallstones. Biliary system is non dilated. Pancreas enhances normally. Spleen is normal in size and enhancement. No adrenal nodules. Kidneys demonstrate normal size and enhancement, without hydronephrosis. Peritoneum and bowel: Terminal ileum is mildly thickened. There is a small amount of free fluid in the right lower quadrant. Appendix is not identified. There are a few colonic diverticula scattered in colon. No CT findings to suggest acute diverticulitis. Bowel loops demonstrate normal caliber. No free air. Nodes and vessels: No retroperitoneal or mesenteric adenopathy by size criteria. Aorta and inferior vena cava are normal in size. Miscellaneous: No ventral hernias. PELVIS: Genitourinary: Bladder wall thickness is normal. Miscellaneous: No inguinal hernias or adenopathy. Bones: No suspicious bony lesions. No vertebral body compression fractures. IMPRESSION: 1. Terminal ileum appears thickened. Differential diagnosis include inflammatory bowel disease versus infectious etiology. 2. Diverticulosis without acute diverticulitis. 3. There is a small amount of free fluid in the right lower quadrant, which is a nonspecific finding. No abscess. Appendix is not identified. Dictated by: Jarocho Barbosa M.D. on 07/05/2020 at 11:28 Approved by: Jarocho Barbosa M.D. on 07/05/2020 at 11:43 US - abdomen: Radiologist's Impression: [address] [id number] ReportSigned Patient: Cecy Fields ZMR#: [id number]: 1970Acct:[id number]/Sex: 49 / FDate of Service: 07/05/20Loc: EDAccession Number: [id number] Procedure: US abdomen limited Ordering Provider: Sukhwinder Wilson PROCEDURE: US ABDOMEN LIMITED INDICATIONS: RIGHT UPPER ABDOMINAL PAIN TECHNIQUE: Real-time focused scanning was performed of the abdomen, with image documentation. COMPARISON: None. FINDINGS: The liver is mildly enlarged in volume, measuring up to 17.6 cm craniocaudad. There is increased echotexture, consistent with fatty infiltration. Note is made of multiple mobile gallstones within the gallbladder lumen, which measure up to 1.3 cm. The common bile duct is not dilated at 3.8 cm. The pancreas visualized appears normal. IMPRESSION: Gallstones within the gallbladder lumen but without evidence of acute cholecystitis or biliary obstruction. Mild hepatomegaly, generalized increased echotexture throughout the liver is considered a sign of hepatic steatosis. Dictated by: Matthew Kiran M.D. on 07/05/2020 at 13:40 Approved by: Matthew Kiran M.D. on 07/05/2020 at 13:41 ECG Data Attestation: I personally reviewed and interpreted this ECG as follows: Prior ECG tracings: available for review Interpretation: Normal sinus rhythm rate at 92. Normal [place]. [place] interval 118, QRS duration 94, QT/QTC 376/[address] changes. Similar ECG tracing from previous ECGs. MDM Narrative Medical decision making narrative: This is a 49 year female who has history of right-sided hemicolectomy for tubulovillous adema on 05/03/20, fatty liver, present today with acute right upper quadrant and back pain and nausea for last 3 days. Patient also had chills no fever or vomiting. Physical exam with exquisite discomfort in right upper quadrant and right thoracic pain. Initially patient reported sharp pain in right upper quadrant and also back pain in left side. Patient is afebrile and hemodynamically stable. Initially patient had significantly elevated blood pressure and tachycardia of 103 which has improved after the pain management. There is no leukocytosis today. Lactate was normal of 1.1. Patient has slightly elevated LFTs including AST of 47, ALT of 56 which has been patient's baseline. Total bilirubin was 0.3 with alk phosphatase normal 83. No indications for urinary tract infection. EKG is normal sinus rhythm with negative cardiac enzymes. CT of abdomen and pelvis indicates thickened terminal ileum with concerns for inflammatory bowel disease versus infectious etiology. Diverticulosis without acute diverticulitis. And small amount of free fluid in right lower quadrant. There was also gallstone in gallbladder with normal biliary system. Liver size is normal with hepatics steatosis appreciated. Ultrasound of abdomen added and it indicates gallstone within the gallbladder lumen without evidence of acute cholecystitis or biliary obstruction. There is mild hepatomegaly. Dr. Alcaraz consulted with the findings. Options for patient to stay observation or discharge to home with pain medication discussed with patient and patient declined admission for observation. During this period, patient was reassessed and she states she also has burning sensation on right upper quadrant and thoracic region. There are two erythematous lesion noted in right side. Patient also states had some tingling and itching sensation with pain. Patient reports pain is severe today but has been nauseated for last 3 days and not feeling well. Patient's pain is may due to early shingles. She state had chickenpox remotely in the past. No history of shingles. In shared decision making, patient agrees to try antiviral medication. She is discharged to home with the acyclovir for 7 day course and Percocet and Torito as needed for pain and nausea. Return precautions were discussed with patient and she verbalized understanding in agreement with the treatment plan. Patient advised to follow- up with PCP and Dr. Alcaraz as scheduled as well. <Mike Trivedi, DO - Last Filed: 07/06/20 09:02> Lab Data Labs: Lab Results 07/05/20 07/05/20 07/05/20 Range/Units 10:36 10:36 10:36 WBC 7.9 (4.5-11.0) X10^3/uL RBC 4.93 (4.0-5.2) X10^6/uL Hgb 14.8 (12.0-16.0) g/dL Hct 43.8 (36-46) % MCV 88.9 (80-100) fL MCH 30.0 (26-34) PG MCHC 33.8 (30-36) % RDW 13.5 (11.6-14.8) % Plt Count 280 (150-400) X10^3/uL Neut % (Auto) 55.7 (50-75) % Lymph % (Auto) 31.3 (25-40) % [place] % (Auto) 7.5 (3-14) % Eos % (Auto) 4.2 H (2-4) % Baso % (Auto) 1.3 (0-2) % Neut # (Auto) 4400 (8103-8320) /uL Lymph # (Auto) 2500 (7271-8994) /uL [place] # (Auto) 600 (0-900) /uL Eos # (Auto) 300 (0-450) /uL Baso # (Auto) 100 (0-100) /uL Sodium 141 (137-145) mmol/L Potassium 3.7 (3.4-5.1) mmol/L Chloride 108 H (98-107) mmol/L Carbon Dioxide 29 (22-32) mmol/L BUN 14 (7-17) mg/dL Creatinine 0.62 (0.52-1.04) mg/dL Estimated GFR > 60.0 (>60) mL/min BUN/Creatinine Ratio 22.6 H (6-22) Glucose 106 H (70-100) mg/dL Lactate 1.1 (0.7-2.1) mmol/L Calcium 9.4 (8.4-10.2) mg/dL Total Bilirubin 0.3 (0.2-1.3) mg/dL AST 47 H (14-36) IU/L ALT 56 H (<35) IU/L Alkaline Phosphatase 83 (38-126) U/L Total Creatine Kinase (30-135) U/L CK-MB (CK-2) CK-MB (CK-2) Rel Index Troponin I (0.01-0.034) ng/mL Total Protein 7.6 (6.3-8.2) g/dL Albumin 4.4 (3.5-5.0) g/dL Globulin 3.2 (1.7-4.1) g/dL Albumin/Globulin Ratio 1.4 (1.0-2.8) Lipase 120 (23-300) U/L Serum , Qual (Negative) 07/05/20 07/05/20 Range/Units 10:36 13:01 WBC (4.5-11.0) X10^3/uL RBC (4.0-5.2) X10^6/uL Hgb (12.0-16.0) g/dL Hct (36-46) % MCV (80-100) fL MCH (26-34) PG MCHC (30-36) % RDW (11.6-14.8) % Plt Count (150-400) X10^3/uL Neut % (Auto) (50-75) % Lymph % (Auto) (25-40) % [place] % (Auto) (3-14) % Eos % (Auto) (2-4) % Baso % (Auto) (0-2) % Neut # (Auto) (2132-4252) /uL Lymph # (Auto) (3735-9348) /uL [place] # (Auto) (0-900) /uL Eos # (Auto) (0-450) /uL Baso # (Auto) (0-100) /uL Sodium (137-145) mmol/L Potassium (3.4-5.1) mmol/L Chloride (98-107) mmol/L Carbon Dioxide (22-32) mmol/L BUN (7-17) mg/dL Creatinine (0.52-1.04) mg/dL Estimated GFR (>60) mL/min BUN/Creatinine Ratio (6-22) Glucose (70-100) mg/dL Lactate (0.7-2.1) mmol/L Calcium (8.4-10.2) mg/dL Total Bilirubin (0.2-1.3) mg/dL AST (14-36) IU/L ALT (<35) IU/L Alkaline Phosphatase (38-126) U/L Total Creatine Kinase 54 (30-135) U/L CK-MB (CK-2) TNP CK-MB (CK-2) Rel Index TNP Troponin I < 0.012 (0.01-0.034) ng/mL Total Protein (6.3-8.2) g/dL Albumin (3.5-5.0) g/dL Globulin (1.7-4.1) g/dL Albumin/Globulin Ratio (1.0-2.8) Lipase (23-300) U/L Serum , Qual Negative (Negative) Point of care testing: Urine Dip Bedside Urine Glucose Negative Bedside Urine Bilirubin - Negative Bedside Urine Ketone - Negative Urine Specific [place] 1.030 Bedside Urine Occult Blood - Negative Bedside Urine pH 7.5 Bedside Urine Protein - Negative Bedside Urine Urobilinogen - Negative Bedside Urine Nitrite - Negative Bedside Urine Leukocytes - Negative Esterase Discharge Plan Departure Patient Disposition: Home Clinical Impression: Fatty liver Abdominal pain Qualifiers: Abdominal location: right upper quadrant Qualified Code(s): R10.11 - Right upper quadrant pain Cholelithiasis Qualifiers: Cholelithiasis location: gallbladder Cholecystitis presence: without cholecystitis Biliary obstruction: without biliary obstruction Qualified Code(s): K80.20 - Calculus of gallbladder without cholecystitis without obstruction Shingles Qualifiers: Herpes zoster complications: without complications Qualified Code(s): B02.9 - Zoster without complications Instructions: DI for Shingles, DI for Gallstones, DI for Abdominal Pain-Adult, DI for Nonalcoholic Fatty Liver Disease Activity Restrictions/Additional Instructions: You have been diagnosed with [right upper quadrant and back pain. Abdomen CT and ultrasound obtained today. Ultrasound shows gallstone without infection or obstruction and fatty liver. CT of abdomen shows diverticulosis without diverticulitis and slightly thickened terminal ileum concerns for inflammatory bowel disease versus infectious etiology. Labs are assuring.]. What to do: *Take your medications as directed. Please take valacyclovir 1000 mg 3 times a day for next 7 days. You can take [id number] Tylenol and or Motrin as needed for discomfort. Please take Percocet only for severe pain. This is narcotic medications and it can cause sedation so please take precautions not driving, drink alcohol, or operating heavy equipments. Also it can cause constipation so please take stool softener, MiraLax as needed. *Follow up with your primary care provider in 2-3 days, call for an appointment. Let them know you were seen in the ED and that we asked you to be seen in follow up. *Return to ED if you have any new, worsening, or concerning symptoms, such as [fever, worsening pain, chest pain, breathing difficulty, unable to tolerate fluids, rash becomes worse that appears to be infection or any acute concerns]. Prescriptions: New ondansetron 4 mg tablet,disintegrating 4 mg PO BID-TID PRN (Reason: nausea and vomiting) Qty: 10 RF: 0 oxycodone-acetaminophen [Percocet] 5-325 mg tablet 1 tab PO Q6H PRN (Reason: pain) Qty: 10 RF: 0 valacyclovir 1 gram tablet 1,000 mg PO TID 7 Days Qty: 21 RF: 0 No Action oxycodone-acetaminophen [Percocet] 5-325 mg tablet 1 tab PO Q6H PRN (Reason: painful procedure) Qty: 20 RF: 0 Chantix Starting Month Box 0.5 mg (11)- 1 mg (42) tablets,dose pack See Rx Instructions PO PER PKG DIR Qty: 53 RF: 0 budesonide 0.5 mg/2 mL suspension for nebulization See Rx Instructions INHALATION .COMPLEX Qty: 60 RF: 0 amitriptyline 25 mg tablet 25 mg PO BEDTIME RF: 0 acetaminophen [Tylenol Extra Strength] 500 mg Tablet 1,000 mg PO Q6H PRN (Reason: Pain (Scale Score 4-6)) RF: 0 cyclobenzaprine 5 mg tablet 5 mg PO TID Qty: 30 RF: 0 Referrals: Destiny Mckeon ARNP [Primary Care Provider] - Casper Alcaraz MD [Physician] - <Mike Trivedi DO - Last Filed: 07/06/20 09:02> [facility]: I was immediately available in the department for consultation. This documentation has been reviewed and I agree with assessment and plan. Supervised by Mike Trivedi DO
[2020-07-05 10:44] LABS: Add Manual Diff / Slide Review NO; Basophils Absolute Auto 100 /uL (0-100); Basophils Percent Auto 1.3 % (0-2); Eosinophils Absolute Auto 300 /uL (0-450); Eosinophils Percent Auto 4.2 % (2-4); Hematocrit 43.8 % (36-46); Hemoglobin 14.8 g/dL (12.0-16.0); Lymphocytes Absolute Auto 2500 /uL (1100-4500); Lymphocytes Percent Auto 31.3 % (25-40); Mean Corpuscular HGB Conc 33.8 % (30-36); Mean Corpuscular Volume 88.9 fL (80-100); Monocytes Absolute Auto 600 /uL (0-900); Monocytes Percent Auto 7.5 % (3-14); Neutrophils Absolute Auto 4400 /uL (1500-7000); Neutrophils Percent Auto 55.7 % (50-75); Platelet Count 280 X10^3/uL (150-400); Red Blood Cell Count 4.93 X10^6/uL (4.0-5.2); Red Cell Distribution Width 13.5 % (11.6-14.8); White Blood Cell Count 7.9 X10^3/uL (4.5-11.0)
[2020-07-05] MEDS: ONDANSETRON 4 MG/2 ML INJ IV (10:48)
[2020-07-05] MEDS: HYDROMORPHONE 0.5 MG INJ IV ×3 (10:48→14:02)
[2020-07-05] MEDS: SODIUM CHLORIDE 0.9% 1,000 ML 1000 ML IV (10:48)
[2020-07-05 10:56] LABS: Alanine Aminotransferase 56 IU/L (<35); Albumin 4.4 g/dL (3.5-5.0); Albumin Globulin Ratio 1.4 (1.0-2.8); Alkaline Phosphatase 83 U/L (38-126); Aspartate Aminotransferase 47 IU/L (14-36); BUN Creatinine Ratio 22.6 (6-22); Bilirubin Total 0.3 mg/dL (0.2-1.3); Blood Urea Nitrogen 14 mg/dL (7-17); Calcium 9.4 mg/dL (8.4-10.2); Carbon Dioxide 29 mmol/L (22-32); Chloride 108 mmol/L (98-107); Estimated Glomerular Filt Rate > 60.0 mL/min (>60); Globulin 3.2 g/dL (1.7-4.1); Glucose 106 mg/dL (70-100); HEMOLYSIS < 15 (0-50); Lipase 120 U/L (23-300); Potassium 3.7 mmol/L (3.4-5.1); Sodium 141 mmol/L (137-145); Total Protein 7.6 g/dL (6.3-8.2)
[2020-07-05 10:57] LABS: Lactate (Lactic Acid) 1.1 mmol/L (0.7-2.1)
--- NOTE | 2020-07-05 11:04 | DI.CT.S_ITS ---
PROCEDURE: CT ABDOMEN PELVIS W CON INDICATIONS: RUQ pain, hx 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 5 mm coronal and sagittal reformats were acquired. For radiation dose reduction, the following was used: automated exposure control, adjustment of mA and/or kV according to patient size. COMPARISON: [facility], CT, CT ABDOMEN PELVIS W CON, 05/29/2020, 20:05. FINDINGS: Image quality: Excellent. ABDOMEN: Lung bases: Dependent atelectasis at lung bases. Heart size is normal. Solid organs: There is hepatic steatosis. Liver is normal in size and enhancement. Gallbladder contains gallstones. Biliary system is non dilated. Pancreas enhances normally. Spleen is normal in size and enhancement. No adrenal nodules. Kidneys demonstrate normal size and enhancement, without hydronephrosis. Peritoneum and bowel: Terminal ileum is mildly thickened. There is a small amount of free fluid in the right lower quadrant. Appendix is not identified. There are a few colonic diverticula scattered in colon. No CT findings to suggest acute diverticulitis. Bowel loops demonstrate normal caliber. No free air. Nodes and vessels: No retroperitoneal or mesenteric adenopathy by size criteria. Aorta and inferior vena cava are normal in size. Miscellaneous: No ventral hernias. PELVIS: Genitourinary: Bladder wall thickness is normal. Miscellaneous: No inguinal hernias or adenopathy. Bones: No suspicious bony lesions. No vertebral body compression fractures. IMPRESSION: 1. Terminal ileum appears thickened. Differential diagnosis include inflammatory bowel disease versus infectious etiology. 2. Diverticulosis without acute diverticulitis. 3. There is a small amount of free fluid in the right lower quadrant, which is a nonspecific finding. No abscess. Appendix is not identified. Dictated by: Jarocho Barbosa M.D. on 07/05/2020 at 11:28 Approved by: Jarocho Barbosa M.D. on 07/05/2020 at 11:43
[2020-07-05 11:14] LABS: Creatine Kinase 54 U/L (30-135)
[2020-07-05 11:27] LABS: Troponin I < 0.012 ng/mL (0.01-0.034)
--- NOTE | 2020-07-05 12:14 | DI.US.S_ITS ---
PROCEDURE: US ABDOMEN LIMITED INDICATIONS: RIGHT UPPER ABDOMINAL PAIN TECHNIQUE: Real-time focused scanning was performed of the abdomen, with image documentation. COMPARISON: None. FINDINGS: The liver is mildly enlarged in volume, measuring up to 17.6 cm craniocaudad. There is increased echotexture, consistent with fatty infiltration. Note is made of multiple mobile gallstones within the gallbladder lumen, which measure up to 1.3 cm. The common bile duct is not dilated at 3.8 cm. The pancreas visualized appears normal. IMPRESSION: Gallstones within the gallbladder lumen but without evidence of acute cholecystitis or biliary obstruction. Mild hepatomegaly, generalized increased echotexture throughout the liver is considered a sign of hepatic steatosis. Dictated by: Matthew Kiran M.D. on 07/05/2020 at 13:40 Approved by: Matthew Kiran M.D. on 07/05/2020 at 13:41
[2020-07-05 13:14] LABS: Pregnancy Test Serum,Qual Negative (Negative)
[2020-07-05] MEDS: PANTOPRAZOLE 40 MG VIAL IV (14:03)
== END 2020-07-05 14:52 | disposition home or self-care (01) ==
PROVIDERS: Emergency Provider Nurse Practitioner Family; PCP Nurse Practitioner
DX: K80.20 Calculus of gallbladder without cholecystitis without obstruction (principal); R10.11 Right upper quadrant pain; B02.9 Zoster without complications; K76.0 Fatty (change of) liver, not elsewhere classified; R11.0 Nausea
CPT/HCPCS: 36415; 74177; 76705; 80053; 81003; 82550; 83605; 83690; 84484; 84703; 85025; 93005; 96361; 96374; 96375; 96376; 99284; C9113; J1170; J2405; Q9967

== ENCOUNTER → 2020-07-07 14:59 | Outpatient (CLI) | payer OTHER, SELFPAY ==
[2020-06-28 13:23] VITALS: BMI 23.6
== END ==
PROVIDERS: PCP Nurse Practitioner; Visit Provider Specialist
DX: K90.9 Intestinal malabsorption, unspecified (principal); R19.7 Diarrhea, unspecified
CPT/HCPCS: 87045; 87899

== ENCOUNTER 2020-07-16 16:56 | Observation (INO) | payer OTHER, SELFPAY ==
[2020-06-28 13:23] VITALS: BMI 23.6
--- NOTE | 2020-07-16 17:13 | PM.HP.1 ---
History of Present Illness History of Present Illness Date Patient Seen: 07/16/20 Time Patient Seen: 17:16 Chief complaint: Peritonitis Narrative: This is a 49 yo woman who is two months out from right hemicolectomy for an unresectable colon polyp. She called urgently today and came in for an urgent clinic visit because she has been having severe right sided abdominal pain for the past 2 weeks. She has known cholelithiasis, but has had several imaging studies which do not show any signs of cholecystitis. She had a CT scan on July 05 which showed thickening of the terminal ileum, without any signs of obstruction, leak, or bleed. She reports that her pain is constant, rather than colicky. She reports that it does not change relative to what she eats. She denies any dysuria, or hematuria. She says she is having nausea, but denies vomiting. She reports fairly normal bowel movements. She denies melena or hematochezia. She does report bloating of the abdomen. She denies subjective fevers. When she was seen in the ER on 07/05 she was noted to have some vesicles on the skin, and was given Rx for valcyclovir but she did not take it. She says she does not have shingles. ROS: Positive for malaise, fatigue, severe right-sided abdominal pain. Thirteen system review is otherwise negative other than as mentioned below and in HPI. PE: GENERAL: Alert, comfortable, in moderate distress due to severe right-sided abdominal pain. Appears stated age. Answers questions promptly and appropriately. Vital signs noted. HENT: Normocephalic, atraumatic. Hearing intact. EYES: Conjunctiva pink, sclera white, no periorbital swelling. CARDIOVASCULAR: Mild tachycardia with heart rate of 107. No pedal edema. RESPIRATORY: Non-tachypneic, breathing comfortably on room air. GASTROINTESTINAL: Abdomen soft and non-distended, exquisitely tender to palpation in the right mid and lower abdomen, no masses, well-healed periumbilical incisional scar; no significant TTP in the right upper quadrant GENITALURINARY: No flank tenderness. MUSCULOSKELETAL: Equal tone and mass bilaterally. SKIN: Warm, dry, soft, appropriate color for ethnicity. No other lesions, rashes, or wounds. NEURO: Alert and Oriented X 3. No gross sensory deficits, or cognitive issues. PSYCH: Appropriate affect and mood. Patient History Medical History Bulging of cervical intervertebral disc Cervical radiculopathy Cough Depression with anxiety Dilation of bladder Eczema Elevated liver enzymes Eosinophilic esophagitis Esophageal obstruction Exposure to COVID-19 virus Hemorrhoids IBS (irritable bowel syndrome) Interstitial cystitis Shingles Swallowing disorder Surgical History H/O left breast biopsy H/O right breast biopsy H/O: hysterectomy History of bilateral tubal ligation Hx of tonsillectomy S/P cervical spinal fusion (2013) S/P surgery on nasal septum Family & Social History Family History Father Alcoholism Cancer Lung cancer Mother Age: 71 Lung cancer Diabetes mellitus Hypertension Social History: household members spouse Tobacco & Substance use: Tobacco type cigarettes Smoking Status Current every day smoker alcohol intake current alcohol intake frequency holiday/special occasion Substance Use Type does not use Meds Home Medications and Allergies Home Medications Medication Instructions Recorded Confirmed Type varenicline 0.5 mg (11)-1 mg (42) See Rx Instructions PO PER PKG DIR 08/14/19 07/16/20 Rx tablets in a dose pack #53 each amitriptyline 25 mg tablet 25 mg PO BEDTIME 11/19/19 07/16/20 History budesonide 0.5 mg/2 mL suspension See Rx Instructions INHALATION 11/19/19 07/16/20 Rx for nebulization .COMPLEX #60 ml acetaminophen [Tylenol Extra 1,000 mg PO Q6H PRN 05/30/20 07/16/20 History Strength] oxycodone-acetaminophen 5 mg-325 1 tab PO Q6H PRN #20 tab 06/02/20 07/16/20 Rx mg tablet ondansetron 4 mg PO BID-TID PRN #10 tab 07/05/20 07/16/20 Rx oxycodone-acetaminophen [Percocet] 1 tab PO Q6H PRN #10 tab 07/05/20 07/16/20 Rx gabapentin 300 mg capsule 300 mg PO BEDTIME #20 cap 07/07/20 07/16/20 Rx Allergies Allergy/AdvReac Type Severity Reaction Status Date / Time gluten Allergy Severe Anaphylaxis Verified 07/16/20 16:09 lactose Allergy Intermediate Swelling Verified 07/16/20 16:09 of Lip/Tongue/Throat Penicillins Allergy Intermediate Rash Verified 07/16/20 16:09 codeine [CODEINE] Allergy Mild RASH Verified 07/16/20 16:09 morphine [MORPHINE] Allergy Mild Rash Verified 07/16/20 16:09 egg AdvReac Severe Diarrhea Verified 07/16/20 16:[address] scan - abdomen: Radiologist's impression: [address] [id number] Scan ReportSigned Patient: Cecy Fields ZMR#: [id number]: 1970Acct:[id number]/Sex: 49 / FDate of Service: 07/05/20Loc: EDAccession Number: [id number] Procedure: CT abdomen pelvis w con Ordering Provider: Sukhwinder Wilson PROCEDURE: CT ABDOMEN PELVIS W CON INDICATIONS: RUQ pain, hx 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 5 mm coronal and sagittal reformats were acquired. For radiation dose reduction, the following was used: automated exposure control, adjustment of mA and/or kV according to patient size. COMPARISON: [facility], CT, CT ABDOMEN PELVIS W CON, 05/29/2020, 20:05. FINDINGS: Image quality: Excellent. ABDOMEN: Lung bases: Dependent atelectasis at lung bases. Heart size is normal. Solid organs: There is hepatic steatosis. Liver is normal in size and enhancement. Gallbladder contains gallstones. Biliary system is non dilated. Pancreas enhances normally. Spleen is normal in size and enhancement. No adrenal nodules. Kidneys demonstrate normal size and enhancement, without hydronephrosis. Peritoneum and bowel: Terminal ileum is mildly thickened. There is a small amount of free fluid in the right lower quadrant. Appendix is not identified. There are a few colonic diverticula scattered in colon. No CT findings to suggest acute diverticulitis. Bowel loops demonstrate normal caliber. No free air. Nodes and vessels: No retroperitoneal or mesenteric adenopathy by size criteria. Aorta and inferior vena cava are normal in size. Miscellaneous: No ventral hernias. PELVIS: Genitourinary: Bladder wall thickness is normal. Miscellaneous: No inguinal hernias or adenopathy. Bones: No suspicious bony lesions. No vertebral body compression fractures. IMPRESSION: 1. Terminal ileum appears thickened. Differential diagnosis include inflammatory bowel disease versus infectious etiology. 2. Diverticulosis without acute diverticulitis. 3. There is a small amount of free fluid in the right lower quadrant, which is a nonspecific finding. No abscess. Appendix is not identified. Dictated by: Jarocho Barbosa M.D. on 07/05/2020 at 11:28 Approved by: Jarocho Barbosa M.D. on 07/05/2020 at 11:43 US - abdomen: Radiologist's impression: [address] [id number] ReportSigned Patient: Cecy Fields ZMR#: [id number]: 1970Acct:[id number]/Sex: 49 / FDate of Service: 07/05/20Loc: EDAccession Number: [id number] Procedure: US abdomen limited Ordering Provider: Sukhwinder Wilson PROCEDURE: US ABDOMEN LIMITED INDICATIONS: RIGHT UPPER ABDOMINAL PAIN TECHNIQUE: Real-time focused scanning was performed of the abdomen, with image documentation. COMPARISON: None. FINDINGS: The liver is mildly enlarged in volume, measuring up to 17.6 cm craniocaudad. There is increased echotexture, consistent with fatty infiltration. Note is made of multiple mobile gallstones within the gallbladder lumen, which measure up to 1.3 cm. The common bile duct is not dilated at 3.8 cm. The pancreas visualized appears normal. IMPRESSION: Gallstones within the gallbladder lumen but without evidence of acute cholecystitis or biliary obstruction. Mild hepatomegaly, generalized increased echotexture throughout the liver is considered a sign of hepatic steatosis. Dictated by: Matthew Kiran M.D. on 07/05/2020 at 13:40 Approved by: Matthew Kiran M.D. on 07/05/2020 at 13:41 Labs Result Diagrams: 07/16/20 17:45 07/16/20 17:45 Assessment & Plan Assessment and plan (1) Peritonitis: Status: Acute (2) Cholelithiasis: Qualifiers: Biliary obstruction: without biliary obstruction Cholecystitis presence: without cholecystitis Cholelithiasis location: gallbladder Qualified Code(s): K80.20 - Calculus of gallbladder without cholecystitis without obstruction Status: Acute (3) Abdominal pain: Qualifiers: Abdominal location: right upper quadrant Qualified Code(s): R10.11 - Right upper quadrant pain Status: Acute (4) Status post right hemicolectomy: Status: Acute (5) Tobacco abuse: Status: Acute Assessment & Plan narrative: This is a 49-year-old woman who is 2 months out from a right hemicolectomy for an unresectable colon polyp. She requested an urgent appointment in clinic today because of severe right-sided abdominal pain. She is noted to have focal peritonitis on exam during clinic. We attempted to send her to the ER, but it was completely overloaded, and so she is being directed admitted for an urgent workup and possible surgery for her intractable right-sided abdominal pain/peritonitis. 38 minutes were spent reviewing the patient's prior visit notes, CT scan, and ultrasound. 25 minutes were spent examining the patient, discussing her symptoms, and coordinating care to admit her as an inpatient to the hospital. An additional 8 minutes were spent discussing the patient's plan of care with the inpatient nurse. At this point the differential includes cholecystitis, inflammatory bowel disease, anastomotic leak, anastomotic bleed, abscess, anastomotic stricture, UTI, pyelonephritis, kidney stones. Plan: Clear liquid diet Home meds as appropriate P.o. and IV pain meds as needed Antiemetic Labs to include CBC, CMP, and urinalysis, procalcitonin, lipase CT scan with oral IV contrast once labs returned SCDs for DVT prophylaxis COVID-19 COVID-19 status: Result pending Time Spent With Patient Time with patient: Greater than 35 minutes Quality VTE Deep Vein Thrombosis/Pulmonary Embolism Present on Admission: No
--- NOTE | 2020-07-16 17:32 | DI.RAD.S_ITS ---
PROCEDURE: XR ACUTE ABDOMEN SERIES INDICATIONS: Focal peritonitis, rule out free air, bowel obstruction TECHNIQUE: One view chest and two views of the abdomen were acquired. COMPARISON: None. FINDINGS: Surgical changes and devices: Surgical clips projecting in the right breast Chest: Lungs are clear. Heart size is normal. No pleural effusions. No pneumoperitoneum. Abdomen: Bowel gas pattern is normal. No suspicious calcifications. Visualized solid organ contours appear normal. Bones: No suspicious bony lesions. IMPRESSION: No specific evidence of bowel obstruction seen at this time although if the patient's symptoms do not improve, continued surveillance with abdominal series radiographs could be performed. No free air identified. Dictated by: Hong Abdi M.D. on 07/16/2020 at 19:33 Approved by: Hong Abdi M.D. on 07/16/2020 at 19:34
[2020-07-16] MEDS: HYDROMORPHONE 1 MG INJ IV ×2 (18:09→20:42)
[2020-07-16] MEDS: LACTATED RINGERS 1,000 ML 100 ML IV (18:10)
[2020-07-16 18:12] VITALS: BMI 23.7
[2020-07-16 18:20] VITALS: BP 147/97; PULSE 88; RESP 19; TEMP 36.4; O2SAT 97
[2020-07-16 18:37] LABS: Add Manual Diff / Slide Review NO; Basophils Absolute Auto 100 /uL (0-100); Basophils Percent Auto 0.7 % (0-2); Eosinophils Absolute Auto 400 /uL (0-450); Eosinophils Percent Auto 4.4 % (2-4); Hematocrit 39.9 % (36-46); Hemoglobin 13.4 g/dL (12.0-16.0); Lymphocytes Absolute Auto 2600 /uL (1100-4500); Lymphocytes Percent Auto 30.8 % (25-40); Mean Corpuscular HGB Conc 33.6 % (30-36); Mean Corpuscular Hemoglobin 30.1 PG (26-34); Mean Corpuscular Volume 89.5 fL (80-100); Monocytes Absolute Auto 600 /uL (0-900); Monocytes Percent Auto 7.6 % (3-14); Neutrophils Absolute Auto 4800 /uL (1500-7000); Neutrophils Percent Auto 56.5 % (50-75); Platelet Count 248 X10^3/uL (150-400); Red Blood Cell Count 4.45 X10^6/uL (4.0-5.2); Red Cell Distribution Width 13.6 % (11.6-14.8); White Blood Cell Count 8.5 X10^3/uL (4.5-11.0)
[2020-07-16 18:49] LABS: Lactate (Lactic Acid) 0.9 mmol/L (0.7-2.1)
[2020-07-16] MEDS: HYDROMORPHONE 2 MG TABLET PO ×2 (18:49→23:13)
[2020-07-16 18:51] LABS: Alanine Aminotransferase 45 IU/L (<35); Albumin 4.1 g/dL (3.5-5.0); Albumin Globulin Ratio 1.5 (1.0-2.8); Alkaline Phosphatase 80 U/L (38-126); Aspartate Aminotransferase 41 IU/L (14-36); Bilirubin Total 0.2 mg/dL (0.2-1.3); Blood Urea Nitrogen 14 mg/dL (7-17); Calcium 9.4 mg/dL (8.4-10.2); Carbon Dioxide 29 mmol/L (22-32); Chloride 109 mmol/L (98-107); Estimated Glomerular Filt Rate > 60.0 mL/min (>60); Globulin 2.8 g/dL (1.7-4.1); Glucose 89 mg/dL (70-100); HEMOLYSIS < 15 (0-50); Potassium 3.5 mmol/L (3.4-5.1); Sodium 142 mmol/L (137-145); Total Protein 6.9 g/dL (6.3-8.2)
[2020-07-16 18:52] LABS: Lipase 153 U/L (23-300); Magnesium 2.1 mg/dL (1.6-2.3)
[2020-07-16 19:11] LABS: Procalcitonin < 0.05 ng/mL (<0.5)
[2020-07-16 19:14] LABS: COVID19 -Nasal RAPID Negative (Negative)
--- NOTE | 2020-07-16 19:19 | DI.CT.S_ITS ---
PROCEDURE: CT ABDOMEN PELVIS W CON INDICATIONS: severe right side abdominal pain s/p right hemicolectomy TECHNIQUE: After the administration of intravenous contrast, 5 mm thick sections acquired from the diaphragm to the symphysis. 5 mm coronal and sagittal reformats were acquired. For radiation dose reduction, the following was used: automated exposure control, adjustment of mA and/or kV according to patient size. COMPARISON: [facility], CT, CT ABDOMEN PELVIS W CON, 07/05/2020, 11:17. FINDINGS: Image quality: Excellent. ABDOMEN: Lung bases: Lung bases are clear. Heart size is normal. Hepatic steatosis Gallbladder contains incidental gallstones measuring 7 mm. Biliary system is non dilated. Pancreas enhances normally. Spleen is normal in size and enhancement. No adrenal nodules. Kidneys demonstrate normal size and enhancement, without hydronephrosis. Peritoneum and bowel: Bowel loops demonstrate normal wall thickness and caliber. No free fluid or air. Colonic diverticulosis is seen without evidence of acute complication. Minimal stranding in the right lower quadrant which is probably postoperative sequela. No abscess. No free air identified. Nodes and vessels: No retroperitoneal or mesenteric adenopathy by size criteria. Aorta and inferior vena cava are normal in size. Miscellaneous: No ventral hernias. PELVIS: Genitourinary: Bladder wall thickness is normal. Miscellaneous: No inguinal hernias or adenopathy. Bones: No suspicious bony lesions. No vertebral body compression fractures. IMPRESSION: Overall, no acute abnormality . Mild right lower quadrant inflammatory stranding which is probably postoperative in nature. No abscess. No evidence of free air Incidental cholelithiasis Hepatic steatosis. Colonic diverticulosis Dictated by: Hong Abdi M.D. on 07/16/2020 at 20:37 Approved by: Hong Abdi M.D. on 07/16/2020 at 20:41
[2020-07-16] MEDS: CYCLOBENZAPRINE 5 MG TABLET PO (20:40)
[2020-07-16] MEDS: AMITRIPTYLINE 25 MG TABLET PO (20:41)
[2020-07-16] MEDS: GABAPENTIN 300 MG CAPSULE PO (20:41)
[2020-07-16 21:11] LABS: Appearance Urine UA CLEAR; Bilirubin Urine UA NEGATIVE (NEGATIVE); Color Urine UA YELLOW; Glucose Urine UA NEGATIVE (Negative); Ketones Urine UA NEGATIVE (NEGATIVE); Leukocyte Esterase Urine UA NEGATIVE (NEGATIVE); Nitrite Urine UA NEGATIVE (Negative); Occult Blood Urine UA NEGATIVE (Negative); Protein Urine UA NEGATIVE (Negative); Urobilinogen Urine UA 0.2 E.U./dL (0.2)
[2020-07-16 23:30] VITALS: BP 144/84; PULSE 87; RESP 13; TEMP 36.1; O2SAT 98
[2020-07-17] MEDS: HYDROMORPHONE 1 MG INJ IV (02:20)
[2020-07-17] MEDS: LACTATED RINGERS 1,000 ML 100 ML IV (03:56)
[2020-07-17 04:45] VITALS: BP 118/78; PULSE 93; RESP 13; TEMP 36.2; O2SAT 97
[2020-07-17] MEDS: HYDROMORPHONE 2 MG TABLET PO ×3 (04:49→12:45)
[2020-07-17 08:04] VITALS: BP 121/79; PULSE 73; RESP 13; TEMP 36.2; O2SAT 98
[2020-07-17] MEDS: GABAPENTIN 300 MG CAPSULE PO (08:17)
[2020-07-17] MEDS: CYCLOBENZAPRINE 5 MG TABLET PO (08:17)
--- NOTE | 2020-07-17 11:41 | CM.DANOTE ---
Patient is a 49 year old female who admitted 07/16/20 to the surgical team for possible pancreatitis. PCP: JENNIFER Carey. Payer: confirmed: [employer]. Patient came to the hospital secondary to having right lower quadrant pain, as well as nausea. She was recently here in April and then May with abdominal surgery. Pt with hx of hemicolectomy at that time. Pt admitted for acute peritonitis and on clear liquids and possible need for surgery. Pt still resides in [place] with her spouse, Carlos A. Patient is employed at [employer] in [employer], and continues to have the worry that with all her medical complications she may be laid off from her job. Per Surgeon, pt will be discharged home today with no surgery scheduled but with an abdominal binder and outpt follow up. Per RN, no current concerns at this time. P: SW to follow for plan of discharge home today via spouse POV and outpt follow up. SW to follow for any further identified needs. [facility] [place] Discharge Planning/Care Management CM Discharge Assessment Start: 07/17/20 11:40 Freq: Status: Active Protocol: Document 07/17/20 11:40 BF (Rec: 07/17/20 11:41 BF [id number]) Discharge Planning Assessment Assigned Mental Health Unit Lead Psychologist NIEZ Snider DPOA/Assigned Designee Name spouse Carlos A informally Contact Information [phone] Advance Directives? No Advance Directives on File No History Provided By Patient,Medical Record Has Patient been admitted in last 30 No days? Prior Living Arrangements House Household Members spouse Type of transporation used prior to Drives own vehicle admit Independent with ADL's Yes Is patient alert and oriented? Yes Caregiver for Another No Comment Home Barriers to Discharge No Discharge Plan Home Transportation Arrangement Family to provide transport. Referrals Initiated None needed Whiteboard Updated in Patient Room with Yes name and ext. # of Mental Health Unit Lead Psychologist Review Status In Process Please Provide Date Initial DC 07/17/20 Assessment Was Performed Next Review Type Continued Stay Review
--- NOTE | 2020-07-17 12:49 | PC.NURSE ---
Patient medicated twice with dilaudid and helpful. She is discharging home now and daughter to pick her up. She is independent in the room and bt+x4.
== END 2020-07-17 13:05 | disposition home or self-care (01) ==
PROVIDERS: Admitting Provider Surgery; PCP Nurse Practitioner; Referring Provider Surgery; Visit Provider Surgery
DX: K65.9 Peritonitis, unspecified (principal); R10.31 Right lower quadrant pain; K80.20 Calculus of gallbladder without cholecystitis without obstruction; Z90.49 Acquired absence of other specified parts of digestive tract; Z72.0 Tobacco use
CPT/HCPCS: 36415; 74022; 74177; 80053; 81003; 83605; 83690; 83735; 84145; 85025; 87635; 99219; C9803; G0378; G0379; J1170

== ENCOUNTER 2020-08-20 00:56 | Inpatient (IN) | payer OTHER, SELFPAY ==
[2020-08-13 09:55] VITALS: BMI 23.7
[2020-08-20] VITALS (34 sets, daily range): BP systolic 111–165; BP diastolic 64–91; PULSE 72–102; RESP 12–29; TEMP 36.4–36.9; O2SAT 95–99; BMI 23.6; BMI 23.1
--- NOTE | 2020-08-20 01:13 | DI.RAD.S_ITS ---
PROCEDURE: XR CHEST 1V INDICATIONS: chest pain TECHNIQUE: One view of the chest was acquired. COMPARISON: [facility], CR, XR CHEST 1V, 08/21/2019, 15:20. FINDINGS: Surgical changes and devices: Right breast surgical clips stable Lungs and pleura: Lungs are clear. No pleural effusions or pneumothorax. Mediastinum: Mediastinal contours appear normal. Heart size is normal. Bones and chest wall: No suspicious bony lesions. Overlying soft tissues appear unremarkable. IMPRESSION: No acute cardiopulmonary disease process. Dictated by: Luz Verde MD, PhD on 08/20/2020 at 8:34 Approved by: Luz Verde MD, PhD on 08/20/2020 at 8:36
--- NOTE | 2020-08-20 01:20 | ED_ITS ---
HPI - Chest Pain General Chief Complaint: Chest Pain Stated Complaint: Major chest pain Time Seen by Provider: 08/20/20 01:04 Source: patient Mode of arrival: Ambulatory Limitations: no limitations History of Present Illness HPI narrative: Patient is a 49-year-old female of smoking and hypertension but does not take medication presenting with sudden onset of chest pain is that woke her from her sleep and radiates straight through to her back. She said it is quite severe. She did have chest discomfort a year ago and was given nitroglycerin she took 1 nitroglycerin prior to arrival and pain seems to be mildly improved. She is having some shortness of breath as well feels like her chest is tight. She denies any fever or cough. She said she has an episode like this of day ago as well while she was at work. 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 She said she was standing and has severe chest discomfort which radiated through to her back and lasted about 10 minutes and resolved. MD complaint: chest pain Duration: constant Onset: during rest Pain location: substernal Severity: moderate Quality: tightness and sharp Pain radiation: back Relieving factors: nitroglycerin Related Data Home Medications Medication Instructions Recorded Confirmed acetaminophen [Tylenol Extra 1,000 mg PO Q6H PRN 05/30/20 07/23/20 Strength] Previous Rx's Medication Instructions Recorded budesonide 0.5 mg/2 mL suspension See Rx Instructions INHALATION 11/19/19 for nebulization .COMPLEX #60 ml ondansetron 4 mg PO BID-TID PRN #10 tab 07/05/20 gabapentin 300 mg capsule 300 mg PO BEDTIME #20 cap 07/07/20 oxycodone 5 mg PO Q6H PRN #20 tab 07/17/20 amitriptyline 25 mg tablet 25 mg PO BEDTIME #30 tab 07/23/20 diclofenac sodium 1 % topical gel 2 g TOPICAL QID #100 g 07/23/20 varenicline 0.5 mg (11)-1 mg (42) See Rx Instructions PO PER PKG DIR 07/23/20 tablets in a dose pack #53 each Allergies Allergy/AdvReac Type Severity Reaction Status Date / Time gluten Allergy Severe Anaphylaxis Verified 07/23/20 13:47 lactose Allergy Intermediate Swelling Verified 07/23/20 13:47 of Lip/Tongue/Throat Penicillins Allergy Intermediate Rash Verified 07/23/20 13:47 codeine [CODEINE] Allergy Mild RASH Verified 07/23/20 13:47 morphine [MORPHINE] Allergy Mild Rash Verified 07/23/20 13:47 egg AdvReac Severe Diarrhea Verified 07/23/20 13:47 Review of Systems Review of Systems Narrative: GENERAL: Denies chills, fatigue, malaise, fever, sweats, travel HEENT: Denies sinus pain, ear pain, sore throat, difficulty swallowing, neck pain RESPIRATORY: Denies dyspnea, cough, wheezing, hemoptysis, sputum. CARDIOVASCULAR: see HPI GASTROINTESTINAL: Denies nausea, vomiting, abdominal pain, diarrhea, constipation, melena. : Denies dysuria, frequency, incontinence, hematuria, urinary retention, flank pain. MUSCULOSKELETAL: Denies weakness, joint pain, or bony pain SKIN: No rash, no erythema, no pruritus NEUROLOGIC: Denies weakness, dizziness, headache, numbness, change in speech, confusion PSYCHIATRIC: No concerning psychosocial issues. 12 point review of systems is negative except for those stated above and HPI Patient History Medical History Bulging of cervical intervertebral disc Cervical radiculopathy Cough Depression with anxiety Dilation of bladder Eczema Elevated liver enzymes Eosinophilic esophagitis Esophageal obstruction Exposure to COVID-19 virus Gallstones Hemorrhoids IBS (irritable bowel syndrome) Interstitial cystitis Lumbar pain with radiation down left leg Shingles Swallowing disorder Surgical History H/O left breast biopsy H/O right breast biopsy H/O: hysterectomy History of abdominal surgery History of bilateral tubal ligation Hx of tonsillectomy S/P cervical spinal fusion (2013) S/P surgery on nasal septum Family History Father Alcoholism Cancer Lung cancer Mother Age: 71 Lung cancer Diabetes mellitus Hypertension Social History marital status: household members: spouse occupational status: employed Smoking Status: Current every day smoker alcohol intake: current substance use type: does not use Smoking Status: Current every day smoker tobacco type: cigarettes alcohol intake frequency: holidays/special occasions only Substance Use Type: does not use Exam Initial Vital Signs Initial Vital Signs: Vital Signs Pulse Rate 92 H 08/20/20 01:05 Pulse Oximetry 98 08/20/20 01:05 GENERAL: Well-appearing, well-nourished and in no acute distress. HEENT: Head atraumatic,EOMI, pupils reactive, face symmetric, moist mucous membranes CARDIOVASCULAR: Regular rate and rhythm without murmurs, rubs or gallops. RESPIRATORY: Decreased breath sounds bilaterally no sign of respiratory distress no Route wheezing rales or rhonchi ABDOMEN: Soft, nontender. Normoactive bowel sounds all 4 quadrants. No guarding or rebound. EXTREMITIES: Normal range of motion, no clubbing or edema. Neurovascularly intact NEUROLOGICAL: Alert and oriented x4.Normal gait and speech. Cranial nerves II through XII grossly intact. SKIN: Warm, dry, no laceration, no petechiae, no rashes or lesions. Scores HEART Score Heart Score history: Moderately Suspicious Heart Score EKG: Normal Heart Score Age: 45-64 years old Heart Score risk factors: 1-2 risk factors Heart Score troponin: < or = to normal limit Heart Score Total: 3 Course Orders Ordered: ED Orders 08/20/20 01:13 XR chest 1V Stat EKG-12 Lead Stat 08/20/20 01:15 COVID19 Stat Complete Blood Count AUTO DIFF Stat Comprehensive Metabolic Panel Stat Lipase Stat NT-proBNP (BNP-Adult 18+) Stat Partial Thromboplastin Time Stat Prothrombin Time INR Stat Troponin & CK Cardiac Panel Stat 08/20/20 01:41 CT angio chest abdomen pelvis Stat Acetaminophen (Acetaminophen 325 Mg Tablet) 975 mg PO Q6H PRN PRN Reason: Pain (Scale Score 4-6) Al Hydrox/Mg Hydrox/Simethicone (Mag Hydrox/Alum/Simeth 30 Ml Udc) 30 ml PO Q6HR PRN PRN Reason: Dyspepsia Amitriptyline HCl (Amitriptyline 25 Mg Tablet) 25 mg PO BEDTIME SANDRINE Calcium Carbonate (Calcium Carbonate 500 Mg Tab) 1,000 mg PO Q4HR PRN PRN Reason: Dyspepsia Diclofenac Sodium (Diclofenac 1% Gel 100 Gm) 1 applic TOP QID PRN PRN Reason: pain Enoxaparin Sodium (Enoxaparin 40 Mg/0.4 Ml Syringe) 40 mg SUBCUT DAILY [facility] Escitalopram Oxalate (Escitalopram 10 Mg Tablet) 20 mg PO DAILY [facility] Gabapentin (Gabapentin 300 Mg Capsule) 300 mg PO BEDTIME [facility] Hydromorphone HCl (Hydromorphone 1 Mg Inj) 1 mg IV Q6H PRN PRN Reason: Pain, Severe (7-10) Lactated Ringer's (Lactated Ringers) 1,000 mls @ 60 mls/hr IV CONT [facility] Lisinopril (Lisinopril 10 Mg Tablet) 10 mg PO DAILY [facility] Naloxone HCl (Naloxone 0.4 Mg/Ml Vial) 0.2 mg IV Q2MIN PRN PRN Reason: Opiate Reversal Nitroglycerin (Nitroglycerin 0.4 Mg Sl Tab) 0.4 mg SL [id number] PRN PRN Reason: Chest Pain Ondansetron HCl (Ondansetron 4 Mg Odt) 4 mg PO TID PRN PRN Reason: NAUSEA/VOMTING Oxycodone HCl (Oxycodone Ir 5 Mg Tablet) 5 mg PO Q6H PRN PRN Reason: abdominal wall pain Pantoprazole Sodium (Pantoprazole 20 Mg Tablet) 20 mg PO DAILY@0700 [facility] Discontinued Medications Albuterol/Ipratropium (Albuterol/Ipratropium 3 Ml Ampul) 3 ml INH NOW ONE Stop: 08/20/20 01:14 Last Admin: 08/20/20 01:25 Dose: 3 ml Documented by: Aspirin (Aspirin 81 Mg Chew Tab) 324 mg PO NOW ONE Stop: 08/20/20 01:14 Last Admin: 08/20/20 01:23 Dose: 324 mg Documented by: Enoxaparin Sodium (Enoxaparin 40 Mg/0.4 Ml Syringe) 40 mg SUBCUT DAILY [facility] Hydromorphone HCl (Hydromorphone 1 Mg Inj) 1 mg IV NOW ONE Stop: 08/20/20 01:44 Last Admin: 08/20/20 01:46 Dose: 1 mg Documented by: Hydromorphone HCl (Hydromorphone 0.5 Mg Inj) 1 mg IV NOW ONE Stop: 08/20/20 03:07 Last Admin: 08/20/20 03:14 Dose: 1 mg Documented by: Potassium Chloride 20 meq/ (Sodium Chloride) 260 mls @ 130 mls/hr IV NOW ONE Stop: 08/20/20 05:59 Last Admin: 08/20/20 05:00 Dose: 130 mls/hr Documented by: Nitroglycerin (Nitroglycerin 0.4 Mg Sl Tab) 0.4 mg SL [id number] PRN PRN Reason: Chest Pain Last Admin: 08/20/20 01:36 Dose: 0.4 mg Documented by: Pantoprazole Sodium (Pantoprazole 40 Mg Vial) 40 mg IV NOW ONE Stop: 08/20/20 03:07 Last Admin: 08/20/20 03:14 Dose: 40 mg Documented by: Vital Signs Vital signs: Vital Signs - 8 hr 08/20/20 01:05 08/20/20 01:06 08/20/20 01:10 Temperature Pulse Rate 92 H 94 H 93 H Respiratory Rate 18 Blood Pressure 165/91 H Pulse Oximetry 98 98 98 08/20/20 01:15 08/20/20 01:18 08/20/20 01:20 Temperature 97.8 F Pulse Rate 83 85 88 Respiratory Rate 28 H 23 20 Blood Pressure 165/91 H Pulse Oximetry 99 98 97 08/20/20 01:24 08/20/20 01:25 08/20/20 01:30 Temperature Pulse Rate 88 90 99 H Respiratory Rate 26 H 26 H Blood Pressure 165/91 H Pulse Oximetry 98 98 08/20/20 01:31 08/20/20 01:35 08/20/20 01:36 Temperature Pulse Rate 101 H 98 H 101 H Respiratory Rate 29 H 15 Blood Pressure 138/81 143/84 H 143/84 H Pulse Oximetry 98 96 08/20/20 01:40 08/20/20 01:45 08/20/20 01:50 Temperature Pulse Rate 102 H 101 H 97 H Respiratory Rate 22 17 20 Blood Pressure 126/70 135/77 140/77 Pulse Oximetry 97 96 96 08/20/20 01:59 08/20/20 02:00 08/20/20 02:01 Temperature Pulse Rate 99 H 97 H 92 H Respiratory Rate 12 14 Blood Pressure 131/65 Pulse Oximetry 98 98 98 08/20/20 02:17 08/20/20 02:30 08/20/20 02:45 Temperature Pulse Rate 102 H 89 88 Respiratory Rate 17 23 16 Blood Pressure Pulse Oximetry 98 97 96 08/20/20 03:00 Temperature Pulse Rate 85 Respiratory Rate 18 Blood Pressure Pulse Oximetry 96 MDM - Chest Pain Lab Data Attestation: I reviewed the patient's lab results. Result diagrams: 08/20/20 01:15 08/20/20 01:15 Labs: Lab Results 08/20/20 08/20/20 08/20/20 Range/Units 01:15 01:15 01:15 WBC 8.8 (4.5-11.0) X10^3/uL RBC 4.93 (4.0-5.2) X10^6/uL Hgb 14.2 (12.0-16.0) g/dL Hct 43.9 (36-46) % MCV 89.1 (80-100) fL MCH 28.9 (26-34) PG MCHC 32.4 (30-36) % RDW 13.2 (11.6-14.8) % Plt Count 279 (150-400) X10^3/uL Neut % (Auto) 49.6 L (50-75) % Lymph % (Auto) 37.7 (25-40) % Brule % (Auto) 7.2 (3-14) % Eos % (Auto) 4.4 H (2-4) % Baso % (Auto) 1.1 (0-2) % Neut # (Auto) 4300 (9497-4293) /uL Lymph # (Auto) 3300 (9515-5473) /uL Brule # (Auto) 600 (0-900) /uL Eos # (Auto) 400 (0-450) /uL Baso # (Auto) 100 (0-100) /uL PT 11.3 (10.1-12.7) SECONDS INR 1.0 (0.9-1.3) APTT 31 (26.4-36.2) SECONDS Sodium 139 (137-145) mmol/L Potassium 3.2 L (3.4-5.1) mmol/L Chloride 108 H (98-107) mmol/L Carbon Dioxide 27 (22-32) mmol/L BUN 11 (7-17) mg/dL Creatinine 0.78 (0.52-1.04) mg/dL Estimated GFR > 60.0 (>60) mL/min BUN/Creatinine Ratio 14.1 (6-22) Glucose 139 H (70-100) mg/dL Calcium 9.4 (8.4-10.2) mg/dL Magnesium (1.6-2.3) mg/dL Total Bilirubin 0.4 (0.2-1.3) mg/dL AST 32 (14-36) IU/L ALT 38 H (<35) IU/L Alkaline Phosphatase 75 (38-126) U/L Total Creatine Kinase 81 (30-135) U/L CK-MB (CK-2) TNP CK-MB (CK-2) Rel Index TNP Troponin I < 0.012 (0.01-0.034) ng/mL NT-Pro-B Natriuret Pep 48 (<125) pg/mL Total Protein 7.8 (6.3-8.2) g/dL Albumin 4.5 (3.5-5.0) g/dL Globulin 3.3 (1.7-4.1) g/dL Albumin/Globulin Ratio 1.4 (1.0-2.8) Triglycerides (35-150) mg/dL Cholesterol (140-199) mg/dL LDL Cholesterol, Calc (<100) mg/dL HDL Cholesterol (40-60) mg/dL Lipase 146 (23-300) U/L SARS-CoV-2 (PCR) (Negative) 08/20/20 08/20/20 08/20/20 Range/Units 01:15 01:15 01:15 WBC (4.5-11.0) X10^3/uL RBC (4.0-5.2) X10^6/uL Hgb (12.0-16.0) g/dL Hct (36-46) % MCV (80-100) fL MCH (26-34) PG MCHC (30-36) % RDW (11.6-14.8) % Plt Count (150-400) X10^3/uL Neut % (Auto) (50-75) % Lymph % (Auto) (25-40) % Brule % (Auto) (3-14) % Eos % (Auto) (2-4) % Baso % (Auto) (0-2) % Neut # (Auto) (8162-4311) /uL Lymph # (Auto) (4690-6962) /uL Brule # (Auto) (0-900) /uL Eos # (Auto) (0-450) /uL Baso # (Auto) (0-100) /uL PT (10.1-12.7) SECONDS INR (0.9-1.3) APTT (26.4-36.2) SECONDS Sodium (137-145) mmol/L Potassium (3.4-5.1) mmol/L Chloride (98-107) mmol/L Carbon Dioxide (22-32) mmol/L BUN (7-17) mg/dL Creatinine (0.52-1.04) mg/dL Estimated GFR (>60) mL/min BUN/Creatinine Ratio (6-22) Glucose (70-100) mg/dL Calcium (8.4-10.2) mg/dL Magnesium 2.1 (1.6-2.3) mg/dL Total Bilirubin (0.2-1.3) mg/dL AST (14-36) IU/L ALT (<35) IU/L Alkaline Phosphatase (38-126) U/L Total Creatine Kinase (30-135) U/L CK-MB (CK-2) CK-MB (CK-2) Rel Index Troponin I (0.01-0.034) ng/mL NT-Pro-B Natriuret Pep (<125) pg/mL Total Protein (6.3-8.2) g/dL Albumin (3.5-5.0) g/dL Globulin (1.7-4.1) g/dL Albumin/Globulin Ratio (1.0-2.8) Triglycerides 90 (35-150) mg/dL Cholesterol 145 (140-199) mg/dL LDL Cholesterol, Calc 76 (<100) mg/dL HDL Cholesterol 51 (40-60) mg/dL Lipase (23-300) U/L SARS-CoV-2 (PCR) Negative (Negative) Imaging Data Chest x-ray: Radiologist's Impression: Preliminary report no acute findings CT scan - chest: Radiologist's Impression: CT angio chest abdomen pelvis preliminary finding: Chest: No pulmonary embolus, no aortic aneurysm dissection or intramural hematoma. Faint focal multi lobular ground-glass opacities. His Abdomen pelvis: Hepatomegaly with diffuse hepatic steatosis. Cholelithiasis. Sigmoid diverticulosis ECG Data Attestation: I personally reviewed and interpreted this ECG as follows: Prior ECG tracings: available for review Interpretation: Sinus rhythm rate 94 p.r. interval 138 over S1 [address] changes T-wave inversions noted in V3 slightly in V4 as well which is new from previous EKG in June of 2020 EKG 2. Sinus rhythm rate 85 persistent T-wave inversion noted in V3 and V2, no ST changes. MDM Narrative Medical decision making narrative: Patient and 3 more nitroglycerin all in the emergency department and did not affect her pain. She was given 1 of Dilaudid which seemed to help his take the edge off. She is also given albuterol nebulizer to see if that helped which it did not. Upon reviewing her records is she was seen for her squeezing chest pain approximately and almost exactly 1 year ago on 08/15/2019. At that time she was given prescription for nitroglycerin from the emergency department she has never had a stress test. CT angio does show cholelithiasis however patient does not have any right upper quadrant pain. However based on patient's previous symptoms and symptoms which have worsened over the last couple of days I recommend patient be placed in observation to have stress test and further testing. Patient does have cholelithiasis but no changes in bilirubin or LFTs this may or may not be contributing to her chest discomfort, however she has no right upper quadrant pain. Rachel RODRIGUEZ updated patient's symptoms test results agrees with observation Patient apparently is getting a divorce from her which is quite stressful. Discharge Plan Departure Patient Disposition: Admitted as Observation Clinical Impression: Chest pain Admit Date/Time: 08/20/20 03:04 Admit Provider: Rachel Langford
[2020-08-20] MEDS: ASPIRIN 81 MG CHEW TAB 324 MG PO (01:23)
[2020-08-20] MEDS: NITROGLYCERIN 0.4 MG SL TAB SL ×3 (01:24→01:36)
[2020-08-20] MEDS: ALBUTEROL/IPRATROPIUM 3 ML AMPUL INH (01:25)
[2020-08-20 01:30] LABS: Add Manual Diff / Slide Review NO; Basophils Absolute Auto 100 /uL (0-100); Basophils Percent Auto 1.1 % (0-2); Eosinophils Absolute Auto 400 /uL (0-450); Eosinophils Percent Auto 4.4 % (2-4); Hematocrit 43.9 % (36-46); Hemoglobin 14.2 g/dL (12.0-16.0); Lymphocytes Absolute Auto 3300 /uL (1100-4500); Lymphocytes Percent Auto 37.7 % (25-40); Mean Corpuscular HGB Conc 32.4 % (30-36); Mean Corpuscular Hemoglobin 28.9 PG (26-34); Mean Corpuscular Volume 89.1 fL (80-100); Monocytes Absolute Auto 600 /uL (0-900); Monocytes Percent Auto 7.2 % (3-14); Neutrophils Absolute Auto 4300 /uL (1500-7000); Neutrophils Percent Auto 49.6 % (50-75); Platelet Count 279 X10^3/uL (150-400); Red Blood Cell Count 4.93 X10^6/uL (4.0-5.2); Red Cell Distribution Width 13.2 % (11.6-14.8); White Blood Cell Count 8.8 X10^3/uL (4.5-11.0)
[2020-08-20 01:32] LABS: Prothrombin Time 11.3 SECONDS (10.1-12.7)
[2020-08-20 01:35] LABS: PTT Partial Thromboplastin Tim 31 SECONDS (26.4-36.2)
[2020-08-20 01:36] LABS: Alanine Aminotransferase 38 IU/L (<35); Albumin 4.5 g/dL (3.5-5.0); Albumin Globulin Ratio 1.4 (1.0-2.8); Alkaline Phosphatase 75 U/L (38-126); Aspartate Aminotransferase 32 IU/L (14-36); BUN Creatinine Ratio 14.1 (6-22); Bilirubin Total 0.4 mg/dL (0.2-1.3); Blood Urea Nitrogen 11 mg/dL (7-17); Calcium 9.4 mg/dL (8.4-10.2); Carbon Dioxide 27 mmol/L (22-32); Chloride 108 mmol/L (98-107); Creatine Kinase 81 U/L (30-135); Estimated Glomerular Filt Rate > 60.0 mL/min (>60); Globulin 3.3 g/dL (1.7-4.1); Glucose 139 mg/dL (70-100); HEMOLYSIS < 15 (0-50); Lipase 146 U/L (23-300); Potassium 3.2 mmol/L (3.4-5.1); Sodium 139 mmol/L (137-145); Total Protein 7.8 g/dL (6.3-8.2)
--- NOTE | 2020-08-20 01:41 | DI.CT.S_ITS ---
PROCEDURE: CT ANGIO CHEST ABDOMEN PELVIS INDICATIONS: chest pain through to back TECHNIQUE: Precontrast 5 mm thick sections acquired from the lung apices to the iliac crests. After the administration of intravenous contrast, 2.5 mm thick sections again acquired from the lung apices to the iliac crests. Maximum intensity projection (MIP) oblique sagittal and coronal reformats were then acquired. For radiation dose reduction, the following was used: automated exposure control. COMPARISON: None. FINDINGS: Image quality: Excellent. AORTA: Intramural hematoma: Absent Maximum hematoma thickness: Not applicable. Focal contrast enhancement: Intramural blood pool (< 2 mm neck or imperceptible communication with aortic lumen): Absent. Ulcer-like projection (broad communication with aortic lumen > 3 mm): Absent. Dissection: Absent Ledbetter classification: Not applicable. Maximum aortic diameter: 2.8 cm. [If Ledbetter A dissection, > 5.0 cm has a poorer prognosis. If Keyon B dissection, > 4.0 cm has a poorer prognosis.] Periaortic hematoma: Absent. CHEST: Lungs and pleura: No acute airspace opacities. 1.1 centimeter pulmonary cyst noted in the left lower lobe. No pleural effusions or pneumothorax. Central and peripheral airways are patent and normal in caliber. Mediastinum: Heart size is normal. No pericardial effusion. No mediastinal or hilar adenopathy by size criteria. Central pulmonary arteries are normal in size. Esophagus is normal in caliber. No hiatal hernias. Bones and chest wall: Surgical clips noted in the right breast. No axillary adenopathy by size criteria. Thyroid gland is normal. No suspicious bony lesions. No vertebral body compression fractures. ABDOMEN: Vasculature: Celiac trunk and mesenteric arteries are patent. Renal arteries are also patent. Solid organs: Liver is normal in size and enhancement. Diffuse fatty infiltration of the liver. Gallbladder is normal. Biliary system is non dilated. Pancreas enhances normally. Spleen is normal in size and enhancement. No adrenal nodules. Both kidneys are normal in size and enhancement, without hydronephrosis. Peritoneum and bowel: No free fluid or air. Bowel loops are normal in caliber and wall thickness. Scattered colonic diverticuli without evidence of diverticulitis. Nodes and vessels: No retroperitoneal or mesenteric adenopathy by size criteria. Inferior vena cava is normal in morphology. Miscellaneous: No ventral hernias. PELVIS: Genitourinary: Bladder wall thickness is normal. Uterus is absent. Miscellaneous: No inguinal hernias or adenopathy. No ventral hernias. Bones: No suspicious bony lesions. Chronic posterior left 7th rib fracture which is healed and slight deformity. No vertebral body compression fractures. IMPRESSION: 1. No aortic dissection. 2. No lung consolidation or pleural effusions. 3. Colonic diverticulosis without evidence of diverticulitis. 4. Hepatic steatosis. Dictated by: Luz Verde MD, PhD on 08/20/2020 at 7:37 Approved by: Luz Verde MD, PhD on 08/20/2020 at 7:46
[2020-08-20] MEDS: HYDROMORPHONE 1 MG INJ IV (01:46)
[2020-08-20 01:48] LABS: NT-proBNP (BNP-Adult 18+) 48 pg/mL (<125); Troponin I < 0.012 ng/mL (0.01-0.034)
[2020-08-20 01:52] LABS: COVID19 -Nasal RAPID Negative (Negative)
--- NOTE | 2020-08-20 03:08 | DI.ECHO.S_ITS ---
[facility]---------+ [facility] +---------+ : : [address] : [place] : : : : [id number] : : : : Phone: [phone] Echocardiogram Report + + :Name: SABINO PEACOCK Study Date: 08/20/2020 Height: 66 in : :[facility] ReadingLocation: Weight: 146 lb : : Gender: Female BSA: 1.7 m2 : :: 1970 Age: 49 yrs BP: 141/79 mmHg: :Reason For Study: Chest Pain : : Performed By: Shavon Stearns : :Referring: JOSH SEGURA : + + Interpretation Summary Normal sinus rhythm. Normal LV size and wall thickness. Mild global hypokinesis. EF is estimated at 45-50% Normal chamber sizes. No significant valvular abnormalities. No prior study available for comparison. Procedure: A two-dimensional transthoracic echocardiogram with color flow and Doppler was performed. The study quality was technically adequate. There is no prior echocardiogram noted for this patient. The patient was in normal sinus rhythm during the exam. Left Ventricle: The left ventricle is normal in size and wall thickness. The ejection fraction is estimated to be 45-50%. Right Ventricle: The right ventricle is normal in size and function. Atria: The left atrial size is normal. Right atrial size is normal. There is no Doppler evidence for an interatrial shunt. Mitral Valve: The mitral valve is normal in structure and function. There is trace mitral regurgitation. Aortic Valve: The aortic valve is trileaflet. The aortic valve opens well. No aortic regurgitation is present. Tricuspid Valve: The tricuspid valve is normal in structure and function. There is a trace or physiologic amount of tricuspid regurgitation. The right ventricular systolic pressure is estimated to be at least 30 mmHg based on an estimated right atrial pressure of 15 mm Hg. Pulmonic Valve: The pulmonic valve is not well seen, but is grossly normal. There is a trace or physiologic amount of pulmonic regurgitation. Great Vessels: The aortic root is normal size. The ascending aorta is normal in size. The pulmonary artery is not well visualized, but is probably normal size. The IVC is dilated (diameter is greater than 2.1 cm) and it collapses less than 50% with a sniff. This suggests a high right atrial pressure of 15 mm Hg. Pericardium/ Pleura There is no pericardial effusion. There is an anterior echo-free space consistent with a fat pad. MMode/2D Measurements & Calculations LVIDd: 4.5 cm LVOT diam: 2.1 cm LVIDs: 3.6 cm Ao root diam: 2.8 cm FS: 19.9 % asc Aorta Diam: 2.7 cm EPSS: 0.72 cm Ao Arch Diam (distal): 2.6 cm IVSd: 0.79 cm LVPWd: 0.77 cm LV kelley. diameter/BSA (cm/m^2): 2.6 LV sys. diameter/BSA (cm/m^2): 2.1 LA A2 area: 16.7 cm2 RA long axis: 4.1 cm LA A4 area: 16.6 cm2 RA area: 12.3 cm2 LA length (vol): 4.4 cm RA vol: 31.4 ml LA vol: 53.7 ml RA : 18.0 ml/m2 LA vol index: 30.7 ml/m2 IVC diam: 1.7 cm RVD1 (basal): 3.1 cm TAPSE: 1.7 cm Doppler Measurements & Calculations Ao V2 max: 111.9 cm/sec LVOT Max Greyson: 80.7 cm/sec Ao V2 mean: 78.1 cm/sec LV V1 max P.6 mmHg Ao max P.0 mmHg LV V1 VTI: 14.1 cm Ao mean P.7 mmHg ZOE(I,D): 2.6 cm2 Ao V2 VTI: 18.6 cm ZOE(V,D): 2.5 cm2 sev ratio: 0.76 ZOE indexed to BSA (cm^2/m^2): 1.5 MV E max greyson: 77.6 cm/sec TR max greyson: 199.5 cm/sec MV A max greyson: 57.9 cm/sec TR max P.9 mmHg MV E/A: 1.3 PA V2 max: 54.2 cm/sec Med Peak E' Greyson: 7.2 cm/sec PA V2 mean: 41.5 cm/sec E/E' med: 10.8 PA mean P.73 mmHg Lat Peak E' Greyson: 7.4 cm/sec PA Accel Time: 0.12 sec E/E' lat: 10.5 E/e' average: 10.7 MV dec time: 0.19 sec SV(LVOT): 48.1 ml Electronically signed by: Ansley Obrien M.D. on Reading Physician:08/20/2020 04:04 PM
[2020-08-20] MEDS: HYDROMORPHONE 0.5 MG INJ 1 MG IV (03:14)
[2020-08-20] MEDS: PANTOPRAZOLE 40 MG VIAL IV (03:14)
--- NOTE | 2020-08-20 03:31 | P.HP_ITS ---
History of Present Illness History of Present Illness Date Patient Seen: 08/20/20 Time Patient Seen: 03:13 Chief complaint: Major chest pain Narrative: Patient is a 49-year-old female Cecy Fields who presented to the ED with sudden onset of chest pain, that woke her from her sleep and radiates straight through to her back. Patient has a history smoking, hypertension, patient is also 1month out (04/2020) from right hemicolectomy for an unresectable tubulovillous adenoma colon polyp. She said her chest pain was quite severe. She did have chest discomfort a year ago and was given nitroglycerin she took 1 nitroglycerin prior to arrival and pain seems to be mildly improved. She is having some shortness of breath as well feels like her chest is tight. She denies any fever or cough. She said she has an episode like this a day ago as well while she was at work. 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 She said she was standing and has severe chest discomfort which radiated through to her back and lasted about 10 minutes and resolved. While the patient was in the ER her chest pain did not resolve completely with nitro but did have resolution with IV Dilaudid. Upon admit to floor patient stated that she was sleeping when she woke up with chest pain that went through to her back radiated between her shoulder blades and caused aching pain of both bilateral arms without radiation, she states, that she stood got really dizzy and that her soon-to-be ex- drove her in to the emergency room. She states that she was previously advised that she had hypertension was started on medication and was advised to follow with Cardiology approximately over 1 year ago ran out of the medication and never followed up. She reports that she is still having substernal/epigastric pain at this time a 7/10 it is like someone punched me and then it was tight. She recalls that she has been advised before that her pain and discomfort is from acid reflux which she denies. Patient states prior to this she has been unable to walk more than a mile without chest pain or shortness of breath. The chest pain at this time is constant, and worsens with deep breathing. But patient is unable to elicit pain with palpation to the chest. The pain is not improved with rest nor was it improved with the nitroglycerin in the emergency room, although her pain did decrease from a 10 to a 7/10 with Dilaudid. She states that she is unable to lift things at work as a gill box tender, it is too fatiguing, she notes that she occasionally sees speckles she reports headaches daily, she verbalizes that she consents when her blood pressure is elevated, and also reports since before her surgery in April 2020 that whenever she lies down her legs become completely numb, and that her doctor has not found a reason for this. Patient has been smoking since the age of 13 at least a pack a day, but is planning to quit has a prescription for Chantix. Patient also reports that she has an extreme hunger for thirst, and gets up to urinate nightly 3-4 times per night and sleeps poorly for which she takes amitriptyline. She also realizes that she has constant burning with urination, and has tested negative for UTI repeatedly and that her E urine is extremely dark and concentrated. Patient also discussed that she is under a great deal of stress her has asked her for divorce, in which she feels will leave her homeless and and in financial difficulties. She verbalized that she is still mourning the loss of her mother who 6 years ago, and her father who this last summer, and that she is estranged from much of her family. Patient reports that she is depressed and has been for at least a year her depression is about a 8/10, denies suicidal ideation, and is open to trying a medication. Patient is scheduled on Monday August 10, [address] Lissa zaman at [facility]. Patient's vitals upon admit temp 97.8?, BP 131/65, HR 92, RR 19, O2 saturation 98%. Potassium 3.2, chloride 108 glucose 139, 1st troponin 0.012-, proBNP 40 8- , lipase negative. Chest x-ray:no acute findings, CTA: Chest: No pulmonary embolus, no aortic aneurysm dissection or intramural hematoma. Faint focal multi lobular ground-glass opacities. Abdomen pelvis: Hepatomegaly with diffuse hepatic steatosis. Cholelithiasis. Sigmoid diverticulosis. EKG: Prior ECG tracings: available for review: 94 p.r. interval 138 over S1 [address] changes T-wave inversions noted in V3 slightly in V4 as well which is new from previous EKG in June of 2020 Patient History Medical History Bulging of cervical intervertebral disc Cervical radiculopathy Cough Depression with anxiety Dilation of bladder Eczema Elevated liver enzymes Eosinophilic esophagitis Esophageal obstruction Exposure to COVID-19 virus Gallstones Hemorrhoids IBS (irritable bowel syndrome) Interstitial cystitis Lumbar pain with radiation down left leg Shingles Swallowing disorder Surgical History H/O left breast biopsy H/O right breast biopsy H/O: hysterectomy History of abdominal surgery History of bilateral tubal ligation Hx of tonsillectomy S/P cervical spinal fusion (2013) S/P surgery on nasal septum Family & Social History Family History Father Alcoholism Cancer Lung cancer Mother Age: 71 Lung cancer Diabetes mellitus Hypertension Social History: household members spouse Safety & Behavioral: Feels Safe in Current Yes Environment Tobacco & Substance use: Tobacco type cigarettes Smoking Status Current every day smoker alcohol intake current alcohol intake frequency holiday/special occasion Substance Use Type does not use Meds Home Medications and Allergies Home Medications Medication Instructions Recorded Confirmed Type budesonide 0.5 mg/2 mL suspension See Rx Instructions INHALATION 11/19/19 07/23/20 Rx for nebulization .COMPLEX #60 ml acetaminophen [Tylenol Extra 1,000 mg PO Q6H PRN 05/30/20 07/23/20 History Strength] ondansetron 4 mg PO BID-TID PRN #10 tab 07/05/20 07/23/20 Rx gabapentin 300 mg capsule 300 mg PO BEDTIME #20 cap 07/07/20 07/23/20 Rx oxycodone 5 mg PO Q6H PRN #20 tab 07/17/20 07/23/20 Rx amitriptyline 25 mg tablet 25 mg PO BEDTIME #30 tab 07/23/20 07/23/20 Rx diclofenac sodium 1 % topical gel 2 g TOPICAL QID #100 g 07/23/20 07/23/20 Rx varenicline 0.5 mg (11)-1 mg (42) See Rx Instructions PO PER PKG DIR 07/23/20 07/23/20 Rx tablets in a dose pack #53 each Allergies Allergy/AdvReac Type Severity Reaction Status Date / Time gluten Allergy Severe Anaphylaxis Verified 07/23/20 13:47 lactose Allergy Intermediate Swelling Verified 07/23/20 13:47 of Lip/Tongue/Throat Penicillins Allergy Intermediate Rash Verified 07/23/20 13:47 codeine [CODEINE] Allergy Mild RASH Verified 07/23/20 13:47 morphine [MORPHINE] Allergy Mild Rash Verified 07/23/20 13:47 egg AdvReac Severe Diarrhea Verified 07/23/20 13:47 Review of Systems Review of Systems ROS: Yes All systems reviewed with the patient and are negative except as otherwise documented Constitutional Constitutional: Reports body ache(s), Reports difficulty sleeping, Reports fatigue, Reports headache(s) and Reports lethargy Eyes Eyes: Reports system reviewed and no additional complaints, except as documented, Reports change in vision and Reports other visual disturbances ENT Ears, Nose, Mouth, and Throat: Yes system reviewed and no additional complaints, except as documented, Yes dysphagia (R/T EosinophilicEsophagitis), Yes dizziness and Yes headache(s) Cardiovascular Cardiovascular: Reports chest pain, Reports chest pain at rest, Reports chest pain with activity, Reports diaphoresis, Reports lightheadedness, Reports radiating jaw, neck or arm pain, Reports palpitations, Reports dyspnea, Reports dyspnea on exertion and Reports orthopnea Respiratory Respiratory: Reports system reviewed and no additional complaints, except as documented, Reports pain on inspiration, Reports dyspnea and Reports dyspnea on exertion Gastrointestinal Gastrointestinal: Reports system reviewed and no additional complaints, except as documented, Reports abdominal pain and Reports dysphagia (R/T EosinophilicEsophagitis) Genitourinary Genitourinary: Reports system reviewed and no additional complaints, except as documented, Reports nocturia and Reports flank pain Comments: Dysuria Musculoskeletal Musculoskeletal: Reports system reviewed and no additional complaints, except as documented, Reports back pain and Reports numbness (Bilateral legs was laying down) Integumentary/Breasts Skin/Breast: Reports system reviewed and no additional complaints, except as documented Neurologic Neurologic: Reports system reviewed and no additional complaints, except as documented, Reports behavioral changes, Reports burning sensations (With urination), Reports dizziness, Reports headache(s) and Reports numbness (Bilateral legs was laying down) Psychiatric Psychiatric: Reports system reviewed and no additional complaints, except as documented, Reports anxiety, Reports behavioral changes, Reports depression, Reports irritability and Reports mood swings Endocrine Endocrine: Reports system reviewed and no additional complaints, except as documented, Reports fatigue, Reports polydipsia, Reports polyuria and Reports palpitations Hematologic/Lymphatic Hematologic/Lymphatic: Reports system reviewed and no additional complaints, except as documented Allergic/Immunologic Allergic/Immunologic: Reports system reviewed and no additional complaints, except as documented Exam Vital Signs (past 8 hours): - 08/20/20 01:05 08/20/20 01:06 08/20/20 01:10 Temperature Pulse Rate 92 H 94 H 93 H Respiratory Rate 18 Blood Pressure 165/91 H Pulse Oximetry 98 98 98 08/20/20 01:15 08/20/20 01:18 08/20/20 01:20 Temperature 97.8 F Pulse Rate 83 85 88 Respiratory Rate 28 H 23 20 Blood Pressure 165/91 H Pulse Oximetry 99 98 97 08/20/20 01:24 08/20/20 01:25 08/20/20 01:30 Temperature Pulse Rate 88 90 99 H Respiratory Rate 26 H 26 H Blood Pressure 165/91 H Pulse Oximetry 98 98 08/20/20 01:31 08/20/20 01:35 08/20/20 01:36 Temperature Pulse Rate 101 H 98 H 101 H Respiratory Rate 29 H 15 Blood Pressure 138/81 143/84 H 143/84 H Pulse Oximetry 98 96 08/20/20 01:40 08/20/20 01:45 08/20/20 01:50 Temperature Pulse Rate 102 H 101 H 97 H Respiratory Rate 22 17 20 Blood Pressure 126/70 135/77 140/77 Pulse Oximetry 97 96 96 08/20/20 01:59 08/20/20 02:00 08/20/20 02:01 Temperature Pulse Rate 99 H 97 H 92 H Respiratory Rate 12 14 Blood Pressure 131/65 Pulse Oximetry 98 98 98 Oxygen Delivery Method Room Air Narrative Exam Narrative: General: Patient is a well-developed, well-nourished Female, who appears in mild emotional distress, appears older than stated age and is in no physiologic distress at this time. During exam patient expressed that she was short of breath and was in 7/10 chest pain but was able to converse with me at length, in complete sentences, and displayed only mild occasional discomfort HEENT: Normocephalic, atraumatic, extraocular muscles intact, oral pharynx is clear and mucous membranes are moist. Neck is supple and symmetric, trachea is midline, no adenopathy, no thyroid enlargement, nontender, no masses palpated. Negative for JVD Chest: Normal AP diameter and contour without kyphoscoliosis, no nasal flaring, retractions, or tachypneic labored Lungs: Auscultation of all lung basurto are clear without adventitious sounds, wheezes, rhonchi, or rales. Cardio: S1 & S2 with regular rate and rhythm without murmur, rubs, or gallops, no carotid bruit, no cardiac pulsations present. Abdomen: Slightly distended, soft, and mild tenderness in the right upper and lower quadrants with palpation, negative for organomegaly, or masses. Bowel sounds are present in all 4 quadrants without guarding or rebound, no CVA tenderness. Musculoskeletal: Muscle strength and tone are equal within normal limits, no deformity, crepitus, effusions, cyanosis, clubbing or edema present. Full range of motion intact radial and pedal pulses are normal. Skin: Warm dry and intact without rashes, ulcerations or petechiae. Noted vertical well-healed surgical scar at the umbilicus, without signs of infection. Neuro: Alert and orientated x3, strength is +5/5 in all extremities, sensation to touch intact, no gross deficits noted of cranial nerves. Psych: Patient has a well-kept appearance, depressed affect, mental status attitude thought context and judgment are appropriate for age. Patient verbalized that she is depressed, an 8/10, but denied suicidal ideation. Objective Labs Result Diagrams: 08/20/20 01:15 08/20/20 01:15 Labs: Laboratory Results - last 24 hr 08/20/20 08/20/20 08/20/20 01:15 01:15 01:15 WBC 8.8 RBC 4.93 Hgb 14.2 Hct 43.9 MCV 89.1 MCH 28.9 MCHC 32.4 RDW 13.2 Plt Count 279 Neut % (Auto) 49.6 L Lymph % (Auto) 37.7 Wayne % (Auto) 7.2 Eos % (Auto) 4.4 H Baso % (Auto) 1.1 Neut # (Auto) 4300 Lymph # (Auto) 3300 Wayne # (Auto) 600 Eos # (Auto) 400 Baso # (Auto) 100 PT 11.3 INR 1.0 APTT 31 Sodium 139 Potassium 3.2 L Chloride 108 H Carbon Dioxide 27 BUN 11 Creatinine 0.78 Estimated GFR > 60.0 BUN/Creatinine Ratio 14.1 Glucose 139 H Calcium 9.4 Total Bilirubin 0.4 AST 32 ALT 38 H Alkaline Phosphatase 75 Total Creatine Kinase 81 CK-MB (CK-2) TNP CK-MB (CK-2) Rel Index TNP Troponin I < 0.012 NT-Pro-B Natriuret Pep 48 Total Protein 7.8 Albumin 4.5 Globulin 3.3 Albumin/Globulin Ratio 1.4 Lipase 146 SARS-CoV-2 (PCR) 08/20/20 01:15 WBC RBC Hgb Hct MCV MCH MCHC RDW Plt Count Neut % (Auto) Lymph % (Auto) Wayne % (Auto) Eos % (Auto) Baso % (Auto) Neut # (Auto) Lymph # (Auto) Wayne # (Auto) Eos # (Auto) Baso # (Auto) PT INR APTT Sodium Potassium Chloride Carbon Dioxide BUN Creatinine Estimated GFR BUN/Creatinine Ratio Glucose Calcium Total Bilirubin AST ALT Alkaline Phosphatase Total Creatine Kinase CK-MB (CK-2) CK-MB (CK-2) Rel Index Troponin I NT-Pro-B Natriuret Pep Total Protein Albumin Globulin Albumin/Globulin Ratio Lipase SARS-CoV-2 (PCR) Negative Assessment & Plan Assessment & Plan narrative: This patient requires acute care inpatient hospital management for acute onset chest pain unrelieved with nitroglycerin or rest. The patient is at much higher risk for medical and surgical complications because of her recent hemicolectomy 04/2020. This factor increases the difficulty and complexity of medical and surgical interventions and increases the chances of poor outcomes such as morbidity and mortality. The patient's chronic tobacco abuse will impact her oxygenation, which is a significant cardiopulmonary disease and neurological disease risk factor. 1. Acute onset chest pain, acute, present on admission -vitals upon admit temp 97.8?, BP 131/65, HR 92, RR 19, O2 saturation 98%. Potassium 3.2, chloride 108 glucose 139, 1st troponin 0.012-, proBNP 40 8-, lipase negative. Chest x-ray:no acute findings, CTA: Chest: No pulmonary embolus, no aortic aneurysm dissection or intramural hematoma. Faint focal multi lobular ground-glass opacities. Abdomen pelvis: Hepatomegaly with diffuse hepatic steatosis. Cholelithiasis. Sigmoid diverticulosis. EKG: Prior ECG tracings: available for review: 94 p.r. interval 138 over S1 [address] changes T-wave inversions noted in V3 slightly in V4 as well which is new from [facility] in June of 2020 -Monitor for hypertensive emergencies with acute end-organ damage, ventricular tachycardia, unstable SVT, hypertension, angina or [place], heart failure, renal function. - Goals: reducing blood pressure over 24-48 hours, not more than 25-30% in the 1st 24 hours. O2 to keep O2 sats greater than 92% potassium > 4 and Mag > 2, -will trial patient on Protonix once daily, to see if there is any alteration in her pain. Ordered A1c to rule out diabetes, and a TSH FT4 to rule out thyroid issues. -Troponin#1-0.012, troponin #2- ,troponin #3- , IV fluids: LR at 60 cc/hour-patient complaining severe dehydration, 20 mEq K rider -patient admit for observation, Continuous tele monitoring and order echo, and stress test, vital signs q.4 hours, intake and output monitored Q shift, weight measure daily, diet:NPO for procedure -Serial troponins 1 Q 8 hours x3, cardiac enzymes, proBNP, TSH/FT4, UA and chest x-ray, Blood pressure in both arms: -sublingual nitro glycerin 0.4 mg, aspirin 325 mg, order CTA or V/Q scan or CT. Metoprolol 5 mg IV or Cardizem 5 mg to 10 mg IV Q 15 minutes, Beta-ngozi, nitrates, MS, heparin, Plavix Wesley Vasc score: 1-2.8% risk of an event per year, Heart score:3 2. Hypertension, acute on chronic, present on admission, uncontrolled. -start patient on 10 mg once daily lisinopril, monitor for lactulose allergy, and hypotension. Will decrease dose if patient BP cannot tolerate. 3. Depression, acute on chronic, present on admission, uncontrolled -discussed risks and benefits of medication with patient, will have nursing staff provided handout, patient is open to starting a medication and had agreed to a 2 week follow-up with primary care, patient also verbalized understanding that should she have any change in mood, thoughts of suicide or injury, or any side effect complications with the medication that she is to contact a care provider and or seek immediate medical care. 4. Tobacco abuse, acute on chronic, present on admission, uncontrolled -patient Education to encourage tobacco cessation. -patient has a prescription of Chantix which she is due to start when she gets home. 5. Right upper abdominal pain, acute on chronic, present on admission - Unresectable tubulovillous adenoma colon polyp, resulting in right hemicolectomy (04/2020) -per Dr. Darby consult 07/16/2020: I do not think she is having an attack of cholecystitis or biliary colic. I do not think she is having a post op complication. I offered to take her to the OR to remove her gall bladder and take down her adhesions today. She says she would rather wait until her scheduled lap lopez with Dr. Alcaraz. I recommended she try using an abdominal binder to help take pressure off of the abdominal wall, and make sure she prevents constipation by using a bowel regimen. I will write her an Rx for pain medicine, knowing that she will be having surgery with Dr. Alcaraz in August. -patient is scheduled for surgery Sunday08/23/[address] Alcaraz @[facility], -amylase ordered. Code status: Full code Surrogate/plan of care:Turner Hoang-daughter COVLAM PCR: Negative VTE prophylaxis: Enoxaparin 40 mg and continue SCDs Scores GCS Donato coma scale eye opening: Spontaneous [place] coma scale verbal response: Orientated [place] coma scale motor response: Obey commands [place] coma scale total score: 15 Wells' Criteria for PE Clinical signs and symptoms of DVT: No PE is #1 Dx or equally likely: No Heart rate > 100: No Immobilization at least 3 days or surg in previous 4 weeks: Yes History of PE or DVT: No Hemoptysis: No Malignancy w/Treatment within 6 months or palliative: No Wells' PE Score total: 1.5
[2020-08-20 03:34] LABS: Cholesterol 145 mg/dL (140-199); HDL Cholesterol 51 mg/dL (40-60); LDL Cholesterol Calculated 76 mg/dL (<100); Magnesium 2.1 mg/dL (1.6-2.3); Triglycerides 90 mg/dL (35-150)
--- NOTE | 2020-08-20 04:43 | PC.NURSE ---
Patient has many food allergies that restrict her diet, and health issues that impair diet also.
[2020-08-20] MEDS: POTASSIUM CHLORIDE 20 MEQ in SODIUM CHLORIDE 0.9% 250 ML 130 ML IV (05:00)
[2020-08-20] MEDS: LACTATED RINGERS 1,000 ML 60 ML IV (06:55)
[2020-08-20] MEDS: OXYCODONE IR 5 MG TABLET PO (06:57)
[2020-08-20] MEDS: PANTOPRAZOLE 20 MG TABLET PO (06:57)
[2020-08-20] MEDS: ONDANSETRON 4 MG ODT PO (06:58)
--- NOTE | 2020-08-20 08:12 | OT.IPNOTE ---
Per Dr. Vang, pt has no therapy needs therefore okay to discharge OT eval orders.
[2020-08-20 08:27] LABS: Amylase 57 U/L (30-110)
[2020-08-20 08:37] LABS: NT-proBNP (BNP-Adult 18+) 75 pg/mL (<125)
[2020-08-20] MEDS: KETOROLAC 30 MG/ML VIAL IV (08:43)
--- NOTE | 2020-08-20 08:51 | DIET.PN ---
Dietary Progress Note RD note: pt allergen list shows severe anaphylactic reaction to gluten and dairy. Pt ordered wheat bagel c cream cheese for breakfast. Nursing, dietary aid, and RD confirmed c pt no severe reaction to gluten or dairy, pt requests to consume both gluten and dairy for breakfast this am, RD cleared pt to receive breakfast as ordered.
[2020-08-20 08:59] LABS: TSH w/ Reflex to FT4 6.29 uIU/mL (0.47-4.68)
[2020-08-20 09:12] LABS: Troponin I 0.268 ng/mL (0.01-0.034)
[2020-08-20] MEDS: lisinopriL 10 MG TABLET PO (09:21)
[2020-08-20] MEDS: ESCITALOPRAM 10 MG TABLET PO (09:22)
[2020-08-20] MEDS: SODIUM CHLORIDE 0.9% FLUSH 10 ML IV (09:23)
[2020-08-20 09:24] LABS: Free T4, Direct Thyroxine 1.19 ng/dL (0.78-2.19)
[2020-08-20] MEDS: MORPHINE 2 MG/ML INJ IV ×4 (09:27→12:51)
[2020-08-20] MEDS: METOPROLOL IR 50 MG TABLET PO ×2 (09:27→11:45)
[2020-08-20] MEDS: NITROGLYCERIN OINT 1 INCH/GM OINT...G. TOP (09:27)
[2020-08-20] MEDS: METOPROLOL TARTRATE 5 MG/5 ML INJ IV ×3 (09:28→10:46)
[2020-08-20] MEDS: HEPARIN 5,000 UNIT/ML VIAL 5200 UNIT IV (10:01)
[2020-08-20] MEDS: HEPARIN DRIP 25,000 UNIT/500 ML IV.SOLN 15.6 UNIT IV (10:02)
[2020-08-20] MEDS: CLOPIDOGREL 75 MG TABLET 600 MG PO (10:25)
--- NOTE | 2020-08-20 11:14 | P.DS_ITS ---
History of Present Illness History of Present Illness Chief complaint: Major chest pain Narrative: Patient is 49-year-old female current smoker, likely untreated mild hypertension, developed acute chest pain which woke her up from sleep. She describes the pain as substernal pressure radiating to the neck, arms and back. She reports pain as severe. She has associated shortness of breath. She had chest pain episode a year ago and given nitroglycerin which she took prior to arrival and it seemed to improve her pain. She was actually scheduled for lap choly on Sunday next week but this pain was clearly different from the right upper quadrant abdominal discomfort she has been experiencing in the past. In itial troponin was less than 0.012. Her initial EKG showed mild T-wave abnormalities anteriorly. Chest abdomen and pelvis CTA was done in the ED which did not show anything acute. Patient was admitted for chest pain rule out to have stress test and echo. Discharge Providers Provider Date of admission: 08/20/20 03:04 Discharge Date: 08/20/20 Primary care physician: JENNIFER Carey Consults: 08/20/20 03:14 Consult to Discharge Planning Routine Comment: Consult to Occupational Therapy Evaluate & Treat Comment: Physician Instructions: Evaluate and treat Consult to Physical Therapy Evaluate & Treat Comment: Physician Instructions: Evaluate and Treat Discharge provider: Jose Antonio Vang MD Summary Hospital Course Discharge Diagnosis: 1. NSTEMI 2. Hypertension 3. Hypothyroidism, new diagnosis 4. Depression 5. Current smoker Patient has had ongoing severe chest pain since last night. Additional sublingual nitroglycerin did not seem to relieve her pain. Patient received 324 mg aspirin around 1:00 a.m. on ED presentation. Her repeat troponin at 8:00 a.m. came back significantly positive at 0.268 which is above acute OK caught off at [place]. Her repeat EKG this morning was normal, with flipped anterior T- waves now normal. Upon ruling in for OK, patient was given heparin bolus and started on heparin drip, IV metoprolol 5 mg x 3, oral metoprolol 50 mg q.6 hours, topical nitropaste 1 in, morphine 2 mg IV as needed. After discussion with Dr. Mora, she received clopidogrel 600 mg p.o. loading dose at around 9:45 a.m.. Telemetry has been sinus rhythm. Blood pressures have been mostly 130s/80s. During the night she had some episodic elevated blood pressures into 160s over 90s and received 10 mg lisinopril at 9:00 a.m.. Patient had lipid panel which showed total cholesterol 145, LDL 76, HDL 51, triglycerides 90. She is not on lipid lowering agent. Case was discussed with Dr. Mora and my counterpart hospitalist physician Dr. Claudio at [facility] who have agreed to take patient in transfer for further cardiac assessment and possible cardiac catheterization. She is NPO and has LR running at 60 cc/hour. Noncardiac issues: Thyroid panel showed mildly elevated TSH 6.29, free T4 1.19. TSH elevation is likely subclinical in thyroid panel can be repeated in a couple of months. Also patient has had chronically depressed mood and was started on Lexapro last night. In addition patient has had some chronic abdominal pain and was scheduled for a lap choly on Sunday next week with Dr. Alcaraz which has now been canceled. Patient had been admitted to observation bed status change to acute inpatient since she has ruled in for OK. Time Spent with Patient Time spent: Greater than 30 minutes Exam Vital Signs (past 8 hours): - 08/20/20 03:15 08/20/20 03:30 08/20/20 03:35 Temperature 97.6 F Pulse Rate 84 86 94 H Respiratory Rate 24 28 H 18 Blood Pressure 141/79 H Pulse Oximetry 97 97 99 08/20/20 07:06 08/20/20 08:03 08/20/20 09:15 Temperature 98.5 F Pulse Rate 85 83 Respiratory Rate 22 22 Blood Pressure 128/80 132/84 Pulse Oximetry 95 98 98 08/20/20 09:21 08/20/20 09:27 08/20/20 10:23 Temperature Pulse Rate 83 84 81 Respiratory Rate Blood Pressure 132/84 134/84 133/79 Pulse Oximetry 96 Oxygen Delivery Method Room Air Oxygen Flow Rate 0 Objective Labs Result Diagrams: 08/20/20 01:15 08/20/20 01:15 Labs: Laboratory Results - last 24 hr 08/20/20 08/20/20 08/20/20 01:15 01:15 01:15 WBC 8.8 RBC 4.93 Hgb 14.2 Hct 43.9 MCV 89.1 MCH 28.9 MCHC 32.4 RDW 13.2 Plt Count 279 Neut % (Auto) 49.6 L Lymph % (Auto) 37.7 Storey % (Auto) 7.2 Eos % (Auto) 4.4 H Baso % (Auto) 1.1 Neut # (Auto) 4300 Lymph # (Auto) 3300 Storey # (Auto) 600 Eos # (Auto) 400 Baso # (Auto) 100 PT 11.3 INR 1.0 APTT 31 Sodium 139 Potassium 3.2 L Chloride 108 H Carbon Dioxide 27 BUN 11 Creatinine 0.78 Estimated GFR > 60.0 BUN/Creatinine Ratio 14.1 Glucose 139 H Calcium 9.4 Magnesium Total Bilirubin 0.4 AST 32 ALT 38 H Alkaline Phosphatase 75 Total Creatine Kinase 81 CK-MB (CK-2) TNP CK-MB (CK-2) Rel Index TNP Troponin I < 0.012 NT-Pro-B Natriuret Pep 48 Total Protein 7.8 Albumin 4.5 Globulin 3.3 Albumin/Globulin Ratio 1.4 Triglycerides Cholesterol LDL Cholesterol, Calc HDL Cholesterol Amylase Lipase 146 TSH Free T4 SARS-CoV-2 (PCR) 08/20/20 08/20/20 08/20/20 01:15 01:15 01:15 WBC RBC Hgb Hct MCV MCH MCHC RDW Plt Count Neut % (Auto) Lymph % (Auto) Storey % (Auto) Eos % (Auto) Baso % (Auto) Neut # (Auto) Lymph # (Auto) Storey # (Auto) Eos # (Auto) Baso # (Auto) PT INR APTT Sodium Potassium Chloride Carbon Dioxide BUN Creatinine Estimated GFR BUN/Creatinine Ratio Glucose Calcium Magnesium 2.1 Total Bilirubin AST ALT Alkaline Phosphatase Total Creatine Kinase CK-MB (CK-2) CK-MB (CK-2) Rel Index Troponin I NT-Pro-B Natriuret Pep Total Protein Albumin Globulin Albumin/Globulin Ratio Triglycerides 90 Cholesterol 145 LDL Cholesterol, Calc 76 HDL Cholesterol 51 Amylase Lipase TSH Free T4 SARS-CoV-2 (PCR) Negative 08/20/20 08/20/20 08/20/20 08:05 08:05 08:05 WBC RBC Hgb Hct MCV MCH MCHC RDW Plt Count Neut % (Auto) Lymph % (Auto) Storey % (Auto) Eos % (Auto) Baso % (Auto) Neut # (Auto) Lymph # (Auto) Storey # (Auto) Eos # (Auto) Baso # (Auto) PT INR APTT Sodium Potassium Chloride Carbon Dioxide BUN Creatinine Estimated GFR BUN/Creatinine Ratio Glucose Calcium Magnesium Total Bilirubin AST ALT Alkaline Phosphatase Total Creatine Kinase CK-MB (CK-2) CK-MB (CK-2) Rel Index Troponin I 0.268 H* NT-Pro-B Natriuret Pep 75 Total Protein Albumin Globulin Albumin/Globulin Ratio Triglycerides Cholesterol LDL Cholesterol, Calc HDL Cholesterol Amylase Lipase TSH 6.29 H Free T4 1.19 SARS-CoV-2 (PCR) 08/20/20 08:05 WBC RBC Hgb Hct MCV MCH MCHC RDW Plt Count Neut % (Auto) Lymph % (Auto) Storey % (Auto) Eos % (Auto) Baso % (Auto) Neut # (Auto) Lymph # (Auto) Storey # (Auto) Eos # (Auto) Baso # (Auto) PT INR APTT Sodium Potassium Chloride Carbon Dioxide BUN Creatinine Estimated GFR BUN/Creatinine Ratio Glucose Calcium Magnesium Total Bilirubin AST ALT Alkaline Phosphatase Total Creatine Kinase CK-MB (CK-2) CK-MB (CK-2) Rel Index Troponin I NT-Pro-B Natriuret Pep Total Protein Albumin Globulin Albumin/Globulin Ratio Triglycerides Cholesterol LDL Cholesterol, Calc HDL Cholesterol Amylase 57 Lipase TSH Free T4 SARS-CoV-2 (PCR) [facility] Medical History Bulging of cervical intervertebral disc Cervical radiculopathy Cough Depression with anxiety Dilation of bladder Eczema Elevated liver enzymes Eosinophilic esophagitis Esophageal obstruction Exposure to COVID-19 virus Gallstones Hemorrhoids IBS (irritable bowel syndrome) Interstitial cystitis Lumbar pain with radiation down left leg Shingles Swallowing disorder Surgical History H/O left breast biopsy H/O right breast biopsy H/O: hysterectomy History of abdominal surgery History of bilateral tubal ligation Hx of tonsillectomy S/P cervical spinal fusion (2013) S/P surgery on nasal septum Family History Father Alcoholism Cancer Lung cancer Mother Age: 71 Lung cancer Diabetes mellitus Hypertension Social History marital status: household members: spouse occupational status: employed Smoking Status: Current every day smoker alcohol intake: current substance use type: does not use Discharge Plan Discharge Plan Patient Disposition: [facility] Other facility: [facility] Discharge Health Status Multidrug resistant organism: No MDRO Precautions: [place] Discharge Data Primary Care Provider: Destiny Mckeon Attending Provider: Rachel Langford VTE Deep Vein Thrombosis/Pulmonary Embolism Present on Admission: Yes
[2020-08-20 11:37] LABS: PTT Partial Thromboplastin Tim > 400 SECONDS (26.4-36.2)
--- NOTE | 2020-08-20 11:40 | PC.NURSE ---
Day shift: Aptt >400 reported to MD. No changes in plan of care. Pt has had heparin bolus and heparin drip per protocol. PO Plavix given per SEP as well. Pt's chest pain better (10/16) w/ the IV Morphine per protocol. Will continue to monitor. Pt to transfer to [facility] pending bed availability.
--- NOTE | 2020-08-20 12:06 | PT-IP ANOTE ---
Per Dr. Vang, pt does not have the need for therapy service at this point. DC from PT
--- NOTE | 2020-08-20 12:38 | PC.NURSE ---
Day shift: Report given by phone to [facility] RN at approx 1230. Her name is Susana. Pt is now aware of the time (1315) she is going to transfer to [facility]. Still reports chest pain of 4/10. She remains A&Ox4. Steady on her feet and has voided.
--- NOTE | 2020-08-20 13:08 | PC.NURSE ---
Day shift: Pt is now under the care of the [facility] transport team. Report given to them at approx 1310. She is being transported to [facility] via the [facility] transport people at this time. Transport has her transport/d/c/transfer packet. Dr Vang is aware. Pt is off of [facility] tele at this time. Per flight/transport nurse they will continue the heparin drip. Pt off unit with transport at approx 1317.
--- NOTE | 2020-08-20 14:02 | CM.DANOTE ---
DCP: assessment: note: case received and discussed in Team Rounds. Dr. Vang noted that he was working on a transfer to [facility] for higher level of cardiac care. Pt left this afternoon via ALS transport, on heparin drip. Payer: Healthcare management PCP: listed as Destiny Mckeon.
== END 2020-08-20 13:17 | disposition short-term general hospital (02) | DRG 282 ==
LOC: ED 02:49 → AC 07:34
PROVIDERS: Internal Medicine; Admitting Provider Nurse Practitioner Family; Emergency Provider Emergency Medicine; PCP Nurse Practitioner; Referring Provider Emergency Medicine; Visit Provider Nurse Practitioner Family
DX: I21.4 Non-ST elevation (NSTEMI) myocardial infarction (principal); F17.210 Nicotine dependence, cigarettes, uncomplicated; I10 Essential (primary) hypertension; F32.9 Major depressive disorder, single episode, unspecified; E03.9 Hypothyroidism, unspecified; K80.20 Calculus of gallbladder without cholecystitis without obstruction; Z20.822 Contact with and (suspected) exposure to COVID-19
CPT/HCPCS: 36415; 71045; 71275; 74174; 80053; 80061; 82150; 82550; 83690; 83735; 83880; 84439; 84443; 84484; 85025; 85610; 85730; 87635; 93005; 93010; 93306; 94640; 96374; 96375; 96376; 99284; C9803; G0378; C9113; J1170; J1644; J1885; J2270; J3480; Q9967

== ENCOUNTER 2020-10-22 19:00 | Emergency (ER) | payer OTHER, SELFPAY ==
[2020-08-20 03:24] VITALS: BMI 23.1
[2020-10-22 19:13] VITALS: BP 144/76; PULSE 94; RESP 18; TEMP 36.7; O2SAT 99; BMI 20.9
--- NOTE | 2020-10-22 19:18 | DI.RAD.S_ITS ---
PROCEDURE: XR FOOT LT MIN 3V INDICATIONS: slammed her foot in the car door TECHNIQUE: 3 views of the foot were acquired. COMPARISON: None. FINDINGS: Bones: No fractures or dislocations. No suspicious bony lesions. Soft tissues: No tibiotalar joint effusion. Achilles tendon appears normal. IMPRESSION: No acute osseous abnormality. Dictated by: Ezio Sellers M.D. on 10/22/2020 at 21:10 Approved by: Ezio Sellers M.D. on 10/22/2020 at 21:11
--- NOTE | 2020-10-22 20:07 | ED.LOWEXIN ---
HPI - Extremity Injury (Lower) General Chief Complaint: Extremity Injury, Lower Stated Complaint: slammed left foot in the door, hurts Time Seen by Provider: 10/22/20 20:06 Source: patient Mode of arrival: Family Vehicle Limitations: no limitations History of Present Illness HPI Narrative: 49-year-old woman new to the area with a history of, anxiety, hypertension, valvular cardiac disease, reflux presents after closing her right foot in her car door. She has a moderate hematoma on the dorsum of her foot and is unable to bear weight. Related Data Home Medications Medication Instructions Recorded Confirmed aspirin 325 mg tablet 325 mg PO DAILY 09/30/20 10/22/20 isosorbide dinitrate 40 mg tablet 40 mg PO DAILY tab 09/30/20 10/22/20 Previous Rx's Medication Instructions Recorded diclofenac sodium 1 % topical gel 2 g TOPICAL QID #100 g 07/23/20 varenicline 0.5 mg (11)-1 mg (42) See Rx Instructions PO PER PKG DIR 07/23/20 tablets in a dose pack #53 each atorvastatin 20 mg tablet 20 mg PO BEDTIME #90 tab 08/24/20 budesonide 0.5 mg/2 mL suspension See Rx Instructions INHALATION 08/24/20 for nebulization .COMPLEX #60 ml gabapentin 300 mg capsule 300 mg PO BEDTIME #90 cap 08/24/20 lisinopril 2.5 mg tablet 1.25 mg PO DAILY #45 tab 08/24/20 metoprolol succinate 25 mg 12.5 mg PO DAILY #45 tab 08/24/20 tablet,extended release 24 hr naproxen 500 mg tablet 500 mg PO BID #180 tab 08/24/20 nitroglycerin 0.4 mg sublingual 0.4 mg SUBLINGUAL Q5M PRN #30 tab 08/24/20 tablet pantoprazole 40 mg tablet,delayed 40 mg PO BID #60 tab 08/24/20 release sucralfate 100 mg/mL oral 1 g PO Q6H #420 ml 08/24/20 suspension lffdpezrse-aksnqaawwsgev-taftfvij 1 cap PO Q8H PRN #60 cap 09/30/20 50 mg-300 mg-40 mg capsule hydrocodone 5 mg-acetaminophen 325 1 tab PO Q8H PRN #30 tab 10/15/20 mg tablet venlafaxine 150 mg 150 mg PO BEDTIME #90 cap 10/15/20 capsule,extended release 24 hr nitrofurantoin 100 mg PO Q12H 5 Days #10 cap 10/22/20 monohydrate/macrocrystals 100 mg capsule ondansetron HCl 4 mg tablet 4 mg PO Q8H #30 tab 10/22/20 oxycodone-acetaminophen 1 tab PO Q6H PRN #10 tab 10/22/20 phenazopyridine 100 mg tablet 100 mg PO TID PRN #6 tab 10/22/20 trazodone 50 mg tablet 100 mg PO BEDTIME #180 tab 10/22/20 Allergies Allergy/AdvReac Type Severity Reaction Status Date / Time gluten Allergy Severe Anaphylaxis Verified 10/22/20 19:17 lactose Allergy Intermediate Swelling Verified 10/22/20 19:17 of Lip/Tongue/Throat Penicillins Allergy Intermediate Rash Verified 10/22/20 19:17 codeine [CODEINE] Allergy Mild RASH Verified 10/22/20 19:17 morphine [MORPHINE] Allergy Mild Rash Verified 10/22/20 19:17 egg AdvReac Severe Diarrhea Verified 10/22/20 19:17 Review of Systems Review of Systems Narrative: Pertinent positive and negative findings as per HPI Remainder of review of systems is otherwise unremarkable for Constitutional: Fevers, chills, weakness ENT: No sore throat, neck pain, ear pain CV: Chest pain, palpitations, Respiratory: Cough, wheeze, dyspnea GI: Nausea, vomiting, diarrhea, : Dysuria, hematuria, Patient History Medical History (Updated 10/23/20 @ 03:39 by Rachel Lazo MD) Abdominal pain Bright red rectal bleeding Bulging of cervical intervertebral disc Chronic anticoagulation Colon polyps Colonic mass Depression with anxiety Dilation of bladder Diverticulosis Eczema Elevated liver enzymes Eosinophilic esophagitis Esophageal obstruction Gallstones Hemorrhage of surgical anastomosis site of digestive tract Hemorrhoids IBS (irritable bowel syndrome) Interstitial cystitis Lumbar pain with radiation down left leg 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 NSTEMI (non-ST elevated myocardial infarction) Shingles Stool fat increased Tobacco abuse Tobacco abuse counseling Well woman exam with routine gynecological exam Surgical History (Updated 10/23/20 @ 03:39 by Rachel Lazo MD) H/O left breast biopsy H/O: hysterectomy History of abdominal surgery History of bilateral tubal ligation Hx of tonsillectomy S/P cervical spinal fusion (2013) S/P surgery on nasal septum Status post right hemicolectomy Family History Father Alcoholism Cancer Lung cancer Mother Age: 72 Lung cancer Diabetes mellitus Hypertension Social History marital status: household members: spouse occupational status: employed Smoking Status: Current every day smoker alcohol intake: current substance use type: does not use Smoking Status: Current every day smoker tobacco type: cigarettes alcohol intake frequency: holidays/special occasions only Substance Use Type: does not use Exam Narrative Exam Narrative: General: Alert appropriate in no acute distress Respiratory: Able to speak in full sentences, no obvious respiratory distress Skin: No obvious rashes, warm and dry Neurologic: Grossly intact no obvious asymmetries or abnormalities Psych: appropriate insight and affect, cooperative Extremity: Left foot with large ecchymosis on the dorsum. No contusion to the plantar surface. Neurovascularly intact distal difficult to move the ankle because of the foot pain but there does not appear to be acute ankle injury there is no ankle swelling and no injury proximal. Initial Vital Signs Initial Vital Signs: Vital Signs Temperature 98.0 F 10/22/20 19:13 Pulse Rate 94 H 10/22/20 19:13 Respiratory Rate 18 10/22/20 19:13 Blood Pressure 144/76 H 10/22/20 19:13 Pulse Oximetry 99 10/22/20 19:13 Course Orders Ordered: ED Orders 10/22/20 19:18 XR foot LT min 3V Stat Discontinued Medications Ibuprofen (Ibuprofen 400 Mg Tablet) 400 mg PO NOW ONE Stop: 10/22/20 20:37 Last Admin: 10/22/20 20:58 Dose: 400 mg Documented by: MARQUEZ Oxycodone/Acetaminophen (Oxycodone/Acetaminophen 5/325 Tablet) 1 tab PO NOW ONE Stop: 10/22/20 20:36 Last Admin: 10/22/20 20:58 Dose: 1 tab Documented by: MARQUEZ Oxycodone/Acetaminophen (Oxycodone/Apap 5/325 Prepack) 1 bottle MISC SEEINSTR ONE Stop: 10/22/20 21:28 Last Admin: 10/22/20 21:31 Dose: 1 bottle Documented by: MARQUEZ Vital Signs Vital signs: Vital Signs - 8 hr 10/22/20 20:08 10/22/20 21:30 Temperature 97.3 F L Pulse Rate 90 72 Pulse Rate [Left Dorsalis Pedis] 70 Respiratory Rate 17 14 Blood Pressure 139/76 132/70 Pulse Oximetry 97 99 MDM - Extremity Injury (Lower) Medical Records Attestation: I reviewed the patient's medical records. Imaging Data X-ray foot: Radiologist's Impression: FINDINGS: Bones: No fractures or dislocations. No suspicious bony lesions. Soft tissues: No tibiotalar joint effusion. Achilles tendon appears normal. IMPRESSION: No acute osseous abnormality. Dictated by: Ezio Sellers M.D. on 10/22/2020 at 21:10 MDM Narrative Medical decision making narrative: 49-year-old woman with multiple medical issues who unfortunately caught her left foot in her car door. Fortunately she sustained only a hematoma and there is no evidence of fracture. She is placed in a hard sole shoe and given crutches. We did discuss possibility of small fractures that can be missed on initial x-rays and importance of follow-up if pain persists. She is safe for home discharge Discharge Plan Departure Patient Disposition: Home Clinical Impression: Contusion of foot Qualifiers: Encounter type: initial encounter Laterality: right Qualified Code(s): S90.31XA - Contusion of right foot, initial encounter Instructions: DI for Foot Pain Activity Restrictions/Additional Instructions: Thank you for coming in today Your x-rays do not show a fracture. Do you clearly have a significant injury and bruise. It likely is going to hurt more over the next 48 hours and I anticipate more swelling. Using a hard sole shoe so that your foot has less flexion when your walking will help with pain control. Keeping the foot elevated ice on the surface when the pain is controlled enough to tolerate that will also be helpful. Using 400 mg of ibuprofen (2 lshm-hwm-lszxayx pills) and 1 Tylenol every 6 hours can be very helpful in controlling pain. For severe pain using 400 mg of ibuprofen and 1 Percocet will be helpful. If you are still having severe pain mid foot by the middle of next week it will make sense to follow-up with orthopedic surgery and they may want to re-x-ray the area. Sometimes very subtle fractures do not show up until the begin to heal. If you have worsening symptoms or new findings, please feel free to return to the emergency department I hope you heal quickly Prescriptions: New oxycodone-acetaminophen 5-325 mg tablet 1 tab PO Q6H PRN (Reason: pain) Qty: 10 RF: 0 No Action diclofenac sodium 1 % gel 2 g topical QID Qty: 100 RF: 0 Chantix Starting Month Box 0.5 mg (11)- 1 mg (42) tablets,dose pack See Rx Instructions PO PER PKG DIR Qty: 53 RF: 0 gabapentin 300 mg capsule 300 mg PO BEDTIME Qty: 90 RF: 3 atorvastatin [Lipitor] 20 mg tablet 20 mg PO BEDTIME Qty: 90 RF: 3 budesonide 0.5 mg/2 mL suspension for nebulization See Rx Instructions INHALATION .COMPLEX Qty: 60 RF: 0 lisinopril 2.5 mg tablet 1.25 mg PO DAILY Qty: 45 RF: 3 metoprolol succinate 25 mg tablet extended release 24 hr 12.5 mg PO DAILY Qty: 45 RF: 3 naproxen 500 mg tablet 500 mg PO BID Qty: 180 RF: 3 nitroglycerin 0.4 mg tablet, sublingual 0.4 mg sublingual Q5M PRN (Reason: chest pain) Qty: 30 RF: 2 pantoprazole 40 mg tablet,delayed release (DR/EC) 40 mg PO BID Qty: 60 RF: 2 sucralfate [Carafate] 100 mg/mL suspension 1 g PO Q6H Qty: 420 RF: 1 isosorbide dinitrate [Isordil] 40 mg tablet 40 mg PO DAILY RF: 0 hnluqvjzhp-ggerritaagbkz-yrfb 50-300-40 mg capsule 1 cap PO Q8H PRN (Reason: pain) Qty: 60 RF: 1 aspirin 325 mg tablet 325 mg PO DAILY RF: 0 hydrocodone-acetaminophen 5-325 mg tablet 1 tab PO Q8H PRN (Reason: pain) Qty: 30 RF: 0 venlafaxine 150 mg capsule,extended release 24hr 150 mg PO BEDTIME Qty: 90 RF: 3 trazodone 50 mg tablet 100 mg PO BEDTIME Qty: 180 RF: 3 ondansetron HCl [Zofran] 4 mg tablet 4 mg PO Q8H Qty: 30 RF: 1 nitrofurantoin monohyd/m-cryst [Macrobid] 100 mg capsule 100 mg PO Q12H 5 Days Qty: 10 RF: 0 phenazopyridine [Pyridium] 100 mg tablet 100 mg PO TID PRN (Reason: pain) Qty: 6 RF: 0 Referrals: Destiny Mckeon ARNP [Primary Care Provider] -
[2020-10-22 20:08] VITALS: BP 139/76; PULSE 90; RESP 17; TEMP 36.3; O2SAT 97
[2020-10-22] MEDS: IBUPROFEN 400 MG TABLET PO (20:58)
[2020-10-22] MEDS: OXYCODONE/ACETAMINOPHEN 5/325 TABLET 1 TAB PO (20:58)
[2020-10-22 21:30] VITALS: BP 132/70; PULSE 70; PULSE 72; RESP 14; O2SAT 99
[2020-10-22] MEDS: OXYCODONE/APAP 5/325 PREPACK 1 BOTTLE MISC (21:31)
== END 2020-10-22 21:44 | disposition home or self-care (01) ==
PROVIDERS: Emergency Provider Emergency Medicine; PCP Nurse Practitioner
DX: S90.31XA Contusion of right foot, initial encounter (principal); W23.0XXA Caught, crushed, jammed, or pinched between moving objects, initial encounter
CPT/HCPCS: 73630; 99283

== ENCOUNTER → 2020-10-27 10:52 | Outpatient (CLI) | payer OTHER, SELFPAY ==
[2020-08-20 03:24] VITALS: BMI 23.1
--- NOTE | 2020-10-27 10:54 | DI.RAD.S_ITS ---
PROCEDURE: XR FOOT LT MIN 3V INDICATIONS: suspect fracture of foot TECHNIQUE: 3 views of the foot were acquired. COMPARISON: [facility], CR, XR FOOT LT MIN 3V, 10/22/2020, 19:21. FINDINGS: Bones: No fractures or dislocations. No suspicious bony lesions. Soft tissues: No tibiotalar joint effusion. Achilles tendon appears normal. IMPRESSION: No trauma found, source of pain is not identified. No sign of stress reaction or stress fracture. Dictated by: Matthew Kiran M.D. on 10/27/2020 at 11:43 Approved by: Matthew Kiran M.D. on 10/27/2020 at 11:43
[2020-10-27 11:56] LABS: Add Manual Diff / Slide Review NO; Basophils Absolute Auto 100 /uL (0-100); Eosinophils Absolute Auto 200 /uL (0-450); Eosinophils Percent Auto 3.1 % (2-4); Hematocrit 40.7 % (36-46); Hemoglobin 13.9 g/dL (12.0-16.0); Lymphocytes Absolute Auto 2000 /uL (1100-4500); Lymphocytes Percent Auto 25.4 % (25-40); Mean Corpuscular HGB Conc 34.1 % (30-36); Mean Corpuscular Hemoglobin 30.8 PG (26-34); Mean Corpuscular Volume 90.3 fL (80-100); Monocytes Absolute Auto 500 /uL (0-900); Neutrophils Absolute Auto 5000 /uL (1500-7000); Neutrophils Percent Auto 64.5 % (50-75); Platelet Count 249 X10^3/uL (150-400); Red Blood Cell Count 4.51 X10^6/uL (4.0-5.2); Red Cell Distribution Width 14.4 % (11.6-14.8); White Blood Cell Count 7.7 X10^3/uL (4.5-11.0)
[2020-10-27 12:06] LABS: Alanine Aminotransferase 29 IU/L (<35); Albumin 4.2 g/dL (3.5-5.0); Albumin Globulin Ratio 1.4 (1.0-2.8); Alkaline Phosphatase 86 U/L (38-126); Aspartate Aminotransferase 31 IU/L (14-36); BUN Creatinine Ratio 18.6 (6-22); Bilirubin Total 0.4 mg/dL (0.2-1.3); Blood Urea Nitrogen 11 mg/dL (7-17); Calcium 9.2 mg/dL (8.4-10.2); Carbon Dioxide 28 mmol/L (22-32); Chloride 105 mmol/L (98-107); Estimated Glomerular Filt Rate > 60.0 mL/min (>60); Glucose 91 mg/dL (70-100); HEMOLYSIS < 15 (0-50); Potassium 3.8 mmol/L (3.4-5.1); Sodium 139 mmol/L (137-145); Total Protein 7.2 g/dL (6.3-8.2)
[2020-10-27 12:09] LABS: C-Reactive Protein Quant < 0.5 mg/dL (<1.0); Cholesterol 103 mg/dL (140-199); HDL Cholesterol 50 mg/dL (40-60); LDL Cholesterol Calculated 27 mg/dL (<100); Triglycerides 130 mg/dL (35-150)
[2020-10-27 12:14] LABS: Rheumatoid Factor < 8.6 IU/mL (<12.0)
[2020-10-27 12:17] LABS: Erythrocyte Sedimentation Rate 6 MM/HR (0-20)
[2020-10-27 12:26] LABS: Free T3, Triiodothyronine Free 2.55 pg/mL (2.77-5.27); Free T4, Direct Thyroxine 0.81 ng/dL (0.78-2.19)
[2020-10-27 12:39] LABS: Thyroid Stimulating Hormone 0.949 uIU/mL (0.47-4.68)
[2020-10-28 06:02] LABS: Thyroid Peroxidase Antibodies 68 IU/mL (0-34)
== END ==
PROVIDERS: PCP Nurse Practitioner; Referring Provider Nurse Practitioner; Visit Provider Nurse Practitioner
DX: M79.672 Pain in left foot (principal); S90.31XA Contusion of right foot, initial encounter; F41.8 Other specified anxiety disorders; R30.0 Dysuria; R63.0 Anorexia; R63.4 Abnormal weight loss; Z72.0 Tobacco use; Z71.6 Tobacco abuse counseling
CPT/HCPCS: 36415; 73630; 80053; 80061; 84439; 84443; 84481; 85025; 85651; 86140; 86376; 86430; 87086

== ENCOUNTER → 2020-11-01 09:53 | Outpatient (CLI) | payer OTHER, SELFPAY ==
[2020-08-20 03:24] VITALS: BMI 23.1
[2020-11-01 11:07] LABS: COVID19 -Nasal RAPID Negative (Negative)
== END ==
PROVIDERS: PCP Nurse Practitioner; Visit Provider Specialist
DX: Z20.822 Contact with and (suspected) exposure to COVID-19 (principal)
CPT/HCPCS: 87635; C9803

== ENCOUNTER → 2020-11-03 13:20 | Outpatient (CLI) | payer OTHER, SELFPAY ==
[2020-08-20 03:24] VITALS: BMI 23.1
[2020-11-03 14:38] LABS: INR 0.9 (0.9-1.3); Prothrombin Time 10.6 SECONDS (10.1-12.7)
[2020-11-03 15:00] LABS: HEMOLYSIS < 15 (0-50); Iron 78 ug/dL (37-170)
[2020-11-03 15:10] LABS: Percent Iron Saturation 26 % (15-50); Total Iron Binding Capacity 303 ug/dL (265-497); Transferrin 240 mg/dL (206-381)
[2020-11-03 17:14] LABS: Hepatitis B Surface Antigen NEGATIVE s/c (NEGATIVE)
[2020-11-05 01:48] LABS: Immunoglobulin A 142 mg/dL (87-352); Immunoglobulin G, Quantitative 888 mg/dL (586-1602); Immunoglobulin M, Quantitative 54 mg/dL (26-217)
[2020-11-06 13:13] LABS: ANA Screen, IFA Negative (.)
== END ==
PROVIDERS: PCP Nurse Practitioner; Referring Provider Internal Medicine; Visit Provider Internal Medicine
DX: R79.89 Other specified abnormal findings of blood chemistry (principal)
CPT/HCPCS: 36415; 82784; 83540; 83550; 85610; 86038; 87340

== ENCOUNTER 2020-11-03 13:23 | Day surgery (SDC) | payer OTHER, SELFPAY ==
[2020-08-20 03:24] VITALS: BMI 23.1
[2020-11-02 11:37] VITALS: BMI 22.1
[2020-11-03] VITALS (10 sets, daily range): BP systolic 94–116; BP diastolic 54–75; PULSE 70–88; RESP 12–20; TEMP 36.3–36.6; O2SAT 95–99; BMI 22.0
--- NOTE | 2020-11-03 | PATH_ITS ---
[facility] Accession Number: [id number] . 01 Material submitted: . gallbladder - GALLBLADDER AND CONTENTS . 02 Diagnosis: Gallbladder and Contents: Chronic cholecystitis, cholesterolosis, and cholelithiasis. One benign cystic duct lymph node with lipogranulomas. MRV 11/10/2020 1127 Local . 02 Electronically signed: . Alexa Reid MD, Pathologist NPI- [id number] . 01 Gross description: . The specimen is received in formalin labeled gallbladder and contents and consists of a 7.0 x 2.0 x 1.8 cm intact gallbladder with a 0.2 cm in diameter cystic duct. The serosa is mitchell-bright and smooth. Opening reveals green viscous bile with multiple bright-green choleliths and cholelith fragments ranging from 0.1 to 1.0 cm and measuring 3.5 x 2.0 x 1.0 cm in aggregate. The mucosa is bright-green and velvety, and the wall thickness measures 0.1 cm. A 0.6 x 0.5 x 0.3 cm bright-pink pericystic lymph node is identified. [employer] sections are submitted, to include the en face cystic duct margin (blue) and pericystic lymph node, in cassette A1. ([id number]) /[facility] 11/05/2020 1656 Local . 02 Pathologist provided ICD-10: K81.1, K80.60 . 02 CPT . [id number] Performed at: 01 [facility] [address], [place], [place] [id number] MD Abrahan Duffy MD Phone: [phone] Performed at: 02 [facility] [address] [address] [place], [place] [id number] MD Michelle Luna MD Phone: [phone]
[2020-11-03] MEDS: LACTATED RINGERS 1,000 ML 100 ML IV (14:25)
[2020-11-03] MEDS: ACETAMINOPHEN 325 MG TABLET 975 MG PO (16:32)
[2020-11-03] MEDS: CEFAZOLIN 2 GM/100 ML FROZ.PIGGY IV (16:40)
--- NOTE | 2020-11-03 17:06 | SUR.OPER ---
Supine on padded OR bed, head on pillow, safety belt at thigh, bilateral arms secured on padded arm oard <90 degrees abduction. Legs uncrossed. Padded footboard in place. Tape over blanket to secure lower legs.
[2020-11-03] MEDS: BUPIVACAINE 0.5% (PF) VIAL 30 ML INJ (17:19)
[2020-11-03] MEDS: fentaNYL 100 MCG/2 ML INJ IV (18:21)
[2020-11-03] MEDS: hydrOXYzine pamoate 25 MG CAPSULE PO (18:24)
--- NOTE | 2020-11-03 18:24 | PM.OP.1 ---
Operative Date/Time/Diagnoses Date of procedure: 11/03/20 Time of procedure: 18:24 Pre-op diagnosis: Cholelithiasis cholecystitis Post-op diagnosis: same Procedure & Clinicians Procedure: Laparoscopic cholecystectomy Same procedure as scheduled: Yes Indications: Chronic right upper quadrant pain and gallstones. Surgeon: Casper Alcaraz Click Yes if Unassisted: Yes Anesthesia Type: General Operative Notes Findings: Gallbladder with a an enlarged node of [place]. No taken with specimen. Suspect it is benign. Closure Type: primary Specimen(s): other (Gallbladder with attached node) Prosthetic devices, grafts, tissues, transplants, or devices: None Estimated Blood Loss (mL): 5 Blood products transfused: none Procedure in detail: The patient was placed supine on the operating room table and underwent general endotracheal anesthesia. The patient was prepped and draped in the usual fashion. Local anesthetic was infiltrated in the midline in the upper abdomen and a linear incision made and carried down through fascia into the peritoneal cavity. This was done because of a prior midline incision and scar near the umbilicus done for colon resection. Stay sutures of 0 Vicryl were placed in the fascia. A 12 mm port was placed. The abdomen was insufflated. The patient was repositioned. Local anesthetic was infiltrated in 3 other areas of the abdominal wall and 3 small incisions made followed by placing 3 5 mm ports under direct laparoscopic camera vision internally. I avoided adhesions from the prior operation and placing the ports. Two under the costal margin 1 was in the right mid abdomen at the level the umbilicus. The gallbladder was grasped and elevated. Dissection was begun near its end. A ductal and vascular structure singular nature were identified the from surrounding structures. Also a lymph node was lifted and a clip placed on the common duct side of the lymph node and the vessel to it divided and the lymph node was kept with the gallbladder. Three clips were placed across the duct and it was divided leaving 2 with the patient. The artery was handled in a similar fashion. One additional clip was placed on the arterial side.. The gallbladder was then dissected from its bed in the liver using cautery. There was almost no bleeding. The gallbladder was detached and removed through the upper abdominal port site. The right upper quadrant irrigated and suctioned free of fluid. Meticulous hemostasis was achieved. Some adhesions to the right abdominal wall were taken down with sharp dissection and cautery to relax the tissues in the region. The ports were all removed. The port sites were all irrigated. The stay sutures at the umbilicus were elevated. A 2 0 PDS suture was placed between them. The Vicryl and PDS sutures were then tied. The skin in all areas was closed with interrupted 4 0 Vicryl subcuticular stitches. Steri-Strips and Mastisol were applied. Band-Aids were placed and the patient was awakened, extubated and taken to the recovery area in good condition. Complications: none Post-operative Condition: stable Disposition: PACU Plan for aftercare: Follow-up in the office
[2020-11-03] MEDS: OXYCODONE IR 5 MG TABLET PO ×2 (18:28→19:17)
[2020-11-03] MEDS: HYDROMORPHONE 2 MG INJ IV ×3 (18:30→19:00)
== END 2020-11-03 19:35 | disposition home or self-care (01) ==
PROVIDERS: PCP Nurse Practitioner; Referring Provider Specialist; Visit Provider Specialist
PROC: 0FT44ZZ Resection of Gallbladder, Percutaneous Endoscopic Approach (ICD-10-PCS; CPT 47562; principal; 2020-11-03 14:45)
DX: K80.10 Calculus of gallbladder with chronic cholecystitis without obstruction (principal); F17.210 Nicotine dependence, cigarettes, uncomplicated; I25.10 Atherosclerotic heart disease of native coronary artery without angina pectoris; I25.2 Old myocardial infarction; E06.3 Autoimmune thyroiditis
CPT/HCPCS: 47562; J0330; J0690; J1100; J1170; J1885; J2250; J2405; J2704; J3010

== ENCOUNTER 2020-11-09 11:27 | Emergency (ER) | payer OTHER, SELFPAY ==
[2020-08-20 03:24] VITALS: BMI 23.1
[2020-11-09] VITALS (8 sets, daily range): BP systolic 121–146; BP diastolic 67–84; PULSE 80–90; RESP 17; TEMP 36.5; O2SAT 97–100; BMI 22.1
--- NOTE | 2020-11-09 11:39 | ED.GENADULT ---
HPI - General Adult General Chief complaint: Abdominal Pain Stated complaint: gall bladder surgery last Sun, abd pain Time Seen by Provider: 11/09/20 11:33 Source: patient Mode of arrival: Ambulatory Limitations: no limitations History of Present Illness HPI narrative: Patient is a 49-year-old female who within the past 14 days underwent an elective laparoscopic cholecystectomy for gallbladder pathology. According to the note this went relatively smoothly. Since that time she has gone through 2 prescriptions of pain medication provided by the surgeon. She had a follow-up with the surgery department today is still complaining of epigastric abdominal pain. She states that it has been the same discomfort that she has had since the procedure. No urinary symptoms. Has had some loose stools. No nausea vomiting. No fevers but has had chills. She was sent to the emergency department for lab work and a CT scan secondary to her continued discomfort. Related Data Home Medications Medication Instructions Recorded Confirmed aspirin 325 mg tablet 325 mg PO DAILY 09/30/20 11/09/20 isosorbide dinitrate 40 mg tablet 40 mg PO DAILY tab 09/30/20 11/09/20 Previous Rx's Medication Instructions Recorded atorvastatin 20 mg tablet 20 mg PO BEDTIME #90 tab 08/24/20 lisinopril 2.5 mg tablet 1.25 mg PO DAILY #45 tab 08/24/20 metoprolol succinate 25 mg 12.5 mg PO DAILY #45 tab 08/24/20 tablet,extended release 24 hr naproxen 500 mg tablet 500 mg PO BID #180 tab 08/24/20 nitroglycerin 0.4 mg sublingual 0.4 mg SUBLINGUAL Q5M PRN #30 tab 08/24/20 tablet venlafaxine 150 mg 150 mg PO BEDTIME #90 cap 10/15/20 capsule,extended release 24 hr ondansetron HCl 4 mg tablet 4 mg PO Q8H #30 tab 10/22/20 trazodone 50 mg tablet 100 mg PO BEDTIME #180 tab 10/22/20 levothyroxine 50 mcg tablet 50 mcg PO DAILY #90 tab 10/28/20 phenazopyridine 100 mg tablet 100 mg PO TID PRN #30 tab 10/28/20 oxycodone-acetaminophen 1 tab PO Q4H PRN #14 tab 11/03/20 oxycodone 5 mg tablet 5 mg PO Q4H PRN #14 tab 11/05/20 oxycodone-acetaminophen 1 tab PO Q4-6H PRN #7 tab 11/09/20 Allergies Allergy/AdvReac Type Severity Reaction Status Date / Time gluten Allergy Severe Anaphylaxis Verified 11/09/20 11:34 lactose Allergy Intermediate Swelling Verified 11/09/20 11:34 of Lip/Tongue/Throat Penicillins Allergy Intermediate Rash Verified 11/09/20 11:34 codeine [CODEINE] Allergy Mild RASH Verified 11/09/20 11:34 itching morphine [MORPHINE] Allergy Mild Rash Verified 11/09/20 11:34 egg AdvReac Severe Diarrhea Verified 11/09/20 11:34 Review of Systems Constitutional Constitutional: Reports chills, Denies fatigue and Denies fever(s) Eyes Eyes: Denies change in vision ENT Ears, Nose, Mouth, and Throat: Denies sore throat Cardiovascular Cardiovascular: Denies chest pain and Denies dyspnea Respiratory Respiratory: Denies dyspnea Gastrointestinal Gastrointestinal: Reports abdominal pain, Denies nausea and Denies vomiting Comments: Loose stools Genitourinary Genitourinary: Denies dysuria Genitourinary: Denies abnormal vaginal bleeding and Denies dysuria Musculoskeletal Musculoskeletal: Denies arthralgias and Denies myalgias Integumentary/Breasts Skin/Breast: Denies lesions and Denies rash Neurologic Neurologic: Denies behavioral changes Psychiatric Psychiatric: Denies behavioral changes Endocrine Endocrine: Denies fatigue Hematologic/Lymphatic On Anticoagulants: No Allergic/Immunologic Allergic/Immunologic: Denies urticaria Patient History Medical History Abdominal pain Bright red rectal bleeding Bulging of cervical intervertebral disc Chronic anticoagulation Colon polyps Colonic mass Depression with anxiety Dilation of bladder Diverticulosis Eczema Elevated liver enzymes Eosinophilic esophagitis Esophageal obstruction Gallstones Live's disease Hemorrhage of surgical anastomosis site of digestive tract Hemorrhoids IBS (irritable bowel syndrome) Interstitial cystitis Lumbar pain with radiation down left leg 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 NSTEMI (non-ST elevated myocardial infarction) (08/20/20) Shingles Stool fat increased Suicidal thoughts Tobacco abuse Tobacco abuse counseling Well woman exam with routine gynecological exam Surgical History H/O left breast biopsy H/O: hysterectomy History of abdominal surgery History of bilateral tubal ligation Hx of tonsillectomy S/P cervical spinal fusion (2013) S/P surgery on nasal septum Status post right hemicolectomy Family History Father Alcoholism Cancer Lung cancer Mother Age: 72 Lung cancer Diabetes mellitus Hypertension Social History marital status: household members: other occupational status: employed Smoking Status: Current every day smoker alcohol intake: current substance use type: does not use Smoking Status: Current every day smoker tobacco type: cigarettes alcohol intake frequency: a few times a month Substance Use Type: does not use Exam Initial Vital Signs Initial Vital Signs: Vital Signs Temperature 97.7 F 11/09/20 11:29 Pulse Rate 86 11/09/20 11:29 Respiratory Rate 17 11/09/20 11:29 Blood Pressure 146/84 H 11/09/20 11:29 Pulse Oximetry 100 11/09/20 11:29 Const General: cooperative and comfortable Limitations: mental status not altered HENMT Head: normal to inspection and normocephalic Chest Chest: No tenderness Resp Effort & Inspection: normal respiratory effort Auscultation: clear to auscultation bilaterally Cardio Rate: regular rate Rhythm: regular rhythm GI Inspection: non-distended Palpation: soft and tender (Epigastric region) Skin Other: Surgical scars appear well without signs of infection Neuro General: patient alert and patient awake Cognition: normal cognition Speech: speech normal Extrem General: normal to inspection and capillary refill normal Psych Appearance: grossly normal and well kempt Course Orders Ordered: ED Orders 11/09/20 11:55 Complete Blood Count AUTO DIFF Stat Comprehensive Metabolic Panel Stat Lactate (Lactic Acid) Stat Lipase Stat Test Serum,Qual Stat 11/09/20 12:40 CT abdomen pelvis w con Stat Discontinued Medications Hydromorphone HCl (Hydromorphone 1 Mg Inj) 1 mg IV NOW ONE Stop: 11/09/20 11:43 Last Admin: 11/09/20 12:01 Dose: 1 mg Documented by: NORI Hydromorphone HCl (Hydromorphone 0.5 Mg Inj) 0.5 mg IV NOW ONE Stop: 11/09/20 12:52 Last Admin: 11/09/20 13:02 Dose: 0.5 mg Documented by: PINKY Sodium Chloride (Normal Saline 0.9%) 1,000 mls @ 1,000 mls/hr IV BOLUS ONE Stop: 11/09/20 12:32 Last Infusion: 11/09/20 13:29 Dose: 0 mls/hr Documented by: Admin: 11/09/20 12:01 Dose: 1,000 mls/hr Documented by: ONRI Ondansetron HCl (Ondansetron 4 Mg/2 Ml Inj) 4 mg IV NOW ONE Stop: 11/09/20 11:43 Last Admin: 11/09/20 12:01 Dose: 4 mg Documented by: NORI Vital Signs Vital signs: Vital Signs - 8 hr 11/09/20 11:29 11/09/20 12:06 11/09/20 12:07 Temperature 97.7 F Pulse Rate 86 86 Respiratory Rate 17 Blood Pressure 146/84 H 121/78 Pulse Oximetry 100 98 11/09/20 12:37 11/09/20 12:41 11/09/20 13:00 Temperature Pulse Rate 90 81 84 Respiratory Rate Blood Pressure 139/81 143/67 H Pulse Oximetry 98 99 98 11/09/20 13:59 11/09/20 14:00 Temperature Pulse Rate 83 80 Respiratory Rate Blood Pressure 138/84 Pulse Oximetry 98 97 Medical Decision Making Lab Data Lab results reviewed: Yes I reviewed the patient's lab results. Result diagrams: 11/09/20 11:55 11/09/20 11:55 Labs: Lab Results 11/09/20 11/09/20 11/09/20 Range/Units 11:55 11:55 11:55 WBC 9.4 (4.5-11.0) X10^3/uL RBC 4.51 (4.0-5.2) X10^6/uL Hgb 14.0 (12.0-16.0) g/dL Hct 41.2 (36-46) % MCV 91.5 (80-100) fL MCH 31.0 (26-34) PG MCHC 33.9 (30-36) % RDW 14.7 (11.6-14.8) % Plt Count 255 (150-400) X10^3/uL Neut % (Auto) 65.6 (50-75) % Lymph % (Auto) 23.1 L (25-40) % [place] % (Auto) 6.7 (3-14) % Eos % (Auto) 3.6 (2-4) % Baso % (Auto) 1.0 (0-2) % Neut # (Auto) 6100 (4960-7513) /uL Lymph # (Auto) 2200 (4251-2422) /uL [place] # (Auto) 600 (0-900) /uL Eos # (Auto) 300 (0-450) /uL Baso # (Auto) 100 (0-100) /uL Sodium 138 (137-145) mmol/L Potassium 3.8 (3.4-5.1) mmol/L Chloride 103 (98-107) mmol/L Carbon Dioxide 29 (22-32) mmol/L BUN 13 (7-17) mg/dL Creatinine 0.64 (0.52-1.04) mg/dL Estimated GFR > 60.0 (>60) mL/min BUN/Creatinine Ratio 20.3 (6-22) Glucose 100 (70-100) mg/dL Lactate 1.0 (0.7-2.1) mmol/L Calcium 9.0 (8.4-10.2) mg/dL Total Bilirubin 0.4 (0.2-1.3) mg/dL AST 71 H (14-36) IU/L ALT 102 H (<35) IU/L Alkaline Phosphatase 119 (38-126) U/L Total Protein 6.8 (6.3-8.2) g/dL Albumin 4.0 (3.5-5.0) g/dL Globulin 2.8 (1.7-4.1) g/dL Albumin/Globulin Ratio 1.4 (1.0-2.8) Lipase 41 (23-300) U/L Serum , Qual (Negative) 11/09/20 Range/Units 11:55 WBC (4.5-11.0) X10^3/uL RBC (4.0-5.2) X10^6/uL Hgb (12.0-16.0) g/dL Hct (36-46) % MCV (80-100) fL MCH (26-34) PG MCHC (30-36) % RDW (11.6-14.8) % Plt Count (150-400) X10^3/uL Neut % (Auto) (50-75) % Lymph % (Auto) (25-40) % [place] % (Auto) (3-14) % Eos % (Auto) (2-4) % Baso % (Auto) (0-2) % Neut # (Auto) (4287-0794) /uL Lymph # (Auto) (4886-2969) /uL [place] # (Auto) (0-900) /uL Eos # (Auto) (0-450) /uL Baso # (Auto) (0-100) /uL Sodium (137-145) mmol/L Potassium (3.4-5.1) mmol/L Chloride (98-107) mmol/L Carbon Dioxide (22-32) mmol/L BUN (7-17) mg/dL Creatinine (0.52-1.04) mg/dL Estimated GFR (>60) mL/min BUN/Creatinine Ratio (6-22) Glucose (70-100) mg/dL Lactate (0.7-2.1) mmol/L Calcium (8.4-10.2) mg/dL Total Bilirubin (0.2-1.3) mg/dL AST (14-36) IU/L ALT (<35) IU/L Alkaline Phosphatase (38-126) U/L Total Protein (6.3-8.2) g/dL Albumin (3.5-5.0) g/dL Globulin (1.7-4.1) g/dL Albumin/Globulin Ratio (1.0-2.8) Lipase (23-300) U/L Serum , Qual Negative (Negative) Urine Dip Bedside Urine Glucose Negative Bedside Urine Bilirubin - Negative Bedside Urine Ketone - Negative Urine Specific [place] 1.015 Bedside Urine Occult Blood - Negative Bedside Urine pH 7.5 Bedside Urine Protein - Negative Bedside Urine Urobilinogen - Negative Bedside Urine Nitrite - Negative Bedside Urine Leukocytes - Negative Esterase Point of care testing: Urine Dip Bedside Urine Glucose Negative Bedside Urine Bilirubin - Negative Bedside Urine Ketone - Negative Urine Specific [place] 1.015 Bedside Urine Occult Blood - Negative Bedside Urine pH 7.5 Bedside Urine Protein - Negative Bedside Urine Urobilinogen - Negative Bedside Urine Nitrite - Negative Bedside Urine Leukocytes - Negative Esterase Imaging Data CT scan - abdomen/pelvis: Radiologist's Impression: [address] [id number] Scan ReportSigned Patient: Cecy Fields ZMR#: [id number]: 1970Acct:[id number]/Sex: 49 / FDate of Service: 11/09/20Loc: EDAccession Number: [id number] Procedure: CT abdomen pelvis w con Ordering Provider: Corey Ruelas D.O. PROCEDURE: CT ABDOMEN PELVIS W CON INDICATIONS: Recent gb removal with increasing pain TECHNIQUE: After the administration of intravenous contrast, 5 mm thick sections acquired from the diaphragm to the symphysis. 5 mm coronal and sagittal reformats were acquired. For radiation dose reduction, the following was used: automated exposure control, adjustment of mA and/or kV according to patient size. COMPARISON: [facility], CT, CT ABDOMEN PELVIS W CON, 07/16/2020, 20:15. [facility], CT, CT ABDOMEN PELVIS W CON, 07/05/2020, 11:17. FINDINGS: Image quality: Excellent. ABDOMEN: Lung bases: Lung bases are clear. Heart size is normal. Solid organs: Liver is normal in size and enhancement. Gallbladder surgically absent. Biliary system is non dilated. Pancreas enhances normally. Spleen is normal in size and enhancement. No adrenal nodules. Kidneys demonstrate normal size and enhancement, without hydronephrosis. Peritoneum and bowel: Bowel loops demonstrate normal wall thickness and caliber. No free fluid or air. Nodes and vessels: No retroperitoneal or mesenteric adenopathy by size criteria. Aorta and inferior vena cava are normal in size. Miscellaneous: No ventral hernias. There is a small amount of edema in the subcutaneous fat just above the inferior margin of the liver, without evidence of fluid collection. This may represent a laparoscopic port access site. PELVIS: Genitourinary: Bladder wall thickness is normal. Miscellaneous: No inguinal hernias or adenopathy. Bones: No suspicious bony lesions. No vertebral body compression fractures. IMPRESSION: Recent cholecystectomy. No evidence of bile leak. Expected postsurgical change at the gallbladder fossa. Note is made of a small amount of edema at the exact midline above the inferior margin of the liver level, potentially a port access site during the operative procedure. The mild edema is not associated with a rim enhancing fluid collection and measures only 1.5 cm in maximal diameter, vaguely marginated. Dictated by: Matthew Kiran M.D. on 11/09/2020 at 13:59 Approved by: Matthew Kiran M.D. on 11/09/2020 at 14:01 [facility] Narrative Medical decision making narrative: Patient's labs are unremarkable. Does not have a leukocytosis. Has an exam that I would anticipate that this portion of her postoperative course. She is afebrile. CT scan shows no signs of bile leak. No skin signs of bowel obstruction. No signs of abscess formation. I discussed this with the patient. Informed her that her discomfort is most likely postoperative in nature. We did informed her that she should start to wean herself off of pain medication and the issues that come along with pain medication to include constipation which can make her abdominal pain worse. Will have her follow up as previously scheduled and to follow all the postoperative instructions given by the surgeons. She was given return precautions. She expressed understanding Discharge Plan Departure Patient Disposition: Home Clinical Impression: Post-operative pain Instructions: DI for Abdominal Pain-Adult Activity Restrictions/Additional Instructions: Your workup here in the emergency department is very reassuring. The CT scan shows no signs of any bile leak nor any signs of infection. I recommend that you follow all of the postoperative instructions given to you by the general surgeons. Keep all of your scheduled medical appointments. Return to the emergency department for any new or worsening symptoms. Prescriptions: New oxycodone-acetaminophen 5-325 mg tablet 1 tab PO Q4-6H PRN (Reason: pain) Qty: 7 RF: 0 No Action oxycodone 5 mg tablet 5 mg PO Q4H PRN (Reason: painful procedure) Qty: 14 RF: 0 atorvastatin [Lipitor] 20 mg tablet 20 mg PO BEDTIME Qty: 90 RF: 3 lisinopril 2.5 mg tablet 1.25 mg PO DAILY Qty: 45 RF: 3 metoprolol succinate 25 mg tablet extended release 24 hr 12.5 mg PO DAILY Qty: 45 RF: 3 naproxen 500 mg tablet 500 mg PO BID Qty: 180 RF: 3 nitroglycerin 0.4 mg tablet, sublingual 0.4 mg sublingual Q5M PRN (Reason: chest pain) Qty: 30 RF: 2 isosorbide dinitrate [Isordil] 40 mg tablet 40 mg PO DAILY RF: 0 aspirin 325 mg tablet 325 mg PO DAILY RF: 0 venlafaxine 150 mg capsule,extended release 24hr 150 mg PO BEDTIME Qty: 90 RF: 3 trazodone 50 mg tablet 100 mg PO BEDTIME Qty: 180 RF: 3 ondansetron HCl [Zofran] 4 mg tablet 4 mg PO Q8H Qty: 30 RF: 1 phenazopyridine [Pyridium] 100 mg tablet 100 mg PO TID PRN (Reason: pain) Qty: 30 RF: 0 levothyroxine 50 mcg tablet 50 mcg PO DAILY Qty: 90 RF: 1 oxycodone-acetaminophen 5-325 mg tablet 1 tab PO Q4H PRN (Reason: painful procedure) Qty: 14 RF: 0 Referrals: Destiny Mckeon ARNP [Primary Care Provider] -
[2020-11-09] MEDS: ONDANSETRON 4 MG/2 ML INJ IV (12:01)
[2020-11-09] MEDS: HYDROMORPHONE 1 MG INJ IV (12:01)
[2020-11-09] MEDS: SODIUM CHLORIDE 0.9% 1,000 ML 1000 ML IV (12:01)
[2020-11-09 12:03] LABS: Add Manual Diff / Slide Review NO; Basophils Absolute Auto 100 /uL (0-100); Eosinophils Absolute Auto 300 /uL (0-450); Eosinophils Percent Auto 3.6 % (2-4); Hematocrit 41.2 % (36-46); Lymphocytes Absolute Auto 2200 /uL (1100-4500); Lymphocytes Percent Auto 23.1 % (25-40); Mean Corpuscular HGB Conc 33.9 % (30-36); Mean Corpuscular Volume 91.5 fL (80-100); Monocytes Absolute Auto 600 /uL (0-900); Monocytes Percent Auto 6.7 % (3-14); Neutrophils Absolute Auto 6100 /uL (1500-7000); Neutrophils Percent Auto 65.6 % (50-75); Platelet Count 255 X10^3/uL (150-400); Red Blood Cell Count 4.51 X10^6/uL (4.0-5.2); Red Cell Distribution Width 14.7 % (11.6-14.8); White Blood Cell Count 9.4 X10^3/uL (4.5-11.0)
[2020-11-09 12:17] LABS: Alanine Aminotransferase 102 IU/L (<35); Albumin Globulin Ratio 1.4 (1.0-2.8); Alkaline Phosphatase 119 U/L (38-126); Aspartate Aminotransferase 71 IU/L (14-36); BUN Creatinine Ratio 20.3 (6-22); Bilirubin Total 0.4 mg/dL (0.2-1.3); Blood Urea Nitrogen 13 mg/dL (7-17); Carbon Dioxide 29 mmol/L (22-32); Chloride 103 mmol/L (98-107); Estimated Glomerular Filt Rate > 60.0 mL/min (>60); Globulin 2.8 g/dL (1.7-4.1); Glucose 100 mg/dL (70-100); HEMOLYSIS < 15 (0-50); Lipase 41 U/L (23-300); Potassium 3.8 mmol/L (3.4-5.1); Sodium 138 mmol/L (137-145); Total Protein 6.8 g/dL (6.3-8.2)
[2020-11-09 12:24] LABS: Pregnancy Test Serum,Qual Negative (Negative)
--- NOTE | 2020-11-09 12:40 | DI.CT.S_ITS ---
PROCEDURE: CT ABDOMEN PELVIS W CON INDICATIONS: Recent gb removal with increasing pain TECHNIQUE: After the administration of intravenous contrast, 5 mm thick sections acquired from the diaphragm to the symphysis. 5 mm coronal and sagittal reformats were acquired. For radiation dose reduction, the following was used: automated exposure control, adjustment of mA and/or kV according to patient size. COMPARISON: [facility], CT, CT ABDOMEN PELVIS W CON, 07/16/2020, 20:15. [facility], CT, CT ABDOMEN PELVIS W CON, 07/05/2020, 11:17. FINDINGS: Image quality: Excellent. ABDOMEN: Lung bases: Lung bases are clear. Heart size is normal. Solid organs: Liver is normal in size and enhancement. Gallbladder surgically absent. Biliary system is non dilated. Pancreas enhances normally. Spleen is normal in size and enhancement. No adrenal nodules. Kidneys demonstrate normal size and enhancement, without hydronephrosis. Peritoneum and bowel: Bowel loops demonstrate normal wall thickness and caliber. No free fluid or air. Nodes and vessels: No retroperitoneal or mesenteric adenopathy by size criteria. Aorta and inferior vena cava are normal in size. Miscellaneous: No ventral hernias. There is a small amount of edema in the subcutaneous fat just above the inferior margin of the liver, without evidence of fluid collection. This may represent a laparoscopic port access site. PELVIS: Genitourinary: Bladder wall thickness is normal. Miscellaneous: No inguinal hernias or adenopathy. Bones: No suspicious bony lesions. No vertebral body compression fractures. IMPRESSION: Recent cholecystectomy. No evidence of bile leak. Expected postsurgical change at the gallbladder fossa. Note is made of a small amount of edema at the exact midline above the inferior margin of the liver level, potentially a port access site during the operative procedure. The mild edema is not associated with a rim enhancing fluid collection and measures only 1.5 cm in maximal diameter, vaguely marginated. Dictated by: Matthew Kiran M.D. on 11/09/2020 at 13:59 Approved by: Matthew Kiran M.D. on 11/09/2020 at 14:01
[2020-11-09] MEDS: HYDROMORPHONE 0.5 MG INJ IV (13:02)
== END 2020-11-09 14:33 | disposition home or self-care (01) ==
PROVIDERS: Emergency Provider Emergency Medicine; PCP Nurse Practitioner
DX: G89.18 Other acute postprocedural pain (principal); R10.13 Epigastric pain
CPT/HCPCS: 36415; 74177; 80053; 81003; 83605; 83690; 84703; 85025; 96361; 96374; 96375; 96376; 99284; J1170; J2405

== ENCOUNTER → 2020-11-30 14:14 | Outpatient (CLI) | payer OTHER, SELFPAY ==
[2020-08-20 03:24] VITALS: BMI 23.1
--- NOTE | 2020-11-30 14:16 | DI.US.S_ITS ---
PROCEDURE: US ABDOMEN COMPLETE INDICATIONS: epigastric and RUQ pain TECHNIQUE: Real-time scanning was performed of the abdominal and retroperitoneal organs, with image documentation. COMPARISON: [facility], , US ABDOMEN LIMITED, 07/05/2020, 12:26. FINDINGS: Liver: Liver measures 16.3 cm in length. There is mild diffuse increased echogenicity. No focal hepatic lesion. Gallbladder: Surgically absent Biliary ducts: Intrahepatic bile ducts are non-dilated. Extrahepatic bile duct caliber measures 3 mm. Normal is 6-7 mm or less in diameter, or 10 mm or less post-cholecystectomy. Pancreas: Visualized portions of the pancreas are sonographically normal. Spleen: Spleen is normal in size and homogeneous in echotexture. Kidneys: Kidneys are normal in size and echotexture. Right kidney measures 9.7 cm long; left kidney measures 11.0 cm long. No hydronephrosis or nephrolithiasis. No solid masses. Aorta: Visualized aorta is normal in caliber at less than 3 cm. Iliacs: Proximal common iliac arteries are normal in caliber at less than 2.5 cm. IVC: Intrahepatic inferior vena cava is patent. Miscellaneous: No free abdominal fluid. IMPRESSION: Coarse echogenic liver suggesting diffuse hepatocellular disease/fatty infiltration. Please correlate with LFTs. Status post cholecystectomy Dictated by: Hong Abdi M.D. on 11/30/2020 at 16:03 Approved by: Hong Abdi M.D. on 11/30/2020 at 16:05
--- NOTE | 2020-11-30 14:16 | DI.RAD.S_ITS ---
PROCEDURE: XR LUMBAR SPINE 2-3V INDICATIONS: low back pain TECHNIQUE: 3 views of the lumbar spine were acquired. COMPARISON: None. FINDINGS: Bones: No acute fracture. Minimal dextrocurvature. Multilevel degenerative endplate sclerosis and spurring. Diffuse facet arthropathy. Mild narrowing of the L1-L2 disc space. Soft tissues: Right upper quadrant surgical clips. IMPRESSION: Lower lumbar facet arthropathy Mild L1-L2 spondylosis. Minimal dextrocurvature Dictated by: Hong Abdi M.D. on 11/30/2020 at 15:05 Approved by: Hong Abdi M.D. on 11/30/2020 at 15:06
== END ==
PROVIDERS: PCP Nurse Practitioner; Referring Provider Nurse Practitioner; Visit Provider Nurse Practitioner
DX: R10.11 Right upper quadrant pain (principal); R10.13 Epigastric pain; M54.5 Low back pain; M47.816 Spondylosis without myelopathy or radiculopathy, lumbar region; M79.605 Pain in left leg; Z90.49 Acquired absence of other specified parts of digestive tract
CPT/HCPCS: 72100; 76700

== ENCOUNTER → 2020-12-07 13:57 | Outpatient (CLI) | payer OTHER, SELFPAY ==
[2020-08-20 03:24] VITALS: BMI 23.1
[2020-12-07 15:26] LABS: Alanine Aminotransferase 20 IU/L (<35); Albumin 4.2 g/dL (3.5-5.0); Albumin Globulin Ratio 1.6 (1.0-2.8); Alkaline Phosphatase 89 U/L (38-126); Aspartate Aminotransferase 24 IU/L (14-36); Bilirubin Total 0.3 mg/dL (0.2-1.3); Bilirubin Unconjugated 0.3 mg/dL (0.0-1.1); Globulin 2.7 g/dL (1.7-4.1); HEMOLYSIS < 15 (0-50); Total Protein 6.9 g/dL (6.3-8.2)
== END ==
PROVIDERS: PCP Nurse Practitioner; Referring Provider Nurse Practitioner; Visit Provider Nurse Practitioner
DX: K76.0 Fatty (change of) liver, not elsewhere classified (principal); R10.11 Right upper quadrant pain
CPT/HCPCS: 36415; 80076

== ENCOUNTER 2020-12-14 17:28 | Emergency (ER) | payer OTHER, SELFPAY ==
[2020-12-07 14:07] VITALS: BMI 23.1
[2020-12-14] VITALS (8 sets, daily range): BP systolic 125–158; BP diastolic 78–96; PULSE 81–91; RESP 18–31; TEMP 36.6; O2SAT 96–99
--- NOTE | 2020-12-14 17:43 | DI.RAD.S_ITS ---
PROCEDURE: XR CHEST 1V INDICATIONS: right sided chest pain TECHNIQUE: One view of the chest was acquired. COMPARISON: [facility], CR, XR CHEST 1V, 08/20/2020, 1:17. FINDINGS: Surgical changes and devices: Right lumpectomy clips Lungs and pleura: Lungs are clear. No pleural effusions or pneumothorax. Mediastinum: Mediastinal contours appear normal. Heart size is normal. Bones and chest wall: No suspicious bony lesions. Overlying soft tissues appear unremarkable. IMPRESSION: No evidence acute pulmonary process. Dictated by: Monty Shirley M.D. on 12/14/2020 at 18:02 Approved by: Monty Shirley M.D. on 12/14/2020 at 18:02
[2020-12-14 18:02] LABS: Add Manual Diff / Slide Review NO; Basophils Absolute Auto 100 /uL (0-100); Basophils Percent Auto 0.9 % (0-2); Eosinophils Absolute Auto 400 /uL (0-450); Eosinophils Percent Auto 3.4 % (2-4); Hematocrit 40.3 % (36-46); Hemoglobin 13.9 g/dL (12.0-16.0); Lymphocytes Absolute Auto 2700 /uL (1100-4500); Lymphocytes Percent Auto 25.8 % (25-40); Mean Corpuscular HGB Conc 34.4 % (30-36); Mean Corpuscular Hemoglobin 31.2 PG (26-34); Mean Corpuscular Volume 90.7 fL (80-100); Monocytes Absolute Auto 700 /uL (0-900); Monocytes Percent Auto 6.5 % (3-14); Neutrophils Absolute Auto 6700 /uL (1500-7000); Neutrophils Percent Auto 63.4 % (50-75); Platelet Count 257 X10^3/uL (150-400); Red Blood Cell Count 4.44 X10^6/uL (4.0-5.2); Red Cell Distribution Width 13.7 % (11.6-14.8); White Blood Cell Count 10.6 X10^3/uL (4.5-11.0)
[2020-12-14 18:15] LABS: Alanine Aminotransferase 24 IU/L (<35); Albumin 4.3 g/dL (3.5-5.0); Albumin Globulin Ratio 1.4 (1.0-2.8); Alkaline Phosphatase 91 U/L (38-126); Aspartate Aminotransferase 32 IU/L (14-36); BUN Creatinine Ratio 18.6 (6-22); Bilirubin Total 0.2 mg/dL (0.2-1.3); Blood Urea Nitrogen 13 mg/dL (7-17); Calcium 9.1 mg/dL (8.4-10.2); Carbon Dioxide 29 mmol/L (22-32); Chloride 106 mmol/L (98-107); Creatine Kinase 67 U/L (30-135); Estimated Glomerular Filt Rate > 60.0 mL/min (>60); Globulin 3.1 g/dL (1.7-4.1); Glucose 105 mg/dL (70-100); HEMOLYSIS < 15 (0-50); Lipase 140 U/L (23-300); Potassium 3.6 mmol/L (3.4-5.1); Sodium 141 mmol/L (137-145); Total Protein 7.4 g/dL (6.3-8.2)
[2020-12-14 18:27] LABS: Troponin I < 0.012 ng/mL (0.01-0.034)
--- NOTE | 2020-12-14 18:29 | ED_ITS ---
HPI - Chest Pain General Chief Complaint: Chest Pain Stated Complaint: rt arm pain to chest Time Seen by Provider: 12/14/20 17:42 Source: patient Mode of arrival: Ambulatory Limitations: no limitations History of Present Illness HPI narrative: This is a 50-year-old female comes emergency department with complaint of 5 days of right axillary pain extending into her right chest and down her right arm. Patient states that she has had symptoms starting 5 days ago that have gradually worsened. She has noted a line in her axilla which is very tender. She denies fevers or chills. She states she has pain or discom fort into her right breast. She denies any shortness of breath. No diaphoresis. No nausea or vomiting. She denies any new diarrhea, constipation or urinary symptoms. She does not appreciate any swelling in her right extremity in comparison to her left. She denies any numbness, tingling or weak ness. She does states pain radiates from the axilla apartment down her arm. Patient has not had similar symptoms in the past. She is not appreciate any nodules or fluctuance other than the bump be line. Patient states she has not had similar symptoms in the past. She does have a cardiac history she states she had an HI in the past and cardiac catheterization which was negative for atherosclerosis but she was told her vessels are too narrow. She states she is on cholesterol medication, hypertensive medication and medicine to dilate her blood vessels which appears to be isosorbide. She does not take any anticoagulant daily because of bruising. She also has a history of breast biopsy on the right breast many years ago. She did not have any swelling or lymphedema post biopsy. She has history of hysterectomy, colon tumor resection and cholecystectomy. She does smoke tobacco, she denies use of alcohol or illicit. Destiny Mckeon is her PCP. Related Data Home Medications Medication Instructions Recorded Confirmed aspirin 325 mg tablet 325 mg PO DAILY 09/30/20 12/14/20 isosorbide dinitrate 40 mg tablet 40 mg PO DAILY tab 09/30/20 12/14/20 Previous Rx's Medication Instructions Recorded atorvastatin 20 mg tablet 20 mg PO BEDTIME #90 tab 08/24/20 lisinopril 2.5 mg tablet 1.25 mg PO DAILY #45 tab 08/24/20 metoprolol succinate 25 mg 12.5 mg PO DAILY #45 tab 08/24/20 tablet,extended release 24 hr nitroglycerin 0.4 mg sublingual 0.4 mg SUBLINGUAL Q5M PRN #30 tab 08/24/20 tablet venlafaxine 150 mg 150 mg PO BEDTIME #90 cap 10/15/20 capsule,extended release 24 hr trazodone 50 mg tablet 100 mg PO BEDTIME #180 tab 10/22/20 levothyroxine 50 mcg tablet 50 mcg PO DAILY #90 tab 10/28/20 oxycodone 5 mg tablet 5 mg PO Q4H PRN #14 tab 11/05/20 clobetasol 0.05 % topical ointment 1 applic TOPICAL BID PRN #15 g 11/11/20 gabapentin 300 mg capsule 300 mg PO Q8H #90 cap 11/11/20 hydromorphone 4 mg tablet 4 mg PO Q8H PRN #14 tab 11/11/20 ondansetron HCl 4 mg tablet 4 mg PO Q8H #30 tab 11/11/20 sulfamethoxazole 800 1 tab PO BID #10 tab 11/11/20 mg-trimethoprim 160 mg tablet cholestyramine (with sugar) 4 gram See Rx Instructions PO DAILY #15 ea 11/18/20 powder for susp in a packet doxycycline hyclate 100 mg PO BID 7 Days #14 tab 12/14/20 Allergies Allergy/AdvReac Type Severity Reaction Status Date / Time gluten Allergy Severe Anaphylaxis Verified 12/14/20 17:23 lactose Allergy Intermediate Swelling Verified 12/14/20 17:23 of Lip/Tongue/Throat Penicillins Allergy Intermediate Rash Verified 12/14/20 17:23 codeine [CODEINE] Allergy Mild RASH Verified 12/14/20 17:23 itching morphine [MORPHINE] Allergy Mild Rash Verified 12/14/20 17:23 egg AdvReac Severe Diarrhea Verified 12/14/20 17:23 Review of Systems Review of Systems ROS Unobtainable: All systems reviewed & are unremarkable except as noted in HPI and below Patient History Medical History Abdominal pain Bright red rectal bleeding Bulging of cervical intervertebral disc Chronic anticoagulation Colon polyps Colonic mass Depression with anxiety Dilation of bladder Diverticulosis Eczema Elevated liver enzymes Eosinophilic esophagitis Esophageal obstruction Gallstones Live's disease Hemorrhage of surgical anastomosis site of digestive tract Hemorrhoids IBS (irritable bowel syndrome) Interstitial cystitis Lumbar pain with radiation down left leg 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 NSTEMI (non-ST elevated myocardial infarction) (08/20/20) Shingles Stool fat increased Suicidal thoughts Tobacco abuse Tobacco abuse counseling Well woman exam with routine gynecological exam Surgical History H/O left breast biopsy H/O: hysterectomy History of abdominal surgery History of bilateral tubal ligation Hx of tonsillectomy S/P cervical spinal fusion (2013) S/P surgery on nasal septum Status post right hemicolectomy Family History Father Alcoholism Cancer Lung cancer Mother Age: 72 Lung cancer Diabetes mellitus Hypertension Social History marital status: household members: other occupational status: employed Smoking Status: Current every day smoker alcohol intake: current substance use type: does not use Smoking Status: Current every day smoker tobacco type: cigarettes alcohol intake frequency: a few times a month Substance Use Type: does not use Exam Narrative Exam Narrative: GENERAL: Alert and oriented x three, well-nourished female in mild distress. HEENT: Head normocephalic, atraumatic, EOMI, pupils reactive, face symmetric, moist mucous membranes NECK: Supple, full range of motion CARDIOVASCULAR: Regular rate and rhythm without murmurs, rubs or gallops. RESPIRATORY: Breath sounds equal bilaterally, no wheezes rales or rhonchi. ABDOMEN: Soft, nontender. Normoactive bowel sounds all 4 quadrants. No guarding or rebound, rigidity, no mass : No CVA tenderness EXTREMITIES: Normal range of motion, no clubbing or edema. Neurovascularly intact. Patient does a thin knotty, tender, rope-like swelling in the right axilla that is linear extending up towards the arm. It feels like a superficial vessel that is thrombosed. There is no discrete warmth, erythema or signs of abscess or infection. I do not appreciate any swelling right versus left upper extremities. Patient notes that pain also in the right upper breast at the 11 o'clock position which is mildly tender to palpation but with no swelling, skin changes, fluctuance mass or nodules noted. NEUROLOGICAL: Cranial nerves II through XII grossly intact. Moving all extremities SKIN: Warm, dry, no petechiae, no rashes or lesions. Initial Vital Signs Initial Vital Signs: Vital Signs Temperature 97.8 F 12/14/20 17:35 Pulse Rate 91 H 12/14/20 17:35 Respiratory Rate 20 12/14/20 17:35 Blood Pressure 158/96 H 12/14/20 17:35 Pulse Oximetry 99 12/14/20 17:35 Scores HEART Score Heart Score history: Slightly Suspicious Heart Score EKG: Normal Heart Score Age: 45-64 years old Heart Score risk factors: 1-2 risk factors Heart Score troponin: < or = to normal limit Heart Score Total: 2 Course Orders Ordered: ED Orders 12/14/20 17:43 XR chest 1V Stat 12/14/20 17:55 Complete Blood Count AUTO DIFF Stat Comprehensive Metabolic Panel Stat Lipase Stat Troponin & CK Cardiac Panel Stat 12/14/20 18:41 US periph venous up extrem rt Stat 12/14/20 19:33 Partial Thromboplastin Time Stat Prothrombin Time INR Stat Discontinued Medications Hydrocodone Bitart/Acetaminophen (Hydrocodone/Acet 5/325 Prepack) 1 bottle MISC SEEINSTR ONE Stop: 12/14/20 20:18 Last Admin: 12/14/20 20:23 Dose: 1 bottle Documented by: MY Doxycycline Hyclate (Doxycycline Hyclate 100 Mg Tablet) 100 mg PO NOW ONE Stop: 12/14/20 20:15 Last Admin: 12/14/20 20:23 Dose: 100 mg Documented by: MY Hydromorphone HCl (Hydromorphone 0.5 Mg Inj) 0.5 mg IV NOW ONE Stop: 12/14/20 20:15 Last Admin: 12/14/20 20:23 Dose: 0.5 mg Documented by: MY Ketorolac Tromethamine (Ketorolac 30 Mg/Ml Vial) 30 mg IV NOW ONE Stop: 12/14/20 18:42 Last Admin: 12/14/20 18:47 Dose: 30 mg Documented by: FANY Vital Signs Vital signs: Vital Signs - 8 hr 12/14/20 17:35 12/14/20 17:44 12/14/20 18:00 Temperature 97.8 F Pulse Rate 91 H 89 87 Respiratory Rate 20 18 28 H Blood Pressure 158/96 H 132/78 Pulse Oximetry 99 99 97 12/14/20 18:01 12/14/20 18:30 12/14/20 19:00 Temperature Pulse Rate 88 90 81 Respiratory Rate 31 H 27 H 23 Blood Pressure 125/78 137/80 136/81 Pulse Oximetry 98 96 97 12/14/20 19:30 12/14/20 20:00 Temperature Pulse Rate 84 82 Respiratory Rate 25 H Blood Pressure 132/81 126/80 Pulse Oximetry 98 98 MDM - Chest Pain Lab Data Attestation: I reviewed the patient's lab results. Result diagrams: 12/14/20 17:55 12/14/20 17:55 Labs: Lab Results 12/14/20 12/14/20 12/14/20 Range/Units 17:55 17:55 19:33 WBC 10.6 (4.5-11.0) X10^3/uL RBC 4.44 (4.0-5.2) X10^6/uL Hgb 13.9 (12.0-16.0) g/dL Hct 40.3 (36-46) % MCV 90.7 (80-100) fL MCH 31.2 (26-34) PG MCHC 34.4 (30-36) % RDW 13.7 (11.6-14.8) % Plt Count 257 (150-400) X10^3/uL Neut % (Auto) 63.4 (50-75) % Lymph % (Auto) 25.8 (25-40) % [place] % (Auto) 6.5 (3-14) % Eos % (Auto) 3.4 (2-4) % Baso % (Auto) 0.9 (0-2) % Neut # (Auto) 6700 (6899-1066) /uL Lymph # (Auto) 2700 (1877-4577) /uL [place] # (Auto) 700 (0-900) /uL Eos # (Auto) 400 (0-450) /uL Baso # (Auto) 100 (0-100) /uL PT 10.5 (10.1-12.7) SECONDS INR 0.9 (0.9-1.3) APTT 32 D (26.4-36.2) SECONDS Sodium 141 (137-145) mmol/L Potassium 3.6 (3.4-5.1) mmol/L Chloride 106 (98-107) mmol/L Carbon Dioxide 29 (22-32) mmol/L BUN 13 (7-17) mg/dL Creatinine 0.70 (0.52-1.04) mg/dL Estimated GFR > 60.0 (>60) mL/min BUN/Creatinine Ratio 18.6 (6-22) Glucose 105 H (70-100) mg/dL Calcium 9.1 (8.4-10.2) mg/dL Total Bilirubin 0.2 (0.2-1.3) mg/dL AST 32 (14-36) IU/L ALT 24 (<35) IU/L Alkaline Phosphatase 91 (38-126) U/L Total Creatine Kinase 67 (30-135) U/L CK-MB (CK-2) TNP CK-MB (CK-2) Rel Index TNP Troponin I < 0.012 (0.01-0.034) ng/mL Total Protein 7.4 (6.3-8.2) g/dL Albumin 4.3 (3.5-5.0) g/dL Globulin 3.1 (1.7-4.1) g/dL Albumin/Globulin Ratio 1.4 (1.0-2.8) Lipase 140 (23-300) U/L Imaging Data Chest x-ray: Radiologist's Impression: [address] [id number] ReportSigned Patient: Cecy Fields ZMR#: [id number]: 1970Acct:[id number]/Sex: 50 / FDate of Service: 12/14/20Loc: EDAccession Number: [id number] Procedure: XR chest 1V Ordering Provider: Corey Ruelas D.O. PROCEDURE: XR CHEST 1V INDICATIONS: right sided chest pain TECHNIQUE: One view of the chest was acquired. COMPARISON: [facility], CR, XR CHEST 1V, 08/20/2020, 1:17. FINDINGS: Surgical changes and devices: Right lumpectomy clips Lungs and pleura: Lungs are clear. No pleural effusions or pneumothorax. Mediastinum: Mediastinal contours appear normal. Heart size is normal. Bones and chest wall: No suspicious bony lesions. Overlying soft tissues appear unremarkable. IMPRESSION: No evidence acute pulmonary process. Dictated by: Monty Shirley M.D. on 12/14/2020 at 18:02 Approved by: Monty Shirley M.D. on 12/14/2020 at 18:02 US - DVT: Radiologist's Impression: [address] [id number] ReportSigned Patient: Cecy Fields ZMR#: [id number]: 1970Acct:[id number]/Sex: 50 / FDate of Service: 12/14/20Loc: EDAccession Number: [id number] Procedure: US periph venous up extrem rt Ordering Provider: Анна Plascencia D.O. PROCEDURE: US PERIPH VENOUS UP EXTREM RT INDICATIONS: PAIN TECHNIQUE: Real-time imaging, as well as color and pulse Doppler interrogation, was per formed of the right upper extremity deep veins from the inferior neck to the antecubital fossa. COMPARISON: None. FINDINGS: The internal jugular vein, visualized portions of the subclavian vein , axillary, and brachial veins are free of intraluminal thrombus. Where physically possible, the veins are normally compressible. Color and pulse Doppler demonstrate normal intraluminal flow, with expected phasicity and pulsatility. Additional scanning of the cephalic and basilic veins of the superficial system demonstrate normal compressibility, without thrombus. IMPRESSION: Negative right upper extremity duplex venous ultrasound for DVT. Dictated by: Monty Shirley M.D. on 12/14/2020 at 19:35 Approved by: Monty Shirley M.D. on 12/14/2020 at 19:35 ECG Data Attestation: I personally reviewed and interpreted this ECG as follows: Interpretation: NSR, rate of 88, DE 138, QRS of 94, QTC 452. No ST elevation or depression. Patient has prior EKG from 08/20/2020 which appears similar. MDM Narrative Medical decision making narrative: 50-year-old female comes with complaint of pain in her right axilla extending into her arm and chest. Patient has a thin area that appears to feels like a thrombosed superficial vessel. Patient's EKG, labs and chest x-ray do not show any clear cause. Ultrasound does not show DVT. Engineering And Operations Director was able to palpate the area but was unable to bead picker any skin changes with her probe. Patient had a prelim evaluation of the upper tissue of her breast which also did not show any changes. Discussed with patient I suspect she may have a thrombosed vein. There is no other signs of abscess or fluid collection on ultrasound or physical exam. Plan to cover with a short course of antibiotics, continue her aspirin daily and use warm compresses to the affected area. I asked patient to return for re-evaluation she is not having any improvement or had any new or worsening symptoms. Patient has not had similar symptoms in this area before, she did have lymph nodes biopsied on that right breast many years ago but has not had chronic lymphedema or changes since then. Patient denies any IV drug use. Discharge Plan Departure Patient Disposition: Home Clinical Impression: Phlebitis Instructions: Phlebitis/DVT (Alternative Therapy) Activity Restrictions/Additional Instructions: Follow up with your your physician next 2-3 days for recheck. Use warm compresses to the affected area regularly at least 4-6 times daily for 20 minutes. Continue your aspirin daily. Your ultrasound for DVT is negative today. There may be a component of infection involved in your symptoms and recommend starting oral antibiotic. Take antibiotic until gone. Prescription to [facility] in [place]. Return for fevers greater 100.4 F, rapidly worsening pain in your chest, arm or axilla, new redness, increasing swelling, new chest pain shortness of breath, persistent vomiting, lightheadedness or passing out or other new or worsening symptoms. Prescriptions: New doxycycline hyclate 100 mg tablet 100 mg PO BID 7 Days Qty: 14 RF: 0 No Action oxycodone 5 mg tablet 5 mg PO Q4H PRN (Reason: painful procedure) Qty: 14 RF: 0 atorvastatin [Lipitor] 20 mg tablet 20 mg PO BEDTIME Qty: 90 RF: 3 lisinopril 2.5 mg tablet 1.25 mg PO DAILY Qty: 45 RF: 3 metoprolol succinate 25 mg tablet extended release 24 hr 12.5 mg PO DAILY Qty: 45 RF: 3 nitroglycerin 0.4 mg tablet, sublingual 0.4 mg sublingual Q5M PRN (Reason: chest pain) Qty: 30 RF: 2 isosorbide dinitrate [Isordil] 40 mg tablet 40 mg PO DAILY RF: 0 aspirin 325 mg tablet 325 mg PO DAILY RF: 0 venlafaxine 150 mg capsule,extended release 24hr 150 mg PO BEDTIME Qty: 90 RF: 3 ondansetron HCl [Zofran] 4 mg tablet 4 mg PO Q8H Qty: 30 RF: 1 gabapentin 300 mg capsule 300 mg PO Q8H Qty: 90 RF: 1 clobetasol 0.05 % ointment 1 applic topical BID PRN (Reason: itching) Qty: 15 RF: 1 trazodone 50 mg tablet 100 mg PO BEDTIME Qty: 180 RF: 3 levothyroxine 50 mcg tablet 50 mcg PO DAILY Qty: 90 RF: 1 cholestyramine (with sugar) [Questran] 4 gram powder in packet See Rx Instructions PO DAILY Qty: 15 RF: 1 sulfamethoxazole-trimethoprim 800-160 mg tablet 1 tab PO BID Qty: 10 RF: 0 hydromorphone [Dilaudid] 4 mg tablet 4 mg PO Q8H PRN (Reason: painful procedure) Qty: 14 RF: 0 Referrals: Destiny Mckeon ARNP [Primary Care Provider] -
--- NOTE | 2020-12-14 18:41 | DI.US.S_ITS ---
PROCEDURE: US PERIPH VENOUS UP EXTREM RT INDICATIONS: PAIN TECHNIQUE: Real-time imaging, as well as color and pulse Doppler interrogation, was performed of the right upper extremity deep veins from the inferior neck to the antecubital fossa. COMPARISON: None. FINDINGS: The internal jugular vein, visualized portions of the subclavian vein, axillary, and brachial veins are free of intraluminal thrombus. Where physically possible, the veins are normally compressible. Color and pulse Doppler demonstrate normal intraluminal flow, with expected phasicity and pulsatility. Additional scanning of the cephalic and basilic veins of the superficial system demonstrate normal compressibility, without thrombus. IMPRESSION: Negative right upper extremity duplex venous ultrasound for DVT. Dictated by: Monty Shirley M.D. on 12/14/2020 at 19:35 Approved by: Monty Shirley M.D. on 12/14/2020 at 19:35
[2020-12-14] MEDS: KETOROLAC 30 MG/ML VIAL IV (18:47)
[2020-12-14 19:51] LABS: INR 0.9 (0.9-1.3); Prothrombin Time 10.5 SECONDS (10.1-12.7)
[2020-12-14 19:54] LABS: PTT Partial Thromboplastin Tim 32 SECONDS (26.4-36.2)
[2020-12-14] MEDS: DOXYCYCLINE HYCLATE 100 MG TABLET PO (20:23)
[2020-12-14] MEDS: HYDROMORPHONE 0.5 MG INJ IV (20:23)
[2020-12-14] MEDS: HYDROCODONE/ACET 5/325 PREPACK 1 BOTTLE MISC (20:23)
== END 2020-12-14 20:34 | disposition home or self-care (01) ==
PROVIDERS: Emergency Medicine; Emergency Provider Emergency Medicine; PCP Nurse Practitioner
DX: I80.9 Phlebitis and thrombophlebitis of unspecified site (principal); R07.9 Chest pain, unspecified
CPT/HCPCS: 36415; 71045; 80053; 82550; 83690; 84484; 85025; 85610; 85730; 93005; 93971; 96374; 96375; 99284; J1170; J1885

== ENCOUNTER 2020-12-17 17:45 | Emergency (ER) | payer OTHER, SELFPAY ==
[2020-12-07 14:07] VITALS: BMI 23.1
[2020-12-17 17:50] VITALS: BP 150/77; PULSE 95; RESP 18; TEMP 36.4; O2SAT 98; BMI 22.6
--- NOTE | 2020-12-17 19:57 | ED_ITS ---
HPI - Extremity Problem General Chief complaint: Extremity Problem,Nontraumatic Stated complaint: same pain as last, getting worse Time Seen by Provider: 12/17/20 17:58 Source: patient Mode of arrival: Ambulatory Limitations: no limitations History of Present Illness HPI Narrative: Patient is a 50-year-old female here for evaluation of pain in her right armpit. She states that she has been evaluated in the past for the discomfort and the vessel that is inflamed in her right armpit. States she has had an ultrasound and was told that it was ?phlebitis ?she is on antibiotics and also on anti-inflammatories. She states that the discomfort in her right armpit where the symptoms have been persisting is still there and now she has discomfort in her left armpit that is similar to this. She states that there is not a vessel in this area on her left side like there is on the right side and she was told by her primary doctor that if her symptoms worsen she needs to come in to be evaluated. Related Data Home Medications Medication Instructions Recorded Confirmed aspirin 325 mg tablet 325 mg PO DAILY 09/30/20 12/16/20 isosorbide dinitrate 40 mg tablet 40 mg PO DAILY tab 09/30/20 12/16/20 Previous Rx's Medication Instructions Recorded atorvastatin 20 mg tablet 20 mg PO BEDTIME #90 tab 08/24/20 lisinopril 2.5 mg tablet 1.25 mg PO DAILY #45 tab 08/24/20 metoprolol succinate 25 mg 12.5 mg PO DAILY #45 tab 08/24/20 tablet,extended release 24 hr nitroglycerin 0.4 mg sublingual 0.4 mg SUBLINGUAL Q5M PRN #30 tab 08/24/20 tablet venlafaxine 150 mg 150 mg PO BEDTIME #90 cap 10/15/20 capsule,extended release 24 hr trazodone 50 mg tablet 100 mg PO BEDTIME #180 tab 10/22/20 levothyroxine 50 mcg tablet 50 mcg PO DAILY #90 tab 10/28/20 oxycodone 5 mg tablet 5 mg PO Q4H PRN #14 tab 11/05/20 clobetasol 0.05 % topical ointment 1 applic TOPICAL BID PRN #15 g 11/11/20 gabapentin 300 mg capsule 300 mg PO Q8H #90 cap 11/11/20 hydromorphone 4 mg tablet 4 mg PO Q8H PRN #14 tab 11/11/20 ondansetron HCl 4 mg tablet 4 mg PO Q8H #30 tab 11/11/20 sulfamethoxazole 800 1 tab PO BID #10 tab 11/11/20 mg-trimethoprim 160 mg tablet cholestyramine (with sugar) 4 gram See Rx Instructions PO DAILY #15 ea 11/18/20 powder for susp in a packet doxycycline hyclate 100 mg PO BID 7 Days #14 tab 12/14/20 Allergies Allergy/AdvReac Type Severity Reaction Status Date / Time gluten Allergy Severe Anaphylaxis Verified 12/17/20 17:53 lactose Allergy Intermediate Swelling Verified 12/17/20 17:53 of Lip/Tongue/Throat Penicillins Allergy Intermediate Rash Verified 12/17/20 17:53 codeine [CODEINE] Allergy Mild RASH Verified 12/17/20 17:53 itching morphine [MORPHINE] Allergy Mild Rash Verified 12/17/20 17:53 egg AdvReac Severe Diarrhea Verified 12/17/20 17:53 Review of Systems Constitutional Constitutional: Reports system reviewed and no additional complaints, except as documented Musculoskeletal Comments: Pain in the right and left arm pits Integumentary/Breasts Skin/Breast: Reports system reviewed and no additional complaints, except as documented Neurologic Neurologic: Reports system reviewed and no additional complaints, except as documented Hematologic/Lymphatic On Anticoagulants: No Allergic/Immunologic Allergic/Immunologic: Reports system reviewed and no additional complaints, except as documented Patient History Medical History Abdominal pain Bright red rectal bleeding Bulging of cervical intervertebral disc Chronic anticoagulation Colon polyps Colonic mass Depression with anxiety Dilation of bladder Diverticulosis Eczema Elevated liver enzymes Eosinophilic esophagitis Esophageal obstruction Gallstones Live's disease Hemorrhage of surgical anastomosis site of digestive tract Hemorrhoids IBS (irritable bowel syndrome) Interstitial cystitis Lumbar pain with radiation down left leg 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 NSTEMI (non-ST elevated myocardial infarction) (08/20/20) Shingles Stool fat increased Suicidal thoughts Tobacco abuse Tobacco abuse counseling Well woman exam with routine gynecological exam Surgical History H/O left breast biopsy H/O: hysterectomy History of abdominal surgery History of bilateral tubal ligation Hx of tonsillectomy S/P cervical spinal fusion (2013) S/P surgery on nasal septum Status post right hemicolectomy Family History Father Alcoholism Cancer Lung cancer Mother Age: 72 Lung cancer Diabetes mellitus Hypertension Social History marital status: household members: other occupational status: employed Smoking Status: Current every day smoker alcohol intake: current substance use type: does not use Smoking Status: Current every day smoker tobacco type: cigarettes alcohol intake frequency: a few times a month Substance Use Type: does not use Exam Initial Vital Signs Initial Vital Signs: Vital Signs Temperature 97.6 F 12/17/20 17:50 Pulse Rate 95 H 12/17/20 17:50 Respiratory Rate 18 12/17/20 17:50 Blood Pressure 150/77 H 12/17/20 17:50 Pulse Oximetry 98 12/17/20 17:50 Const General: cooperative and comfortable Limitations: mental status not altered HENMT Head: normal to inspection and normocephalic Resp Effort & Inspection: normal respiratory effort Cardio Rate: regular rate Skin Lesions: no lesions Rashes: no rashes Neuro General: patient alert and patient awake Speech: speech normal Extrem Other: She does have a being and that is linear in her right armpit that is consistent with her stated history of a phlebitis. Her left armpit is unre markable without any discomfort no skin changes over the area. Psych Appearance: grossly normal and well kempt Course Vital Signs Vital signs: Vital Signs - 8 hr 12/17/20 17:50 Temperature 97.6 F Pulse Rate 95 H Respiratory Rate 18 Blood Pressure 150/77 H Pulse Oximetry 98 MDM - Extremity (Nontraumatic) MDM Narrative Medical decision making narrative: The physical exam findings in her right armpit is consistent with her stated history of phlebitis. There is minimal with any redness over this area will have her continue with the antibiotics in the anti-inflammatories. Her left armpit is unremarkable. There are no abnormal findings on the exam. Unsure the etiology of the discomfort in this side. Will have her contact her primary doctor for workup. She expressed understanding and agreement. Discharge Plan Departure Patient Disposition: Home Clinical Impression: Phlebitis Instructions: Superficial Thrombophlebitis Activity Restrictions/Additional Instructions: Continue all of your medications as directed. Keep all of your scheduled medical appointments. Return to the emergency department for any new or worsening symptoms Prescriptions: No Action oxycodone 5 mg tablet 5 mg PO Q4H PRN (Reason: painful procedure) Qty: 14 RF: 0 atorvastatin [Lipitor] 20 mg tablet 20 mg PO BEDTIME Qty: 90 RF: 3 lisinopril 2.5 mg tablet 1.25 mg PO DAILY Qty: 45 RF: 3 metoprolol succinate 25 mg tablet extended release 24 hr 12.5 mg PO DAILY Qty: 45 RF: 3 nitroglycerin 0.4 mg tablet, sublingual 0.4 mg sublingual Q5M PRN (Reason: chest pain) Qty: 30 RF: 2 isosorbide dinitrate [Isordil] 40 mg tablet 40 mg PO DAILY RF: 0 aspirin 325 mg tablet 325 mg PO DAILY RF: 0 venlafaxine 150 mg capsule,extended release 24hr 150 mg PO BEDTIME Qty: 90 RF: 3 ondansetron HCl [Zofran] 4 mg tablet 4 mg PO Q8H Qty: 30 RF: 1 gabapentin 300 mg capsule 300 mg PO Q8H Qty: 90 RF: 1 clobetasol 0.05 % ointment 1 applic topical BID PRN (Reason: itching) Qty: 15 RF: 1 trazodone 50 mg tablet 100 mg PO BEDTIME Qty: 180 RF: 3 levothyroxine 50 mcg tablet 50 mcg PO DAILY Qty: 90 RF: 1 cholestyramine (with sugar) [Questran] 4 gram powder in packet See Rx Instructions PO DAILY Qty: 15 RF: 1 sulfamethoxazole-trimethoprim 800-160 mg tablet 1 tab PO BID Qty: 10 RF: 0 hydromorphone [Dilaudid] 4 mg tablet 4 mg PO Q8H PRN (Reason: painful procedure) Qty: 14 RF: 0 doxycycline hyclate 100 mg tablet 100 mg PO BID 7 Days Qty: 14 RF: 0 Referrals: Destiny Mckoen ARNP [Primary Care Provider] -
--- NOTE | 2020-12-17 20:05 | PC.NURSE ---
Pain under bilateral axilla with no visible redness or swelling. Pain radiates into breasts.
== END 2020-12-17 20:13 | disposition home or self-care (01) ==
PROVIDERS: Emergency Provider Emergency Medicine; PCP Nurse Practitioner
DX: I80.8 Phlebitis and thrombophlebitis of other sites (principal)
CPT/HCPCS: 99281

== ENCOUNTER → 2020-12-21 12:49 | Outpatient (CLI) | payer OTHER, SELFPAY ==
[2020-12-07 14:07] VITALS: BMI 23.1
== END ==
PROVIDERS: PCP Nurse Practitioner; Referring Provider Nurse Practitioner; Visit Provider Nurse Practitioner
DX: R23.2 Flushing (principal)
CPT/HCPCS: 36415; 83001

== ENCOUNTER 2021-01-22 19:41 | Emergency (ER) | payer OTHER, SELFPAY ==
[2021-01-11 15:00] VITALS: BMI 23.1
[2021-01-22] VITALS (9 sets, daily range): BP systolic 117–154; BP diastolic 69–96; PULSE 82–101; RESP 12–26; TEMP 36.6; O2SAT 94–98; BMI 24.0
--- NOTE | 2021-01-22 19:44 | DI.RAD.S_ITS ---
PROCEDURE: XR CHEST 1V INDICATIONS: chest pain TECHNIQUE: One view of the chest was acquired. COMPARISON: [facility], CR, XR CHEST 1V, 12/14/2020, 17:45. FINDINGS: Surgical changes and devices: Surgical clips project over the right chest. Lungs and pleura: Lungs are hyperinflated and hyperlucent. No acute consolidation, pneumothorax or pleural effusion. Mediastinum: Mediastinal contours appear normal. Heart size is normal. Bones and chest wall: No suspicious bony lesions. Overlying soft tissues appear unremarkable. IMPRESSION: 1. Hyperinflation suggesting asthma or emphysema. 2. No acute process. Dictated by: Estela King M.D. on 01/22/2021 at 20:55 Approved by: Estela King M.D. on 01/22/2021 at 20:56
[2021-01-22 20:14] LABS: Add Manual Diff / Slide Review NO; Basophils Absolute Auto 100 /uL (0-100); Basophils Percent Auto 0.6 % (0-2); Eosinophils Absolute Auto 300 /uL (0-450); Hematocrit 40.7 % (36-46); Hemoglobin 13.7 g/dL (12.0-16.0); Lymphocytes Absolute Auto 2100 /uL (1100-4500); Lymphocytes Percent Auto 19.8 % (25-40); Mean Corpuscular HGB Conc 33.8 % (30-36); Mean Corpuscular Hemoglobin 30.6 PG (26-34); Mean Corpuscular Volume 90.5 fL (80-100); Monocytes Absolute Auto 800 /uL (0-900); Monocytes Percent Auto 7.7 % (3-14); Neutrophils Absolute Auto 7300 /uL (1500-7000); Neutrophils Percent Auto 68.9 % (50-75); Platelet Count 274 X10^3/uL (150-400); Red Blood Cell Count 4.49 X10^6/uL (4.0-5.2); Red Cell Distribution Width 13.3 % (11.6-14.8); White Blood Cell Count 10.6 X10^3/uL (4.5-11.0)
[2021-01-22] MEDS: HYDROMORPHONE 0.5 MG INJ IV ×2 (20:22→21:12)
[2021-01-22] MEDS: ASPIRIN 81 MG CHEW TAB 324 MG PO (20:22)
[2021-01-22] MEDS: KETOROLAC 30 MG/ML VIAL 15 MG IV (20:23)
[2021-01-22 20:25] LABS: Alanine Aminotransferase 130 IU/L (<35); Albumin 4.4 g/dL (3.5-5.0); Albumin Globulin Ratio 1.4 (1.0-2.8); Alkaline Phosphatase 124 U/L (38-126); Aspartate Aminotransferase 105 IU/L (14-36); BUN Creatinine Ratio 20.3 (6-22); Bilirubin Total 0.4 mg/dL (0.2-1.3); Blood Urea Nitrogen 13 mg/dL (7-17); Calcium 9.6 mg/dL (8.4-10.2); Carbon Dioxide 28 mmol/L (22-32); Chloride 105 mmol/L (98-107); Creatine Kinase 53 U/L (30-135); Estimated Glomerular Filt Rate > 60.0 mL/min (>60); Globulin 3.2 g/dL (1.7-4.1); Glucose 102 mg/dL (70-100); HEMOLYSIS < 15 (0-50); Lipase 60 U/L (23-300); Magnesium 2.2 mg/dL (1.6-2.3); Sodium 139 mmol/L (137-145); Total Protein 7.6 g/dL (6.3-8.2)
--- NOTE | 2021-01-22 20:29 | ED.CHESTPAIN ---
HPI - Chest Pain General Chief Complaint: Chest Pain Stated Complaint: had cpr at [facility] breathe/chest pain Time Seen by Provider: 01/22/21 19:49 Source: patient Mode of arrival: Ambulatory History of Present Illness HPI narrative: 50-year-old woman presents with left-sided anterior chest pain that she believes is secondary to CPR, she is out of [place] and requesting help with pain management. History significant for coronary artery disease. She has had multiple admissions in 2020 for cardiac symptoms. August 2020 admitted, heart catheterization revealed possible dissection distal portion of the mid opt to smart [place] branch Catheterization January 18, 2021 secondary to chest pain and dynamic ST elevation. 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 Significant narrowing of mid to distal LAD. These lesions were felt to not be a minimal to percutaneous intervention. While recovering immediately after cardiac catheterization on January 18 she had a ventricular fibrillation arrest with return of spontaneous circulation after CPR. There were indications that she may have had a hypoxic respiratory component to the VFib arrest after a dose of Dilaudid. After discharge from [facility] on January 21 she was referred to Cardiothoracic surgery for further evaluation and consideration of revascularization. She reports that she is taking all of her prescribed medication and describes her current chest pain as very much musculoskeletal and not similar to any of the prior chest pain she has experienced She is frustrated with her recent extended hospital stay including the fact that she has disease that is not immediately amenable to percutaneous intervention. She is feeling somewhat despondent over the referral to Cardiothoracic surgery and is unsure if she will be a candidate for open heart surgery or if she would want to proceed even if she were. Related Data Home Medications Medication Instructions Recorded Confirmed isosorbide dinitrate 40 mg tablet 40 mg PO DAILY tab 09/30/20 12/21/20 (Isordil) Previous Rx's Medication Instructions Recorded atorvastatin 20 mg tablet (Lipitor) 20 mg PO BEDTIME #90 tab 08/24/20 lisinopril 2.5 mg tablet 1.25 mg PO DAILY #45 tab 08/24/20 metoprolol succinate 25 mg 12.5 mg PO DAILY #45 tab 08/24/20 tablet,extended release 24 hr venlafaxine 150 mg 150 mg PO BEDTIME #90 cap 10/15/20 capsule,extended release 24 hr trazodone 50 mg tablet 100 mg PO BEDTIME #180 tab 10/22/20 levothyroxine 50 mcg tablet 50 mcg PO DAILY #90 tab 10/28/20 gabapentin 300 mg capsule 300 mg PO Q8H #90 cap 11/11/20 ondansetron HCl 4 mg tablet 4 mg PO Q8H #30 tab 11/11/20 (Zofran) meloxicam 15 mg tablet (Mobic) 15 mg PO DAILY #30 tab 12/30/20 aspirin 325 mg tablet 325 mg PO DAILY #30 tab 01/14/21 nitroglycerin 0.4 mg sublingual 0.4 mg SUBLINGUAL Q5M PRN #30 tab 01/14/21 tablet Allergies Allergy/AdvReac Type Severity Reaction Status Date / Time gluten Allergy Severe Anaphylaxis Verified 01/22/21 21:03 lactose Allergy Intermediate Swelling Verified 01/22/21 21:03 of Lip/Tongue/Throat Penicillins Allergy Intermediate Rash Verified 01/22/21 21:03 codeine [CODEINE] Allergy Mild RASH Verified 01/22/21 21:03 itching morphine [MORPHINE] Allergy Mild Rash Verified 01/22/21 21:03 egg AdvReac Severe Diarrhea Verified 01/22/21 21:03 Review of Systems Review of Systems Narrative: Remainder of complete review of systems is otherwise unremarkable except for that included in the HPI. 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 Nicotine addiction NSTEMI (non-ST elevated myocardial infarction) (08/20/20) Shingles Stool fat increased Suicidal thoughts Tobacco abuse Tobacco abuse counseling Well woman exam with routine gynecological exam Surgical History H/O left breast biopsy H/O: hysterectomy History of abdominal surgery History of bilateral tubal ligation Hx of tonsillectomy S/P cervical spinal fusion (2013) S/P surgery on nasal septum Status post right hemicolectomy Family History Father Alcoholism Cancer Lung cancer Mother Age: 72 Lung cancer Diabetes mellitus Hypertension Social History marital status: household members: other occupational status: employed Smoking Status: Current every day smoker alcohol intake: current substance use type: does not use Smoking Status: Current every day smoker tobacco type: cigarettes alcohol intake frequency: a few times a month Substance Use Type: does not use Exam Narrative Exam Narrative: General: Frail-appearing but, in no acute distress. Able to give a complete and coherent history. HEENT: Moist mucous membranes, normal sclera with reactive pupils, Neck: No JVD, supple Respiratory: Lungs are clear to auscultation, no wheezing no rales no rhonchi. Full and symmetrical air movement Cardiac: Regular rate and rhythm no murmurs no bruits Chest: Tender over mid sternum and left upper anterior ribs without bruising or contusion appreciated, chest pain reproduced with deep breathing Abdomen: Soft, nontender, good bowel tones, no flank pain Skin: Warm and dry, no rashes Neurologic: Grossly neurologically intact with no obvious asymmetries or abnormalities Extremities: No trauma, well perfused Psych: Cooperative, anxious and frustrated Initial Vital Signs Initial Vital Signs: Vital Signs Temperature 98 F 01/22/21 19:41 Pulse Rate 101 H 01/22/21 19:41 Respiratory Rate 12 01/22/21 19:41 Blood Pressure 117/96 H 01/22/21 19:41 Pulse Oximetry 97 01/22/21 19:41 Course Orders Ordered: ED Orders 01/22/21 22:15 Troponin I Stat Discontinued Medications Acetaminophen (Acetaminophen 325 Mg Tablet) 975 mg PO NOW ONE Stop: 01/22/21 22:04 Last Admin: 01/22/21 22:08 Dose: 975 mg Documented by: DIRK Aspirin (Aspirin 81 Mg Chew Tab) 324 mg PO NOW ONE Stop: 01/22/21 19:54 Last Admin: 01/22/21 20:22 Dose: 324 mg Documented by: DIRK Hydromorphone HCl (Hydromorphone 0.5 Mg Inj) 0.5 mg IV Q15MIN PRN PRN Reason: Pain, Last Admin: 01/22/21 21:12 Dose: 0.5 mg Documented by: Admin: 01/22/21 20:22 Dose: 0.5 mg Documented by: DIRK Hydromorphone HCl (Hydromorphone 1 Mg Inj) 1 mg IV NOW ONE Stop: 01/22/21 21:16 Last Admin: 01/22/21 22:25 Dose: 1 mg Documented by: DIRK Ketorolac Tromethamine (Ketorolac 30 Mg/Ml Vial) 15 mg IV NOW ONE Stop: 01/22/21 19:54 Last Admin: 01/22/21 20:23 Dose: 15 mg Documented by: DIRK Nitroglycerin (Nitroglycerin 0.4 Mg Sl Tab) 0.4 mg SL [id number] PRN PRN Reason: Chest Pain Last Admin: 01/22/21 22:26 Dose: 0.4 mg Documented by: Admin: 01/22/21 22:18 Dose: 0.4 mg Documented by: Admin: 01/22/21 22:08 Dose: 0.4 mg Documented by: DIRK Nitroglycerin (Nitroglycerin 0.4 Mg Sl Tab) 0.4 mg SL [id number] PRN PRN Reason: Chest Pain Oxycodone/Acetaminophen (Oxycodone/Apap 5/325 Prepack) 1 bottle MISC SEEINSTR ONE Stop: 01/22/21 22:54 Last Admin: 01/22/21 22:59 Dose: 1 bottle Documented by: DIRK Vital Signs Vital signs: Vital Signs - 8 hr 01/22/21 21:30 01/22/21 22:00 01/22/21 22:30 Temperature Pulse Rate 82 82 82 Respiratory Rate 26 H 24 19 Blood Pressure 147/84 H 154/94 H 121/69 Pulse Oximetry 97 96 98 01/22/21 23:00 01/22/21 23:08 Temperature 97.9 F Pulse Rate 83 86 Respiratory Rate 26 H 22 Blood Pressure 139/94 H 139/94 H Pulse Oximetry 96 97 MDM - Chest Pain Lab Data Result diagrams: 01/22/21 20:06 01/22/21 20:06 Labs: Lab Results 01/22/21 01/22/21 01/22/21 Range/Units 20:06 20:06 22:15 WBC 10.6 (4.5-11.0) X10^3/uL RBC 4.49 (4.0-5.2) X10^6/uL Hgb 13.7 (12.0-16.0) g/dL Hct 40.7 (36-46) % MCV 90.5 (80-100) fL MCH 30.6 (26-34) PG MCHC 33.8 (30-36) % RDW 13.3 (11.6-14.8) % Plt Count 274 (150-400) X10^3/uL Neut % (Auto) 68.9 (50-75) % Lymph % (Auto) 19.8 L (25-40) % Sunflower % (Auto) 7.7 (3-14) % Eos % (Auto) 3.0 (2-4) % Baso % (Auto) 0.6 (0-2) % Neut # (Auto) 7300 H (7578-6022) /uL Lymph # (Auto) 2100 (1919-7497) /uL Sunflower # (Auto) 800 (0-900) /uL Eos # (Auto) 300 (0-450) /uL Baso # (Auto) 100 (0-100) /uL Sodium 139 (137-145) mmol/L Potassium 4.0 (3.4-5.1) mmol/L Chloride 105 (98-107) mmol/L Carbon Dioxide 28 (22-32) mmol/L BUN 13 (7-17) mg/dL Creatinine 0.64 (0.52-1.04) mg/dL Estimated GFR > 60.0 (>60) mL/min BUN/Creatinine Ratio 20.3 (6-22) Glucose 102 H (70-100) mg/dL Calcium 9.6 (8.4-10.2) mg/dL Magnesium 2.2 (1.6-2.3) mg/dL Total Bilirubin 0.4 (0.2-1.3) mg/dL AST 105 H (14-36) IU/L ALT 130 H (<35) IU/L Alkaline Phosphatase 124 (38-126) U/L Total Creatine Kinase 53 (30-135) U/L CK-MB (CK-2) TNP CK-MB (CK-2) Rel Index TNP Troponin I 1.370 H* 1.400 H* (0.01-0.034) ng/mL NT-Pro-B Natriuret Pep 238 H (<125) pg/mL Total Protein 7.6 (6.3-8.2) g/dL Albumin 4.4 (3.5-5.0) g/dL Globulin 3.2 (1.7-4.1) g/dL Albumin/Globulin Ratio 1.4 (1.0-2.8) Lipase 60 (23-300) U/L Imaging Data Chest x-ray: Radiologist's Impression: FINDINGS: Surgical changes and devices: Surgical clips project over the right chest. Lungs and pleura: Lungs are hyperinflated and hyperlucent. No acute consolidation, pneumothorax or pleural effusion. Mediastinum: Mediastinal contours appear normal. Heart size is normal. Bones and chest wall: No suspicious bony lesions. Overlying soft tissues appear unremarkable. IMPRESSION: 1. Hyperinflation suggesting asthma or emphysema. 2. No acute process. Dictated by: Estela King M.D. on 01/22/2021 at 20:55 MDM Narrative Medical decision making narrative: 50-year-old woman with recent cardiac catheterization and known multi-vessel disease presents with chest pain. She notes that on the with her heart catheterization she had a ventricular fibrillation arrest likely complicated by Dilaudid induced respiratory compromise with a brief episode of CP. complaining of left upper chest pain that she believes is secondary to the CPR. Chest x-ray does not show any acute fractures or pneumothorax. Workup has a positive troponin at 1.[address] T wave abnormalities not meeting criteria for acute STEMI on her EKG. Similar abnormalities were described with recent EKGs. The last troponin level documented from [facility] was on January 18 prior to her heart catheterization and brief episode of CPR and was at 0.453. It is unclear if this is a new elevation or if she peaked at a much higher number and is now trending down. She is not having exertional dyspnea diaphoresis or nausea and describes this is a very different feeling pain from previously. Toradol was somewhat effective as was Dilaudid. She declined any nitroglycerin initially In re-evaluation reviewed the troponin concerns and findings. She negotiates trying nitroglycerin to see if influence her is her pain and allowing a 2nd troponin repeat as long as it is guaranteed that does not have to return to [facility]. Second troponin is similar to 1st. Recommended hospitalization here at [facility] to help with both chest pain and continue to trend troponins. She adamantly declined. Together we negotiated and Against Medical Advice discharge with medications to treat her musculoskeletal chest pain but also a clear discussion of concerns for progressive cardiac etiology and need for more urgent intervention. She states that she will return to the emergency room if symptoms change and has every intention of following through with recommended cardiothoracic surgery consultation. She does choose to sign out against medical advice with very clear instructions that she is absolutely welcome to return to the emergency department should symptoms worsen. She is also given a small prescription for Percocet to help with the CPR related anterior chest wall pain. Discharge Plan Departure Patient Disposition: Left Against Medical Advice Clinical Impression: Acute chest wall pain Instructions: DI for Musculoskeletal Pain Activity Restrictions/Additional Instructions: Thank you for coming in today. I do understand how frustrating can be to have chronic disease with no obvious affects. I am concerned that this could be related to your coronary disease. Your troponin level is increased however that may simply be because of your recent heart attack. My recommendation was to keep you in the hospital to continue watching the troponin levels. I respect that you do not want to do this. You may be correct with this anterior chest pain being musculoskeletal and related to the CPR compressions that were done why your in the hospital. I am going to give you an additional prescription for Percocet to use for pain If you have symptoms that are worsening in any way, please return to the emergency department. Make sure that you are taking all of your prescribed medications and follow-up with your outpatient cardiac providers. I hope you feel better Prescriptions: No Action meloxicam [Mobic] 15 mg tablet 15 mg PO DAILY Qty: 30 RF: 2 aspirin 325 mg tablet 325 mg PO DAILY Qty: 30 RF: 0 nitroglycerin 0.4 mg tablet, sublingual 0.4 mg sublingual Q5M PRN (Reason: chest pain) Qty: 30 RF: 2 atorvastatin [Lipitor] 20 mg tablet 20 mg PO BEDTIME Qty: 90 RF: 3 lisinopril 2.5 mg tablet 1.25 mg PO DAILY Qty: 45 RF: 3 metoprolol succinate 25 mg tablet extended release 24 hr 12.5 mg PO DAILY Qty: 45 RF: 3 isosorbide dinitrate [Isordil] 40 mg tablet 40 mg PO DAILY RF: 0 venlafaxine 150 mg capsule,extended release 24hr 150 mg PO BEDTIME Qty: 90 RF: 3 ondansetron HCl [Zofran] 4 mg tablet 4 mg PO Q8H Qty: 30 RF: 1 gabapentin 300 mg capsule 300 mg PO Q8H Qty: 90 RF: 1 trazodone 50 mg tablet 100 mg PO BEDTIME Qty: 180 RF: 3 levothyroxine 50 mcg tablet 50 mcg PO DAILY Qty: 90 RF: 1 Referrals: Destiny Mckeon ARNP [Primary Care Provider] - Stand Alone Forms: Against Medical Advice
--- NOTE | 2021-01-22 20:35 | PC.NURSE ---
Patient has had 4 heart attacks and was recently discharged from [facility] and had CPR recently. She says that her sternum has hurt severely since CPR and she has tried to manage the pain at home with Momence without success.
[2021-01-22 21:14] LABS: NT-proBNP (BNP-Adult 18+) 238 pg/mL (<125)
[2021-01-22] MEDS: NITROGLYCERIN 0.4 MG SL TAB SL ×3 (22:08→22:26)
[2021-01-22] MEDS: ACETAMINOPHEN 325 MG TABLET 975 MG PO (22:08)
[2021-01-22] MEDS: HYDROMORPHONE 1 MG INJ IV (22:25)
[2021-01-22] MEDS: OXYCODONE/APAP 5/325 PREPACK 1 BOTTLE MISC (22:59)
== END 2021-01-22 23:09 | disposition left against medical advice (07) ==
PROVIDERS: Emergency Provider Emergency Medicine; PCP Nurse Practitioner
DX: R07.89 Other chest pain (principal); Z86.74 Personal history of sudden cardiac arrest
CPT/HCPCS: 36415; 71045; 80053; 82550; 83690; 83735; 83880; 84484; 85025; 93005; 93010; 96374; 96375; 96376; 99284; J1170; J1885

== ENCOUNTER → 2021-02-10 09:45 | Outpatient (CLI) | payer OTHER, SELFPAY ==
[2021-01-11 15:00] VITALS: BMI 23.1
--- NOTE | 2021-02-10 09:48 | DI.RAD.S_ITS ---
PROCEDURE: XR RIBS BI MIN 4V W CXR1V INDICATIONS: pain after CPR TECHNIQUE: 3 views of the bilateral ribs were acquired, along with a single view chest. COMPARISON: [facility], , XR CHEST 1 VIEW, 01/23/2021, 5:40. FINDINGS: Surgical changes and devices: None. Bones and chest wall: The left 7th rib has a nondisplaced fracture. Overlying soft tissues are normal. Lungs and pleura: No pleural effusions or pneumothorax. There is platelike atelectasis in the left lung base. Mediastinum: Mediastinal contours appear normal. Heart size is normal. IMPRESSION: 1. Nondisplaced left posterior 7th rib fracture. 2. Platelike atelectasis in the left lung base. Dictated by: Viktor Faith M.D. on 02/10/2021 at 15:24 Approved by: Viktor Faith M.D. on 02/10/2021 at 15:30
== END ==
PROVIDERS: PCP Nurse Practitioner; Referring Provider Nurse Practitioner; Visit Provider Nurse Practitioner
DX: R07.81 Pleurodynia (principal); M96.89 Other intraoperative and postprocedural complications and disorders of the musculoskeletal system; Y84.8 Other medical procedures as the cause of abnormal reaction of the patient, or of later complication, without mention of misadventure at the time of the procedure
CPT/HCPCS: 71111

== ENCOUNTER 2021-02-15 01:43 | Emergency (ER) | payer OTHER, SELFPAY ==
[2021-01-11 15:00] VITALS: BMI 23.1
[2021-02-15] VITALS (12 sets, daily range): BP systolic 97–153; BP diastolic 52–89; PULSE 85–104; RESP 15–22; O2SAT 91–99; BMI 22.4
--- NOTE | 2021-02-15 01:50 | DI.RAD.S_ITS ---
PROCEDURE: XR CHEST 1V INDICATIONS: chest pain TECHNIQUE: One view of the chest was acquired. COMPARISON: [facility], CR, XR CHEST 1V, 01/22/2021, 20:00. FINDINGS: Surgical changes and devices: Right breast surgical clips are stable. Lungs and pleura: Lungs are clear. No pleural effusions or pneumothorax. Mediastinum: Mediastinal contours appear normal. Heart size is normal. Bones and chest wall: No suspicious bony lesions. Overlying soft tissues appear unremarkable. IMPRESSION: No acute cardiopulmonary disease process. Dictated by: Luz Verde MD, PhD on 02/15/2021 at 8:18 Approved by: Luz Verde MD, PhD on 02/15/2021 at 8:18
--- NOTE | 2021-02-15 01:51 | ED_ITS ---
HPI - Chest Pain General Chief Complaint: Chest Pain Stated Complaint: chest pain around to left side/took 2 ntro Time Seen by Provider: 02/15/21 01:45 History of Present Illness HPI narrative: 50-year-old female daily smoker with history of coronary artery disease, cardiac arrest, bowel resection presents with a chief complaint of sudden onset anterior chest pressure that started within the last hour. It woke her from sleep and was squeezing and pressure-like in nature and seem to radiate to her left axilla. She denies any obvious provocation but states her pain went away with nitro. She denies associated symptoms such as dizziness, weakness or lightheadedness but did have some nausea. She denies recent travel or history of blood clot. Her cardiac arrest was relatively recently and she spent a fair amount of time at [facility]. Related Data Previous Rx's Medication Instructions Recorded atorvastatin 20 mg tablet (Lipitor) 20 mg PO BEDTIME #90 tab 08/24/20 lisinopril 2.5 mg tablet 1.25 mg PO DAILY #45 tab 08/24/20 metoprolol succinate 25 mg 12.5 mg PO DAILY #45 tab 08/24/20 tablet,extended release 24 hr venlafaxine 150 mg 150 mg PO BEDTIME #90 cap 10/15/20 capsule,extended release 24 hr trazodone 50 mg tablet 100 mg PO BEDTIME #180 tab 10/22/20 levothyroxine 50 mcg tablet 50 mcg PO DAILY #90 tab 10/28/20 gabapentin 300 mg capsule 300 mg PO Q8H #90 cap 11/11/20 ondansetron HCl 4 mg tablet 4 mg PO Q8H #30 tab 11/11/20 (Zofran) nitroglycerin 0.4 mg sublingual 0.4 mg SUBLINGUAL Q5M PRN #30 tab 01/14/21 tablet aspirin 81 mg tablet,delayed 81 mg PO DAILY #90 tab 01/28/21 release (Adult Aspirin Regimen) clopidogrel 75 mg tablet 75 mg PO DAILY #90 tab 01/28/21 isosorbide mononitrate 120 mg 120 mg PO QAM #90 tab 01/28/21 tablet,extended release 24 hr hydrocodone 10 mg-acetaminophen 1 tab PO Q4H PRN #60 tab 02/04/21 325 mg tablet ranolazine 500 mg tablet,extended 1,000 mg PO Q12H #180 tab 02/04/21 release,12 hr alprazolam 0.5 mg tablet 0.5 mg PO BID #30 tab 02/11/21 varenicline 0.5 mg (11)-1 mg (42) See Rx Instructions PO PER PKG DIR 02/11/21 tablets in a dose pack (Chantix #53 each Starting Month Box) Allergies Allergy/AdvReac Type Severity Reaction Status Date / Time gluten Allergy Severe Anaphylaxis Verified 02/15/21 01:57 lactose Allergy Intermediate Swelling Verified 02/15/21 01:57 of Lip/Tongue/Throat Penicillins Allergy Intermediate Rash Verified 02/15/21 01:57 codeine [CODEINE] Allergy Mild RASH Verified 02/15/21 01:57 itching morphine [MORPHINE] Allergy Mild Rash Verified 02/15/21 01:57 egg AdvReac Severe Diarrhea Verified 02/15/21 01:57 Review of Systems Review of Systems Narrative: GENERAL: Denies chills, fatigue, malaise, fever, sweats. HEENT: Denies sinus pain, ear pain, sore throat, difficulty swallowing, dizziness. RESPIRATORY: Denies dyspnea, cough, wheezing, hemoptysis, sputum. CARDIOVASCULAR: See HPI GASTROINTESTINAL: See HPI : Denies dysuria, frequency, incontinence, hematuria, urinary retention. MUSCULOSKELETAL: denies weakness, joint pain, or bony pain SKIN: Denies rash, skin lesions, or other NEUROLOGIC: Denies weakness, headache, numbness, change in speech, confusion, seizures, incoordination. PSYCHIATRIC: No concerning psychosocial issues. 12 point review of systems is negative except for those stated above Patient History Medical History Abdominal pain Acute coronary syndrome Bright red rectal bleeding Bulging of cervical intervertebral disc Cardiac arrest with ventricular fibrillation Chronic anticoagulation Colon polyps Colonic mass Coronary artery disease Depression with anxiety Dilation of bladder Diverticulosis Eczema Elevated liver enzymes Eosinophilic esophagitis Esophageal obstruction Gallstones Live's disease Hemorrhage of surgical anastomosis site of digestive tract Hemorrhoids Hypertension IBS (irritable bowel syndrome) Interstitial cystitis Lumbar pain with radiation down left leg 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 Nicotine addiction NSTEMI (non-ST elevated myocardial infarction) (08/20/20) Shingles Stool fat increased Suicidal thoughts Tobacco abuse Tobacco abuse counseling Well woman exam with routine gynecological exam Surgical History H/O left breast biopsy H/O: hysterectomy History of abdominal surgery History of bilateral tubal ligation Hx of tonsillectomy S/P cervical spinal fusion (2013) S/P surgery on nasal septum Status post right hemicolectomy Family History Father Alcoholism Cancer Lung cancer Mother Age: 72 Lung cancer Diabetes mellitus Hypertension Social History marital status: household members: other occupational status: employed Smoking Status: Current every day smoker alcohol intake: current substance use type: does not use Smoking Status: Current every day smoker tobacco type: cigarettes alcohol intake frequency: a few times a month Substance Use Type: does not use Exam Narrative Exam Narrative: GENERAL: [50] year old patient appears stated age. Well- developed patient, in mild distress. Tearful, anxious, holding an emesis bag HEAD: Atraumatic. Normocephalic. EYES: Pupils equal round and reactive. Extraocular motions intact. No scleral icterus. No injection or drainage. ENT: Nose without bleeding, purulent drainage. Throat without erythema, tonsillar hypertrophy or exudate. Airway patent. NECK: Trachea midline. Non tender CARDIOVASCULAR: Regular rate and rhythm without murmurs, gallops, or rubs. Reproducible anterior chest pain to palpation and deep breath RESPIRATORY: Clear to auscultation. Breath sounds equal bilaterally. No wheezes, rales, or rhonchi. GASTROINTESTINAL: Abdomen soft, non-tender, nondistended. EXTREMITIES: No edema or joint tenderness. BACK: Nontender without deformity or crepitance. No flank tenderness. NEURO: AOx3. SKIN: No rash or erythema of visible areas Initial Vital Signs Initial Vital Signs: Vital Signs Pulse Rate 100 H 02/15/21 01:57 Respiratory Rate 20 02/15/21 01:57 Blood Pressure 153/89 H 02/15/21 01:57 Pulse Oximetry 99 02/15/21 01:57 Course Orders Ordered: ED Orders 02/15/21 01:50 XR chest 1V Stat EKG-12 Lead Stat 02/15/21 01:55 Complete Blood Count AUTO DIFF Stat Comprehensive Metabolic Panel Stat D Dimer Stat Lipase Stat NT-proBNP (BNP-Adult 18+) Stat Partial Thromboplastin Time Stat Prothrombin Time INR Stat Troponin & CK Cardiac Panel Stat 02/15/21 02:00 COVID19 -Nasal swab/Pre-Proc Stat 02/15/21 04:39 Troponin I Stat Sodium Chloride (Normal Saline 0.9%) 1,000 mls @ 150 mls/hr IV CONT SANDRINE Last Admin: 02/15/21 02:12 Dose: 150 mls/hr Documented by: NORI Nitroglycerin (Nitroglycerin 0.4 Mg Sl Tab) 0.4 mg SL [id number] PRN PRN Reason: Chest Pain Discontinued Medications Aspirin (Aspirin 81 Mg Chew Tab) 324 mg PO NOW ONE Stop: 02/15/21 01:50 Last Admin: 02/15/21 02:13 Dose: 324 mg Documented by: NORI Ondansetron HCl (Ondansetron 4 Mg/2 Ml Inj) 4 mg IV NOW ONE Stop: 02/15/21 01:50 Last Admin: 02/15/21 02:12 Dose: 4 mg Documented by: NORI Reevaluation(s) Reevaluation #1: Patient has been pain-free for the duration of her visit Vital Signs Vital signs: Vital Signs - 8 hr 02/15/21 01:57 02/15/21 02:04 02/15/21 02:30 Pulse Rate 100 H 95 H 93 H Respiratory Rate 20 21 22 Blood Pressure 153/89 H 125/79 Pulse Oximetry 99 97 96 02/15/21 03:01 02/15/21 03:30 02/15/21 04:00 Pulse Rate 104 H 91 H 91 H Respiratory Rate 19 16 Blood Pressure Pulse Oximetry 91 96 95 02/15/21 04:02 Pulse Rate 91 H Respiratory Rate 18 Blood Pressure 106/62 Pulse Oximetry MDM - Chest Pain Medical Records Data Medical records narrative: 01/18 patient had STEMI and left heart cath with suggested a multivessel disease which is not amenable to stenting. Also likely proximal dissection of the RCA. She had a few fib arrest after heart catheterization which was thought to be likely related to secondary hypoxemia from respiratory depression and received CPR for 5 minutes she has presented to outside facilities once or twice for similar type pain that improved with nitro and hydrocodone. Lab Data Result diagrams: 02/15/21 01:55 02/15/21 01:55 Labs: Lab Results 02/15/21 02/15/21 02/15/21 Range/Units 01:55 01:55 01:55 WBC 9.3 (4.5-11.0) X10^3/uL RBC 4.36 (4.0-5.2) X10^6/uL Hgb 13.5 (12.0-16.0) g/dL Hct 39.9 (36-46) % MCV 91.5 (80-100) fL MCH 30.9 (26-34) PG MCHC 33.8 (30-36) % RDW 13.5 (11.6-14.8) % Plt Count 301 (150-400) X10^3/uL Neut % (Auto) 54.4 (50-75) % Lymph % (Auto) 30.8 (25-40) % Logan % (Auto) 8.3 (3-14) % Eos % (Auto) 5.6 H (2-4) % Baso % (Auto) 0.9 (0-2) % Neut # (Auto) 5100 (6727-7849) /uL Lymph # (Auto) 2900 (5850-4857) /uL Logan # (Auto) 800 (0-900) /uL Eos # (Auto) 500 H (0-450) /uL Baso # (Auto) 100 (0-100) /uL PT 9.4 L (10.1-12.7) SECONDS INR 0.8 L (0.9-1.3) APTT 31 (26.4-36.2) SECONDS D-Dimer 210 (<230) ng/mL Sodium (137-145) mmol/L Potassium (3.4-5.1) mmol/L Chloride (98-107) mmol/L Carbon Dioxide (22-32) mmol/L BUN (7-17) mg/dL Creatinine (0.52-1.04) mg/dL Estimated GFR (>60) mL/min BUN/Creatinine Ratio (6-22) Glucose (70-100) mg/dL Calcium (8.4-10.2) mg/dL Total Bilirubin (0.2-1.3) mg/dL AST (14-36) IU/L ALT (<35) IU/L Alkaline Phosphatase (38-126) U/L Total Creatine Kinase (30-135) U/L CK-MB (CK-2) CK-MB (CK-2) Rel Index Troponin I (0.01-0.034) ng/mL NT-Pro-B Natriuret Pep 141 H (<125) pg/mL Total Protein (6.3-8.2) g/dL Albumin (3.5-5.0) g/dL Globulin (1.7-4.1) g/dL Albumin/Globulin Ratio (1.0-2.8) Lipase (23-300) U/L SARS-CoV-2 (PCR) (Negative) 02/15/21 02/15/21 02/15/21 Range/Units 01:55 02:00 04:39 WBC (4.5-11.0) X10^3/uL RBC (4.0-5.2) X10^6/uL Hgb (12.0-16.0) g/dL Hct (36-46) % MCV (80-100) fL MCH (26-34) PG MCHC (30-36) % RDW (11.6-14.8) % Plt Count (150-400) X10^3/uL Neut % (Auto) (50-75) % Lymph % (Auto) (25-40) % Logan % (Auto) (3-14) % Eos % (Auto) (2-4) % Baso % (Auto) (0-2) % Neut # (Auto) (1199-9591) /uL Lymph # (Auto) (7548-4051) /uL Logan # (Auto) (0-900) /uL Eos # (Auto) (0-450) /uL Baso # (Auto) (0-100) /uL PT (10.1-12.7) SECONDS INR (0.9-1.3) APTT (26.4-36.2) SECONDS D-Dimer (<230) ng/mL Sodium 143 (137-145) mmol/L Potassium 3.5 (3.4-5.1) mmol/L Chloride 111 H (98-107) mmol/L Carbon Dioxide 25 (22-32) mmol/L BUN 10 (7-17) mg/dL Creatinine 0.75 (0.52-1.04) mg/dL Estimated GFR > 60.0 (>60) mL/min BUN/Creatinine Ratio 13.3 (6-22) Glucose 125 H (70-100) mg/dL Calcium 9.8 (8.4-10.2) mg/dL Total Bilirubin 0.3 (0.2-1.3) mg/dL AST 29 (14-36) IU/L ALT 25 (<35) IU/L Alkaline Phosphatase 104 (38-126) U/L Total Creatine Kinase 66 (30-135) U/L CK-MB (CK-2) TNP CK-MB (CK-2) Rel Index TNP Troponin I < 0.012 < 0.012 (0.01-0.034) ng/mL NT-Pro-B Natriuret Pep (<125) pg/mL Total Protein 7.6 (6.3-8.2) g/dL Albumin 4.3 (3.5-5.0) g/dL Globulin 3.3 (1.7-4.1) g/dL Albumin/Globulin Ratio 1.3 (1.0-2.8) Lipase 105 (23-300) U/L SARS-CoV-2 (PCR) Negative (Negative) ECG Data Interpretation: EKG is normal sinus rhythm rate [ 95] and free of any signs of ischemia or ectopy. No ST segmental elevation or depression. No T wave inversions MDM Narrative Medical decision making narrative: Patient had a squeezing type chest pressure that was resolved with nitro. She has had a sharp and stabbing pleuritic type chest pain off and on since her CPR. There is still some element of this reproducible sharp and stabbing pain but, as stated this seems much more likely to be musculoskeletal in nature. She has had nonocclusive EKG, troponin x2 which are negative. I discussed with on-call Cardiology we sure the opinion that she is already maximally medically treated and likely has a multifactorial component to her chest pain. There is no need for admission and stress test as we know with the result would be. Patient understands all of this and would prefer to go home. She has been given return precautions does had questions answered to her apparent satisfaction Discharge Plan Departure Patient Disposition: Home Clinical Impression: Chest pain Qualifiers: Chest pain type: unspecified Qualified Code(s): R07.9 - Chest pain, unspecified Instructions: DI for Angina, DI for Atypical Chest Pain Activity Restrictions/Additional Instructions: *You have been diagnosed with [chest pain. Your EKGs show no sign of heart attack and blood work is very reassuring. As we discussed it seems that he likely had some chest pain improved by nitro and the residual pain is most likely musculoskeletal.] *What to do: *Please continue to take your regular medications as directed. [ ] New medication prescriptions sent to your pharmacy: [ ] [ ] New medication written as a paper prescription [x ] No new medications given *Please follow up with your primary care provider in 2-3 days, call for an appointment. Let them know you were seen in the Emergency Department and that we ask that you be seen in follow up. We will electronically transmit a record of today's note if your PCP is in our system *If you do not have a primary care provider please contact the [facility] Resource line at [phone]. They will ask some questions about your medical history and help get you set up with a doctor in the community. *Return to Emergency Department if you should have any new, worsening or concerning symptoms, such as [fever greater than 101 F, shaking chills, worsening pain, persistent vomiting or other bothersome symptoms] Prescriptions: No Action nitroglycerin 0.4 mg tablet, sublingual 0.4 mg sublingual Q5M PRN (Reason: chest pain) Qty: 30 RF: 2 atorvastatin [Lipitor] 20 mg tablet 20 mg PO BEDTIME Qty: 90 RF: 3 lisinopril 2.5 mg tablet 1.25 mg PO DAILY Qty: 45 RF: 3 metoprolol succinate 25 mg tablet extended release 24 hr 12.5 mg PO DAILY Qty: 45 RF: 3 venlafaxine 150 mg capsule,extended release 24hr 150 mg PO BEDTIME Qty: 90 RF: 3 ondansetron HCl [Zofran] 4 mg tablet 4 mg PO Q8H Qty: 30 RF: 1 gabapentin 300 mg capsule 300 mg PO Q8H Qty: 90 RF: 1 hydrocodone-acetaminophen 10-325 mg tablet 1 tab PO Q4H PRN (Reason: pain) Qty: 60 RF: 0 ranolazine 500 mg tablet extended release 12 hr 1,000 mg PO Q12H Qty: 180 RF: 3 clopidogrel 75 mg tablet 75 mg PO DAILY Qty: 90 RF: 3 isosorbide mononitrate 120 mg tablet extended release 24 hr 120 mg PO QAM Qty: 90 RF: 3 aspirin [Adult Aspirin Regimen] 81 mg tablet,delayed release (DR/EC) 81 mg PO DAILY Qty: 90 RF: 3 trazodone 50 mg tablet 100 mg PO BEDTIME Qty: 180 RF: 3 levothyroxine 50 mcg tablet 50 mcg PO DAILY Qty: 90 RF: 1 alprazolam 0.5 mg tablet 0.5 mg PO BID Qty: 30 RF: 1 Chantix Starting Month Box 0.5 mg (11)- 1 mg (42) tablets,dose pack See Rx Instructions PO PER PKG DIR Qty: 53 RF: 0 Referrals: Destiny Mckeon ARNP [Primary Care Provider] - Nikhil Hummel MD [Physician] -
[2021-02-15 02:06] LABS: Add Manual Diff / Slide Review NO; Basophils Absolute Auto 100 /uL (0-100); Basophils Percent Auto 0.9 % (0-2); Eosinophils Absolute Auto 500 /uL (0-450); Eosinophils Percent Auto 5.6 % (2-4); Hematocrit 39.9 % (36-46); Hemoglobin 13.5 g/dL (12.0-16.0); Lymphocytes Absolute Auto 2900 /uL (1100-4500); Lymphocytes Percent Auto 30.8 % (25-40); Mean Corpuscular HGB Conc 33.8 % (30-36); Mean Corpuscular Hemoglobin 30.9 PG (26-34); Mean Corpuscular Volume 91.5 fL (80-100); Monocytes Absolute Auto 800 /uL (0-900); Monocytes Percent Auto 8.3 % (3-14); Neutrophils Absolute Auto 5100 /uL (1500-7000); Neutrophils Percent Auto 54.4 % (50-75); Platelet Count 301 X10^3/uL (150-400); Red Blood Cell Count 4.36 X10^6/uL (4.0-5.2); Red Cell Distribution Width 13.5 % (11.6-14.8); White Blood Cell Count 9.3 X10^3/uL (4.5-11.0)
[2021-02-15] MEDS: SODIUM CHLORIDE 0.9% 1,000 ML 150 ML IV (02:12)
[2021-02-15] MEDS: ONDANSETRON 4 MG/2 ML INJ IV (02:12)
[2021-02-15] MEDS: ASPIRIN 81 MG CHEW TAB 324 MG PO (02:13)
[2021-02-15 02:15] LABS: INR 0.8 (0.9-1.3); Prothrombin Time 9.4 SECONDS (10.1-12.7)
[2021-02-15 02:18] LABS: D Dimer 210 ng/mL (<230); PTT Partial Thromboplastin Tim 31 SECONDS (26.4-36.2)
[2021-02-15 02:19] LABS: Alanine Aminotransferase 25 IU/L (<35); Albumin 4.3 g/dL (3.5-5.0); Albumin Globulin Ratio 1.3 (1.0-2.8); Alkaline Phosphatase 104 U/L (38-126); Aspartate Aminotransferase 29 IU/L (14-36); BUN Creatinine Ratio 13.3 (6-22); Bilirubin Total 0.3 mg/dL (0.2-1.3); Blood Urea Nitrogen 10 mg/dL (7-17); Calcium 9.8 mg/dL (8.4-10.2); Carbon Dioxide 25 mmol/L (22-32); Chloride 111 mmol/L (98-107); Creatine Kinase 66 U/L (30-135); Estimated Glomerular Filt Rate > 60.0 mL/min (>60); Globulin 3.3 g/dL (1.7-4.1); Glucose 125 mg/dL (70-100); HEMOLYSIS 19 (0-50); Lipase 105 U/L (23-300); Potassium 3.5 mmol/L (3.4-5.1); Sodium 143 mmol/L (137-145); Total Protein 7.6 g/dL (6.3-8.2)
[2021-02-15 02:28] LABS: NT-proBNP (BNP-Adult 18+) 141 pg/mL (<125)
[2021-02-15 02:31] LABS: Troponin I < 0.012 ng/mL (0.01-0.034)
[2021-02-15 02:43] LABS: COVID19 -Nasal RAPID Negative (Negative)
[2021-02-15 05:15] LABS: Troponin I < 0.012 ng/mL (0.01-0.034)
--- OUTSIDE RECORDS SUMMARY | 2021-02-18 08:42 | XMS_ITS | Referral Summary ---
:1970 Author Organization [facility] Address [address] [place] [address] Care Team Providers Name Role Phone MikeJENNIFER Primary Care Provider Reason for Referral Hospital - Outpatient (Routine) Status Reason Specialty Diagnoses / Referred By Referred To Procedures Contact Contact Closed Cardiac Rehabilitation Diagnoses [facility] [address] [place] [address] [address] [facility] [phone] [place], [place] Phone: [phone] Electronically signed by Nikhil Hummel MD at Reason for Visit Reason Comments Chest Pain Encounter Details Date Type Department Care Team Description 02/02/2021 Office Visit [facility] ASHD (ольга riosclerotic heart disease) (Primary Dx); Clinics Cardiology MD Cuca Stable angina ([facility]/HCC); [address] Essential hypertension; [facility] [address] Smoker; D [place], [place] Hyperlipidemia, unspecified hyperlipidemia type; [place] [address] History of ID (myocardial infarction) [id number] Allergies Active Allergy Reactions Severity Noted Date Comments Egg Diarrhea 01/06/2021 Gluten Anaphylaxis High 01/06/2021 Lactose Swelling High 01/06/2021 Lip, tongue and throat Morphine Itching High 01/27/2018 Other reaction( s): Adverse Drug Reaction Penicillins Hives, Itching, Rash High 01/27/2018 documented as of this encounter (statuses as of 02/17/2021) Medications Medication Sig Dispensed Refills Start Date End Date Status nitroglycerin DISSOLVE ONE 0 08/16/2019 Ac tive (NITROSTAT) 0.4 mg TABLET UNDER SL tablet THE TONGUE EVERY 5 MINUTES NEEDED FOR CHEST PAIN. DO NOT EXCEED A TOTAL OF 3 DOSES PER EPISODE. TAKE FOR CHEST venlafaxine XR Take 150 mg by 0 10/08/2020 Active (EFFEXOR-XR) 150 mouth daily mg 24 hr capsule traZODone Take 1 tablet 0 10/08/2020 Activ e (DESYREL) 50 mg by mouth tablet nightly gabapentin Take 300 mg by 0 Acti ve (NEURONTIN) 300 mg mouth nightly capsule aspirin 81 mg Take 1 tablet 30 tablet 0 01/22/2021 02/22/20 A ctive chewable tablet (81 mg total) 21 by mouth daily varenicline Use as 53 tablet 0 01/21/2021 04/21/20 Active (CHANTIX CHELI) 0.5 directed on 21 mg (11)- 1 mg (42) package tablet instructions, try to quit smoking after 1 week. HYDROcodone-acetam Take 1 tablet 0 01/28/2021 Active inophen (NORCO) by mouth every 7.5-325 mg 4 (four) hours as needed for pain ranolazine Take 1 tablet 60 tablet 11 02/02/2021 02/03/20 Acti ve (RANEXA) 1,000 mg (1,000 mg 22 12 hr tablet total) by mouth 2 (two) times a day lidocaine Apply 1 patch 30 patch 0 02/02/2021 03/04/20 Activ e (LIDODERM) 5 % topically 21 patch daily Apply to painful area 12 hours per day, remove for 12 hours. isosorbide Take 1 tablet 90 tablet 3 02/02/2021 02/03/20 Acti ve mononitrate (120 mg total) 22 (IMDUR) 120 mg 24 by mouth daily hr tablet lisinopriL Take 0.5 45 tablet 3 02/02/2021 02/03/20 Active (PRINIVIL) 2.5 mg tablets (1.25 22 tablet mg total) by mouth nightly metoprolol Take 1 tablet 180 tablet 3 02/02/2021 02/03/20 Act lisandro succinate XL (25 mg total) 22 (TOPROL-XL) 25 mg by mouth 2 24 hr tablet (two) times a day amLODIPine Take 1 tablet 90 tablet 3 02/02/2021 02/03/20 Acti ve (NORVASC) 5 mg (5 mg total) 22 tablet by mouth daily atorvastatin Take 1 tablet 90 tablet 3 02/02/2021 02/03/20 Ac tive (LIPITOR) 20 mg (20 mg total) 22 tablet by mouth nightly clopidogreL Take 1 tablet 90 tablet 3 02/02/2021 02/03/20 Act lisandro (PLAVIX) 75 mg (75 mg total) 22 tablet by mouth daily atorvastatin Take 1 tablet 90 tablet 3 01/14/2021 02/03/20 Di scontinued (LIPITOR) 20 mg (20 mg total) 21 (Reorder) tablet by mouth nightly clopidogreL Take 1 tablet 30 tablet 0 01/22/2021 02/03/20 Dis continued (PLAVIX) 75 mg (75 mg total) 21 ( Reorder) tablet by mouth daily metoprolol Take 1 tablet 60 tablet 0 01/25/2021 02/03/20 Disc ontinued succinate XL (25 mg total) 21 (Re order) (TOPROL-XL) 25 mg by mouth 2 24 hr tablet (two) times a day lisinopriL Take 0.5 15 tablet 0 01/25/2021 02/03/20 Disconti nued (PRINIVIL) 2.5 mg tablets (1.25 21 (Reorder) tablet mg total) by mouth nightly isosorbide Take 1 tablet 30 tablet 0 01/26/2021 02/03/20 Disc ontinued mononitrate (120 mg total) 21 (Re order) (IMDUR) 120 mg 24 by mouth daily hr tablet amLODIPine Take 1 tablet 30 tablet 0 01/26/2021 02/03/20 Disc ontinued (NORVASC) 5 mg (5 mg total) 21 (R eorder) tablet by mouth daily ranolazine Take 1 tablet 60 tablet 0 01/25/2021 02/03/20 Disc ontinued (RANEXA) 500 mg 12 (500 mg total) 21 (Reorder) hr tablet by mouth 2 (two) times a day documented as of this encounter (statuses as of 02/17/2021) Active Problems Problem Noted Date NSTEMI (non-ST elevated myocardial infarction) 021 ST elevation (STEMI) myocardial infarction involving l eft anterior 01/13/2021 descending coronary artery Coronary artery disease involving [place] coronary ольга ry 01/13/2021 Essential hypertension 09/02/2019 documented as of this encounter (statuses as of 02/17/2021) Immunizations Name Administration Dates Next Due FLU PF 6+Mos Quad (Fluzone, FluLaval, 03/10/2020, 06/19/2019 , 04/04/2018 Fluarix) Hep A, Adult (Havrix, Vaqta) 06/27/2006 IPV (IPOL) 06/27/2006 Influenza, Quadrivalent 05/02/2013, 06/21/2012, 05/16/2011 Moderna SARS-CoV-2 Vaccine 08/30/2020, 08/02/2020 Tdap (Boostrix,Adacel) 06/20/2019 documented as of this encounter Social History Tobacco Use Types Packs/Day Years Used Date Current Every Day Smoker 0.5 30 Smokeless Tobacco: Never Used Alcohol Use Standard Drinks/Week Comments Never 0 (1 standard drink = 0.6 oz pure alcoho l) Alcohol Habits Answer Date Recorded How often do you have a drink containing alcohol? Never 09/10/2019 How many drinks containing alcohol do you have on a typical Not asked day when you are drinking? How often do you have six or more drinks on one occasion? No t asked Sex Assigned at Date Recorded Not on file Job Start Date Occupation Industry Not on file Not on file Not on file COVID-19 Exposure Response Date Recorded In the last month, have you been in contact with No / Unsure 01/23/2021 5:25 AM PDT someone who was confirmed or suspected to have Coronavirus / COVID-19? documented as of this encounter Last Filed Vital Signs Vital Sign Reading Time Taken Comments Blood Pressure 94/62 02/02/2021 2:44 PM PDT Pulse 100 02/02/2021 2:44 PM PDT Temperature - - Respiratory Rate - - Oxygen Saturation - - Inhaled Oxygen Concentration - - Weight 63 kg (139 lb) 02/02/2021 2:44 PM PDT Height 167.6 cm (5' 5.98) 02/02/2021 2:44 PM PDT Body Mass Index 22.45 02/02/2021 2:44 PM PDT documented in this encounter Patient Instructions Patient InstructionsNikhil Hummel MD - 02/02/2021 2:40 PM PDT 1) Increase ranexa to 1000mg twice daily 2) Use lidocaine patch for 12 hrs daily. 3) Try voltaren cream/gel when you are not using lidocaine patch. documented in this encounter Progress Notes Nikhil Hummel MD - 02/02/2021 2:40 PM PDT Subjective Patient ID: Cecy Fields is a 50 y.o. female that presents today for had concerns including Chest Pain. HPI: 50 yo W h/o CAD, HTN, and smoking here for F/U on her CAD. Patient is here by herself. Since her discharge from the hospital earlier this month, she has done well from angina standpoint. She onlyhad one episode of angina that resolved with nitro SL X3. Her bigger concern is chest wall pain from CPR 01/18/2021. She also reports dyspnea with her chest wall pain. She has lightheadedness occasionally. Denies heart racing sensations and syncope. PROBLEM LIST: #??CAD mid-distal LAD severe stenosis as noted on cath 01/18/2021 that is not amenable to PCI or CABG # Post cath VF arrest 01/18/2021 # HTN # Smoker Past Medical History: Diagnosis Date ??? Coronary artery disease ??? Hypertension Past Surgical History: Procedure Laterality Date ??? BLADDER SURGERY 2010 hydrodistension, Dr Dobson Family History Problem Relation Age of Onset ??? Lung cancer Mother ??? Hypertension Mother ??? Cancer Mother ??? Hypertension Father Social History Socioeconomic History ??? Marital status: Legally Spouse name: Not on file ??? Number of children: Not on file ??? Years of education: Not on file ??? Highest education level: Not on file Tobacco Use ??? Smoking status: Current Every Day Smoker Packs/day: 0.50 Years: 30.00 Pack years: 15.00 ??? Smokeless tobacco: Never Used Substance and Sexual Activity ??? Alcohol use: Never ??? Drug use: Never Allergies Allergen Reactions ??? Gluten Anaphylaxis ??? Lactose Swelling Lip, tongue and throat ??? Morphine Itching Other reaction(s): Adverse Drug Reaction ??? Penicillins Hives, Itching and Rash ??? Egg Diarrhea Current Medication List Sig amLODIPine (NORVASC) 5 mg tablet Take 1 tablet (5 mg total) by mouth daily aspirin 81 mg chewable tablet Take 1 tablet (81 mg total) by mouth daily atorvastatin (LIPITOR) 20 mg tablet Take 1 tablet (20 mg total) by mouth nightly clopidogreL (PLAVIX) 75 mg tablet Take 1 tablet (75 mg total) by mouth daily gabapentin (NEURONTIN) 300 mg capsule Take 300 mg by mouth nightly HYDROcodone-acetaminophen (NORCO) 7.5-325 mg Take 1 tablet by mouth every 4 (four) hours as needed for pain isosorbide mononitrate (IMDUR) 120 mg 24 hr tablet Take 1 tablet (120 mg total) by mouth daily lisinopriL (PRINIVIL) 2.5 mg tablet Take 0.5 tablets (1.25 mg total) by mouth nightly metoprolol succinate XL (TOPROL-XL) 25 mg 24 hr tablet Take 1 tablet (25 mg total) by mouth 2 (two)times a day nitroglycerin (NITROSTAT) 0.4 mg SL tablet DISSOLVE ONE TABLET UNDER THE TONGUE EVERY 5 MINUTES NEEDED FOR CHEST PAIN. DO NOT EXCEED A TOTAL OF 3 DOSES PER EPISODE. TAKE FOR CHEST ranolazine (RANEXA) 1,000 mg 12 hr tablet Take 1 tablet (1,000 mg total) by mouth 2 (two) times a day traZODone (DESYREL) 50 mg tablet Take 1 tablet by mouth nightly varenicline (CHANTIX CHELI) 0.5 mg (11)- 1 mg (42) tablet Use as directed on package instructions, try to quit smoking after 1 week. venlafaxine XR (EFFEXOR-XR) 150 mg 24 hr capsule Take 150 mg by mouth daily amLODIPine (NORVASC) 5 mg tablet (Discontinued) Take 1 tablet (5 mg total) by mouth daily atorvastatin (LIPITOR) 20 mg tablet (Discontinued) Take 1 tablet (20 mg total) by mouth nightly clopidogreL (PLAVIX) 75 mg tablet (Discontinued) Take 1 tablet (75 mg total) by mouth daily isosorbide mononitrate (IMDUR) 120 mg 24 hr tablet (Discontinued) Take 1 tablet (120 mg total) by mouth daily lisinopriL (PRINIVIL) 2.5 mg tablet (Discontinued) Take 0.5 tablets (1.25 mg total) by mouth nightly metoprolol succinate XL (TOPROL-XL) 25 mg 24 hr tablet (Discontinued) Take 1 tablet (25 mg total) by mouth 2 (two) times a day ranolazine (RANEXA) 500 mg 12 hr tablet (Discontinued) Take 1 tablet (500 mg total) by mouth 2 (two) times a day lidocaine (LIDODERM) 5 % patch Apply 1 patch topically daily Apply to painful area 12 hours per day, remove for 12 hours. Review of Systems Constitutional: Negative for fatigue and unexpected weight change. Eyes: Negative for visual disturbance. Respiratory: Negative for shortness of breath. Cardiovascular: Positive for chest pain. Negative for palpitations and leg swelling. Gastrointestinal: Negative for blood in stool. Endocrine: Negative for polydipsia. Genitourinary: Negative for hematuria. Skin: Negative for rash. Neurological: Positive for dizziness and light-headedness. Negative for weakness. Hematological: Does not bruise/bleed easily. Psychiatric/Behavioral: The patient is not nervous/anxious. Objective BP 94/62 (BP Location: Left arm, Patient Position: Sitting) Pulse 100 Ht 1.676 m Wt 63 kg BMI 22.45 kg/m?? Physical Exam: General appearance: No apparent distress, well-nourished, pleasant, cooperative HEET: Normocephalic atraumatic, no scleral icterus, tongue midline, mucous membranes moist Neck: supple Cardiovascular: RRR, normal S1 and normal S2, no murmurs/ rubs/gallops, PMI nondisplaced, no JVD, noperipheral edema Respiratory: Good aeration, CTAB Abdomen: Soft, + epigastric tenderness to palpitations, nondistended, + bowel sounds Neuro: Alert, no facial droop, tongue midline, no gross motor deficits Psych: appropriate affect Skin: no rashes on face, neck, and lower extremities Coronary Angiography 01/18/2021?Very small mid to distal LAD with severe narrowing and almost subtotal around the apex without any improvement in diameter after 100 mcg of intracoronary nitroglycerininjection. ??Occluded proximal RCA which is a nondominant vessel with likely has thrombus.??Our inter ventional buffer copper Dr. Toney reviewed left heart catheterization images and compared with the previous left heart catheterization images of August 2020. ??As LAD has severe diffuse disease and smallvessel and RCA which is nondominant and not supplying much of the inferior wall, not a suitable candidate for percutaneous intervention. ??He recommended medical management. ?? Echo 01/18/2021??The left ventricle is normal in size and wall thickness. The ejection fraction is estimated to be 50-55%.There is a severe hypokinesis of the apex, distal septum, mid anterior septum, distal inferior wall and distal anterior wall. ECG 08/15/2019 sinus rhythm Labs 08/29/2019: sodium 143, potassium 4.0, chloride 105, CO2 25, BUN 10, creatinine 0.60, Mg+ 2.3, WBC 10.2, Hgb 15.6, Hct 46.7, Plt 296 Labs 07/22/2019: TC 166, TG 247, HDL 33, LDL 84 Assessment/Plan Comments: 1. ASHD (arteriosclerotic heart disease) Basic metabolic panel, Complete blood count, Lipid panel 2. Stable angina (CMS/HCC) 3. Essential hypertension 4. Smoker 5. Hyperlipidemia, unspecified hyperlipidemia type 6. History of ID (myocardial infarction) XTRNL Referral to Cardiac Rehabilitation #??CAD mid-distal LAD severe stenosis as noted on cath 01/18/2021 that is not amenable to PCI or CABG. Angina management has improved significantly with medical management, except for one breakthrough angina that resolved with nitro SL. LVEF 50-55% on Echo 01/18/2021. Plan: - Continue aspirin 81 mg daily - Continue clopidogrel 75 mg - Continue atorvastatin 20 mg nightly - Continue metoprolol XL 25mg bid - Continue lisinopril 1.25 mg qhs - Continue amlodipine 5mg daily -??Continue??imdur 120??mg daily?? - Increase ranexa from 500mg bid to 1000mg bid - Referral to cardiac rehab # Chest wall pain: - Lidocaine patch ?? # Smoker: patient is working on smoking cessation. F/U in 3 months with labs. Meds refilled. Electronically signed by Nikhil Hummel MD 02/02/2021 3:20 PM documented in this encounter Plan of Treatment Scheduled Orders Name Type Priority Associated Diagnoses Order S chedule Basic metabolic panel Lab Routine ASHD (arteriosclero tic Expected: 05/05/2021, heart disease) Expires: 07/10 Complete blood count Lab Routine ASHD (arteriosclerot ic Expected: 05/05/2021, heart disease) Expires: 07/10 Lipid panel Lab Routine ASHD (arteriosclerotic Expec tomás: 05/05/2021, heart disease) Expires: 07/10 Scheduled Referrals Name Type Priority Associated Order Schedule Diagnoses XTRNL Referral to Outpatient Referral Routine History of ID Or dered: Cardiac Rehabilitation (myocardial 02/02 infarction) documented as of this encounter Visit Diagnoses Diagnosis ASHD (arteriosclerotic heart disease) - Primary Coronary atherosclerosis of unspecified type of vessel, [place] or graft Stable angina (CMS/HCC) Other and unspecified angina pectoris Essential hypertension Unspecified essential hypertension Smoker Tobacco use disorder Hyperlipidemia, unspecified hyperlipidem ia type History of ID (myocardial infarction) Old myocardial infarction documented in this encounter documented as of this encounter Advance Directives Documents on File Type Date 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
== END 2021-02-15 06:07 | disposition home or self-care (01) ==
PROVIDERS: Emergency Provider Emergency Medicine; PCP Nurse Practitioner
DX: R07.9 Chest pain, unspecified (principal); Z20.822 Contact with and (suspected) exposure to COVID-19
CPT/HCPCS: 36415; 71045; 80053; 82550; 83690; 83880; 84484; 85025; 85379; 85610; 85730; 87635; 93005; 96361; 96374; 99284; C9803; J2405

== ENCOUNTER → 2021-07-25 11:02 | Outpatient (CLI) | payer OTHER, MEDICAID, SELFPAY ==
[2021-01-11 15:00] VITALS: BMI 23.1
[2021-07-25 12:43] LABS: COVID19 -Nasal RAPID POSITIVE (Negative)
== END ==
PROVIDERS: PCP Nurse Practitioner; Visit Provider Nurse Practitioner Family
DX: U07.1 COVID-19 (principal); Z20.822 Contact with and (suspected) exposure to COVID-19
CPT/HCPCS: 87635

== ENCOUNTER 2021-08-29 11:19 | Emergency (ER) | payer OTHER, MEDICAID, SELFPAY ==
[2021-01-11 15:00] VITALS: BMI 23.1
[2021-08-29 11:20] VITALS: BP 109/79; PULSE 105; RESP 16; TEMP 36.9; O2SAT 99; BMI 22.6
--- NOTE | 2021-08-29 11:29 | DI.RAD.S_ITS ---
PROCEDURE: XR CHEST 1V INDICATIONS: chest pain TECHNIQUE: One view of the chest was acquired. COMPARISON: [facility], CR, XR CHEST 1 VIEW, 05/15/2021, 18:44. [facility], CR, XR CHEST 1V, 02/15/2021, 1:53. FINDINGS: Surgical changes and devices: There is a cardiac pacemaker. Surgical clips in the right breast. Lungs and pleura: Lungs are clear. No pleural effusions or pneumothorax. Mediastinum: Mediastinal contours appear normal. Heart size is normal. Bones and chest wall: No suspicious bony lesions. Overlying soft tissues appear unremarkable. IMPRESSION: No acute cardiopulmonary disease. Dictated by: Jarocho Barbosa M.D. on 08/29/2021 at 12:00 Approved by: Jarocho Barbosa M.D. on 08/29/2021 at 12:02
--- NOTE | 2021-08-29 11:46 | ED.CHESTPAIN ---
HPI - Chest Pain General Chief Complaint: Chest Pain Stated Complaint: Swelling in chest/shoulder, Defib put in 90daysago Time Seen by Provider: 08/29/21 11:28 Source: patient Mode of arrival: Ambulatory Limitations: no limitations History of Present Illness HPI narrative: Patient is a 50-year-old female significant history of prior cardiac arrest another cardiovascular pathology. Three months ago had a defibrillator placed when she was living in [place]. She states that since that time she has had discomfort in her chest. Now over the past couple days she has noticed swelling in her right upper chest that is tender to palpation. No new injuries. She is having chest discomfort. No lower extremity swelling. She is taking her medications as directed. No fevers. She was concerned that it was fluid in her right shoulder were causing the presenting symptoms. Related Data Home Medications Medication Instructions Recorded Confirmed amlodipine 10 mg tablet 10 mg PO DAILY 08/18/21 08/18/21 clonazepam 0.5 mg tablet 0.5 mg PO BID 08/18/21 08/18/21 gabapentin 300 mg capsule 300 mg PO BEDTIME cap 08/18/21 08/18/21 hydrocodone 10 mg-acetaminophen 1 tab PO Q6H PRN tab 08/18/21 08/18/21 325 mg tablet ranolazine 500 mg tablet,extended 500 mg PO Q12H tab 08/18/21 08/18/21 release,12 hr Previous Rx's Medication Instructions Recorded levothyroxine 50 mcg tablet 50 mcg PO DAILY #90 tab 10/28/20 nitroglycerin 0.4 mg sublingual 0.4 mg SUBLINGUAL Q5M PRN #30 tab 01/14/21 tablet aspirin 81 mg tablet,delayed 81 mg PO DAILY #90 tab 01/28/21 release (Adult Aspirin Regimen) isosorbide mononitrate 120 mg 120 mg PO QAM #90 tab 01/28/21 tablet,extended release 24 hr dicyclomine 10 mg capsule 10 mg PO TID #60 cap 08/18/21 hydroxyzine HCl 10 mg tablet 10 mg PO Q8H PRN #60 tab 08/18/21 metoprolol succinate 50 mg 50 mg PO BID #60 tab 08/18/21 tablet,extended release 24 hr ondansetron HCl 4 mg tablet 4 mg PO Q8H #30 tab 08/18/21 rosuvastatin 40 mg tablet 40 mg PO DAILY #30 tab 08/18/21 trazodone 50 mg tablet 100 mg PO BEDTIME #180 tab 08/18/21 venlafaxine 150 mg 150 mg PO BEDTIME #90 cap 08/18/21 capsule,extended release 24 hr hydrocodone 5 mg-acetaminophen 325 1 tab PO Q8H PRN #6 tab 08/29/21 mg tablet Allergies Allergy/AdvReac Type Severity Reaction Status Date / Time gluten Allergy Severe Anaphylaxis Verified 08/18/21 09:58 lactose Allergy Intermediate Swelling Verified 08/18/21 09:58 of Lip/Tongue/Throat Penicillins Allergy Intermediate Rash Verified 08/18/21 09:58 codeine [CODEINE] Allergy Mild RASH Verified 08/18/21 09:58 itching morphine [MORPHINE] Allergy Mild Rash Verified 08/18/21 09:58 egg AdvReac Severe Diarrhea Verified 08/18/21 09:58 Review of Systems Constitutional Constitutional: Denies fever(s) and Denies headache(s) ENT Ears, Nose, Mouth, and Throat: Denies headache(s) Cardiovascular Cardiovascular: Reports as per HPI and Reports system reviewed and no additional complaints, except as documented Respiratory Respiratory: Reports as per HPI and Reports system reviewed and no additional complaints, except as documented Gastrointestinal Gastrointestinal: Denies abdominal pain Musculoskeletal Musculoskeletal: Reports system reviewed and no additional complaints, except as documented and Reports as per HPI Integumentary/Breasts Skin/Breast: Reports system reviewed and no additional complaints, except as documented Neurologic Neurologic: Denies headache(s) Hematologic/Lymphatic On Anticoagulants: No Allergic/Immunologic Allergic/Immunologic: Reports system reviewed and no additional complaints, except as documented Patient History Medical History Abdominal pain Acute coronary syndrome Bright red rectal bleeding Bulging of cervical intervertebral disc Cardiac arrest with ventricular fibrillation Cardiomyopathy Chronic anticoagulation Colon polyps Colonic mass Coronary artery disease Depression with anxiety Dilation of bladder Diverticulosis Eczema Elevated liver enzymes Eosinophilic esophagitis Esophageal obstruction Gallstones Live's disease Hemorrhage of surgical anastomosis site of digestive tract Hemorrhoids History of heart attack Hypertension IBS (irritable bowel syndrome) Interstitial cystitis Lumbar pain with radiation down left leg 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 Nicotine addiction NSTEMI (non-ST elevated myocardial infarction) (08/20/20) Shingles Stool fat increased Suicidal thoughts Tobacco abuse Tobacco abuse counseling Well woman exam with routine gynecological exam Surgical History H/O left breast biopsy H/O: hysterectomy History of abdominal surgery History of bilateral tubal ligation Hx of tonsillectomy S/P cervical spinal fusion (2013) S/P surgery on nasal septum Status post right hemicolectomy Family History Father Alcoholism Cancer Lung cancer Mother Age: 72 Lung cancer Diabetes mellitus Hypertension Social History marital status: household members: other occupational status: employed Smoking Status: Current every day smoker alcohol intake: current substance use type: does not use Smoking Status: Current every day smoker tobacco type: cigarettes alcohol intake frequency: a few times a month Substance Use Type: does not use Exam Initial Vital Signs Initial Vital Signs: Vital Signs Temperature 98.4 F 08/29/21 11:20 Pulse Rate 105 H 08/29/21 11:20 Respiratory Rate 16 08/29/21 11:20 Blood Pressure 109/79 08/29/21 11:20 Pulse Oximetry 99 08/29/21 11:20 HENMT Head: normal to inspection and normocephalic Neck Other: Compared to the left side patient does have fullness and swelling in the supraclavicular region of the right shoulder. Chest Other: Defibrillator located left upper chest. Resp Effort & Inspection: normal respiratory effort Auscultation: clear to auscultation bilaterally Cardio Rate: regular rate Rhythm: regular rhythm GI Inspection: normal to inspection Skin General: no rashes or lesions noted Neuro General: patient alert, patient awake and moves all extremities Extrem General: normal to inspection, capillary refill normal and No edema Psych Appearance: grossly normal and well kempt Course Orders Ordered: ED Orders 08/29/21 11:25 Complete Blood Count AUTO DIFF Stat Comprehensive Metabolic Panel Stat Lipase Stat NT-proBNP (BNP-Adult 18+) Stat Troponin & CK Cardiac Panel Stat 08/29/21 11:26 EKG-12 Lead Stat 08/29/21 11:29 XR chest 1V Stat 08/29/21 11:49 CT chest w con Stat Discontinued Medications Hydrocodone Bitart/Acetaminophen (Hydrocodone/Acet 5/325 Tablet) 1 tab PO NOW ONE Stop: 08/29/21 13:27 Last Admin: 08/29/21 13:31 Dose: 1 tab Documented by: MARQUEZ Sodium Chloride (Normal Saline 0.9%) 1,000 mls @ 500 mls/hr IV BOLUS ONE Stop: 08/29/21 13:48 Last Infusion: 08/29/21 13:32 Dose: 0 mls/hr Documented by: Admin: 08/29/21 12:02 Dose: 500 mls/hr Documented by: DEENA Vital Signs Vital signs: Vital Signs - 8 hr 08/29/21 11:20 08/29/21 12:30 08/29/21 13:30 Temperature 98.4 F Pulse Rate 105 H 88 84 Respiratory Rate 16 16 18 Blood Pressure 109/79 97/61 98/61 Pulse Oximetry 99 99 18 L MDM - Chest Pain Medical Records Data Attestation: I reviewed the patient's medical records. Lab Data Attestation: I reviewed the patient's lab results. Result diagrams: 08/29/21 11:25 08/29/21 11:25 Labs: Lab Results 08/29/21 08/29/21 08/29/21 Range/Units 11:25 11:25 11:25 WBC 15.0 H (4.5-11.0) X10^3/uL RBC 4.67 (4.0-5.2) X10^6/uL Hgb 13.9 (12.0-16.0) g/dL Hct 42.2 (36-46) % MCV 90.3 (80-100) fL MCH 29.8 (26-34) PG MCHC 33.0 (30-36) % RDW 13.3 (11.6-14.8) % Plt Count 256 (150-400) X10^3/uL Neut % (Auto) 78.6 H (50-75) % Lymph % (Auto) 13.2 L (25-40) % [place] % (Auto) 7.3 (3-14) % Eos % (Auto) 0.6 L (2-4) % Baso % (Auto) 0.3 (0-2) % Neut # (Auto) 04714 H (7973-8566) /uL Lymph # (Auto) 2000 (8274-5654) /uL [place] # (Auto) 1100 H (0-900) /uL Eos # (Auto) 100 (0-450) /uL Baso # (Auto) 0 (0-100) /uL Sodium 142 (137-145) mmol/L Potassium 3.7 (3.4-5.1) mmol/L Chloride 109 H (98-107) mmol/L Carbon Dioxide 27 (22-32) mmol/L BUN 13 (7-17) mg/dL Creatinine 0.80 (0.52-1.04) mg/dL Estimated GFR > 60.0 (>60) mL/min BUN/Creatinine Ratio 16.3 (6-22) Glucose 104 H (70-100) mg/dL Calcium 9.5 (8.4-10.2) mg/dL Total Bilirubin 0.6 (0.2-1.3) mg/dL AST 27 (14-36) IU/L ALT 26 (<35) IU/L Alkaline Phosphatase 81 (38-126) U/L Total Creatine Kinase 35 (30-135) U/L CK-MB (CK-2) TNP CK-MB (CK-2) Rel Index TNP Troponin I < 0.012 (0.01-0.034) ng/mL NT-Pro-B Natriuret Pep 55 (<125) pg/mL Total Protein 8.2 (6.3-8.2) g/dL Albumin 4.7 (3.5-5.0) g/dL Globulin 3.5 (1.7-4.1) g/dL Albumin/Globulin Ratio 1.3 (1.0-2.8) Lipase 79 (23-300) U/L Imaging Data Chest x-ray: Radiologist's Impression: [address] [id number] XRay Report Signed Patient: Cecy Fields MR#: [id number] : 1970 Acct:[id number] Age/Sex: 50 / F Date of Service: 08/29/21 Loc: ED Accession Number: [id number] ?? Procedure: XR chest 1V Ordering Provider: Corey Ruelas D.O. PROCEDURE:? XR CHEST 1V ? INDICATIONS:? chest pain ? TECHNIQUE:? One view of the chest was acquired.? ? COMPARISON:? [facility], , XR CHEST 1 VIEW, 05/15/2021, 18:44.? [facility], CR, XR CHEST 1V, 02/15/2021, 1:53. ? FINDINGS:? ? Surgical changes and devices:? There is a cardiac pacemaker.? Surgical clips in the right breast. ? Lungs and pleura:? Lungs are clear.? No pleural effusions or pneumothorax.? ? Mediastinum:? Mediastinal contours appear normal.? Heart size is normal.? ? Bones and chest wall:? No suspicious bony lesions.? Overlying soft tissues appear unremarkable.? ? IMPRESSION:? No acute cardiopulmonary disease. ? ? Dictated by: Jarocho Barbosa M.D. on 08/29/2021 at 12:00 ? ? Approved by: Jarocho Barbosa M.D. on 08/29/2021 at 12:02 CT scan - chest: Radiologist's Impression: [address] [address] [address] Scan Report Signed Patient: Cecy Fields MR#: [id number] : 1970 Acct:[id number] Age/Sex: 50 / F Date of Service: 08/29/21 Loc: ED Accession Number: [id number] ?? Procedure: CT chest w con Ordering Provider: Corey Ruelas D.O. PROCEDURE:? CT CHEST W CON ? INDICATIONS:? Right upper chest swelling, history of pacemaker ? TECHNIQUE:? After the administration of intravenous contrast, 5 mm thick sections acquired from the pulmonary apices to the posterior costophrenic angles.? 1 mm axial lung, 5 mm thick coronal and sagittal reformats and 7 mm axial MIP were acquired.? For radiation dose reduction, the following was used:? automated exposure control, adjustment of mA and/or kV according to patient size.? ? COMPARISON:? [facility], CT, THORAX WITHOUT CONTRAST, 08/27/2014, 12:26.? [facility], CT, CT ANGIO CHEST ABDOMEN PELVIS, 01/19/2021, 21:15.? [facility], CR, XR CHEST 1V, 08/29/2021, 11:29. ? FINDINGS:? Image quality:? Excellent.? ? Lungs and pleura:? No acute air space opacities.? No pleural effusions or pneumothorax.? Central and peripheral airways are patent and normal in caliber.? ? Mediastinum:? Heart size is normal.? No pericardial effusion.? No mediastinal or hilar adenopathy by size criteria.? Thoracic aorta and central pulmonary arteries are normal in size.? Esophagus is normal in caliber.? No hiatal hernia.? ? Bones and chest wall:? There is a cardiac pacemaker with leads in expected position.? No suspicious bony lesions.? No vertebral body compression fractures.? No axillary or supraclavicular adenopathy by size criteria.? Thyroid gland is normal.? ? Abdomen:? Mild hepatic steatosis.? Left adrenal is mildly thickened.? No discrete adrenal nodule.? Visualized upper abdominal solid organs otherwise appear normal.? Upper abdominal bowel loops are normal in caliber.? ? IMPRESSION:? ? 1. No acute abnormalities.? No findings to explain right upper chest swelling. ? ? Dictated by: Jarocho Barbosa M.D. on 08/29/2021 at 12:36 ? ? Approved by: Jarocho Barbosa M.D. on 08/29/2021 at 12:51?? ECG Data Attestation: I personally reviewed and interpreted this ECG as follows: Prior ECG tracings: available for review Interpretation: Sinus rhythm Ventricular rate 100 Normal axis Normal QRS Normal QTC Nonspecific ST T wave changes Unchanged from EKG dated 02/15/2021 MDM Narrative Medical decision making narrative: Patient does have mild swelling in the supraclavicular region of her right shoulder. It is tender to palpation. I would suspect given her clinical presentation this is musculoskeletal in origin however given her other cardiac history did feel the need to further evaluate. Her EKG is unchanged from prior. Chest x-ray is unremarkable. CT scan of the chest is unremarkable. She does have a leukocytosis. There is no signs of pneumonia, no other signs of infection. No fevers. She does have a runny nose. Unsure the exact etiology but I feel that we should hold on any antibiotics for now. Had a long discussion with her regarding her swelling. For now we will treat it like a musculoskeletal etiology. Her no skin changes over the area concerning for cellulitis. No CT scan findings concerning for an abscess/early abscess although I did discuss this with her. She will contact her primary doctor for follow-up and return to the emergency department for any new or worsening symptoms. Discharge Plan Departure Patient Disposition: Home Clinical Impression: Acute pain of right shoulder, Leukocytosis Instructions: DI for Shoulder Pain Activity Restrictions/Additional Instructions: Continue to take all of your medications as directed. Contact your primary doctor for a follow-up and return to the emergency department for any new or worsening symptoms. Prescriptions: New hydrocodone-acetaminophen 5-325 mg tablet 1 tab PO Q8H PRN (Reason: pain) Qty: 6 0RF No Action nitroglycerin 0.4 mg tablet, sublingual 0.4 mg sublingual Q5M PRN (Reason: chest pain) Qty: 30 2RF Rx Instructions: do not exceed 3 doses per episode isosorbide mononitrate 120 mg tablet extended release 24 hr 120 mg PO QAM Qty: 90 3RF Rx Instructions: Take 1 tab daily aspirin [Adult Aspirin Regimen] 81 mg tablet,delayed release (DR/EC) 81 mg PO DAILY Qty: 90 3RF Rx Instructions: Take 1 tab daily levothyroxine 50 mcg tablet 50 mcg PO DAILY Qty: 90 1RF Rx Instructions: Take 1 tab on an empty stomach daily 30 mins prior to eating. metoprolol succinate 50 mg tablet extended release 24 hr 50 mg PO BID Qty: 60 0RF clonazepam 0.5 mg tablet 0.5 mg PO BID 0RF gabapentin 300 mg capsule 300 mg PO BEDTIME 0RF hydrocodone-acetaminophen 10-325 mg tablet 1 tab PO Q6H PRN (Reason: pain) 0RF Rx Instructions: Take one tablet by mouth every 6 hours as needed for pain #28 disp 07/26/21 ranolazine 500 mg tablet extended release 12 hr 500 mg PO Q12H 0RF Rx Instructions: Take 1 tab every 12 hours amlodipine 10 mg tablet 10 mg PO DAILY 0RF dicyclomine 10 mg capsule 10 mg PO TID Qty: 60 3RF Rx Instructions: Take 1 capsule with each diarrhea stool for max 3x/day venlafaxine 150 mg capsule,extended release 24hr 150 mg PO BEDTIME Qty: 90 3RF Rx Instructions: Take 150mg at bedtime daily for depression, pain, insomnia trazodone 50 mg tablet 100 mg PO BEDTIME Qty: 180 3RF Rx Instructions: Take 2 tabs at bedtime daily for insomnia. ondansetron HCl 4 mg tablet 4 mg PO Q8H Qty: 30 1RF Rx Instructions: Take 1 tab every 8 hours for nausea. hydroxyzine HCl 10 mg tablet 10 mg PO Q8H PRN (Reason: anxiety) Qty: 60 2RF Rx Instructions: Take 1 tab by mouth every 8 hours as needed for anxiety. rosuvastatin 40 mg tablet 40 mg PO DAILY Qty: 30 0RF Referrals: Destiny Mckeon ARNP [Primary Care Provider] -
--- NOTE | 2021-08-29 11:49 | DI.CT.S_ITS ---
PROCEDURE: CT CHEST W CON INDICATIONS: Right upper chest swelling, history of pacemaker TECHNIQUE: After the administration of intravenous contrast, 5 mm thick sections acquired from the pulmonary apices to the posterior costophrenic angles. 1 mm axial lung, 5 mm thick coronal and sagittal reformats and 7 mm axial MIP were acquired. For radiation dose reduction, the following was used: automated exposure control, adjustment of mA and/or kV according to patient size. COMPARISON: [facility], CT, THORAX WITHOUT CONTRAST, 08/27/2014, 12:26. [facility], CT, CT ANGIO CHEST ABDOMEN PELVIS, 01/19/2021, 21:15. [facility], CR, XR CHEST 1V, 08/29/2021, 11:29. FINDINGS: Image quality: Excellent. Lungs and pleura: No acute air space opacities. No pleural effusions or pneumothorax. Central and peripheral airways are patent and normal in caliber. Mediastinum: Heart size is normal. No pericardial effusion. No mediastinal or hilar adenopathy by size criteria. Thoracic aorta and central pulmonary arteries are normal in size. Esophagus is normal in caliber. No hiatal hernia. Bones and chest wall: There is a cardiac pacemaker with leads in expected position. No suspicious bony lesions. No vertebral body compression fractures. No axillary or supraclavicular adenopathy by size criteria. Thyroid gland is normal. Abdomen: Mild hepatic steatosis. Left adrenal is mildly thickened. No discrete adrenal nodule. Visualized upper abdominal solid organs otherwise appear normal. Upper abdominal bowel loops are normal in caliber. IMPRESSION: 1. No acute abnormalities. No findings to explain right upper chest swelling. Dictated by: Jarocho Barbosa M.D. on 08/29/2021 at 12:36 Approved by: Jarocho Barbosa M.D. on 08/29/2021 at 12:51
[2021-08-29 11:58] LABS: Add Manual Diff / Slide Review NO; Basophils Absolute Auto 0 /uL (0-100); Basophils Percent Auto 0.3 % (0-2); Eosinophils Absolute Auto 100 /uL (0-450); Eosinophils Percent Auto 0.6 % (2-4); Hematocrit 42.2 % (36-46); Hemoglobin 13.9 g/dL (12.0-16.0); Lymphocytes Absolute Auto 2000 /uL (1100-4500); Lymphocytes Percent Auto 13.2 % (25-40); Mean Corpuscular Hemoglobin 29.8 PG (26-34); Mean Corpuscular Volume 90.3 fL (80-100); Monocytes Absolute Auto 1100 /uL (0-900); Monocytes Percent Auto 7.3 % (3-14); Neutrophils Absolute Auto 11800 /uL (1500-7000); Neutrophils Percent Auto 78.6 % (50-75); Platelet Count 256 X10^3/uL (150-400); Red Blood Cell Count 4.67 X10^6/uL (4.0-5.2); Red Cell Distribution Width 13.3 % (11.6-14.8)
[2021-08-29] MEDS: SODIUM CHLORIDE 0.9% 1,000 ML 500 ML IV (12:02)
[2021-08-29 12:04] LABS: Lipase 79 U/L (23-300)
[2021-08-29 12:06] LABS: Alanine Aminotransferase 26 IU/L (<35); Albumin 4.7 g/dL (3.5-5.0); Albumin Globulin Ratio 1.3 (1.0-2.8); Alkaline Phosphatase 81 U/L (38-126); Aspartate Aminotransferase 27 IU/L (14-36); BUN Creatinine Ratio 16.3 (6-22); Bilirubin Total 0.6 mg/dL (0.2-1.3); Blood Urea Nitrogen 13 mg/dL (7-17); Calcium 9.5 mg/dL (8.4-10.2); Carbon Dioxide 27 mmol/L (22-32); Chloride 109 mmol/L (98-107); Creatine Kinase 35 U/L (30-135); Estimated Glomerular Filt Rate > 60.0 mL/min (>60); Globulin 3.5 g/dL (1.7-4.1); Glucose 104 mg/dL (70-100); HEMOLYSIS < 15 (0-50); Potassium 3.7 mmol/L (3.4-5.1); Sodium 142 mmol/L (137-145); Total Protein 8.2 g/dL (6.3-8.2)
[2021-08-29 12:17] LABS: NT-proBNP (BNP-Adult 18+) 55 pg/mL (<125); Troponin I < 0.012 ng/mL (0.01-0.034)
[2021-08-29 12:30] VITALS: BP 97/61; PULSE 88; RESP 16; O2SAT 99
[2021-08-29 13:30] VITALS: BP 98/61; PULSE 84; RESP 18; O2SAT 18
[2021-08-29] MEDS: HYDROCODONE/ACET 5/325 TABLET 1 TAB PO (13:31)
== END 2021-08-29 13:54 | disposition home or self-care (01) ==
PROVIDERS: Emergency Provider Emergency Medicine; PCP Nurse Practitioner; Referring Provider Internal Medicine Cardiovascular Disease
DX: M25.511 Pain in right shoulder (principal); D72.829 Elevated white blood cell count, unspecified; F17.210 Nicotine dependence, cigarettes, uncomplicated; Z88.5 Allergy status to narcotic agent
CPT/HCPCS: 36415; 71045; 71260; 80053; 82550; 83690; 83880; 84484; 85025; 93005; 96360; 99284; 99285

== ENCOUNTER → 2021-08-31 13:37 | Outpatient (CLI) | payer OTHER, MEDICAID, SELFPAY ==
[2021-01-11 15:00] VITALS: BMI 23.1
--- NOTE | 2021-08-31 13:39 | DI.US.S_ITS ---
PROCEDURE: US SOFT TISSUE HEAD AND NECK INDICATIONS: ELEVATED WBCs, PAIN IN SUPRACLAVICULAR AND CHEST AREA TECHNIQUE: Real-time scanning was performed of the neck region of interest, with image documentation. COMPARISON: [facility], CT, CT CHEST W [facility], 08/29/2021, 12:19. FINDINGS: At the patient's area of pain in the right posterior neck, there does appear to be non-specific thickening of the trapezius muscle which is slightly asymmetric to the left. Otherwise, fascial planes are maintained. No adenopathy or abscess present. IMPRESSION: 1. Mild nonspecific thickening of the right trapezius muscle may reflect spasm or contraction. No evidence of abscess or adenopathy. Approved by: Yuan German M.D. on 08/31/2021 at 14:26
== END ==
PROVIDERS: PCP Nurse Practitioner; Referring Provider Nurse Practitioner; Visit Provider Nurse Practitioner
DX: M25.511 Pain in right shoulder (principal); M54.6 Pain in thoracic spine; R22.2 Localized swelling, mass and lump, trunk
CPT/HCPCS: 76536

== ENCOUNTER → 2021-09-01 12:47 | Outpatient (CLI) | payer OTHER, MEDICAID, SELFPAY ==
[2021-01-11 15:00] VITALS: BMI 23.1
[2021-09-01 13:32] LABS: Appearance Urine UA SL CLOUDY; Bilirubin Urine UA NEGATIVE (NEGATIVE); Color Urine UA YELLOW; Glucose Urine UA NEGATIVE (Negative); Ketones Urine UA NEGATIVE (NEGATIVE); Leukocyte Esterase Urine UA NEGATIVE (NEGATIVE); Nitrite Urine UA NEGATIVE (Negative); Occult Blood Urine UA NEGATIVE (Negative); Protein Urine UA NEGATIVE (Negative); Urobilinogen Urine UA 0.2 E.U./dL (0.2)
[2021-09-01 13:34] LABS: pH Urine UA 6.5 (4.5-8.0)
== END ==
PROVIDERS: PCP Nurse Practitioner; Referring Provider Nurse Practitioner; Visit Provider Nurse Practitioner
DX: R10.9 Unspecified abdominal pain (principal); N13.30 Unspecified hydronephrosis; D72.829 Elevated white blood cell count, unspecified
CPT/HCPCS: 81003

== ENCOUNTER → 2021-10-05 14:28 | Outpatient (CLI) | payer OTHER, MEDICAID, SELFPAY ==
[2021-10-05 10:57] VITALS: BMI 23.1
--- NOTE | 2021-10-05 14:29 | DI.CT.S_ITS ---
PROCEDURE: CT KIDNEY URETER BLADDER (KUB) INDICATIONS: Left flank pain TECHNIQUE: Axial sections were acquired from the lung bases to the pubic symphysis. Coronal and sagittal reformats were performed. For radiation dose reduction, the following was used: automated exposure control, adjustment of mA and/or kV according to patient size. COMPARISON: [facility], CT, CT ANGIO CHEST ABDOMEN PELVIS, 01/19/2021, 21:15. Merged With [facility], CT, KIDNEY/ URETER/BLADDER, 08/07/2010, 13:48. FINDINGS: Image quality: Excellent. Lung bases: Unremarkable. An AICD lead is seen. Heart: No significant findings. URINARY: Right Kidney: No stones or hydronephrosis. Right Ureter: No hydroureter. Left Kidney: No stones or hydronephrosis. Left Ureter: No hydroureter. Bladder: Normal wall thickness. No stones. ABDOMEN: Liver: The liver is normal in size and demonstrates no suspicious lesions. Incidental note is made of focal fatty infiltration adjacent to the falciform ligament, which is not regarded to be pathologic. Gallbladder: Removed. Biliary ducts: Unremarkable. Pancreas: Unremarkable. Spleen: Unremarkable. Adrenal Glands: Unremarkable. Stomach and Bowel: Stomach, small bowel loops, and colon are unremarkable. Peritoneum: No abnormal intraperitoneal fluid. No free air. Ventral Wall: No hernia. Abdominal Nodes: No enlarged retroperitoneal or mesenteric lymph nodes. Vessels: Aorta and inferior vena cava are normal in size. PELVIS: Pelvic Organs: This patient is status post hysterectomy. No adnexal masses are seen. Pelvic Nodes: Unremarkable. Miscellaneous: No inguinal hernias are seen. Bones: Unremarkable. IMPRESSION: Negative for kidney stones or obstructive uropathy. Incidental note is made of: AICD lead Cholecystectomy Hysterectomy Dictated by: Robert Cagle M.D. on 10/05/2021 at 13:46 Approved by: Robert Cagle M.D. on 10/05/2021 at 13:50
== END ==
PROVIDERS: PCP Nurse Practitioner; Referring Provider Nurse Practitioner; Visit Provider Nurse Practitioner
DX: N23 Unspecified renal colic (principal)
CPT/HCPCS: 74176

== ENCOUNTER 2021-10-05 14:48 | Emergency (ER) | payer OTHER, MEDICAID, SELFPAY ==
[2021-10-05 10:57] VITALS: BMI 23.1
[2021-10-05 14:55] VITALS: BP 134/80; PULSE 118; RESP 20; TEMP 36.6; O2SAT 100
--- NOTE | 2021-10-05 15:33 | ED.BACK ---
HPI - Back Pain/Injury General Chief Complaint: Abdominal Pain Stated Complaint: ABD pain both sides Time Seen by Provider: 10/05/21 15:19 Source: patient History of Present Illness HPI Narrative: Patient sent here from primary care for bilateral flank pain that has been off and on for the past 8 months. Worse in the past couple of days. Just had CT scan abdomen pelvis here at this location 45 minutes ago, ordered outpatient by primary care. No urinary complaints. Patient states does not feel like urinary tract infection. No abdominal pain. However it does radiate to the lateral aspect of her abdomen. No nausea or vomiting. Patient did drive here. Has history of hysterectomy as well as hemicolectomy. Hemicolectomy was done last fall. Hysterectomy 22 years ago. Related Data Home Medications Medication Instructions Recorded Confirmed ranolazine 500 mg tablet,extended 1,000 mg PO Q12H tab 09/20/21 09/27/21 release,12 hr Previous Rx's Medication Instructions Recorded nitroglycerin 0.4 mg sublingual 0.4 mg SUBLINGUAL Q5M PRN #30 tab 01/14/21 tablet aspirin 81 mg tablet,delayed 81 mg PO DAILY #90 tab 01/28/21 release (Adult Aspirin Regimen) dicyclomine 10 mg capsule 10 mg PO TID #60 cap 08/18/21 ondansetron HCl 4 mg tablet 4 mg PO Q8H #30 tab 08/18/21 rosuvastatin 40 mg tablet 40 mg PO DAILY #30 tab 08/18/21 isosorbide mononitrate 120 mg 120 mg PO QAM #90 tab 08/31/21 tablet,extended release 24 hr hydrocodone 5 mg-acetaminophen 325 2 tab PO DAILY PRN #60 tab 09/07/21 mg tablet levothyroxine 50 mcg tablet 50 mcg PO DAILY #90 tab 09/09/21 metoprolol succinate 50 mg 50 mg PO BID #60 tab 09/09/21 tablet,extended release 24 hr trazodone 50 mg tablet 100 mg PO BEDTIME #180 tab 09/09/21 venlafaxine 150 mg 150 mg PO BEDTIME #90 cap 09/09/21 capsule,extended release 24 hr amlodipine 10 mg tablet 5 mg PO DAILY #90 tab 09/20/21 clarithromycin 500 mg tablet 500 mg PO Q12H #20 tab 09/20/21 gabapentin 300 mg capsule 300 mg PO TID #270 cap 09/27/21 hydroxyzine pamoate 50 mg capsule 50 mg PO QID PRN #360 cap 09/27/21 venlafaxine 37.5 mg 37.5 mg PO BEDTIME #90 cap 09/27/21 capsule,extended release 24 hr clonazepam 1 mg tablet 1 mg PO BEDTIME #30 tab 09/29/21 hydrocodone 5 mg-acetaminophen 325 1 tab PO Q6H PRN #7 tab 10/05/21 mg tablet naloxone 4 mg/actuation nasal 4 mg INTRANASAL Q2M PRN #2 ea 10/05/21 spray (Narcan) Allergies Allergy/AdvReac Type Severity Reaction Status Date / Time gluten Allergy Severe Anaphylaxis Verified 09/27/21 09:34 lactose Allergy Intermediate Swelling Verified 09/27/21 09:34 of Lip/Tongue/Throat Penicillins Allergy Intermediate Rash Verified 09/27/21 09:34 codeine [CODEINE] Allergy Mild RASH Verified 09/27/21 09:34 itching morphine [MORPHINE] Allergy Mild Rash Verified 09/27/21 09:34 egg AdvReac Severe Diarrhea Verified 09/27/21 09:34 Review of Systems Review of Systems Narrative: GENERAL: Denies chills, fatigue, malaise, fever, sweats. HEENT: Denies sinus pain, ear pain, sore throat RESPIRATORY: Denies dyspnea, cough CARDIOVASCULAR: Denies chest pain, palpitations GASTROINTESTINAL: Denies nausea, vomiting, abdominal pain : Denies dysuria, frequency, hematuria MUSCULOSKELETAL: denies muscle or bony pain, positive for back pain SKIN: Denies rash, skin lesions NEUROLOGIC: Denies weakness, numbness ROS Unobtainable: All systems reviewed & are unremarkable except as noted in HPI and below Patient History Medical History Abdominal pain Acute coronary syndrome Bright red rectal bleeding Bulging of cervical intervertebral disc Cardiac arrest with ventricular fibrillation Cardiomyopathy Chronic anticoagulation Colon polyps Colonic mass Coronary artery disease Depression with anxiety Dilation of bladder Diverticulosis Eczema Elevated liver enzymes Eosinophilic esophagitis Esophageal obstruction Gallstones Live's disease Hemorrhage of surgical anastomosis site of digestive tract Hemorrhoids History of heart attack Hydronephrosis, right Hypertension IBS (irritable bowel syndrome) Interstitial cystitis Lumbar pain with radiation down left leg Muscle spasms of both lower extremities 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 Nicotine addiction NSTEMI (non-ST elevated myocardial infarction) (08/20/20) Shingles Stool fat increased Suicidal thoughts Tobacco abuse Tobacco abuse counseling Well woman exam with routine gynecological exam Surgical History AICD (automatic cardioverter/defibrillator) present H/O left breast biopsy H/O: hysterectomy History of abdominal surgery History of bilateral tubal ligation Hx of tonsillectomy S/P cervical spinal fusion (2013) S/P surgery on nasal septum Status post right hemicolectomy Family History Father Alcoholism Cancer Lung cancer Mother Age: 72 Lung cancer Diabetes mellitus Hypertension Social History marital status: household members: other occupational status: employed Smoking Status: Current every day smoker alcohol intake: current substance use type: does not use Smoking Status: Current every day smoker tobacco type: cigarettes alcohol intake frequency: a few times a month Substance Use Type: does not use Exam Narrative Exam Narrative: GENERAL: in no distress, not toxic not dyspneic HEAD: Normocephalic. EYES: Pupils equal round No scleral icterus. NECK: Trachea midline. CARDIOVASCULAR: Regular rate and rhythm without murmurs RESPIRATORY: Clear to auscultation. Breath sounds equal bilaterally. No wheezes, rales, or rhonchi. GASTROINTESTINAL: Abdomen soft, non-tender, bowel sounds present, no peritoneal signs EXTREMITIES: No gross deformities. BACK: Mild bilateral CVA tenderness. No rash. NEURO: AOx4. SKIN: Warm and dry PSYCH: Not anxious, is cooperative Initial Vital Signs Initial Vital Signs: Vital Signs Temperature 97.8 F 10/05/21 14:55 Pulse Rate 118 H 10/05/21 14:55 Respiratory Rate 20 10/05/21 14:55 Blood Pressure 134/80 10/05/21 14:55 Pulse Oximetry 100 10/05/21 14:55 Course Course Course Narrative: Patient did want to talk with Holly social work specialist, regarding recent loss of her daughter. She is in grief counseling at this time. She does have appointment with her primary care tomorrow. Outpatient resources given to her by social Work. Orders Ordered: Discontinued Medications Ketorolac Tromethamine (Ketorolac 30 Mg/Ml Vial) 60 mg IM NOW ONE Stop: 10/05/21 15:29 Last Admin: 10/05/21 15:56 Dose: Not Given Documented by: MICA Ketorolac Tromethamine (Ketorolac 30 Mg/Ml Vial) 15 mg IV NOW ONE Stop: 10/05/21 15:30 Last Admin: 10/05/21 15:40 Dose: 15 mg Documented by: ALEJANDRINA Reevaluation(s) Reevaluation #1: Reviewed results with patient. At this time results are reassuring. No known source for her flank pain. Ongoing for 8 months. She would like referral to Urology. Return precautions reviewed with her pain. Spoke with her her source of pain could be spine related. At this time no neuro deficits. May need outpatient MRI Time: 17:24 Vital Signs Vital signs: Vital Signs - 8 hr 10/05/21 14:55 10/05/21 17:09 10/05/21 17:10 Temperature 97.8 F Pulse Rate 118 H 94 H Respiratory Rate 20 Blood Pressure 134/80 120/77 Pulse Oximetry 100 94 98 MDM - Back Pain/Injury Differential Diagnosis Differential diagnosis: Likely lumbar radiculopathy, strain of lumbar region, renal colic, pyelonephritis and other (Chronic pain. Kidney stone) Medical Records Medical records narrative: [place] [address] CT Scan Report Signed Patient: Cecy Fields MR#: [id number] : 1970 Acct:[id number] Age/Sex: 50 / F Date of Service: 10/05/21 Loc: CT Accession Number: [id number] ?? Procedure: CT kidney ureter bladder (KUB) Ordering Provider: Destiny Mckeon PROCEDURE:? CT KIDNEY URETER BLADDER (KUB) ? INDICATIONS:? Left flank pain ? TECHNIQUE:? Axial sections were acquired from the lung bases to the pubic symphysis.? Coronal and sagittal reformats were performed.? For radiation dose reduction, the following was used: ?automated exposure control, adjustment of mA and/or kV according to patient size.? ? COMPARISON:? Merged With [facility], CT, CT ANGIO CHEST ABDOMEN PELVIS, 01/19/2021, 21:15. ?[facility], CT, KIDNEY/ URETER/BLADDER, 08/07/2010, 13:48. ? FINDINGS:? Image quality:? Excellent.? ? Lung bases:? Unremarkable.? ? An AICD lead is seen. Heart:? No significant findings. ? URINARY: Right Kidney: ? No stones or hydronephrosis.? Right Ureter:? No hydroureter.? ? Left Kidney: ? No stones or hydronephrosis. Left Ureter:? No hydroureter.? ? Bladder:? Normal wall thickness. No stones. ? ? ? ABDOMEN: Liver: The liver is normal in size and demonstrates no suspicious lesions. Incidental note is made of focal fatty infiltration adjacent to the falciform ligament, which is not regarded to be pathologic.? Gallbladder:? Removed.? ? ? Biliary ducts:? Unremarkable.? ? Pancreas:? Unremarkable.? ? Spleen:? Unremarkable.? ? Adrenal Glands:? Unremarkable.? ? ? Stomach and Bowel:? Stomach, small bowel loops, and colon are unremarkable.? Peritoneum:? No abnormal intraperitoneal fluid.? No free air.? ? Ventral Wall: ? No hernia.? Abdominal Nodes:? No enlarged retroperitoneal or mesenteric lymph nodes.? Vessels:? Aorta and inferior vena cava are normal in size.? ? PELVIS: Pelvic Organs:? This patient is status post hysterectomy. No adnexal masses are seen.? Pelvic Nodes: Unremarkable. Miscellaneous: No inguinal hernias are seen. ? ? ? Bones:? Unremarkable. ? IMPRESSION:? ? Negative for kidney stones or obstructive uropathy. ? Incidental note is made of: AICD lead Cholecystectomy Hysterectomy ? Dictated by: Robert Cagle M.D. on 10/05/2021 at 13:46 ? ? Approved by: Robert Cagle M.D. on 10/05/2021 at 13:50 ? Lab Data Result diagrams: 10/05/21 15:10 10/05/21 15:10 Labs: Lab Results 10/05/21 10/05/21 Range/Units 15:10 15:10 WBC 9.4 (4.5-11.0) X10^3/uL RBC 4.54 (4.0-5.2) X10^6/uL Hgb 13.9 (12.0-16.0) g/dL Hct 39.9 (36-46) % MCV 87.9 (80-100) fL MCH 30.7 (26-34) PG MCHC 34.9 (30-36) % RDW 13.5 (11.6-14.8) % Plt Count 246 (150-400) X10^3/uL Neut % (Auto) 62.6 (50-75) % Lymph % (Auto) 29.4 (25-40) % [place] % (Auto) 6.8 (3-14) % Eos % (Auto) 0.5 L (2-4) % Baso % (Auto) 0.7 (0-2) % Neut # (Auto) 5900 (7044-6606) /uL Lymph # (Auto) 2800 (5485-6084) /uL [place] # (Auto) 600 (0-900) /uL Eos # (Auto) 0 (0-450) /uL Baso # (Auto) 100 (0-100) /uL Sodium 142 (137-145) mmol/L Potassium 3.5 (3.4-5.1) mmol/L Chloride 111 H (98-107) mmol/L Carbon Dioxide 23 (22-32) mmol/L BUN 12 (7-17) mg/dL Creatinine 0.68 (0.52-1.04) mg/dL Estimated GFR > 60.0 (>60) mL/min BUN/Creatinine Ratio 17.6 (6-22) Glucose 93 (70-100) mg/dL Calcium 9.4 (8.4-10.2) mg/dL Total Bilirubin 0.5 (0.2-1.3) mg/dL AST 32 (14-36) IU/L ALT 38 H (<35) IU/L Alkaline Phosphatase 84 (38-126) U/L Total Protein 7.8 (6.3-8.2) g/dL Albumin 4.5 (3.5-5.0) g/dL Globulin 3.3 (1.7-4.1) g/dL Albumin/Globulin Ratio 1.4 (1.0-2.8) Point of Care Testing Test Results Negative Urine Dip Bedside Urine Glucose Negative Bedside Urine Bilirubin - Negative Bedside Urine Ketone - Negative Urine Specific [place] 1.015 Bedside Urine Occult Blood - Negative Bedside Urine pH 6.0 Bedside Urine Protein - Negative Bedside Urine Urobilinogen - Negative Bedside Urine Nitrite - Negative Bedside Urine Leukocytes - Negative Esterase MDM Narrative Medical decision making narrative: Appropriate for discharge home. Patient does have chronic pain. Has had hydrocodone prescriptions in the past couple months. Recently beginning of this month. Not toxic at discharge. Exam and laboratory studies and imaging are reassuring. Patient has been evaluated by social Work. She has appointment tomorrow with primary care. Intranasal Narcan was prescribed and sent to pharmacy electronically Discharge Plan Departure Patient Disposition: Home Clinical Impression: Bilateral flank pain, Grieving Instructions: DI for Low Back Pain, Coping with Grief Activity Restrictions/Additional Instructions: See family doctor tomorrow as scheduled. No driving or operating machinery when taking prescribed pain medication. Return if worse if any questions or concerns. Please use resources provided social work regarding grief counseling. Prescriptions: New hydrocodone-acetaminophen 5-325 mg tablet 1 tab PO Q6H PRN (Reason: pain) Qty: 7 0RF naloxone [Narcan] 4 mg/actuation spray,non-aerosol 4 mg intranasal Q2M PRN (Reason: opioid overdose) Qty: 2 0RF Rx Instructions: spray 1 dose into ONE nostril; alternate nostrils w each dose until help arrives No Action nitroglycerin 0.4 mg tablet, sublingual 0.4 mg sublingual Q5M PRN (Reason: chest pain) Qty: 30 2RF Rx Instructions: do not exceed 3 doses per episode hydrocodone-acetaminophen 5-325 mg tablet 2 tab PO DAILY PRN (Reason: pain) Qty: 60 0RF Rx Instructions: Take 2 tabs daily as needed for pain. levothyroxine 50 mcg tablet 50 mcg PO DAILY Qty: 90 1RF Rx Instructions: Take 1 tab on an empty stomach daily 30 mins prior to eating. metoprolol succinate 50 mg tablet extended release 24 hr 50 mg PO BID Qty: 60 0RF trazodone 50 mg tablet 100 mg PO BEDTIME Qty: 180 3RF Rx Instructions: Take 2 tabs at bedtime daily for insomnia. venlafaxine 150 mg capsule,extended release 24hr 150 mg PO BEDTIME Qty: 90 3RF Rx Instructions: Take 150mg at bedtime daily for depression, pain, insomnia clonazepam 1 mg tablet 1 mg PO BEDTIME Qty: 30 3RF Rx Instructions: administer 30 minutes before bedtime aspirin [Adult Aspirin Regimen] 81 mg tablet,delayed release (DR/EC) 81 mg PO DAILY Qty: 90 3RF Rx Instructions: Take 1 tab daily ranolazine 500 mg tablet extended release 12 hr 1,000 mg PO Q12H 0RF Rx Instructions: Take 1 tab every 12 hours amlodipine 10 mg tablet 5 mg PO DAILY Qty: 90 3RF clarithromycin 500 mg tablet 500 mg PO Q12H Qty: 20 0RF Rx Instructions: Take 1 tab every 12 hours x10 days for pharangitis venlafaxine 37.5 mg capsule,extended release 24hr 37.5 mg PO BEDTIME Qty: 90 3RF Rx Instructions: Take 1 cap along with 150mg at bedtime daily for depression and anxiety gabapentin 300 mg capsule 300 mg PO TID Qty: 270 3RF Rx Instructions: Take 1 capsule three times per day for both pain and anxiety hydroxyzine pamoate 50 mg capsule 50 mg PO QID PRN (Reason: anxiety or insomnia) Qty: 360 3RF Rx Instructions: Take 1 capsule up to 4x/day as needed for anxiety or insomnia dicyclomine 10 mg capsule 10 mg PO TID Qty: 60 3RF Rx Instructions: Take 1 capsule with each diarrhea stool for max 3x/day ondansetron HCl 4 mg tablet 4 mg PO Q8H Qty: 30 1RF Rx Instructions: Take 1 tab every 8 hours for nausea. rosuvastatin 40 mg tablet 40 mg PO DAILY Qty: 30 0RF Hold Instructions: muscular pain and weakness legs isosorbide mononitrate 120 mg tablet extended release 24 hr 120 mg PO QAM Qty: 90 3RF Rx Instructions: Take 1 tab daily Referrals: Destiny Mckeon ARNP [Primary Care Provider] - Duke Riley MD [Physician] -
[2021-10-05 15:40] LABS: Add Manual Diff / Slide Review NO; Basophils Absolute Auto 100 /uL (0-100); Basophils Percent Auto 0.7 % (0-2); Eosinophils Absolute Auto 0 /uL (0-450); Eosinophils Percent Auto 0.5 % (2-4); Hematocrit 39.9 % (36-46); Hemoglobin 13.9 g/dL (12.0-16.0); Lymphocytes Absolute Auto 2800 /uL (1100-4500); Lymphocytes Percent Auto 29.4 % (25-40); Mean Corpuscular HGB Conc 34.9 % (30-36); Mean Corpuscular Hemoglobin 30.7 PG (26-34); Mean Corpuscular Volume 87.9 fL (80-100); Monocytes Absolute Auto 600 /uL (0-900); Monocytes Percent Auto 6.8 % (3-14); Neutrophils Absolute Auto 5900 /uL (1500-7000); Neutrophils Percent Auto 62.6 % (50-75); Platelet Count 246 X10^3/uL (150-400); Red Blood Cell Count 4.54 X10^6/uL (4.0-5.2); Red Cell Distribution Width 13.5 % (11.6-14.8); White Blood Cell Count 9.4 X10^3/uL (4.5-11.0)
[2021-10-05] MEDS: KETOROLAC 30 MG/ML VIAL 15 MG IV (15:40)
[2021-10-05 15:45] LABS: Alanine Aminotransferase 38 IU/L (<35); Albumin 4.5 g/dL (3.5-5.0); Albumin Globulin Ratio 1.4 (1.0-2.8); Alkaline Phosphatase 84 U/L (38-126); Aspartate Aminotransferase 32 IU/L (14-36); BUN Creatinine Ratio 17.6 (6-22); Bilirubin Total 0.5 mg/dL (0.2-1.3); Blood Urea Nitrogen 12 mg/dL (7-17); Calcium 9.4 mg/dL (8.4-10.2); Carbon Dioxide 23 mmol/L (22-32); Chloride 111 mmol/L (98-107); Estimated Glomerular Filt Rate > 60.0 mL/min (>60); Globulin 3.3 g/dL (1.7-4.1); Glucose 93 mg/dL (70-100); HEMOLYSIS < 15 (0-50); Potassium 3.5 mmol/L (3.4-5.1); Sodium 142 mmol/L (137-145); Total Protein 7.8 g/dL (6.3-8.2)
--- NOTE | 2021-10-05 15:47 | PC.NURSE ---
pt requested to talk to social work coordinator. pt recently just lost her daughter.
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
[2021-10-05 17:09] VITALS: O2SAT 94
[2021-10-05 17:10] VITALS: BP 120/77; PULSE 94; O2SAT 98
== END 2021-10-05 17:41 | disposition home or self-care (01) ==
PROVIDERS: Emergency Provider Emergency Medicine; PCP Nurse Practitioner
DX: R10.9 Unspecified abdominal pain (principal); F43.21 Adjustment disorder with depressed mood; F17.210 Nicotine dependence, cigarettes, uncomplicated; Z88.5 Allergy status to narcotic agent; N23 Unspecified renal colic
CPT/HCPCS: 36415; 74176; 80053; 81003; 81025; 85025; 96374; 99284; J1885

== ENCOUNTER → 2021-10-06 14:18 | Outpatient (CLI) | payer OTHER, MEDICAID, SELFPAY ==
[2021-10-05 10:57] VITALS: BMI 23.1
--- NOTE | 2021-10-06 14:20 | DI.RAD.S_ITS ---
PROCEDURE: XR LUMBAR SPINE 2-3V INDICATIONS: pain in thoracic spine and lumbar spine TECHNIQUE: 3 views of the lumbar spine were acquired. COMPARISON: None. FINDINGS: Bones: 5 [id number] vertebrae are present. There is normal bony alignment. No vertebral body compression fractures. No suspicious bony lesions. Mild degenerative disc changes noted throughout the lumbar spine. Mild L4-L5 and L5-S1 facet arthropathy. Soft tissues: Overlying bowel gas pattern is normal. No suspicious soft tissue calcifications. Cholecystectomy clips. IMPRESSION: 1. Multilevel degenerative disc disease. 2. Multilevel facet arthropathy. 3. No fracture. No acute osseous lesion. If symptoms and/or clinical suspicion for pathology persists, evaluation with MRI should be considered for further assessment. Dictated by: Luz Verde MD, PhD on 10/06/2021 at 14:48 Approved by: Luz Verde MD, PhD on 10/06/2021 at 14:49
--- NOTE | 2021-10-06 14:20 | DI.RAD.S_ITS ---
PROCEDURE: XR THORACIC SPINE 3V INDICATIONS: pain in thoracic spine and lumbar spine TECHNIQUE: 3 views of the thoracic spine were acquired. COMPARISON: None. FINDINGS: Bones: No fractures or dislocations. No suspicious bony lesions. Twelve pairs of ribs are noted, and appear intact where visualized. Cervical spine fixation hardware. Mild degenerative disc changes noted throughout the thoracic spine. Soft tissues: No paravertebral stripe thickening. Left chest wall AICD. Cholecystectomy clips. Clips in the right breast. IMPRESSION: 1. Multilevel degenerative disc disease. 2. No fracture. No acute osseous lesion. If symptoms and/or clinical suspicion for pathology persists, evaluation with MRI should be considered for further assessment. Dictated by: Luz Verde MD, PhD on 10/06/2021 at 14:49 Approved by: Luz Verde MD, PhD on 10/06/2021 at 14:50
== END ==
PROVIDERS: PCP Nurse Practitioner; Referring Provider Nurse Practitioner; Visit Provider Nurse Practitioner
DX: M51.16 Intervertebral disc disorders with radiculopathy, lumbar region (principal); M47.26 Other spondylosis with radiculopathy, lumbar region; M47.27 Other spondylosis with radiculopathy, lumbosacral region; M51.34 Other intervertebral disc degeneration, thoracic region
CPT/HCPCS: 72072; 72100

== ENCOUNTER 2021-10-13 13:37 | Emergency (ER) | payer OTHER, MEDICAID, SELFPAY ==
[2021-10-12 10:18] VITALS: BMI 23.1
[2021-10-13 13:42] VITALS: PULSE 120; O2SAT 97
[2021-10-13 13:43] VITALS: BP 148/98; PULSE 114; O2SAT 98
[2021-10-13 14:01] VITALS: BP 148/98; PULSE 104; RESP 16; TEMP 36.9; O2SAT 98; BMI 23.3
[2021-10-13 14:19] LABS: Add Manual Diff / Slide Review NO; Basophils Absolute Auto 100 /uL (0-100); Basophils Percent Auto 0.8 % (0-2); Eosinophils Absolute Auto 100 /uL (0-450); Eosinophils Percent Auto 0.7 % (2-4); Hematocrit 37.4 % (36-46); Hemoglobin 12.8 g/dL (12.0-16.0); Lymphocytes Absolute Auto 2000 /uL (1100-4500); Lymphocytes Percent Auto 20.2 % (25-40); Mean Corpuscular HGB Conc 34.3 % (30-36); Mean Corpuscular Hemoglobin 30.6 PG (26-34); Mean Corpuscular Volume 89.1 fL (80-100); Monocytes Absolute Auto 700 /uL (0-900); Monocytes Percent Auto 6.8 % (3-14); Neutrophils Absolute Auto 6900 /uL (1500-7000); Neutrophils Percent Auto 71.5 % (50-75); Platelet Count 261 X10^3/uL (150-400); Red Cell Distribution Width 13.6 % (11.6-14.8); White Blood Cell Count 9.7 X10^3/uL (4.5-11.0)
[2021-10-13 14:30] LABS: Acetaminophen < 10 ug/mL (10-30); Alanine Aminotransferase 42 IU/L (<35); Albumin 4.1 g/dL (3.5-5.0); Albumin Globulin Ratio 1.3 (1.0-2.8); Alkaline Phosphatase 67 U/L (38-126); Aspartate Aminotransferase 56 IU/L (14-36); BUN Creatinine Ratio 15.1 (6-22); Bilirubin Total 0.3 mg/dL (0.2-1.3); Blood Urea Nitrogen 13 mg/dL (7-17); Calcium 8.6 mg/dL (8.4-10.2); Carbon Dioxide 27 mmol/L (22-32); Chloride 109 mmol/L (98-107); Estimated Glomerular Filt Rate > 60.0 mL/min (>60); Ethanol (ETOH) < 10 mg/dL; Globulin 3.2 g/dL (1.7-4.1); Glucose 111 mg/dL (70-100); HEMOLYSIS < 15 (0-50); Potassium 3.6 mmol/L (3.4-5.1); Salicylate < 1.0 mg/dL (<20); Sodium 143 mmol/L (137-145); Total Protein 7.3 g/dL (6.3-8.2)
[2021-10-13 14:31] LABS: UR Morphine/Opiate cutoff 300 Negative (Negative); Ur Creatinine Normal (Normal); Ur Specific Gravity Normal (Normal); Urine Amphetamines Negative (Negative); Urine Barbiturates Negative (Negative); Urine Benzodiazepines Negative (Negative); Urine Cocaine Negative (Negative); Urine MDMA Negative (Negative); Urine Methadone Negative (Negative); Urine Methamphetamines Negative (Negative); Urine Oxycodone Negative (Negative); Urine Phencyclidine Negative (Negative); Urine Tetrahydrocannabinol Negative (Negative); Urine Tricyclic Antidepressant Negative (Negative); Urine pH Normal (Normal)
[2021-10-13 14:54] LABS: Free T4, Direct Thyroxine 1.05 ng/dL (0.78-2.19)
[2021-10-13 15:08] LABS: Thyroid Stimulating Hormone 1.34 uIU/mL (0.47-4.68)
--- NOTE | 2021-10-13 15:12 | ED_ITS ---
HPI - Psych General Chief Complaint: Psychiatric Symptoms Stated Complaint: mental health issues Time Seen by Provider: 10/13/21 14:15 Mode of arrival: Ambulatory History of Present Illness HPI Narrative: Patient is a 50-year-old female with history of depression anxiety and stricken with grief. Her daughter was murdered recently in [place]. She is feeling the full grief spectrum appear sadness guilt anger. She says she really lives the grief and pain every morning. She is unable to go to work. She had is upset with her other daughter's be stay do not seem to care. The 1 daughter was an addict and asstranged from other family members except the patient. Patient says she talked to the daughter every day. Patient feels like she is very alone in the world. Patient was offered by her sponsor to come and stay at her house. Really does not have any other support from family members. She denies any suicidal ideations although she says sometimes she would like to so she could hug her daughter again. She also would like to kill the people who killed her daughter would score she does not know who they are. The police do not seem interested in finding the people either. Related Data Home Medications Medication Instructions Recorded Confirmed ranolazine 500 mg tablet,extended 1,000 mg PO Q12H tab 09/20/21 09/27/21 release,12 hr Previous Rx's Medication Instructions Recorded nitroglycerin 0.4 mg sublingual 0.4 mg SUBLINGUAL Q5M PRN #30 tab 01/14/21 tablet aspirin 81 mg tablet,delayed 81 mg PO DAILY #90 tab 01/28/21 release (Adult Aspirin Regimen) dicyclomine 10 mg capsule 10 mg PO TID #60 cap 08/18/21 ondansetron HCl 4 mg tablet 4 mg PO Q8H #30 tab 08/18/21 rosuvastatin 40 mg tablet 40 mg PO DAILY #30 tab 08/18/21 isosorbide mononitrate 120 mg 120 mg PO QAM #90 tab 08/31/21 tablet,extended release 24 hr levothyroxine 50 mcg tablet 50 mcg PO DAILY #90 tab 09/09/21 metoprolol succinate 50 mg 50 mg PO BID #60 tab 09/09/21 tablet,extended release 24 hr trazodone 50 mg tablet 100 mg PO BEDTIME #180 tab 09/09/21 venlafaxine 150 mg 150 mg PO BEDTIME #90 cap 09/09/21 capsule,extended release 24 hr amlodipine 10 mg tablet 5 mg PO DAILY #90 tab 09/20/21 hydroxyzine pamoate 50 mg capsule 50 mg PO QID PRN #360 cap 09/27/21 venlafaxine 37.5 mg 37.5 mg PO BEDTIME #90 cap 09/27/21 capsule,extended release 24 hr clonazepam 1 mg tablet 1 mg PO BEDTIME #30 tab 09/29/21 hydrocodone 5 mg-acetaminophen 325 1 tab PO Q6H PRN #7 tab 10/05/21 mg tablet naloxone 4 mg/actuation nasal 4 mg INTRANASAL Q2M PRN #2 ea 10/05/21 spray (Narcan) gabapentin 300 mg capsule 600 mg PO TID #540 cap 10/06/21 hydrocodone 5 mg-acetaminophen 325 2 tab PO Q6H PRN #120 tab 10/06/21 mg tablet ropinirole 0.5 mg tablet 0.5 mg PO BEDTIME #30 tab 10/06/21 Allergies Allergy/AdvReac Type Severity Reaction Status Date / Time gluten Allergy Severe Anaphylaxis Verified 09/27/21 09:34 lactose Allergy Intermediate Swelling Verified 09/27/21 09:34 of Lip/Tongue/Throat Penicillins Allergy Intermediate Rash Verified 09/27/21 09:34 codeine [CODEINE] Allergy Mild RASH Verified 09/27/21 09:34 itching morphine [MORPHINE] Allergy Mild Rash Verified 09/27/21 09:34 egg AdvReac Severe Diarrhea Verified 09/27/21 09:34 Review of Systems Review of Systems Narrative: GENERAL: Denies chills,fever HEENT: Denies throat pain RESPIRATORY: Denies dyspnea, cough, wheezing CARDIOVASCULAR: Denies chest pain, palpitations GASTROINTESTINAL: Denies nausea, vomiting MUSCULOSKELETAL: Denies extremity pain, injury SKIN: No rash, no laceration, no pruritus NEUROLOGIC: Denies weakness, dizziness, headache, numbness 8 point review of systems is negative except for those stated above and HPI Psychiatric Psychiatric: Reports system reviewed and no additional complaints, except as documented Patient History Medical History Abdominal pain Acute coronary syndrome Bright red rectal bleeding Bulging of cervical intervertebral disc Cardiac arrest with ventricular fibrillation Cardiomyopathy Chronic anticoagulation Colon polyps Colonic mass Coronary artery disease Depression with anxiety Dilation of bladder Diverticulosis Eczema Elevated liver enzymes Eosinophilic esophagitis Esophageal obstruction Gallstones Live's disease Hemorrhage of surgical anastomosis site of digestive tract Hemorrhoids History of heart attack Hydronephrosis, right Hypertension IBS (irritable bowel syndrome) Interstitial cystitis Lumbar pain with radiation down left leg Muscle spasms of both lower extremities 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 Nicotine addiction NSTEMI (non-ST elevated myocardial infarction) (08/20/20) Restless leg syndrome Shingles Stool fat increased Suicidal thoughts Tobacco abuse Tobacco abuse counseling Well woman exam with routine gynecological exam Surgical History AICD (automatic cardioverter/defibrillator) present H/O left breast biopsy H/O: hysterectomy History of abdominal surgery History of bilateral tubal ligation Hx of tonsillectomy S/P cervical spinal fusion (2013) S/P surgery on nasal septum Status post right hemicolectomy Family History Father Alcoholism Cancer Lung cancer Mother Age: 73 Lung cancer Diabetes mellitus Hypertension Social History marital status: household members: other occupational status: employed Smoking Status: Current every day smoker alcohol intake: current substance use type: does not use Smoking Status: Current every day smoker tobacco type: cigarettes alcohol intake frequency: a few times a month Substance Use Type: does not use Exam Initial Vital Signs Initial Vital Signs: Vital Signs Pulse Rate 120 H 10/13/21 13:42 Pulse Oximetry 97 10/13/21 13:42 GENERAL: The tearful 50-year-old HEENT: Head atraumatic,EOMI, pupils reactive, face symmetric, moist mucous membranes CARDIOVASCULAR: Regular rate and rhythm without murmurs, rubs or gallops. RESPIRATORY: Breath sounds equal bilaterally, no wheezes rales or rhonchi. EXTREMITIES: Normal range of motion, no clubbing or edema. Neurovascularly intact NEUROLOGICAL: Alert and oriented x4 SKIN: Warm, dry, no laceration, no petechiae, no rashes or lesions. Course Orders Ordered: Discontinued Medications Lorazepam (Lorazepam 0.5 Mg Tablet) 1 mg PO NOW ONE Stop: 10/13/21 15:55 Last Admin: 10/13/21 16:18 Dose: Not Given Documented by: MY Vital Signs Vital signs: Vital Signs - 8 hr 10/13/21 13:42 10/13/21 13:43 10/13/21 14:01 Temperature 98.4 F Pulse Rate 120 H 114 H 104 H Respiratory Rate 16 Blood Pressure 148/98 H 148/98 H Pulse Oximetry 97 98 98 MDM - Psych Lab Data Result diagrams: 10/13/21 14:12 10/13/21 14:12 Labs: Lab Results 10/13/21 10/13/21 10/13/21 Range/Units 13:57 14:12 14:12 WBC 9.7 (4.5-11.0) X10^3/uL RBC 4.20 (4.0-5.2) X10^6/uL Hgb 12.8 (12.0-16.0) g/dL Hct 37.4 (36-46) % MCV 89.1 (80-100) fL MCH 30.6 (26-34) PG MCHC 34.3 (30-36) % RDW 13.6 (11.6-14.8) % Plt Count 261 (150-400) X10^3/uL Neut % (Auto) 71.5 (50-75) % Lymph % (Auto) 20.2 L (25-40) % [place] % (Auto) 6.8 (3-14) % Eos % (Auto) 0.7 L (2-4) % Baso % (Auto) 0.8 (0-2) % Neut # (Auto) 6900 (5132-6910) /uL Lymph # (Auto) 2000 (9880-2785) /uL [place] # (Auto) 700 (0-900) /uL Eos # (Auto) 100 (0-450) /uL Baso # (Auto) 100 (0-100) /uL Sodium 143 (137-145) mmol/L Potassium 3.6 (3.4-5.1) mmol/L Chloride 109 H (98-107) mmol/L Carbon Dioxide 27 (22-32) mmol/L BUN 13 (7-17) mg/dL Creatinine 0.86 (0.52-1.04) mg/dL Estimated GFR > 60.0 (>60) mL/min BUN/Creatinine Ratio 15.1 (6-22) Glucose 111 H (70-100) mg/dL Calcium 8.6 (8.4-10.2) mg/dL Total Bilirubin 0.3 (0.2-1.3) mg/dL AST 56 H (14-36) IU/L ALT 42 H (<35) IU/L Alkaline Phosphatase 67 (38-126) U/L Total Protein 7.3 (6.3-8.2) g/dL Albumin 4.1 (3.5-5.0) g/dL Globulin 3.2 (1.7-4.1) g/dL Albumin/Globulin Ratio 1.3 (1.0-2.8) TSH (0.47-4.68) uIU/mL Free T4 (0.78-2.19) ng/dL Salicylates < 1.0 (<20) mg/dL U Opiates 300ng/mL cut Negative (Negative) Ur Oxycodone Screen Negative (Negative) Urine Methadone Screen Negative (Negative) Acetaminophen < 10 (10-30) ug/mL Ur Barbiturates Screen Negative (Negative) U Tricyclic Antidepress Negative (Negative) Ur Phencyclidine Scrn Negative (Negative) Ur Amphetamines Screen Negative (Negative) U Methamphetamines Scrn Negative (Negative) Ur MDMA Scrn (Ecstasy) Negative (Negative) U Benzodiazepines Scrn Negative (Negative) Urine Cocaine Screen Negative (Negative) U Marijuana (THC) Screen Negative (Negative) Ethyl Alcohol < 10 ( - 10) mg/dL 10/13/21 Range/Units 14:12 WBC (4.5-11.0) X10^3/uL RBC (4.0-5.2) X10^6/uL Hgb (12.0-16.0) g/dL Hct (36-46) % MCV (80-100) fL MCH (26-34) PG MCHC (30-36) % RDW (11.6-14.8) % Plt Count (150-400) X10^3/uL Neut % (Auto) (50-75) % Lymph % (Auto) (25-40) % [place] % (Auto) (3-14) % Eos % (Auto) (2-4) % Baso % (Auto) (0-2) % Neut # (Auto) (2433-4770) /uL Lymph # (Auto) (3258-5596) /uL [place] # (Auto) (0-900) /uL Eos # (Auto) (0-450) /uL Baso # (Auto) (0-100) /uL Sodium (137-145) mmol/L Potassium (3.4-5.1) mmol/L Chloride (98-107) mmol/L Carbon Dioxide (22-32) mmol/L BUN (7-17) mg/dL Creatinine (0.52-1.04) mg/dL Estimated GFR (>60) mL/min BUN/Creatinine Ratio (6-22) Glucose (70-100) mg/dL Calcium (8.4-10.2) mg/dL Total Bilirubin (0.2-1.3) mg/dL AST (14-36) IU/L ALT (<35) IU/L Alkaline Phosphatase (38-126) U/L Total Protein (6.3-8.2) g/dL Albumin (3.5-5.0) g/dL Globulin (1.7-4.1) g/dL Albumin/Globulin Ratio (1.0-2.8) TSH 1.34 (0.47-4.68) uIU/mL Free T4 1.05 (0.78-2.19) ng/dL Salicylates (<20) mg/dL U Opiates 300ng/mL cut (Negative) Ur Oxycodone Screen (Negative) Urine Methadone Screen (Negative) Acetaminophen (10-30) ug/mL Ur Barbiturates Screen (Negative) U Tricyclic Antidepress (Negative) Ur Phencyclidine Scrn (Negative) Ur Amphetamines Screen (Negative) U Methamphetamines Scrn (Negative) Ur MDMA Scrn (Ecstasy) (Negative) U Benzodiazepines Scrn (Negative) Urine Cocaine Screen (Negative) U Marijuana (THC) Screen (Negative) Ethyl Alcohol ( - 10) mg/dL Point of Care Testing Test Results Negative Urine Dip Bedside Urine Glucose Negative Bedside Urine Bilirubin - Negative Bedside Urine Ketone - Negative Urine Specific [place] 1.015 Bedside Urine Occult Blood - Negative Bedside Urine pH 6 Bedside Urine Protein - Negative Bedside Urine Urobilinogen - Negative Bedside Urine Nitrite - Negative Bedside Urine Leukocytes - Negative Esterase MDM Narrative Medical decision making narrative: Patient is suffering from severe grief. she has anxiety and depression and poor social support. She does have a safe place to go. Mental health facility does not seem appropriate this time. She is not gravely disabled from her grief. At this time will give her some Ativan to help calm her down. Discharge Plan Departure Patient Disposition: Home Clinical Impression: Grief at loss of child Instructions: Depression Activity Restrictions/Additional Instructions: I am so terribly sorry for your loss Please return to emergency department at any time especially if you are having severe anxiety or suicidal thoughts. Please go stay with people who care about you and love you Follow-up with her primary care provider in 2-3 days *Return to ER if you should have any new, worsening or concerning symptoms Prescriptions: No Action nitroglycerin 0.4 mg tablet, sublingual 0.4 mg sublingual Q5M PRN (Reason: chest pain) Qty: 30 2RF Rx Instructions: do not exceed 3 doses per episode levothyroxine 50 mcg tablet 50 mcg PO DAILY Qty: 90 1RF Rx Instructions: Take 1 tab on an empty stomach daily 30 mins prior to eating. metoprolol succinate 50 mg tablet extended release 24 hr 50 mg PO BID Qty: 60 0RF trazodone 50 mg tablet 100 mg PO BEDTIME Qty: 180 3RF Rx Instructions: Take 2 tabs at bedtime daily for insomnia. venlafaxine 150 mg capsule,extended release 24hr 150 mg PO BEDTIME Qty: 90 3RF Rx Instructions: Take 150mg at bedtime daily for depression, pain, insomnia clonazepam 1 mg tablet 1 mg PO BEDTIME Qty: 30 3RF Rx Instructions: administer 30 minutes before bedtime aspirin [Adult Aspirin Regimen] 81 mg tablet,delayed release (DR/EC) 81 mg PO DAILY Qty: 90 3RF Rx Instructions: Take 1 tab daily ranolazine 500 mg tablet extended release 12 hr 1,000 mg PO Q12H 0RF Rx Instructions: Take 1 tab every 12 hours amlodipine 10 mg tablet 5 mg PO DAILY Qty: 90 3RF venlafaxine 37.5 mg capsule,extended release 24hr 37.5 mg PO BEDTIME Qty: 90 3RF Rx Instructions: Take 1 cap along with 150mg at bedtime daily for depression and anxiety hydroxyzine pamoate 50 mg capsule 50 mg PO QID PRN (Reason: anxiety or insomnia) Qty: 360 3RF Rx Instructions: Take 1 capsule up to 4x/day as needed for anxiety or insomnia dicyclomine 10 mg capsule 10 mg PO TID Qty: 60 3RF Rx Instructions: Take 1 capsule with each diarrhea stool for max 3x/day ondansetron HCl 4 mg tablet 4 mg PO Q8H Qty: 30 1RF Rx Instructions: Take 1 tab every 8 hours for nausea. rosuvastatin 40 mg tablet 40 mg PO DAILY Qty: 30 0RF Hold Instructions: muscular pain and weakness legs isosorbide mononitrate 120 mg tablet extended release 24 hr 120 mg PO QAM Qty: 90 3RF Rx Instructions: Take 1 tab daily gabapentin 300 mg capsule 600 mg PO TID Qty: 540 3RF Rx Instructions: Take 2 capsule three times per day for both pain and anxiety ropinirole 0.5 mg tablet 0.5 mg PO BEDTIME Qty: 30 3RF Rx Instructions: administer 1-3 hours before bedtime hydrocodone-acetaminophen 5-325 mg tablet 2 tab PO Q6H PRN (Reason: pain) Qty: 120 0RF Rx Instructions: Take 2 tabs every 6 hours as needed for pain. hydrocodone-acetaminophen 5-325 mg tablet 1 tab PO Q6H PRN (Reason: pain) Qty: 7 0RF naloxone [Narcan] 4 mg/actuation spray,non-aerosol 4 mg intranasal Q2M PRN (Reason: opioid overdose) Qty: 2 0RF Rx Instructions: spray 1 dose into ONE nostril; alternate nostrils w each dose until help arrives Referrals: Destiny Mckeon ARNP [Primary Care Provider] -
--- NOTE | 2021-10-13 15:41 | PC.NURSE ---
Pt arrives tearful, crying and depressed. Significant life stressor, daughter of overdose. Pt is focused on finding the individual responsible for her daughter's overdose and bringing him to justice.
[2021-10-13 16:26] VITALS: BP 111/72; PULSE 98; RESP 19; O2SAT 98
== END 2021-10-13 16:28 | disposition home or self-care (01) ==
PROVIDERS: Emergency Provider Emergency Medicine; PCP Nurse Practitioner
DX: F43.23 Adjustment disorder with mixed anxiety and depressed mood (principal); F17.210 Nicotine dependence, cigarettes, uncomplicated
CPT/HCPCS: 36415; 80053; 80305; 80320; 80329; 81003; 81025; 84439; 84443; 85025; 93005; 93010; 99283; 99284; G0480

== ENCOUNTER → 2021-10-28 15:17 | Outpatient (CLI) | payer OTHER, MEDICAID, SELFPAY ==
[2021-10-12 10:18] VITALS: BMI 23.1
[2021-10-28 17:28] LABS: Urine N gonorrhoeae NOT DETECTED
[2021-10-28 17:46] LABS: Urine Chlamydia NOT DETECTED
== END ==
PROVIDERS: PCP Nurse Practitioner; Visit Provider Nurse Practitioner Family
DX: R30.0 Dysuria (principal)
CPT/HCPCS: 81002; 87077; 87086; 87186; 87210; 87491; 87591

== ENCOUNTER → 2021-11-15 12:17 | Outpatient (CLI) | payer OTHER, MEDICAID, SELFPAY ==
[2021-10-12 10:18] VITALS: BMI 23.1
== END ==
LOC: RAD 12:18 → RESP 12:18
PROVIDERS: PCP Nurse Practitioner; Referring Provider Nurse Practitioner; Visit Provider Nurse Practitioner
DX: I49.9 Cardiac arrhythmia, unspecified (principal); N13.30 Unspecified hydronephrosis; R39.9 Unspecified symptoms and signs involving the genitourinary system; F43.9 Reaction to severe stress, unspecified; R35.0 Frequency of micturition; R30.0 Dysuria; Z68.22 Body mass index [BMI] 22.0-22.9, adult
CPT/HCPCS: 51798; 81002; 93005; 99214

== ENCOUNTER 2021-11-25 19:50 | Emergency (ER) | payer OTHER, MEDICAID, SELFPAY ==
[2021-10-12 10:18] VITALS: BMI 23.1
[2021-11-25] VITALS (9 sets, daily range): BP systolic 103–120; BP diastolic 60–77; PULSE 74–86; RESP 16–26; TEMP 36.4; O2SAT 93–98; BMI 22.6
[2021-11-25 20:56] LABS: Add Manual Diff / Slide Review NO; Basophils Absolute Auto 100 /uL (0-100); Basophils Percent Auto 0.9 % (0-2); Eosinophils Absolute Auto 300 /uL (0-450); Eosinophils Percent Auto 3.3 % (2-4); Hematocrit 36.2 % (36-46); Hemoglobin 12.3 g/dL (12.0-16.0); Lymphocytes Absolute Auto 2700 /uL (1100-4500); Lymphocytes Percent Auto 31.7 % (25-40); Mean Corpuscular HGB Conc 34.1 % (30-36); Mean Corpuscular Hemoglobin 30.7 PG (26-34); Monocytes Absolute Auto 700 /uL (0-900); Monocytes Percent Auto 8.2 % (3-14); Neutrophils Absolute Auto 4700 /uL (1500-7000); Neutrophils Percent Auto 55.9 % (50-75); Platelet Count 242 X10^3/uL (150-400); Red Blood Cell Count 4.02 X10^6/uL (4.0-5.2); Red Cell Distribution Width 13.5 % (11.6-14.8); White Blood Cell Count 8.4 X10^3/uL (4.5-11.0)
[2021-11-25 21:10] LABS: COVID19 -Nasal RAPID Negative (Negative)
[2021-11-25 21:11] LABS: Alanine Aminotransferase 30 IU/L (<35); Albumin 4.1 g/dL (3.5-5.0); Albumin Globulin Ratio 1.4 (1.0-2.8); Alkaline Phosphatase 85 U/L (38-126); Aspartate Aminotransferase 34 IU/L (14-36); BUN Creatinine Ratio 19.2 (6-22); Bilirubin Total 0.3 mg/dL (0.2-1.3); Blood Urea Nitrogen 19 mg/dL (7-17); C-Reactive Protein Quant 0.6 mg/dL (<1.0); Calcium 8.7 mg/dL (8.4-10.2); Carbon Dioxide 28 mmol/L (22-32); Chloride 108 mmol/L (98-107); Estimated Glomerular Filt Rate > 60 mL/min (>60); Glucose 87 mg/dL (70-100); HEMOLYSIS < 15 (0-50); Magnesium 2.2 mg/dL (1.6-2.3); Sodium 139 mmol/L (137-145); Total Protein 7.1 g/dL (6.3-8.2)
[2021-11-25 21:15] LABS: Erythrocyte Sedimentation Rate 16 MM/HR (0-20)
--- NOTE | 2021-11-25 22:17 | ED.BACK ---
HPI - Back Pain/Injury <Mike Farooq, DO - Last Filed: 11/26/21 16:08> General Chief Complaint: Back Pain/Injury Stated Complaint: NOT ABLE TO USE LEGS PAIN IN THE BACK PEE UNCONTRO Time Seen by Provider: 11/25/21 20:18 History of Present Illness HPI Narrative: 50-year-old female with history of coronary artery disease, cardiac arrest with ventricular fibrillation, AICD placement and chronic back pain presents with a family friend in the chief complaint of gradually worsening lumbar pain that radiates into both legs. She has developed increasing and progressive weakness over quite some time and has had multiple falls as a consequence. She admits to numbness and tingling in both lower extremities. She states that for the past 3-4 days she has lost control of her urinary bladder and will urinate on herself without any sign. She denies any change in her control of bowels. She has had no fever or chills and takes no blood thinners. She has been seen by Orthopedics at [facility] but there is apparently no plan regarding how to help with her back Related Data Previous Rx's Medication Instructions Recorded nitroglycerin 0.4 mg sublingual 0.4 mg SUBLINGUAL Q5M PRN #30 tab 01/14/21 tablet aspirin 81 mg tablet,delayed 81 mg PO DAILY #90 tab 01/28/21 release (Adult Aspirin Regimen) ondansetron HCl 4 mg tablet 4 mg PO Q8H #30 tab 08/18/21 rosuvastatin 40 mg tablet 40 mg PO DAILY #30 tab 08/18/21 isosorbide mononitrate 120 mg 120 mg PO QAM #90 tab 08/31/21 tablet,extended release 24 hr levothyroxine 50 mcg tablet 50 mcg PO DAILY #90 tab 09/09/21 metoprolol succinate 50 mg 50 mg PO BID #60 tab 09/09/21 tablet,extended release 24 hr trazodone 50 mg tablet 100 mg PO BEDTIME #180 tab 09/09/21 venlafaxine 150 mg 150 mg PO BEDTIME #90 cap 09/09/21 capsule,extended release 24 hr amlodipine 10 mg tablet 5 mg PO DAILY #90 tab 09/20/21 hydroxyzine pamoate 50 mg capsule 50 mg PO QID PRN #360 cap 09/27/21 ropinirole 0.5 mg tablet 0.5 mg PO BEDTIME #30 tab 10/06/21 hydrocodone 5 mg-acetaminophen 325 2 tab PO Q6H PRN #120 tab 11/01/21 mg tablet clonazepam 1 mg tablet 1 mg PO BEDTIME #30 tab 11/10/21 duloxetine 20 mg capsule,delayed 20 mg PO BID #180 cap 11/10/21 release gabapentin 300 mg capsule 900 mg PO TID #540 cap 11/10/21 ranolazine 500 mg tablet,extended 500 mg PO Q12H #180 tab 11/14/21 release,12 hr Allergies Allergy/AdvReac Type Severity Reaction Status Date / Time gluten Allergy Severe Anaphylaxis Verified 11/25/21 20:13 lactose Allergy Intermediate Swelling Verified 11/25/21 20:13 of Lip/Tongue/Throat Penicillins Allergy Intermediate Rash Verified 11/25/21 20:13 codeine [CODEINE] Allergy Mild RASH Verified 11/25/21 20:13 itching egg AdvReac Severe Diarrhea Verified 11/25/21 20:13 Review of Systems <Mike Trivedi DO - Last Filed: 11/26/21 16:08> Review of Systems Narrative: GENERAL: Denies chills, fatigue, malaise, fever, sweats. HEENT: Denies sinus pain, ear pain, sore throat, difficulty swallowing, dizziness. RESPIRATORY: Denies dyspnea, cough, wheezing, hemoptysis, sputum. CARDIOVASCULAR: Denies chest pain, palpitations, orthopnea, edema, GASTROINTESTINAL: Denies nausea, vomiting, abdominal pain, diarrhea, constipation, melena. : See HPI MUSCULOSKELETAL: See HPI SKIN: Denies rash, skin lesions, or other NEUROLOGIC: See HPI PSYCHIATRIC: No concerning psychosocial issues. 12 point review of systems is negative except for those stated above Patient History <Mike Trivedi DO - Last Filed: 11/26/21 16:08> Medical History Abdominal pain Acute coronary syndrome Arrhythmia Bright red rectal bleeding Bulging of cervical intervertebral disc Cardiac arrest with ventricular fibrillation Cardiomyopathy Chronic anticoagulation Colon polyps Colonic mass Coronary artery disease Depression with anxiety Dilation of bladder Diverticulosis Eczema Elevated liver enzymes Eosinophilic esophagitis Esophageal obstruction Gallstones Live's disease Hemorrhage of surgical anastomosis site of digestive tract Hemorrhoids History of heart attack Hydronephrosis, right Hypertension IBS (irritable bowel syndrome) Interstitial cystitis Lower urinary tract symptoms Lumbar pain with radiation down left leg Muscle spasms of both lower extremities 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 Nicotine addiction NSTEMI (non-ST elevated myocardial infarction) (08/20/20) Restless leg syndrome Shingles Stool fat increased Suicidal thoughts Tobacco abuse Tobacco abuse counseling Well woman exam with routine gynecological exam Surgical History AICD (automatic cardioverter/defibrillator) present H/O left breast biopsy H/O: hysterectomy History of abdominal surgery History of bilateral tubal ligation History of bladder suspension procedure Hx of tonsillectomy S/P cervical spinal fusion (2013) S/P surgery on nasal septum Status post right hemicolectomy Family History Father Alcoholism Cancer Lung cancer Mother Age: 73 Lung cancer Diabetes mellitus Hypertension Blood disease Inflammatory bowel disease CAD in [place] artery Social History marital status: number of children: 4 household members: other occupational status: employed Smoking Status: Current every day smoker alcohol intake: current substance use type: does not use Smoking Status: Current every day smoker tobacco type: cigarettes alcohol intake frequency: a few times a month Substance Use Type: does not use Exam <Mike Trivedi DO - Last Filed: 11/26/21 16:08> Narrative Exam Narrative: GENERAL: [50 year old patient appears stated age. Well-developed patient, in mild distress. HEAD: Atraumatic. Normocephalic. EYES: Pupils equal round and reactive. Extraocular motions intact. No scleral icterus. No injection or drainage. ENT: Nose without bleeding, purulent drainage. Throat without erythema, tonsillar hypertrophy or exudate. Airway patent. NECK: Trachea midline. Non tender CARDIOVASCULAR: Regular rate and rhythm without murmurs, gallops, or rubs. RESPIRATORY: Clear to auscultation. Breath sounds equal bilaterally. No wheezes, rales, or rhonchi. GASTROINTESTINAL: Abdomen soft, non-tender, nondistended. RECTAL: rectal tone present. Performed with patient permission and female nurse tutorial laboratory supervisor at the bedside. EXTREMITIES: No edema or joint tenderness. BACK: Nontender without deformity or crepitance. No flank tenderness. NEURO: AOx3. Decreased sensation bilateral lower extremities, no saddle anesthesia, 1+ patellar reflexes bilaterally, 3/5 muscle strength bilateral lower extremities SKIN: No rash or erythema of visible areas Initial Vital Signs Initial Vital Signs: Vital Signs Temperature 97.6 F 11/25/21 20:10 Pulse Rate 86 11/25/21 20:10 Respiratory Rate 16 11/25/21 20:10 Blood Pressure 120/60 11/25/21 20:10 Pulse Oximetry 98 11/25/21 20:10 <Shannan Waldron DO - Last Filed: 11/26/21 19:21> Initial Vital Signs Initial Vital Signs: Vital Signs Temperature 97.6 F 11/25/21 20:10 Pulse Rate 86 11/25/21 20:10 Respiratory Rate 16 11/25/21 20:10 Blood Pressure 120/60 11/25/21 20:10 Pulse Oximetry 98 11/25/21 20:10 Course <Mike Trivedi DO - Last Filed: 11/26/21 16:08> Orders Ordered: Discontinued Medications Gabapentin (Gabapentin 300 Mg Capsule) 900 mg PO NOW ONE Stop: 11/26/21 02:22 Last Admin: 11/26/21 02:28 Dose: 900 mg Documented by: AINSLEYAZANI Hydromorphone HCl (Hydromorphone 1 Mg Inj) 1 mg IV NOW ONE Stop: 11/25/21 22:27 Last Admin: 11/25/21 22:31 Dose: 1 mg Documented by: AINSLEYAZANI Hydromorphone HCl (Hydromorphone 1 Mg Inj) 1 mg IV NOW ONE Stop: 11/26/21 02:22 Last Admin: 11/26/21 02:28 Dose: 1 mg Documented by: AINSLEYAZANI Hydromorphone HCl (Hydromorphone 1 Mg Inj) 1 mg IV NOW ONE Stop: 11/26/21 06:36 Last Admin: 11/26/21 07:40 Dose: 1 mg Documented by: BRITNEY Hydromorphone HCl (Hydromorphone 1 Mg Inj) 1 mg IV NOW ONE Stop: 11/26/21 12:21 Last Admin: 11/26/21 13:07 Dose: 1 mg Documented by: ELIESER Moreau Consultation #1: discussed with oim consultant ortho at [facility] No spine coverage for the weekend. Recommends myelogram here vs. [place] [facility] Consultation #2: discussed with Dr. Awan. No definite spine coverage. Recommends myelogram here vs. [facility] [place] definit[place]. Vital Signs Vital signs: Vital Signs - 8 hr 11/26/21 11:30 11/26/21 12:00 11/26/21 12:30 Pulse Rate 78 75 72 Respiratory Rate 21 23 23 Blood Pressure 110/56 L 100/61 Pulse Oximetry 96 93 96 11/26/21 13:00 Pulse Rate 74 Respiratory Rate 17 Blood Pressure 112/63 Pulse Oximetry 95 <Shannan Waldron DO - Last Filed: 11/26/21 19:21> Orders Ordered: Discontinued Medications Gabapentin (Gabapentin 300 Mg Capsule) 900 mg PO NOW ONE Stop: 11/26/21 02:22 Last Admin: 11/26/21 02:28 Dose: 900 mg Documented by: AINSLEYAZANI Hydromorphone HCl (Hydromorphone 1 Mg Inj) 1 mg IV NOW ONE Stop: 11/25/21 22:27 Last Admin: 11/25/21 22:31 Dose: 1 mg Documented by: AINSLEYAZANI Hydromorphone HCl (Hydromorphone 1 Mg Inj) 1 mg IV NOW ONE Stop: 11/26/21 02:22 Last Admin: 11/26/21 02:28 Dose: 1 mg Documented by: AINSLEYAZANI Hydromorphone HCl (Hydromorphone 1 Mg Inj) 1 mg IV NOW ONE Stop: 11/26/21 06:36 Last Admin: 11/26/21 07:40 Dose: 1 mg Documented by: BRITNEY Hydromorphone HCl (Hydromorphone 1 Mg Inj) 1 mg IV NOW ONE Stop: 11/26/21 12:21 Last Admin: 11/26/21 13:07 Dose: 1 mg Documented by: ELIESER Vital Signs Vital signs: Vital Signs - 8 hr 11/26/21 11:30 11/26/21 12:00 11/26/21 12:30 Pulse Rate 78 75 72 Respiratory Rate 21 23 23 Blood Pressure 110/56 L 100/61 Pulse Oximetry 96 93 96 11/26/21 13:00 Pulse Rate 74 Respiratory Rate 17 Blood Pressure 112/63 Pulse Oximetry 95 MDM - Back Pain/Injury <Mike Howard, DO - Last Filed: 11/26/21 16:08> Lab Data Result diagrams: 11/25/21 20:45 11/25/21 20:45 Labs: Lab Results 11/25/21 11/25/21 11/25/21 Range/Units 20:45 20:45 20:45 WBC 8.4 (4.5-11.0) X10^3/uL RBC 4.02 (4.0-5.2) X10^6/uL Hgb 12.3 (12.0-16.0) g/dL Hct 36.2 (36-46) % MCV 90.0 (80-100) fL MCH 30.7 (26-34) PG MCHC 34.1 (30-36) % RDW 13.5 (11.6-14.8) % Plt Count 242 (150-400) X10^3/uL Neut % (Auto) 55.9 (50-75) % Lymph % (Auto) 31.7 (25-40) % Whiteside % (Auto) 8.2 (3-14) % Eos % (Auto) 3.3 (2-4) % Baso % (Auto) 0.9 (0-2) % Neut # (Auto) 4700 (1436-7949) /uL Lymph # (Auto) 2700 (4263-5366) /uL Whiteside # (Auto) 700 (0-900) /uL Eos # (Auto) 300 (0-450) /uL Baso # (Auto) 100 (0-100) /uL ESR 16 (0-20) MM/HR PT (10.1-12.7) SECONDS INR (0.9-1.3) APTT (26.4-36.2) SECONDS Sodium 139 (137-145) mmol/L Potassium 4.0 (3.4-5.1) mmol/L Chloride 108 H (98-107) mmol/L Carbon Dioxide 28 (22-32) mmol/L BUN 19 H (7-17) mg/dL Creatinine 0.99 (0.52-1.04) mg/dL Estimated GFR > 60 (>60) mL/min BUN/Creatinine Ratio 19.2 (6-22) Glucose 87 (70-100) mg/dL Calcium 8.7 (8.4-10.2) mg/dL Magnesium 2.2 (1.6-2.3) mg/dL Total Bilirubin 0.3 (0.2-1.3) mg/dL AST 34 (14-36) IU/L ALT 30 (<35) IU/L Alkaline Phosphatase 85 (38-126) U/L C-Reactive Protein 0.6 (<1.0) mg/dL Total Protein 7.1 (6.3-8.2) g/dL Albumin 4.1 (3.5-5.0) g/dL Globulin 3.0 (1.7-4.1) g/dL Albumin/Globulin Ratio 1.4 (1.0-2.8) SARS-CoV-2 (PCR) Negative (Negative) 11/26/21 Range/Units 07:50 WBC (4.5-11.0) X10^3/uL RBC (4.0-5.2) X10^6/uL Hgb (12.0-16.0) g/dL Hct (36-46) % MCV (80-100) fL MCH (26-34) PG MCHC (30-36) % RDW (11.6-14.8) % Plt Count (150-400) X10^3/uL Neut % (Auto) (50-75) % Lymph % (Auto) (25-40) % Whiteside % (Auto) (3-14) % Eos % (Auto) (2-4) % Baso % (Auto) (0-2) % Neut # (Auto) (0888-6301) /uL Lymph # (Auto) (9505-2009) /uL Whiteside # (Auto) (0-900) /uL Eos # (Auto) (0-450) /uL Baso # (Auto) (0-100) /uL ESR (0-20) MM/HR PT 10.8 (10.1-12.7) SECONDS INR 1.0 (0.9-1.3) APTT 33 (26.4-36.2) SECONDS Sodium (137-145) mmol/L Potassium (3.4-5.1) mmol/L Chloride (98-107) mmol/L Carbon Dioxide (22-32) mmol/L BUN (7-17) mg/dL Creatinine (0.52-1.04) mg/dL Estimated GFR (>60) mL/min BUN/Creatinine Ratio (6-22) Glucose (70-100) mg/dL Calcium (8.4-10.2) mg/dL Magnesium (1.6-2.3) mg/dL Total Bilirubin (0.2-1.3) mg/dL AST (14-36) IU/L ALT (<35) IU/L Alkaline Phosphatase (38-126) U/L C-Reactive Protein (<1.0) mg/dL Total Protein (6.3-8.2) g/dL Albumin (3.5-5.0) g/dL Globulin (1.7-4.1) g/dL Albumin/Globulin Ratio (1.0-2.8) SARS-CoV-2 (PCR) (Negative) MDM Narrative Medical decision making narrative: Patient with many months of increasing lumbar pain, numbness, tingling and weakness presents with 4 days of trouble controlling her bladder. She has depressed reflexes, sensation and strength which is chronic for her but newly complains of loss of control of bladder. She has no saddle anesthesia and good rectal tone. Imaging shows no cord compression. For social reasons patient was very much against transfer [place] [facility] and would leave [place] if that were the choice. She is, however, willing to stay here for myelogram. I did call Dr. Link who states this test can be ordered and performed in the morning. Patient resting comfortably over the night with a few doses of Dilaudid needed. Myelogram has been ordered for the morning, have been in close contact with the orthopedist who will follow-up on the results and help with disposition. Patient signed out to Dr. Waldron pending results of imaging Dr. Waldron-I received sign-out from Dr. Trivedi. I have seen evaluated patient myself. She reports urinary incontinence without warning with progressive leg weakness. Plan was to have CT myelogram done this morning. Patient was not able to have MRI due to AICD. She was unwilling to be transferred to [facility]. Concern for cauda equina with loss of urine. Exam findings include good rectal tone and no saddle anesthesia. Dr. Shirley radiologist was unaware of this plan. He is happy to help patient requests that patient be transferred to [facility]. Dr. Awan has been in contact with Dr. Newton, who his spine surgeon, who was also aware of patient. I spoken directly with Morning was not on-call but is happy to help patient if needed over at [facility] Dr. Quinn, ED physician has been updated on plan. Radiology and spine orthopedics have all agreed and involved. I anticipate if CT is negative patient can be discharged home with outpatient follow-up Patient is agreeable to go to [facility] <Shannan Waldron, DO - Last Filed: 11/26/21 19:21> Lab Data Labs: Lab Results 11/25/21 11/25/21 11/25/21 Range/Units 20:45 20:45 20:45 WBC 8.4 (4.5-11.0) X10^3/uL RBC 4.02 (4.0-5.2) X10^6/uL Hgb 12.3 (12.0-16.0) g/dL Hct 36.2 (36-46) % MCV 90.0 (80-100) fL MCH 30.7 (26-34) PG MCHC 34.1 (30-36) % RDW 13.5 (11.6-14.8) % Plt Count 242 (150-400) X10^3/uL Neut % (Auto) 55.9 (50-75) % Lymph % (Auto) 31.7 (25-40) % Whiteside % (Auto) 8.2 (3-14) % Eos % (Auto) 3.3 (2-4) % Baso % (Auto) 0.9 (0-2) % Neut # (Auto) 4700 (6251-3020) /uL Lymph # (Auto) 2700 (3152-0501) /uL Whiteside # (Auto) 700 (0-900) /uL Eos # (Auto) 300 (0-450) /uL Baso # (Auto) 100 (0-100) /uL ESR 16 (0-20) MM/HR PT (10.1-12.7) SECONDS INR (0.9-1.3) APTT (26.4-36.2) SECONDS Sodium 139 (137-145) mmol/L Potassium 4.0 (3.4-5.1) mmol/L Chloride 108 H (98-107) mmol/L Carbon Dioxide 28 (22-32) mmol/L BUN 19 H (7-17) mg/dL Creatinine 0.99 (0.52-1.04) mg/dL Estimated GFR > 60 (>60) mL/min BUN/Creatinine Ratio 19.2 (6-22) Glucose 87 (70-100) mg/dL Calcium 8.7 (8.4-10.2) mg/dL Magnesium 2.2 (1.6-2.3) mg/dL Total Bilirubin 0.3 (0.2-1.3) mg/dL AST 34 (14-36) IU/L ALT 30 (<35) IU/L Alkaline Phosphatase 85 (38-126) U/L C-Reactive Protein 0.6 (<1.0) mg/dL Total Protein 7.1 (6.3-8.2) g/dL Albumin 4.1 (3.5-5.0) g/dL Globulin 3.0 (1.7-4.1) g/dL Albumin/Globulin Ratio 1.4 (1.0-2.8) SARS-CoV-2 (PCR) Negative (Negative) 11/26/21 Range/Units 07:50 WBC (4.5-11.0) X10^3/uL RBC (4.0-5.2) X10^6/uL Hgb (12.0-16.0) g/dL Hct (36-46) % MCV (80-100) fL MCH (26-34) PG MCHC (30-36) % RDW (11.6-14.8) % Plt Count (150-400) X10^3/uL Neut % (Auto) (50-75) % Lymph % (Auto) (25-40) % Whiteside % (Auto) (3-14) % Eos % (Auto) (2-4) % Baso % (Auto) (0-2) % Neut # (Auto) (9842-3757) /uL Lymph # (Auto) (2722-7596) /uL Whiteside # (Auto) (0-900) /uL Eos # (Auto) (0-450) /uL Baso # (Auto) (0-100) /uL ESR (0-20) MM/HR PT 10.8 (10.1-12.7) SECONDS INR 1.0 (0.9-1.3) APTT 33 (26.4-36.2) SECONDS Sodium (137-145) mmol/L Potassium (3.4-5.1) mmol/L Chloride (98-107) mmol/L Carbon Dioxide (22-32) mmol/L BUN (7-17) mg/dL Creatinine (0.52-1.04) mg/dL Estimated GFR (>60) mL/min BUN/Creatinine Ratio (6-22) Glucose (70-100) mg/dL Calcium (8.4-10.2) mg/dL Magnesium (1.6-2.3) mg/dL Total Bilirubin (0.2-1.3) mg/dL AST (14-36) IU/L ALT (<35) IU/L Alkaline Phosphatase (38-126) U/L C-Reactive Protein (<1.0) mg/dL Total Protein (6.3-8.2) g/dL Albumin (3.5-5.0) g/dL Globulin (1.7-4.1) g/dL Albumin/Globulin Ratio (1.0-2.8) SARS-CoV-2 (PCR) (Negative) Imaging Data cT Lumbar: Radiologist's Impression: CT Scan Report Signed Patient: Cecy Fields MR#: [id number] : 1970 Acct:[id number] Age/Sex: 50 / F Date of Service: 11/25/21 Loc: ED Accession Number: [id number] ?? Procedure: CT lumbar spine w con Ordering Provider: Mike Trivedi D.O. PROCEDURE:? CT LUMBAR SPINE W CON ? INDICATIONS:? severe lumbar pain, loss of bladder ? TECHNIQUE:? After the administration of intravenous Isovue contrast, 3 mm thick sections acquired through the levels of interest.? Sagittal and coronal reformats were then constructed.? For radiation dose reduction, the following was used:? automated exposure control.? ? COMPARISON:? [facility], CR, XR CHEST 1V, 08/29/2021, 11:29.? [facility], CR, XR LUMBAR SPINE 2-3V, 10/06/2021, 14:14. ? FINDINGS:? Image quality:? Excellent.? ? Bones:? Lumbar spine demonstrates preserved alignment.? No fracture or subluxation.? There is mild degenerative disc disease with mild disc space narrowing posteriorly at L4-5 and L5-S1.? ? There is a disc bulge at L5-S1 eccentric to the left with a suspected left posterolateral disc extrusion and likely associated mass effect on the left lateral recess.? There is mild left neural foraminal narrowing at L5-S1.? No spinal canal narrowing. ? Soft tissues:? No paravertebral or definite epidural fluid collections.? Visualized aorta is normal in caliber.? Visualized kidneys demonstrate no hydronephrosis.? No free fluid within the visualized abdomen. ? IMPRESSION:? ? 1. Small disc bulge eccentric to the left at L5-S1 with a suspected left posterolateral disc extrusion with possible mass effect on the left lateral recess.? Further evaluation may be obtained with MRI or CT myelogram if patient has contraindications to MRI.? ? Dictated by: Abrahan Link M.D. on 11/25/2021 at 23:20 ? ? Approved by: Abrahan Link M.D. on 11/25/2021 at 23:31 ? MDM Narrative Medical decision making narrative: Patient with many months of increasing lumbar pain, numbness, tingling and weakness presents with 4 days of trouble controlling her bladder. She has depressed reflexes, sensation and strength which is chronic for her but newly complains of loss of control of bladder. She has no saddle anesthesia and good rectal tone. Imaging shows no cord compression. For social reasons patient was very much against transfer [place] [facility] and would leave [place] if that were the choice. She is, however, willing to stay here for myelogram. I did call Dr. Link who states this test can be ordered and performed in the morning. Patient resting comfortably over the night with a few doses of Dilaudid needed. Myelogram has been ordered for the morning, have been in close contact with the orthopedist who will follow-up on the results and help with disposition. Patient signed out to Dr. Waldron pending results of imaging Dr. Waldron-I received sign-out from Dr. Trivedi. I have seen evaluated patient myself. She reports urinary incontinence without warning with progressive leg weakness. Plan was to have CT myelogram done this morning. Patient was not able to have MRI due to AICD. She was unwilling to be transferred to [facility]. Concern for cauda equina with loss of urine. Exam findings include good rectal tone and no saddle anesthesia. Dr. Shirley radiologist was unaware of this plan. He is happy to help patient requests that patient be transferred to [facility]. Dr. Awan has been in contact with Dr. Newton, who his spine surgeon, who was also aware of patient. I spoken directly with Dr. Newton was not on-call but is happy to help patient if needed over at [facility] Dr. Quinn, ED physician has been updated on plan. Radiology and spine orthopedics have all agreed and involved. I anticipate if CT is negative patient can be discharged home with outpatient follow-up Patient is agreeable to go to [facility]. Patient may need to be transferred back to [facility] after the procedure is done, I am happy to have the patient back to into her emergency department for final disposition Critical Care Time <Mike Trivedi, - Last Filed: 11/26/21 16:08> Critical Care Time Critical Care Time: Yes Total Critical Care Time: 35 Attestation: The high probability of a clinically significant, sudden or life threatening deterioration of the [NV] system(s) required my full and direct attention, intervention and personal management. The aggregate critical care time was [35] minutes. This time is in addition to time spent performing reported procedures but includes the following: [x] Data Review and interpretation [x] Patient assessment and monitoring of vital signs [x] Documentation [x] Medication orders and management Discharge Plan Departure Patient Disposition: [facility] Clinical Impression: Cauda equina syndrome, Restless legs syndrome Prescriptions: No Action nitroglycerin 0.4 mg tablet, sublingual 0.4 mg sublingual Q5M PRN (Reason: chest pain) Qty: 30 2RF Rx Instructions: do not exceed 3 doses per episode levothyroxine 50 mcg tablet 50 mcg PO DAILY Qty: 90 1RF Rx Instructions: Take 1 tab on an empty stomach daily 30 mins prior to eating. metoprolol succinate 50 mg tablet extended release 24 hr 50 mg PO BID Qty: 60 0RF trazodone 50 mg tablet 100 mg PO BEDTIME Qty: 180 3RF Rx Instructions: Take 2 tabs at bedtime daily for insomnia. venlafaxine 150 mg capsule,extended release 24hr 150 mg PO BEDTIME Qty: 90 3RF Rx Instructions: Take 150mg at bedtime daily for depression, pain, insomnia hydrocodone-acetaminophen 5-325 mg tablet 2 tab PO Q6H PRN (Reason: pain) Qty: 120 0RF Rx Instructions: Take 2 tabs as needed every 6 hours for pain ranolazine 500 mg tablet extended release 12 hr 500 mg PO Q12H Qty: 180 3RF Rx Instructions: Take 1 tab every 12 hours aspirin [Adult Aspirin Regimen] 81 mg tablet,delayed release (DR/EC) 81 mg PO DAILY Qty: 90 3RF Rx Instructions: Take 1 tab daily amlodipine 10 mg tablet 5 mg PO DAILY Qty: 90 3RF hydroxyzine pamoate 50 mg capsule 50 mg PO QID PRN (Reason: anxiety or insomnia) Qty: 360 3RF Rx Instructions: Take 1 capsule up to 4x/day as needed for anxiety or insomnia ondansetron HCl 4 mg tablet 4 mg PO Q8H Qty: 30 1RF Rx Instructions: Take 1 tab every 8 hours for nausea. rosuvastatin 40 mg tablet 40 mg PO DAILY Qty: 30 0RF Hold Instructions: muscular pain and weakness legs isosorbide mononitrate 120 mg tablet extended release 24 hr 120 mg PO QAM Qty: 90 3RF Rx Instructions: Take 1 tab daily ropinirole 0.5 mg tablet 0.5 mg PO BEDTIME Qty: 30 3RF Rx Instructions: administer 1-3 hours before bedtime duloxetine 20 mg capsule,delayed release(DR/EC) 20 mg PO BID Qty: 180 2RF Rx Instructions: Take 20mg twice per day for depression and anxiety gabapentin 300 mg capsule 900 mg PO TID Qty: 540 3RF Rx Instructions: Take 3 capsule three times per day for both pain and anxiety clonazepam 1 mg tablet 1 mg PO BEDTIME Qty: 30 3RF Rx Instructions: administer 30 minutes before bedtime Referrals: Destiny Mckeon ARNP [Primary Care Provider] -
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
[2021-11-25] MEDS: HYDROMORPHONE 1 MG INJ IV (22:31)
--- NOTE | 2021-11-25 23:58 | PC.NURSE ---
standby for rectal exam. Patient tolerated well
[2021-11-26] VITALS (29 sets, daily range): BP systolic 97–120; BP diastolic 55–72; PULSE 65–78; RESP 9–34; O2SAT 91–99
[2021-11-26] MEDS: GABAPENTIN 300 MG CAPSULE 900 MG PO (02:28)
[2021-11-26] MEDS: HYDROMORPHONE 1 MG INJ IV ×3 (02:28→13:07)
[2021-11-26 08:05] LABS: Prothrombin Time 10.8 SECONDS (10.1-12.7)
[2021-11-26 08:08] LABS: PTT Partial Thromboplastin Tim 33 SECONDS (26.4-36.2)
--- NOTE | 2021-11-26 14:06 | PC.NURSE ---
Patient left [facility] at 1350. she is on her way to get a scan at [facility]. If the scan is negative she is coming back to be discharged here. If the scan is positive, she will be admitted to [facility] hospital for respiratory and complex care and discharged from here.
--- NOTE | 2021-11-26 14:32 | PC.NURSE ---
pt was transported to [facility] for myelogram. to return to [facility].
== END 2021-11-26 13:45 | disposition short-term general hospital (02) ==
PROVIDERS: Emergency Medicine; Emergency Provider Emergency Medicine; Family Provider Physician Assistant Surgical; PCP Nurse Practitioner
DX: G83.4 Cauda equina syndrome (principal); R20.0 Anesthesia of skin; G25.81 Restless legs syndrome; R39.9 Unspecified symptoms and signs involving the genitourinary system; Z20.822 Contact with and (suspected) exposure to COVID-19
CPT/HCPCS: 36415; 72132; 80053; 83735; 85025; 85610; 85651; 85730; 86140; 87635; 93005; 93010; 96374; 96376; 99284; C9803; J1170; Q9967

== ENCOUNTER → 2021-12-12 14:57 | Outpatient (CLI) | payer OTHER, MEDICAID, SELFPAY ==
[2021-11-29 13:16] VITALS: BMI 23.1
--- NOTE | 2021-12-12 14:59 | DI.ECHO.S_ITS ---
[facility] +---------+ [facility] +---------+ : : [address] : [place] : : : : [id number] : : : : Phone: [phone]---------+ Echocardiogram Report + + :Name: SABINO PEACOCK Study Date: 12/12/2021 Height: 66 in : :[facility] ReadingLocation: Weight: 135 lb : : Gender: Female BSA: 1.7 m2 : :: 1970 Age: 51 yrs BP: 127/88 mmHg: :Reason For Study: LA-History : :Ordering Physician: CALLI, : :JOSE Performed By: Deepak Izaguirre : :Referring: JOSE HUMMEL : + + Interpretation Summary 1) Normal left ventricular thickness and size with low normal systolic function (EF 50-55%). 2) The right ventricle is normal in size and function. There is a pacemaker lead in the right ventricle. 3) No significant valvular abnormalities. 4) Compared to the Echo done 08/20/2020, no significant change. Procedure: A two-dimensional transthoracic echocardiogram with color flow and Doppler was performed. The study quality was technically adequate. Comparison is made with the echocardiogram of 08/20/2020. Left Ventricle: The left ventricle is normal in size and wall thickness. The ejection fraction is estimated to be 50-55%. Left ventricular systolic function is low normal. There are no focal wall motion abnormalities. Diastolic function could not be accurately assessed due to paced rhythm. Right Ventricle: The right ventricle is normal in size and function. There is a pacemaker lead in the right ventricle. Atria: Both atria are normal in size. The interatrial septum grossly appears intact with no obvious evidence for an atrial septal defect. Mitral Valve: The mitral valve leaflets appear mildly thickened, but open well. There is no mitral regurgitation noted. Aortic Valve: The aortic valve is normal in structure and function. There is no aortic valve stenosis. No aortic regurgitation is present. Tricuspid Valve: The tricuspid valve is normal in structure and function. There is mild tricuspid regurgitation. The right ventricular systolic pressure is estimated to be at least 22 mmHg based on an estimated right atrial pressure of 3 mm Hg. Pulmonic Valve: The pulmonic valve is not well seen, but is grossly normal. There is no pulmonic valvular regurgitation. Great Vessels: The aortic root is normal size. The ascending aorta could not be visualized. The IVC is of normal diameter and collapses greater than 50% with a sniff. This suggests a low right atrial pressure of 3 mm Hg. Pericardium/ Pleura There is no pericardial effusion. There is no pleural effusion. MMode/2D Measurements & Calculations LVIDd: 4.5 cm LVOT diam: 2.2 cm LVIDs: 3.2 cm Ao root diam: 2.6 cm FS: 28.9 % IVSd: 0.75 cm LVPWd: 0.75 cm LV kelley. diameter/BSA (cm/m^2): 2.7 LV sys. diameter/BSA (cm/m^2): 1.9 LA dimension: 2.6 cm RA long axis: 4.5 cm LA A2 area: 13.4 cm2 LA A4 area: 13.0 cm2 LA length (vol): 4.5 cm LA vol: 33.0 ml LA vol index: 19.5 ml/m2 TAPSE_phl: 2.1 cm Doppler Measurements & Calculations Ao V2 max: 119.0 cm/sec LVOT Max Greyson: 97.9 cm/sec Ao V2 mean: 88.3 cm/sec LV V1 max P.8 mmHg Ao max P.0 mmHg LV V1 VTI: 17.2 cm Ao mean P.0 mmHg ZOE(I,D): 3.0 cm2 Ao V2 VTI: 22.0 cm ZOE(V,D): 3.1 cm2 sev ratio: 0.78 ZOE indexed to BSA (cm^2/m^2): 1.8 MV E max greyson: 66.0 cm/sec TR max greyson: 218.0 cm/sec MV A max greyson: 85.7 cm/sec TR max P.0 mmHg MV E/A: 0.77 Med Peak E' Greyson: 7.5 cm/sec E/E' med: 8.8 Lat Peak E' Greyson: 7.5 cm/sec E/E' lat: 8.9 E/e' average: 8.8 MV dec time: 0.24 sec SV(LVOT): 65.4 ml AV VR_phl: 0.82 ZOE(VTI)/BSA_phl: 1.8 MV P1/2t-pr_phl: 69.0 msec Reading Physician:04:43 PM
== END ==
PROVIDERS: Family Provider Physician Assistant Surgical; PCP Nurse Practitioner; Referring Provider Internal Medicine Cardiovascular Disease; Visit Provider Internal Medicine Cardiovascular Disease
DX: I25.10 Atherosclerotic heart disease of native coronary artery without angina pectoris (principal); I25.2 Old myocardial infarction; I07.1 Rheumatic tricuspid insufficiency
CPT/HCPCS: 93306

== ENCOUNTER 2022-01-19 14:07 | Emergency (ER) | payer OTHER, MEDICAID, SELFPAY ==
[2021-11-29 13:16] VITALS: BMI 23.1
[2022-01-19 14:10] VITALS: BP 93/53; PULSE 94; RESP 15; TEMP 36.6; O2SAT 95; BMI 21.7
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
[2022-01-19] MEDS: HYDROMORPHONE 0.5 MG INJ IV (14:54)
[2022-01-19 14:59] LABS: Add Manual Diff / Slide Review NO; Basophils Absolute Auto 0 /uL (0-100); Basophils Percent Auto 0.4 % (0-2); Eosinophils Absolute Auto 300 /uL (0-450); Eosinophils Percent Auto 3.3 % (2-4); Hematocrit 34.9 % (36-46); Hemoglobin 12.2 g/dL (12.0-16.0); Lymphocytes Absolute Auto 2500 /uL (1100-4500); Lymphocytes Percent Auto 24.7 % (25-40); Mean Corpuscular HGB Conc 35.1 % (30-36); Mean Corpuscular Hemoglobin 31.5 PG (26-34); Mean Corpuscular Volume 89.9 fL (80-100); Monocytes Absolute Auto 500 /uL (0-900); Monocytes Percent Auto 4.7 % (3-14); Neutrophils Absolute Auto 6800 /uL (1500-7000); Neutrophils Percent Auto 66.9 % (50-75); Platelet Count 222 X10^3/uL (150-400); Red Blood Cell Count 3.88 X10^6/uL (4.0-5.2); Red Cell Distribution Width 13.4 % (11.6-14.8); White Blood Cell Count 10.2 X10^3/uL (4.5-11.0)
[2022-01-19 15:02] LABS: Creatine Kinase 51 U/L (30-135)
[2022-01-19 15:03] LABS: Alanine Aminotransferase 15 IU/L (<35); Albumin 3.6 g/dL (3.5-5.0); Albumin Globulin Ratio 1.3 (1.0-2.8); Alkaline Phosphatase 64 U/L (38-126); Aspartate Aminotransferase 25 IU/L (14-36); BUN Creatinine Ratio 19.4 (6-22); Bilirubin Total 0.2 mg/dL (0.2-1.3); Blood Urea Nitrogen 19 mg/dL (7-17); Calcium 8.7 mg/dL (8.4-10.2); Carbon Dioxide 25 mmol/L (22-32); Chloride 105 mmol/L (98-107); Estimated Glomerular Filt Rate > 60 mL/min (>60); Globulin 2.8 g/dL (1.7-4.1); Glucose 135 mg/dL (70-100); HEMOLYSIS 17 (0-50); Lipase 77 U/L (23-300); Potassium 3.5 mmol/L (3.4-5.1); Sodium 138 mmol/L (137-145); Total Protein 6.4 g/dL (6.3-8.2)
[2022-01-19 15:14] LABS: Troponin I < 0.012 ng/mL (0.01-0.034)
[2022-01-19] MEDS: ACETAMINOPHEN 325 MG TABLET 650 MG PO (15:57)
[2022-01-19 16:21] VITALS: BP 116/74; PULSE 77; RESP 16; O2SAT 97
== END 2022-01-19 16:22 | disposition home or self-care (01) ==
PROVIDERS: Emergency Provider Emergency Medicine; Family Provider Physician Assistant Surgical; PCP Nurse Practitioner
DX: M54.50 Low back pain, unspecified (principal); M62.838 Other muscle spasm; R07.89 Other chest pain; V89.2XXA Person injured in unspecified motor-vehicle accident, traffic, initial encounter
CPT/HCPCS: 71045; 72125; 72131; 80053; 82550; 83690; 84484; 85025; 93005; 93010; 96374; 99285; J1170

== ENCOUNTER 2022-01-30 14:48 | Emergency (ER) | payer OTHER, MEDICAID, SELFPAY ==
[2022-01-23 12:15] VITALS: BMI 23.1
[2022-01-30] VITALS (18 sets, daily range): BP systolic 84–133; BP diastolic 50–74; PULSE 73–113; RESP 14–32; TEMP 37; O2SAT 94–98
--- NOTE | 2022-01-30 16:17 | DI.RAD.S_ITS ---
PROCEDURE: XR CHEST 1V INDICATIONS: Possible stroke TECHNIQUE: One view of the chest was acquired. COMPARISON: [facility], , XR CHEST 1V, 01/19/2022, 14:35. FINDINGS: Surgical changes and devices: A cardiac pacemaker/AICD is seen with pulse generator in the left chest. Surgical clips seen projecting over the right chest. Postsurgical changes partially imaged at the lower cervical spine. Lungs and pleura: Lungs are clear. No pleural effusions or pneumothorax. Mediastinum: Mediastinal contours appear normal. Heart size is normal. Bones and chest wall: No suspicious bony lesions. Overlying soft tissues appear unremarkable. IMPRESSION: No acute cardiopulmonary abnormality. Dictated by: Juanjo Ibarra M.D. on 01/30/2022 at 16:33 Approved by: Juanjo Ibarra M.D. on 01/30/2022 at 16:35
--- NOTE | 2022-01-30 16:18 | DI.CT.S_ITS ---
PROCEDURE: CT HEAD/BRAIN WO CON INDICATIONS: right sided weakness TECHNIQUE: Noncontrast 5 mm thick angled axial sections acquired from the foramen magnum to the vertex, with coronal and sagittal reformats. For radiation dose reduction, the following was used: automated exposure control, adjustment of mA and/or kV according to patient size. COMPARISON: None. FINDINGS: Image quality: Excellent. CSF spaces: Basal cisterns are patent. No extra-axial fluid collections. Ventricles are normal in size and shape. Brain: No midline shift. No intracranial masses or hemorrhage. [place]is[place]-white matter interface is normal. Skull and face: Calvarium and visualized facial bones are intact, without suspicious lesions. Sinuses: Visualized sinuses and mastoids are clear. IMPRESSION: Unremarkable CT of the brain without intracranial hemorrhage or mass effect Approved by: Yuan German M.D. on 01/30/2022 at 16:22
--- NOTE | 2022-01-30 16:20 | PC.NURSE ---
1278 Upon entering room patient reports to me I want to . Just kill me. Can you kill me? Has repeated this to me multiple times over the last half hour. When I asked her the suicide specific questions she denies any plan or intent of acting upon suicidal thoughts- is a low risk. [employer] aware. She reports she is here today because I lost the last 4 days. Denies any memory of the last 4 days. States her roommate was not home and so she is unaware of what happenned. Despite her reported memory loss she does state that she has had 4 days of being unable to get up and walk or move on her own. Reports right-sided weakness/parethesias. Is moving right arm freely. Unable to walk. Has history of A.fib. but is not on blood thinners because they make me bruise. She also reports black smelly stools that started 3 days ago and that she has been peeing myself and I don't even know it's happening. States her family wants her to go to a long term because she cannot care for herself anymore. I asked patient if she normally has memory issues which she confirms intermittently. Denies any sort of brain injury, she states they say my heart is effecting my brain.
[2022-01-30 16:33] LABS: Prothrombin Time 10.8 SECONDS (10.1-12.7)
[2022-01-30 16:35] LABS: Add Manual Diff / Slide Review NO; Basophils Absolute Auto 0 /uL (0-100); Basophils Percent Auto 0.4 % (0-2); Eosinophils Absolute Auto 300 /uL (0-450); Eosinophils Percent Auto 2.8 % (2-4); Hematocrit 38.5 % (36-46); Hemoglobin 13.3 g/dL (12.0-16.0); Lymphocytes Absolute Auto 2100 /uL (1100-4500); Lymphocytes Percent Auto 21.6 % (25-40); Mean Corpuscular HGB Conc 34.5 % (30-36); Mean Corpuscular Hemoglobin 30.8 PG (26-34); Mean Corpuscular Volume 89.1 fL (80-100); Monocytes Absolute Auto 900 /uL (0-900); Monocytes Percent Auto 9.1 % (3-14); Neutrophils Absolute Auto 6400 /uL (1500-7000); Neutrophils Percent Auto 66.1 % (50-75); PTT Partial Thromboplastin Tim 33 SECONDS (26.4-36.2); Platelet Count 239 X10^3/uL (150-400); Red Blood Cell Count 4.32 X10^6/uL (4.0-5.2); Red Cell Distribution Width 13.8 % (11.6-14.8); White Blood Cell Count 9.7 X10^3/uL (4.5-11.0)
[2022-01-30 16:39] LABS: Alanine Aminotransferase 19 IU/L (<35); Albumin 4.2 g/dL (3.5-5.0); Albumin Globulin Ratio 1.4 (1.0-2.8); Alkaline Phosphatase 68 U/L (38-126); Aspartate Aminotransferase 33 IU/L (14-36); BUN Creatinine Ratio 15.5 (6-22); Bilirubin Total 0.4 mg/dL (0.2-1.3); Blood Urea Nitrogen 20 mg/dL (7-17); Calcium 9.7 mg/dL (8.4-10.2); Carbon Dioxide 24 mmol/L (22-32); Chloride 108 mmol/L (98-107); Creatine Kinase 61 U/L (30-135); Estimated Glomerular Filt Rate 51 mL/min (>60); Globulin 3.1 g/dL (1.7-4.1); Glucose 140 mg/dL (70-100); HEMOLYSIS < 15 (0-50); Potassium 3.1 mmol/L (3.4-5.1); Sodium 140 mmol/L (137-145); Total Protein 7.3 g/dL (6.3-8.2)
[2022-01-30 16:48] LABS: NT-proBNP (BNP-Adult 18+) 63 pg/mL (<125)
[2022-01-30 16:50] LABS: Troponin I < 0.012 ng/mL (0.01-0.034)
[2022-01-30 17:02] LABS: Acetaminophen < 10 ug/mL (10-30); Ethanol (ETOH) < 10 mg/dL; Salicylate < 1.0 mg/dL (<20)
--- NOTE | 2022-01-30 17:22 | PC.NURSE ---
Patient to bathroom in wheelchair with Geni GUZMAN. Able to stand on own, no weakness noted. No incontinence.
--- NOTE | 2022-01-30 17:41 | ED_ITS ---
HPI - Neuro Symptoms/Deficit General Chief Complaint: Neuro Symptoms/Deficit Stated Complaint: RIGHT SIDE NUMBNESS HEADACHE Time Seen by Provider: 01/30/22 17:41 Source: patient Mode of arrival: Ambulatory History of Present Illness HPI Narrative: Patient is a 51-year-old female who has multitude of chronic problems including chronic back pain, AICD presenting today with variety of complaints. She reports that she wants to but does not want to kill herself she would like someone else to do it. She keeps falling she is generally weak. He does not know what is wrong with her. She was previously seen in a for possible cauda equina syndrome variety of links were taken to rule out cauda equina syndrome which we eventually did. She says that her legs give out on her she keeps falling. She gets dizzy and lightheaded whenever she stands up she is noted to be mildly hypotensive here in the ED. She denies any chest pain. No fevers or chills. No painful or frequent urination. She states she feels mildly dizzy. She is on multiple pain medications anxiety medications. She denies taking any extra. She does have support with friends. On Anticoagulants: No Related Data Home Medications Medication Instructions Recorded Confirmed ranolazine 1,000 mg 1,000 mg PO ONCE 12/26/21 01/20/22 tablet,extended release,12 hr Previous Rx's Medication Instructions Recorded aspirin 81 mg tablet,delayed 81 mg PO DAILY #90 tabs 01/28/21 release (Adult Aspirin Regimen) ondansetron HCl 4 mg tablet 4 mg PO Q8H #30 tabs 08/18/21 rosuvastatin 40 mg tablet 40 mg PO DAILY #30 tabs 08/18/21 isosorbide mononitrate 120 mg 120 mg PO QAM #90 tabs 08/31/21 tablet,extended release 24 hr levothyroxine 50 mcg tablet 50 mcg PO DAILY #90 tabs 09/09/21 trazodone 50 mg tablet 100 mg PO BEDTIME insomnia #180 09/09/21 tabs amlodipine 10 mg tablet 5 mg PO DAILY #90 tabs 09/20/21 ropinirole 0.5 mg tablet 0.5 mg PO BEDTIME #30 tabs 10/06/21 meloxicam 15 mg tablet 15 mg PO DAILY #30 tabs 12/26/21 clonazepam 1 mg tablet 1 mg PO BID PRN anxiety or 12/29/21 sleeplessness #60 tabs duloxetine 20 mg capsule,delayed 60 mg PO BID #180 caps 12/29/21 release gabapentin 300 mg capsule 600 mg PO TID #540 caps 12/29/21 hydrocodone 10 mg-acetaminophen 2 tab PO Q6-8H PRN pain #60 tabs 01/16/22 325 mg tablet lamotrigine 25 mg tablet 25 mg PO ONCE #90 tabs 01/18/22 metoprolol succinate 50 mg See Rx Instructions .Route 01/18/22 tablet,extended release 24 hr .COMPLEX #180 tabs nitroglycerin 0.4 mg sublingual 0.4 mg sublingual Q5M PRN chest 01/18/22 tablet pain #30 tabs ketorolac 10 mg tablet 10 mg PO Q6H PRN pain #20 tabs 01/19/22 oxybutynin chloride 5 mg/5 mL oral 5 mg (5 mL) PO TID #473 mL 01/20/22 syrup protein (Ensure High Protein oral 1 ea PO BID #480 grams 01/23/22 powder) Allergies Allergy/AdvReac Type Severity Reaction Status Date / Time gluten Allergy Severe Anaphylaxis Verified 01/20/22 10:07 lactose Allergy Intermediate Swelling Verified 01/20/22 10:07 of Lip/Tongue/Throat Penicillins Allergy Intermediate Rash Verified 01/20/22 10:07 codeine [CODEINE] Allergy Mild RASH Verified 01/20/22 10:07 itching egg AdvReac Severe Diarrhea Verified 01/20/22 10:07 Review of Systems Review of Systems Narrative: GENERAL: Denies chills, fatigue, malaise, fever, sweats, travel HEENT: Denies sinus pain, ear pain, sore throat, difficulty swallowing, neck pain RESPIRATORY: Denies dyspnea, cough, wheezing, hemoptysis, sputum. CARDIOVASCULAR: Denies chest pain, palpitations, orthopnea, edema GASTROINTESTINAL: Denies nausea, vomiting, abdominal pain, diarrhea, constipation, melena. : Denies dysuria, frequency, incontinence, hematuria, urinary retention, flank pain. MUSCULOSKELETAL: Denies weakness, joint pain, or bony pain SKIN: No rash, no erythema, no pruritus NEUROLOGIC: Frequent falls, see HPI PSYCHIATRIC: No concerning psychosocial issues. 12 point review of systems is negative except for those stated above and HPI Hematologic/Lymphatic On Anticoagulants: No Patient History Medical History Abdominal pain Acute coronary syndrome Arrhythmia Bright red rectal bleeding Bulging of cervical intervertebral disc Cardiac arrest with ventricular fibrillation Cardiomyopathy Chronic anticoagulation Colon polyps Colonic mass Coronary artery disease Depression with anxiety Dilation of bladder Diverticulosis Eczema Elevated liver enzymes Elevated WBC count Eosinophilic esophagitis Eosinophilic esophagitis Esophageal obstruction Facet arthropathy, lumbar Gallstones Grief at loss of child Live's disease Hemorrhage of surgical anastomosis site of digestive tract Hemorrhoids History of heart attack Hydronephrosis, right Hypertension IBS (irritable bowel syndrome) Insomnia Interstitial cystitis Lower urinary tract symptoms Lumbar pain Lumbar pain with radiation down left leg Muscle spasms of both lower extremities 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 Nicotine addiction NSTEMI (non-ST elevated myocardial infarction) (08/20/20) Protein calorie malnutrition PTSD (post-traumatic stress disorder) Restless leg syndrome Shingles Stool fat increased Suicidal thoughts Tobacco abuse Tobacco abuse counseling Well woman exam with routine gynecological exam Surgical History AICD (automatic cardioverter/defibrillator) present H/O left breast biopsy H/O: hysterectomy History of abdominal surgery History of bilateral tubal ligation History of bladder suspension procedure Hx of fusion of cervical spine Hx of tonsillectomy S/P cervical spinal fusion (2013) S/P surgery on nasal septum Status post right hemicolectomy Family History Father Alcoholism Cancer Lung cancer Mother Age: 73 Lung cancer Diabetes mellitus Hypertension Blood disease Inflammatory bowel disease CAD in [place] artery Social History marital status: number of children: 4 household members: other occupational status: employed Smoking Status: Current every day smoker alcohol intake: current substance use type: does not use Smoking Status: Current every day smoker tobacco type: cigarettes alcohol intake frequency: other Substance Use Type: does not use Exam Initial Vital Signs Initial Vital Signs: Vital Signs Temperature 98.6 F 01/30/22 14:51 Pulse Rate 113 H 01/30/22 14:51 Respiratory Rate 24 01/30/22 14:51 Blood Pressure 133/74 01/30/22 14:51 Pulse Oximetry 97 01/30/22 14:51 Oxygen Delivery Method 01/30/22 14:51 GENERAL: Alert tearful anxious 51-year-old female HEENT: Head atraumatic,EOMI, pupils reactive, face symmetric, moist mucous membranes CARDIOVASCULAR: Regular rate and rhythm without murmurs, rubs or gallops. RESPIRATORY: Breath sounds equal bilaterally, no wheezes rales or rhonchi. ABDOMEN: Soft, nontender. Normoactive bowel sounds all 4 quadrants. No guarding or rebound. EXTREMITIES: Normal range of motion, no clubbing or edema. Neurovascularly intact NEUROLOGICAL: Alert and oriented x4.Normal gait and speech. Arms are slightly weak good [id number] but decreased strength bilaterally no focal deficits moving lower extremity SKIN: Warm, dry, no laceration, no petechiae, no rashes or lesions. Course Orders Ordered: Discontinued Medications Sodium Chloride (Normal Saline 0.9%) 1,000 mls @ 1,000 mls/hr IV BOLUS ONE Stop: 01/30/22 18:23 Last Infusion: 01/30/22 18:34 Dose: 0 mls/hr Documented By: Admin: 01/30/22 17:42 Dose: 1,000 mls/hr Documented By: LUPILLO Sodium Chloride (Normal Saline 0.9%) 1,000 mls @ 1,000 mls/hr IV BOLUS ONE Stop: 01/30/22 19:02 Last Infusion: 01/30/22 19:48 Dose: 0 mls/hr Documented By: Admin: 01/30/22 18:38 Dose: 1,000 mls/hr Documented By: LUPILLO Vital Signs Vital signs: Vital Signs - 8 hr 01/30/22 14:51 01/30/22 15:46 01/30/22 16:00 Temperature 98.6 F Pulse Rate 113 H 107 H Respiratory Rate 24 Blood Pressure 133/74 92/63 Pulse Oximetry 97 95 Oxygen Delivery Method Room Air 01/30/22 16:00 01/30/22 16:30 01/30/22 16:30 Temperature Pulse Rate 104 H 97 H Respiratory Rate 22 Blood Pressure 98/63 Pulse Oximetry 94 96 Oxygen Delivery Method 01/30/22 17:00 01/30/22 17:00 01/30/22 17:17 Temperature Pulse Rate 95 H Respiratory Rate 14 Blood Pressure 91/54 L 94/59 L Pulse Oximetry 98 Oxygen Delivery Method Room Air 01/30/22 17:17 01/30/22 17:30 01/30/22 17:31 Temperature Pulse Rate 95 H 91 H Respiratory Rate 18 28 H Blood Pressure 90/52 L Pulse Oximetry 96 96 Oxygen Delivery Method 01/30/22 17:31 Temperature Pulse Rate 90 Respiratory Rate 22 Blood Pressure Pulse Oximetry 96 Oxygen Delivery Method MDM - Neuro Symptoms/Deficit Lab Data Result diagrams: 01/30/22 15:11 01/30/22 15:11 Labs: Lab Results 01/30/22 01/30/22 01/30/22 Range/Units 15:11 15:11 15:11 WBC 9.7 (4.5-11.0) X10^3/uL RBC 4.32 (4.0-5.2) X10^6/uL Hgb 13.3 (12.0-16.0) g/dL Hct 38.5 (36-46) % MCV 89.1 (80-100) fL MCH 30.8 (26-34) PG MCHC 34.5 (30-36) % RDW 13.8 (11.6-14.8) % Plt Count 239 (150-400) X10^3/uL Neut % (Auto) 66.1 (50-75) % Lymph % (Auto) 21.6 L (25-40) % Burnet % (Auto) 9.1 (3-14) % Eos % (Auto) 2.8 (2-4) % Baso % (Auto) 0.4 (0-2) % Neut # (Auto) 6400 (7503-3448) /uL Lymph # (Auto) 2100 (4832-6938) /uL Burnet # (Auto) 900 (0-900) /uL Eos # (Auto) 300 (0-450) /uL Baso # (Auto) 0 (0-100) /uL PT 10.8 (10.1-12.7) SECONDS INR 1.0 (0.9-1.3) APTT 33 (26.4-36.2) SECONDS Sodium 140 (137-145) mmol/L Potassium 3.1 L (3.4-5.1) mmol/L Chloride 108 H (98-107) mmol/L Carbon Dioxide 24 (22-32) mmol/L BUN 20 H (7-17) mg/dL Creatinine 1.29 H (0.52-1.04) mg/dL Estimated GFR 51 L (>60) mL/min BUN/Creatinine Ratio 15.5 (6-22) Glucose 140 H (70-100) mg/dL Lactate (0.7-2.1) mmol/L Calcium 9.7 (8.4-10.2) mg/dL Magnesium 2.0 (1.6-2.3) mg/dL Total Bilirubin 0.4 (0.2-1.3) mg/dL AST 33 (14-36) IU/L ALT 19 (<35) IU/L Alkaline Phosphatase 68 (38-126) U/L Total Creatine Kinase 61 (30-135) U/L CK-MB (CK-2) TNP CK-MB (CK-2) Rel Index TNP Troponin I < 0.012 (0.01-0.034) ng/mL NT-Pro-B Natriuret Pep (<125) pg/mL Total Protein 7.3 (6.3-8.2) g/dL Albumin 4.2 (3.5-5.0) g/dL Globulin 3.1 (1.7-4.1) g/dL Albumin/Globulin Ratio 1.4 (1.0-2.8) Procalcitonin (<0.5) ng/mL TSH (0.47-4.68) uIU/mL Free T4 (0.78-2.19) ng/dL Urine Color Urine Appearance Urine pH (4.5-8.0) Ur Specific [place] (1.000-1.035) Urine Protein (Negative) Urine Glucose (UA) (Negative) g/dL Urine Ketones (NEGATIVE) Urine Occult Blood (Negative) Urine Nitrate (Negative) Urine Bilirubin (NEGATIVE) Ur Bilirubin Confirm (Negative) Urine Urobilinogen (0.2) E.U./dL Ur Leukocyte Esterase (NEGATIVE) Urine RBC (0-5/HPF) Urine WBC (0-5/HPF) Ur Squamous Epith Cells (0-5/HPF) Ur Transition Epith Cell (0-5/HPF) Ur Renal Epithelial Cell (0-1/HPF) Calcium Oxalate Crystal Urine Bacteria (None) Hyaline Casts (None) Urine Mucus (Negative) Ur Culture Indicated? Salicylates (<20) mg/dL U Opiates 300ng/mL cut (Negative) Ur Oxycodone Screen (Negative) Urine Methadone Screen (Negative) Acetaminophen (10-30) ug/mL Ur Barbiturates Screen (Negative) U Tricyclic Antidepress (Negative) Ur Phencyclidine Scrn (Negative) Ur Amphetamines Screen (Negative) U Methamphetamines Scrn (Negative) Ur MDMA Scrn (Ecstasy) (Negative) U Benzodiazepines Scrn (Negative) Urine Cocaine Screen (Negative) U Marijuana (THC) Screen (Negative) Ethyl Alcohol ( - 10) mg/dL 01/30/22 01/30/22 01/30/22 Range/Units 15:11 15:11 15:11 WBC (4.5-11.0) X10^3/uL RBC (4.0-5.2) X10^6/uL Hgb (12.0-16.0) g/dL Hct (36-46) % MCV (80-100) fL MCH (26-34) PG MCHC (30-36) % RDW (11.6-14.8) % Plt Count (150-400) X10^3/uL Neut % (Auto) (50-75) % Lymph % (Auto) (25-40) % Burnet % (Auto) (3-14) % Eos % (Auto) (2-4) % Baso % (Auto) (0-2) % Neut # (Auto) (7541-6210) /uL Lymph # (Auto) (2932-4575) /uL Burnet # (Auto) (0-900) /uL Eos # (Auto) (0-450) /uL Baso # (Auto) (0-100) /uL PT (10.1-12.7) SECONDS INR (0.9-1.3) APTT (26.4-36.2) SECONDS Sodium (137-145) mmol/L Potassium (3.4-5.1) mmol/L Chloride (98-107) mmol/L Carbon Dioxide (22-32) mmol/L BUN (7-17) mg/dL Creatinine (0.52-1.04) mg/dL Estimated GFR (>60) mL/min BUN/Creatinine Ratio (6-22) Glucose (70-100) mg/dL Lactate (0.7-2.1) mmol/L Calcium (8.4-10.2) mg/dL Magnesium (1.6-2.3) mg/dL Total Bilirubin (0.2-1.3) mg/dL AST (14-36) IU/L ALT (<35) IU/L Alkaline Phosphatase (38-126) U/L Total Creatine Kinase (30-135) U/L CK-MB (CK-2) CK-MB (CK-2) Rel Index Troponin I (0.01-0.034) ng/mL NT-Pro-B Natriuret Pep 63 (<125) pg/mL Total Protein (6.3-8.2) g/dL Albumin (3.5-5.0) g/dL Globulin (1.7-4.1) g/dL Albumin/Globulin Ratio (1.0-2.8) Procalcitonin (<0.5) ng/mL TSH 0.720 (0.47-4.68) uIU/mL Free T4 1.10 (0.78-2.19) ng/dL Urine Color Urine Appearance Urine pH (4.5-8.0) Ur Specific [place] (1.000-1.035) Urine Protein (Negative) Urine Glucose (UA) (Negative) g/dL Urine Ketones (NEGATIVE) Urine Occult Blood (Negative) Urine Nitrate (Negative) Urine Bilirubin (NEGATIVE) Ur Bilirubin Confirm (Negative) Urine Urobilinogen (0.2) E.U./dL Ur Leukocyte Esterase (NEGATIVE) Urine RBC (0-5/HPF) Urine WBC (0-5/HPF) Ur Squamous Epith Cells (0-5/HPF) Ur Transition Epith Cell (0-5/HPF) Ur Renal Epithelial Cell (0-1/HPF) Calcium Oxalate Crystal Urine Bacteria (None) Hyaline Casts (None) Urine Mucus (Negative) Ur Culture Indicated? Salicylates < 1.0 (<20) mg/dL U Opiates 300ng/mL cut (Negative) Ur Oxycodone Screen (Negative) Urine Methadone Screen (Negative) Acetaminophen < 10 (10-30) ug/mL Ur Barbiturates Screen (Negative) U Tricyclic Antidepress (Negative) Ur Phencyclidine Scrn (Negative) Ur Amphetamines Screen (Negative) U Methamphetamines Scrn (Negative) Ur MDMA Scrn (Ecstasy) (Negative) U Benzodiazepines Scrn (Negative) Urine Cocaine Screen (Negative) U Marijuana (THC) Screen (Negative) Ethyl Alcohol < 10 ( - 10) mg/dL 01/30/22 01/30/22 01/30/22 Range/Units 15:11 15:11 17:16 WBC (4.5-11.0) X10^3/uL RBC (4.0-5.2) X10^6/uL Hgb (12.0-16.0) g/dL Hct (36-46) % MCV (80-100) fL MCH (26-34) PG MCHC (30-36) % RDW (11.6-14.8) % Plt Count (150-400) X10^3/uL Neut % (Auto) (50-75) % Lymph % (Auto) (25-40) % Burnet % (Auto) (3-14) % Eos % (Auto) (2-4) % Baso % (Auto) (0-2) % Neut # (Auto) (8534-1029) /uL Lymph # (Auto) (5165-4305) /uL Burnet # (Auto) (0-900) /uL Eos # (Auto) (0-450) /uL Baso # (Auto) (0-100) /uL PT (10.1-12.7) SECONDS INR (0.9-1.3) APTT (26.4-36.2) SECONDS Sodium (137-145) mmol/L Potassium (3.4-5.1) mmol/L Chloride (98-107) mmol/L Carbon Dioxide (22-32) mmol/L BUN (7-17) mg/dL Creatinine (0.52-1.04) mg/dL Estimated GFR (>60) mL/min BUN/Creatinine Ratio (6-22) Glucose (70-100) mg/dL Lactate 1.4 (0.7-2.1) mmol/L Calcium (8.4-10.2) mg/dL Magnesium (1.6-2.3) mg/dL Total Bilirubin (0.2-1.3) mg/dL AST (14-36) IU/L ALT (<35) IU/L Alkaline Phosphatase (38-126) U/L Total Creatine Kinase (30-135) U/L CK-MB (CK-2) CK-MB (CK-2) Rel Index Troponin I (0.01-0.034) ng/mL NT-Pro-B Natriuret Pep (<125) pg/mL Total Protein (6.3-8.2) g/dL Albumin (3.5-5.0) g/dL Globulin (1.7-4.1) g/dL Albumin/Globulin Ratio (1.0-2.8) Procalcitonin 0.05 (<0.5) ng/mL TSH (0.47-4.68) uIU/mL Free T4 (0.78-2.19) ng/dL Urine Color Urine Appearance Urine pH (4.5-8.0) Ur Specific [place] (1.000-1.035) Urine Protein (Negative) Urine Glucose (UA) (Negative) g/dL Urine Ketones (NEGATIVE) Urine Occult Blood (Negative) Urine Nitrate (Negative) Urine Bilirubin (NEGATIVE) Ur Bilirubin Confirm (Negative) Urine Urobilinogen (0.2) E.U./dL Ur Leukocyte Esterase (NEGATIVE) Urine RBC (0-5/HPF) Urine WBC (0-5/HPF) Ur Squamous Epith Cells (0-5/HPF) Ur Transition Epith Cell (0-5/HPF) Ur Renal Epithelial Cell (0-1/HPF) Calcium Oxalate Crystal Urine Bacteria (None) Hyaline Casts (None) Urine Mucus (Negative) Ur Culture Indicated? Salicylates (<20) mg/dL U Opiates 300ng/mL cut Positive H (Negative) Ur Oxycodone Screen Negative (Negative) Urine Methadone Screen Negative (Negative) Acetaminophen (10-30) ug/mL Ur Barbiturates Screen Negative (Negative) U Tricyclic Antidepress Negative (Negative) Ur Phencyclidine Scrn Negative (Negative) Ur Amphetamines Screen Positive H (Negative) U Methamphetamines Scrn Positive H (Negative) Ur MDMA Scrn (Ecstasy) Negative (Negative) U Benzodiazepines Scrn Negative (Negative) Urine Cocaine Screen Positive H (Negative) U Marijuana (THC) Screen Negative (Negative) Ethyl Alcohol ( - 10) mg/dL 01/30/22 Range/Units 17:16 WBC (4.5-11.0) X10^3/uL RBC (4.0-5.2) X10^6/uL Hgb (12.0-16.0) g/dL Hct (36-46) % MCV (80-100) fL MCH (26-34) PG MCHC (30-36) % RDW (11.6-14.8) % Plt Count (150-400) X10^3/uL Neut % (Auto) (50-75) % Lymph % (Auto) (25-40) % Burnet % (Auto) (3-14) % Eos % (Auto) (2-4) % Baso % (Auto) (0-2) % Neut # (Auto) (3067-9355) /uL Lymph # (Auto) (1736-7991) /uL Burnet # (Auto) (0-900) /uL Eos # (Auto) (0-450) /uL Baso # (Auto) (0-100) /uL PT (10.1-12.7) SECONDS INR (0.9-1.3) APTT (26.4-36.2) SECONDS Sodium (137-145) mmol/L Potassium (3.4-5.1) mmol/L Chloride (98-107) mmol/L Carbon Dioxide (22-32) mmol/L BUN (7-17) mg/dL Creatinine (0.52-1.04) mg/dL Estimated GFR (>60) mL/min BUN/Creatinine Ratio (6-22) Glucose (70-100) mg/dL Lactate (0.7-2.1) mmol/L Calcium (8.4-10.2) mg/dL Magnesium (1.6-2.3) mg/dL Total Bilirubin (0.2-1.3) mg/dL AST (14-36) IU/L ALT (<35) IU/L Alkaline Phosphatase (38-126) U/L Total Creatine Kinase (30-135) U/L CK-MB (CK-2) CK-MB (CK-2) Rel Index Troponin I (0.01-0.034) ng/mL NT-Pro-B Natriuret Pep (<125) pg/mL Total Protein (6.3-8.2) g/dL Albumin (3.5-5.0) g/dL Globulin (1.7-4.1) g/dL Albumin/Globulin Ratio (1.0-2.8) Procalcitonin (<0.5) ng/mL TSH (0.47-4.68) uIU/mL Free T4 (0.78-2.19) ng/dL Urine Color Yellow Urine Appearance Clear Urine pH 5.5 (4.5-8.0) Ur Specific [place] >=1.030 H (1.000-1.035) Urine Protein 2+ H (Negative) Urine Glucose (UA) Trace H (Negative) g/dL Urine Ketones Trace H (NEGATIVE) Urine Occult Blood Negative (Negative) Urine Nitrate Negative (Negative) Urine Bilirubin Negative (NEGATIVE) Ur Bilirubin Confirm Negative (Negative) Urine Urobilinogen 0.2 (0.2) E.U./dL Ur Leukocyte Esterase Trace H (NEGATIVE) Urine RBC None seen (0-5/HPF) Urine WBC 1-5/hpf (0-5/HPF) Ur Squamous Epith Cells 10-30 /hpf H (0-5/HPF) Ur Transition Epith Cell 1-5/hpf (0-5/HPF) Ur Renal Epithelial Cell 0-1/hpf (0-1/HPF) Calcium Oxalate Crystal Many H Urine Bacteria None seen (None) Hyaline Casts 10-30/lpf (None) Urine Mucus 1+ H (Negative) Ur Culture Indicated? Cult not indicated Salicylates (<20) mg/dL U Opiates 300ng/mL cut (Negative) Ur Oxycodone Screen (Negative) Urine Methadone Screen (Negative) Acetaminophen (10-30) ug/mL Ur Barbiturates Screen (Negative) U Tricyclic Antidepress (Negative) Ur Phencyclidine Scrn (Negative) Ur Amphetamines Screen (Negative) U Methamphetamines Scrn (Negative) Ur MDMA Scrn (Ecstasy) (Negative) U Benzodiazepines Scrn (Negative) Urine Cocaine Screen (Negative) U Marijuana (THC) Screen (Negative) Ethyl Alcohol ( - 10) mg/dL Imaging Data CT scan - head: Radiologist's Impression: VALERIE Shepherd [id number] CT Scan Report Signed Patient: Cecy Fields MR#: [id number] : 1970 Acct:[id number] Age/Sex: 51 / F Date of Service: 01/30/22 Loc: ED Accession Number: [id number] ?? Procedure: CT head/brain wo con Ordering Provider: Botnick,Shannan D.O. PROCEDURE:? CT HEAD/BRAIN WO CON ? INDICATIONS:? right sided weakness ? TECHNIQUE:? Noncontrast 5 mm thick angled axial sections acquired from the foramen magnum to the vertex, with coronal and sagittal reformats.? For radiation dose reduction, the following was used:? automated exposure control, adjustment of mA and/or kV according to patient size.? ? COMPARISON:? None. ? FINDINGS:? Image quality:? Excellent.? ? CSF spaces:? Basal cisterns are patent.? No extra-axial fluid collections.? Ventricles are normal in size and shape.? ? Brain:? No midline shift.? No intracranial masses or hemorrhage.? Pisano-white matter interface is normal.? ? Skull and face:? Calvarium and visualized facial bones are intact, without garner spicious lesions.? ? Sinuses:? Visualized sinuses and mastoids are clear.? ? IMPRESSION:? ? Unremarkable CT of the brain without intracranial hemorrhage or mass effect ? ? ? Approved by: Yuan German M.D. on 01/30/2022 at 16:22? Chest x-ray: Radiologist's Impression: Signed Patient: Cecy Fields MR#: [id number] : 1970 Acct:[id number] Age/Sex: 51 / F Date of Service: 01/30/22 Loc: ED Accession Number: [id number] ?? Procedure: XR chest 1V Ordering Provider: Shannan Waldron D.O. PROCEDURE:? XR CHEST 1V ? INDICATIONS:? Possible stroke ? TECHNIQUE:? One view of the chest was acquired.? ? COMPARISON:? [facility], , XR CHEST 1V, 01/19/2022, 14:35. ? FINDINGS:? ? Surgical changes and devices:? A cardiac pacemaker/AICD is seen with pulse generator in the left chest.? Surgical clips seen projecting over the right chest.? Postsurgical changes partially imaged at the lower cervical spine. ? Lungs and pleura:? Lungs are clear.? No pleural effusions or pneumothorax.? ? Mediastinum:? Mediastinal contours appear normal.? Heart size is normal.? ? Bones and chest wall:? No suspicious bony lesions.? Overlying soft tissues appear unremarkable.? ? IMPRESSION:? No acute cardiopulmonary abnormality. ? ? ? Dictated by: Juanjo Ibarra M.D. on 01/30/2022 at 16:33 ? ? ECG Data Interpretation: Normal sinus rhythm rate 92 LA interval 128 QRS [address] changes or T- wave inversions MDM Narrative Medical decision making narrative: Patient is quite confused she is evaluated by social work here. She complains of some dizziness lightheadedness when she gets up her blood pressure is noted to be slightly low. Creatinine elevated consistent with dehydration. UDS is positive for many things including opiates and methamphetamine. Patient denies taking anything. She does have a prior history of alcohol abuse she states that she did drink alcohol last night she does not remember doing any drugs she says she typically went to them his her daughter from a drugs. She received 2 L of IV fluids in the ED. She ambulates without any difficulty. Blood pressure mildly improved encouraged her to stay however she was ready to go home. At this time encouraged her to was stained from alcohol and increase fluids and avoid drugs Discharge Plan Departure Patient Disposition: Home Clinical Impression: Acute dehydration Instructions: DI for Dehydration -- Adult Activity Restrictions/Additional Instructions: *You have been diagnosed with dehydration *What to do: Today you were found to be dehydrated her kidney function showed that you were not drinking enough fluids. I recommend drinking Gatorade a Gatorade like substance. Drug screen today is positive for opiates, amphetamines methamphetamines and cocaine, these are on likely helping your situation. Please stop using drugs *Continue to take medications as directed *Follow up with your primary care provider in 2-3 days or call [phone] *Return to ER if you should have increasing confusion weakness fall or any new, worsening or concerning symptoms Prescriptions: No Action levothyroxine 50 mcg tablet 50 mcg PO DAILY Qty: 90 1RF Rx Instructions: Take 1 tab on an empty stomach daily 30 mins prior to eating. trazodone 50 mg tablet 100 mg PO BEDTIME Qty: 180 3RF Rx Instructions: Take 2 tabs at bedtime daily for insomnia. hydrocodone-acetaminophen 10-325 mg tablet 2 tab PO Q6-8H PRN (Reason: pain) Qty: 60 0RF Label Comments: TAKE 1 TABLET BY MOUTH ONCE DAILY NEEDED FOR PAIN metoprolol succinate 50 mg tablet extended release 24 hr See Rx Instructions .ROUTE .COMPLEX Qty: 180 3RF Dose Instruction: TAKE 1 TABLET BY MOUTH TWICE DAILY Rx Instructions: TAKE 1 TABLET BY MOUTH TWICE DAILY aspirin [Adult Aspirin Regimen] 81 mg tablet,delayed release (DR/EC) 81 mg PO DAILY Qty: 90 3RF Rx Instructions: Take 1 tab daily amlodipine 10 mg tablet 5 mg PO DAILY Qty: 90 3RF nitroglycerin 0.4 mg tablet, sublingual 0.4 mg sublingual Q5M PRN (Reason: chest pain) Qty: 30 2RF Rx Instructions: do not exceed 3 doses per episode lamotrigine 25 mg tablet 25 mg PO ONCE Qty: 90 1RF Rx Instructions: Take 1 tab daily x7 days, then increase to 2 tabs daily as tolerated. ondansetron HCl 4 mg tablet 4 mg PO Q8H Qty: 30 1RF Rx Instructions: Take 1 tab every 8 hours for nausea. rosuvastatin 40 mg tablet 40 mg PO DAILY Qty: 30 0RF Hold Instructions: muscular pain and weakness legs isosorbide mononitrate 120 mg tablet extended release 24 hr 120 mg PO QAM Qty: 90 3RF Rx Instructions: Take 1 tab daily ropinirole 0.5 mg tablet 0.5 mg PO BEDTIME Qty: 30 3RF Rx Instructions: administer 1-3 hours before bedtime duloxetine 20 mg capsule,delayed release(DR/EC) 60 mg PO BID Qty: 180 2RF Rx Instructions: Take (3) 20mg tabs (60mg) twice per day for depression and anxiety gabapentin 300 mg capsule 600 mg PO TID Qty: 540 3RF Rx Instructions: Take 2 capsule three times per day for both pain and anxiety clonazepam 1 mg tablet 1 mg PO BID PRN (Reason: anxiety or sleeplessness) Qty: 60 3RF protein [Ensure High Protein] Powder 1 ea PO BID Qty: 480 3RF Rx Instructions: Mix scoopful with almond milk for meal replacement twice per day ketorolac 10 mg tablet 10 mg PO Q6H PRN (Reason: pain) Qty: 20 0RF ranolazine 1,000 mg tablet extended release 12 hr 1,000 mg PO ONCE meloxicam 15 mg tablet 15 mg PO DAILY Qty: 30 2RF oxybutynin chloride 5 mg/5 mL syrup 5 mg PO TID Qty: 473 3RF Referrals: Destiny Mckeon ARNP [Primary Care Provider] - Visit Report Forms: Patient Portal/API
[2022-01-30] MEDS: SODIUM CHLORIDE 0.9% 1,000 ML 1000 ML IV ×2 (17:42→18:38)
[2022-01-30 17:47] LABS: Appearance Urine UA CLEAR; Color Urine UA YELLOW; Glucose Urine UA TRACE g/dL (Negative); Ketones Urine UA TRACE (NEGATIVE); Leukocyte Esterase Urine UA TRACE (NEGATIVE); Nitrite Urine UA NEGATIVE (Negative); Occult Blood Urine UA NEGATIVE (Negative); Protein Urine UA 2+ (Negative); Specific Gravity Urine UA >=1.030 (1.000-1.035); Urobilinogen Urine UA 0.2 E.U./dL (0.2)
[2022-01-30 17:50] LABS: UR Morphine/Opiate cutoff 300 Positive (Negative); Ur Creatinine Normal (Normal); Ur Specific Gravity Normal (Normal); Urine Amphetamines Positive (Negative); Urine Barbiturates Negative (Negative); Urine Benzodiazepines Negative (Negative); Urine Cocaine Positive (Negative); Urine MDMA Negative (Negative); Urine Methadone Negative (Negative); Urine Methamphetamines Positive (Negative); Urine Oxycodone Negative (Negative); Urine Phencyclidine Negative (Negative); Urine Tetrahydrocannabinol Negative (Negative); Urine Tricyclic Antidepressant Negative (Negative); Urine pH Normal (Normal)
[2022-01-30 17:51] LABS: Lactate (Lactic Acid) 1.4 mmol/L (0.7-2.1)
--- NOTE | 2022-01-30 18:05 | CM.SWNOTE ---
Addendum entered by Holly Eduardo 01/31/22 14:33: FLIGHT RESERVATIONS MANAGER f/u Note FLIGHT RESERVATIONS MANAGER receives return call from [facility], it was reported that the HH referral was denied due to concern for patient's need for PT and patient's SI statements in H&P. FLIGHT RESERVATIONS MANAGER calls patient and leaves reviewing the above and informing patient about the HCS referral. ANDREWS Cherry Addendum entered by Holly Eduardo 01/31/22 13:55: FLIGHT RESERVATIONS MANAGER f/u Note FLIGHT RESERVATIONS MANAGER receives f/u call from Gabi at [facility]. Gabi recommends submitting intake referral on patient's behalf. FLIGHT RESERVATIONS MANAGER faxes intake referral for services assessment as patient already has Medicaid. ANDREWS Cherry Addendum entered by Holly Eduardo 01/30/22 18:38: FLIGHT RESERVATIONS MANAGER Note FLIGHT RESERVATIONS MANAGER asks about substance and ETOH use. Patient states she had a drink yesterday but denies all other substance use. Per Toxicology results that just came in patient is positive for Methamphetamines, Amphetamines, Opiates and Cocaine. Patient denies use of any of these substances. Patient states she took her hydrocodone medication yesterday. Plan: DCP to f/u with POC ANDREWS Cherry Original Note: FLIGHT RESERVATIONS MANAGER/DCP Assessment Note Patient is 51 y/o female who presents to ED due to concern for right side numbness, weakness and headache. Patient has hx of PTSD, Anxiety, Depression, ACID and and various chronic conditions. Patient has hx of trauma due to loss of daughter. Patient's PCP is JENNIFER Carey who she has regular follow up with. Patient is also see by Dr. Riley for urology and Dr. Baker for pain management. Patient had referral for outpatient PT but cancelled all future sessions. Patient presents as tearful at times and with anxiety. Patient endorses she wanted to come to the ED due to concerns for a stroke. Patient presents as A/O to self, person and location but told RN that she thought it was 01/25/22 and informed FLIGHT RESERVATIONS MANAGER of this. Patient endorses she drove to ED but tries to limit her driving due to concern for her tiredness and weakness. Patient endorses increase in GLFs, dizziness and weakness. Patient endorses trouble with incontinence. Patient denies supports, but later states she goes to her friend's house sometimes. Patient endorses that medications help her sleep so she sleeps well but also states that she forgets to take her medication. Patient endorses concern for her memory and states that she has forgotten the last five days. Patient endorses she eats very little. Patient endorses she no longer has MH providers through [facility] and the therapist that ANDREWS Garcia recommended was unable to take patient on. Patient denies SI but makes statements I just want to and get it over with. Patient provides consent for FLIGHT RESERVATIONS MANAGER to call [facility] regarding patient caregiver qualification, FLIGHT RESERVATIONS MANAGER calls and leaves requesting return call. Patient endorses I want to be in a home referencing that she wants to be in a facility where they take care of her. FLIGHT RESERVATIONS MANAGER discusses HH and patient endorses agreement, patient denies preference. FLIGHT RESERVATIONS MANAGER calls [facility] and it is reported that due to patient's insurance, patient will need to be reviewed before patient referral can be accepted. FLIGHT RESERVATIONS MANAGER faxes f2f, order and clinicals for review, referral for PT, RN, HH aide and FLIGHT RESERVATIONS MANAGER. FLIGHT RESERVATIONS MANAGER provides patient with a list of MH providers that take her insurance, a senior resource guide and a brochure for [facility]. Plan: FLIGHT RESERVATIONS MANAGER to f/u with [facility] and f/u with [facility] referral, patient to d/c to home when medically clear. ANDREWS Cherry
[2022-01-30 18:08] LABS: Calcium Oxalate Crystals Urine Many; RBC Urine None Seen (0-5/HPF); Renal Epithelial Cells Urine 0-1/HPF (0-1/HPF); Squamous Epithelial Cell Urine 10-30 /HPF (0-5/HPF); Transitional Epi Cells Urine 1-5/HPF (0-5/HPF); WBC Urine 1-5/HPF (0-5/HPF); pH Urine UA 5.5 (4.5-8.0)
[2022-01-30 18:09] LABS: Procalcitonin 0.05 ng/mL (<0.5)
[2022-01-30 18:09] LABS: Bacteria Urine None Seen; Culture Indicated Urine Cult Not Indicated; Hyaline Casts Urine 10-30/LPF; Mucus Urine 1+ (Negative)
[2022-01-30 18:11] LABS: Bilirubin Urine UA Negative (NEGATIVE); Ictotest Urine Negative (Negative)
--- NOTE | 2022-01-30 21:07 | PC.NURSE ---
pt walked with steady gait to room door and back to bed
== END 2022-01-30 21:12 | disposition home or self-care (01) ==
PROVIDERS: Emergency Provider Emergency Medicine; Family Provider Physician Assistant Surgical; PCP Nurse Practitioner
DX: E86.0 Dehydration (principal); R53.1 Weakness; R29.6 Repeated falls; R45.851 Suicidal ideations
CPT/HCPCS: 36415; 70450; 71045; 80053; 80305; 80320; 80329; 81001; 82550; 83605; 83735; 83880; 84145; 84439; 84443; 84484; 85025; 85610; 85730; 93005; 96360; 96361; 99284; 99285; G0480

== ENCOUNTER 2022-02-13 11:16 | Emergency (ER) | payer OTHER, MEDICAID, SELFPAY ==
[2022-01-23 12:15] VITALS: BMI 23.1
[2022-02-13 11:20] VITALS: BP 121/70; PULSE 60; RESP 18; TEMP 36.2; O2SAT 98
--- NOTE | 2022-02-13 11:26 | DI.RAD.S_ITS ---
PROCEDURE: XR CHEST 1V INDICATIONS: chest pain TECHNIQUE: One view of the chest was acquired. COMPARISON: [facility], CR, XR CHEST 1V, 01/30/2022, 16:16. FINDINGS: Surgical changes and devices: Single lead defibrillator is unchanged. Surgical clips are redemonstrated over the right breast. Lungs and pleura: Lungs are clear. No pleural effusions or pneumothorax. Mediastinum: Mediastinal contours appear normal. Heart size is normal. Bones and chest wall: No suspicious bony lesions. Overlying soft tissues appear unremarkable. IMPRESSION: No acute cardiopulmonary findings. Dictated by: Benita Ambrosio M.D. on 02/13/2022 at 12:37 Approved by: Benita Ambrosio M.D. on 02/13/2022 at 12:37
[2022-02-13] MEDS: KETOROLAC 30 MG/ML VIAL 15 MG IM (12:05)
[2022-02-13] MEDS: ACETAMINOPHEN 325 MG TABLET 975 MG PO (12:06)
--- NOTE | 2022-02-13 12:08 | DI.RAD.S_ITS ---
PROCEDURE: XR ANKLE LT MIN 3V INDICATIONS: ankle injury TECHNIQUE: 3 views of the ankle were acquired. COMPARISON: None. FINDINGS: Bones: No fractures or dislocations. Ankle mortise is normally aligned. No suspicious bony lesions. Soft tissues: No tibiotalar joint effusion. Achilles tendon appears normal. IMPRESSION: No acute radiographic findings. If pain persists, followup imaging in 5-7 days is recommended to exclude occult fracture. Dictated by: Benita Ambrosio M.D. on 02/13/2022 at 12:36 Approved by: Benita Ambrosio M.D. on 02/13/2022 at 12:37
--- NOTE | 2022-02-13 12:08 | DI.RAD.S_ITS ---
PROCEDURE: XR FOOT LT MIN 3V INDICATIONS: recent injury TECHNIQUE: 3 views of the foot were acquired. COMPARISON: [facility], CR, XR FOOT LT MIN 3V, 10/27/2020, 10:54. FINDINGS: Bones: No fractures or dislocations. No suspicious bony lesions. Soft tissues: No tibiotalar joint effusion. Achilles tendon appears normal. IMPRESSION: No acute radiographic findings. If pain persists, followup imaging in 5-7 days is recommended to exclude occult fracture. Dictated by: Benita Ambrosio M.D. on 02/13/2022 at 12:36 Approved by: Benita Ambrosio M.D. on 02/13/2022 at 12:36
[2022-02-13 12:10] LABS: Add Manual Diff / Slide Review NO; Basophils Absolute Auto 100 /uL (0-100); Basophils Percent Auto 0.6 % (0-2); Eosinophils Absolute Auto 300 /uL (0-450); Eosinophils Percent Auto 3.2 % (2-4); Hematocrit 39.1 % (36-46); Hemoglobin 13.3 g/dL (12.0-16.0); Lymphocytes Absolute Auto 2000 /uL (1100-4500); Lymphocytes Percent Auto 22.1 % (25-40); Mean Corpuscular HGB Conc 34.2 % (30-36); Mean Corpuscular Hemoglobin 30.4 PG (26-34); Mean Corpuscular Volume 89.1 fL (80-100); Monocytes Absolute Auto 600 /uL (0-900); Monocytes Percent Auto 6.7 % (3-14); Neutrophils Absolute Auto 6100 /uL (1500-7000); Neutrophils Percent Auto 67.4 % (50-75); Platelet Count 208 X10^3/uL (150-400); Red Blood Cell Count 4.39 X10^6/uL (4.0-5.2); Red Cell Distribution Width 14.1 % (11.6-14.8)
[2022-02-13 12:22] LABS: Alanine Aminotransferase 16 IU/L (<35); Albumin 4.1 g/dL (3.5-5.0); Albumin Globulin Ratio 1.3 (1.0-2.8); Alkaline Phosphatase 60 U/L (38-126); Aspartate Aminotransferase 22 IU/L (14-36); BUN Creatinine Ratio 20.3 (6-22); Bilirubin Total 0.5 mg/dL (0.2-1.3); Blood Urea Nitrogen 15 mg/dL (7-17); Carbon Dioxide 27 mmol/L (22-32); Chloride 106 mmol/L (98-107); Creatine Kinase 71 U/L (30-135); Estimated Glomerular Filt Rate > 60 mL/min (>60); Globulin 3.2 g/dL (1.7-4.1); Glucose 111 mg/dL (70-100); HEMOLYSIS < 15 (0-50); Lipase 77 U/L (23-300); Magnesium 2.1 mg/dL (1.6-2.3); Potassium 3.8 mmol/L (3.4-5.1); Sodium 140 mmol/L (137-145); Total Protein 7.3 g/dL (6.3-8.2)
[2022-02-13 12:33] LABS: Troponin I < 0.012 ng/mL (0.01-0.034)
[2022-02-13 13:15] VITALS: BP 116/66; PULSE 86; RESP 25; O2SAT 96
[2022-02-13 13:30] VITALS: BP 100/62; PULSE 86; RESP 26; O2SAT 96
[2022-02-13 14:00] VITALS: BP 102/57; PULSE 79; RESP 15; O2SAT 96
--- NOTE | 2022-02-13 14:22 | ED_ITS ---
HPI - Chest Pain <JENNIFER Andrews - Last Filed: 02/13/22 15:08> General Chief Complaint: Chest Pain Stated Complaint: Foot swollen, chest pain- sent by Abby Time Seen by Provider: 02/13/22 14:20 Source: patient Limitations: no limitations History of Present Illness HPI narrative: 51-year-old female, daily smoker, presents to the emergency department with complaints of year long chest pain, secondary to her defibrillator placement, and left foot and ankle pain after rolling her ankle yesterday while wearing high heels. Patient denies any shortness of breath, diaphoresis, radiation of chest pain. Patient was seen at [facility] and diagnosed with a left ankle sprain and placed in a walking boot, but patient does not believe the x-rays are accurate and is convinced she has broken something. Left foot is bruised and swollen along the lateral aspect. Patient is very animated about her pain. Related Data Home Medications Medication Instructions Recorded Confirmed ranolazine 1,000 mg 1,000 mg PO ONCE 12/26/21 02/02/22 tablet,extended release,12 hr Previous Rx's Medication Instructions Recorded aspirin 81 mg tablet,delayed 81 mg PO DAILY #90 tabs 01/28/21 release (Adult Aspirin Regimen) ondansetron HCl 4 mg tablet 4 mg PO Q8H #30 tabs 08/18/21 rosuvastatin 40 mg tablet 40 mg PO DAILY #30 tabs 08/18/21 isosorbide mononitrate 120 mg 120 mg PO QAM #90 tabs 08/31/21 tablet,extended release 24 hr levothyroxine 50 mcg tablet 50 mcg PO DAILY #90 tabs 09/09/21 trazodone 50 mg tablet 100 mg PO BEDTIME insomnia #180 09/09/21 tabs amlodipine 10 mg tablet 5 mg PO DAILY #90 tabs 09/20/21 meloxicam 15 mg tablet 15 mg PO DAILY #30 tabs 12/26/21 clonazepam 1 mg tablet 1 mg PO BID PRN anxiety or 12/29/21 sleeplessness #60 tabs duloxetine 20 mg capsule,delayed 60 mg PO BID #180 caps 12/29/21 release gabapentin 300 mg capsule 600 mg PO TID #540 caps 12/29/21 lamotrigine 25 mg tablet 25 mg PO ONCE #90 tabs 01/18/22 metoprolol succinate 50 mg See Rx Instructions .Route 01/18/22 tablet,extended release 24 hr .COMPLEX #180 tabs nitroglycerin 0.4 mg sublingual 0.4 mg sublingual Q5M PRN chest 01/18/22 tablet pain #30 tabs ketorolac 10 mg tablet 10 mg PO Q6H PRN pain #20 tabs 01/19/22 oxybutynin chloride 5 mg/5 mL oral 5 mg (5 mL) PO TID #473 mL 01/20/22 syrup protein (Ensure High Protein oral 1 ea PO BID #480 grams 01/23/22 powder) nitrofurantoin macrocrystal 100 mg 100 mg PO Q12H #10 caps 01/31/22 capsule phenazopyridine 100 mg tablet 100 mg PO TID PRN pain 6 doses #6 01/31/22 tabs hydrocodone 10 mg-acetaminophen 2 tab PO Q6-8H PRN pain #60 tabs 02/13/22 325 mg tablet ropinirole 0.5 mg tablet See Rx Instructions .Route 02/13/22 .COMPLEX #30 tabs Allergies Allergy/AdvReac Type Severity Reaction Status Date / Time gluten Allergy Severe Anaphylaxis Verified 02/02/22 14:49 lactose Allergy Intermediate Swelling Verified 02/02/22 14:49 of Lip/Tongue/Throat Penicillins Allergy Intermediate Rash Verified 02/02/22 14:49 codeine [CODEINE] Allergy Mild RASH Verified 02/02/22 14:49 itching egg AdvReac Severe Diarrhea Verified 02/02/22 14:49 Review of Systems <JENNIFER Andrews - Last Filed: 02/13/22 15:08> Review of Systems Narrative: Narrative: GENERAL: Denies chills, fatigue, fever, sweats. See HPI HEENT: Denies sinus pain, ear pain, sore throat, difficulty swallowing, dizziness. RESPIRATORY: Denies dyspnea, cough, wheezing, sputum. CARDIOVASCULAR: Denies palpitations, edema. GASTROINTESTINAL: Denies nausea, vomiting, abdominal pain, diarrhea, constipation. : Denies dysuria, frequency, incontinence, hematuria, urinary retention, flank pain. MSK: Endorses left foot and ankle pain and swelling. States that she cannot move her foot and that the walking boot makes it worse. SKIN: Denies rash, skin lesions, or pruritis. NEUROLOGIC: Denies weakness, dizziness, headache, numbness, confusion. PSYCHIATRIC: No concerning psychosocial issues. Patient History <JENNIFER Andrews - Last Filed: 02/13/22 15:08> Medical History (Updated 02/14/22 @ 15:15 by Mitchell Oliver MD) Abdominal pain Acute coronary syndrome Arrhythmia Bright red rectal bleeding Bulging of cervical intervertebral disc Cardiac arrest with ventricular fibrillation Cardiomyopathy Chronic anticoagulation Colon polyps Colonic mass Coronary artery disease Depression with anxiety Dilation of bladder Diverticulosis Eczema Elevated liver enzymes Elevated WBC count Eosinophilic esophagitis Eosinophilic esophagitis Esophageal obstruction Facet arthropathy, lumbar Frequent falls Gallstones Generalized weakness Grief at loss of child Live's disease Hemorrhage of surgical anastomosis site of digestive tract Hemorrhoids History of heart attack Hydronephrosis, right Hypertension IBS (irritable bowel syndrome) Insomnia Interstitial cystitis Lower urinary tract symptoms Lumbar pain Lumbar pain with radiation down left leg Muscle spasms of both lower extremities 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 Nicotine addiction NSTEMI (non-ST elevated myocardial infarction) (08/20/20) Protein calorie malnutrition PTSD (post-traumatic stress disorder) Restless leg syndrome Right leg numbness Shingles Stool fat increased Suicidal thoughts Tobacco abuse Tobacco abuse counseling Well woman exam with routine gynecological exam Surgical History AICD (automatic cardioverter/defibrillator) present H/O left breast biopsy H/O: hysterectomy History of abdominal surgery History of bilateral tubal ligation History of bladder suspension procedure Hx of fusion of cervical spine Hx of tonsillectomy S/P cervical spinal fusion (2013) S/P surgery on nasal septum Status post right hemicolectomy Family History Father Alcoholism Cancer Lung cancer Mother Age: 73 Lung cancer Diabetes mellitus Hypertension Blood disease Inflammatory bowel disease CAD in [place] artery Social History marital status: number of children: 4 household members: other occupational status: employed Smoking Status: Current every day smoker alcohol intake: current substance use type: does not use Smoking Status: Current every day smoker tobacco type: cigarettes alcohol intake frequency: other Substance Use Type: does not use Exam <JENNIFER Andrews - Last Filed: 02/13/22 15:08> Narrative Exam Narrative: Exam Narrative: GENERAL: This is a well-nourished, well-developed patient, in no acute distress HEAD: Atraumatic. Normocephalic. EYES: Pupils equal round and reactive. Extraocular motions intact. No scleral icterus, injection or drainage. ENT: Nose without bleeding, purulent drainage. Throat without erythema, tonsillar hypertrophy or exudate. Airway patent. NECK: Trachea midline. No JVD or lymphadenopathy. Nontender. CARDIOVASCULAR: Regular rate and rhythm without murmurs, peripheral pulses intact, cap refill <2 sec. Defibrillator placement on left upper chest. RESPIRATORY: Breath sounds equal and clear bilaterally. No wheezes, rales, or rhonchi. No cough. No increased respiratory effort. No accessory muscle use. GASTROINTESTINAL: Abdomen soft, non-tender, nondistended without guarding or rebound. No suprapubic pain. MSK: Decreased movement and range of motion of left ankle due to pain. Neurovascularly intact. NEURO: A&O x 3. SKIN: Warm, dry, no rashes or lesions noted. Initial Vital Signs Initial Vital Signs: Vital Signs Temperature 97.1 F L 02/13/22 11:20 Pulse Rate 60 02/13/22 11:20 Respiratory Rate 18 02/13/22 11:20 Blood Pressure 121/70 02/13/22 11:20 Pulse Oximetry 98 02/13/22 11:20 Oxygen Delivery Method 02/13/22 11:20 Reviewed Extrem Other: ANKLE: There is no bruising, swelling or asymmetry. There is no tenderness to general palpation. Sensation grossly intact. There is no tenderness over the medial, lateral malleolus, proximal tibia/fibula. The anterior mortise is non-tender. Flexion and extension is intact. Unable to test for stability or laxity due to pain. The contralateral ankle exam is unremarkable. FOOT: There is bruising, swelling but no asymmetry. There is tenderness to general palpation. Sensation grossly intact. The ankle flexion and extension is intact. Toes range of motion intact. The contralateral foot exam is unremarkable. <Анна Plascencia, - Last Filed: 02/17/22 08:27> Initial Vital Signs Initial Vital Signs: Vital Signs Temperature 97.1 F L 02/13/22 11:20 Pulse Rate 60 02/13/22 11:20 Respiratory Rate 18 02/13/22 11:20 Blood Pressure 121/70 02/13/22 11:20 Pulse Oximetry 98 02/13/22 11:20 Oxygen Delivery Method 02/13/22 11:20 Course <JENNIFER Andrews - Last Filed: 02/13/22 15:08> Orders Ordered: Discontinued Medications Acetaminophen (Acetaminophen 325 Mg Tablet) 975 mg PO NOW ONE Stop: 02/13/22 11:29 Last Admin: 02/13/22 12:06 Dose: 975 mg Documented By: ROSETTA Ketorolac Tromethamine (Ketorolac 30 Mg/Ml Vial) 15 mg IM NOW ONE Stop: 02/13/22 12:03 Last Admin: 02/13/22 12:05 Dose: 15 mg Documented By: ROSETTA Oxycodone/Acetaminophen (Oxycodone/Acetaminophen 5/325 Tablet) 1 tab PO NOW ONE Stop: 02/13/22 14:48 Last Admin: 02/13/22 14:55 Dose: 1 tab Documented By: STEPHANIE Vital Signs Vital signs: Vital Signs - 8 hr 02/13/22 11:20 02/13/22 13:15 02/13/22 13:15 Temperature 97.1 F L Pulse Rate 60 86 Respiratory Rate 18 25 H Blood Pressure 121/70 116/66 Pulse Oximetry 98 96 Oxygen Delivery Method Room Air 02/13/22 13:30 02/13/22 13:30 02/13/22 14:00 Temperature Pulse Rate 86 Respiratory Rate 26 H Blood Pressure 100/62 102/57 L Pulse Oximetry 96 Oxygen Delivery Method Room Air 02/13/22 14:00 Temperature Pulse Rate 79 Respiratory Rate 15 Blood Pressure Pulse Oximetry 96 Oxygen Delivery Method <Анна Plascencia DO - Last Filed: 02/17/22 08:27> Orders Ordered: Discontinued Medications Acetaminophen (Acetaminophen 325 Mg Tablet) 975 mg PO NOW ONE Stop: 02/13/22 11:29 Last Admin: 02/13/22 12:06 Dose: 975 mg Documented By: ROSETTA Ketorolac Tromethamine (Ketorolac 30 Mg/Ml Vial) 15 mg IM NOW ONE Stop: 02/13/22 12:03 Last Admin: 02/13/22 12:05 Dose: 15 mg Documented By: ROSETTA Oxycodone/Acetaminophen (Oxycodone/Acetaminophen 5/325 Tablet) 1 tab PO NOW ONE Stop: 02/13/22 14:48 Last Admin: 02/13/22 14:55 Dose: 1 tab Documented By: STEPHANIE Vital Signs Vital signs: Vital Signs - 8 hr 02/13/22 11:20 02/13/22 13:15 02/13/22 13:15 Temperature 97.1 F L Pulse Rate 60 86 Respiratory Rate 18 25 H Blood Pressure 121/70 116/66 Pulse Oximetry 98 96 Oxygen Delivery Method Room Air 02/13/22 13:30 02/13/22 13:30 02/13/22 14:00 Temperature Pulse Rate 86 Respiratory Rate 26 H Blood Pressure 100/62 102/57 L Pulse Oximetry 96 Oxygen Delivery Method Room Air 02/13/22 14:00 Temperature Pulse Rate 79 Respiratory Rate 15 Blood Pressure Pulse Oximetry 96 Oxygen Delivery Method MDM - Chest Pain <JENNIFER Andrews - Last Filed: 02/13/22 15:08> Differential Diagnosis Differential diagnosis: Likely atypical chest pain and other (Left foot and ankle pain) Lab Data Result diagrams: 02/13/22 12:00 02/13/22 12:00 Labs: Lab Results 02/13/22 02/13/22 Range/Units 12:00 12:00 WBC 9.0 (4.5-11.0) X10^3/uL RBC 4.39 (4.0-5.2) X10^6/uL Hgb 13.3 (12.0-16.0) g/dL Hct 39.1 (36-46) % MCV 89.1 (80-100) fL MCH 30.4 (26-34) PG MCHC 34.2 (30-36) % RDW 14.1 (11.6-14.8) % Plt Count 208 (150-400) X10^3/uL Neut % (Auto) 67.4 (50-75) % Lymph % (Auto) 22.1 L (25-40) % Vernon % (Auto) 6.7 (3-14) % Eos % (Auto) 3.2 (2-4) % Baso % (Auto) 0.6 (0-2) % Neut # (Auto) 6100 (3385-1936) /uL Lymph # (Auto) 2000 (2906-4063) /uL Vernon # (Auto) 600 (0-900) /uL Eos # (Auto) 300 (0-450) /uL Baso # (Auto) 100 (0-100) /uL Sodium 140 (137-145) mmol/L Potassium 3.8 (3.4-5.1) mmol/L Chloride 106 (98-107) mmol/L Carbon Dioxide 27 (22-32) mmol/L BUN 15 (7-17) mg/dL Creatinine 0.74 (0.52-1.04) mg/dL Estimated GFR > 60 (>60) mL/min BUN/Creatinine Ratio 20.3 (6-22) Glucose 111 H (70-100) mg/dL Calcium 9.0 (8.4-10.2) mg/dL Magnesium 2.1 (1.6-2.3) mg/dL Total Bilirubin 0.5 (0.2-1.3) mg/dL AST 22 (14-36) IU/L ALT 16 (<35) IU/L Alkaline Phosphatase 60 (38-126) U/L Total Creatine Kinase 71 (30-135) U/L CK-MB (CK-2) TNP CK-MB (CK-2) Rel Index TNP Troponin I < 0.012 (0.01-0.034) ng/mL Total Protein 7.3 (6.3-8.2) g/dL Albumin 4.1 (3.5-5.0) g/dL Globulin 3.2 (1.7-4.1) g/dL Albumin/Globulin Ratio 1.3 (1.0-2.8) Lipase 77 (23-300) U/L Imaging Data Chest x-ray: Radiologist's Impression: [address] [address] XRay Report Signed Patient: Cecy Fields MR#: [id number] : 1970 Acct:[id number] Age/Sex: 51 / F Date of Service: 02/13/22 Loc: ED Accession Number: [id number] ?? Procedure: XR chest 1V Ordering Provider: Анна Plascencia D.O. PROCEDURE:? XR CHEST 1V ? INDICATIONS:? chest pain ? TECHNIQUE:? One view of the chest was acquired.? ? COMPARISON:? [facility], CR, XR CHEST 1V, 01/30/2022, 16:16. ? FINDINGS:? ? Surgical changes and devices:? Single lead defibrillator is unchanged.? Surgical clips are redemonstrated over the right breast. ? Lungs and pleura:? Lungs are clear.? No pleural effusions or pneumothorax.? ? Mediastinum:? Mediastinal contours appear normal.? Heart size is normal.? ? Bones and chest wall:? No suspicious bony lesions.? Overlying soft tissues appear unremarkable.? ? IMPRESSION:? No acute cardiopulmonary findings. ? ? Dictated by: Benita Ambrosio M.D. on 02/13/2022 at 12:37 ? ? Approved by: Benita Ambrosio M.D. on 02/13/2022 at 12:37 ? Extremity x-ray #1: Radiologist's Impression: [place] [address] XRay Report Signed Patient: Cecy Fields MR#: [id number] : 1970 Acct:[id number] Age/Sex: 51 / F Date of Service: 02/13/22 Loc: ED Accession Number: [id number] ?? Procedure: XR ankle LT min 3V Ordering Provider: Анна Plascencia D.O. PROCEDURE:? XR ANKLE LT MIN 3V ? INDICATIONS:? ankle injury ? TECHNIQUE:? 3 views of the ankle were acquired.? ? COMPARISON:? None. ? FINDINGS:? ? Bones:? No fractures or dislocations.? Ankle mortise is normally aligned.? No suspicious bony lesions.? ? Soft tissues:? No tibiotalar joint effusion.? Achilles tendon appears normal.? ? ? IMPRESSION:? No acute radiographic findings. If pain persists, followup imaging in 5-7 days is recommended to exclude occult fracture. ? Dictated by: Benita Ambrosio M.D. on 02/13/2022 at 12:36 ? ? Approved by: Benita Ambrosio M.D. on 02/13/2022 at 12:37 ? Extremity x-ray #2: Radiologist's Impression: [address] [address] XRay Report Signed Patient: Cecy Fields MR#: [id number] : 1970 Acct:[id number] Age/Sex: 51 / F Date of Service: 02/13/22 Loc: ED Accession Number: [id number] ?? Procedure: XR foot LT min 3V Ordering Provider: Анна Plascencia D.O. PROCEDURE:? XR FOOT LT MIN 3V ? INDICATIONS:? recent injury ? TECHNIQUE:? 3 views of the foot were acquired.? ? COMPARISON:? [facility], CR, XR FOOT LT MIN 3V, 10/27/2020, 10:54. ? FINDINGS:? ? Bones:? No fractures or dislocations.? No suspicious bony lesions.? ? Soft tissues:? No tibiotalar joint effusion.? Achilles tendon appears normal.? ? ? IMPRESSION:? No acute radiographic findings. If pain persists, followup imaging in 5-7 days is recommended to exclude occult fracture. ? ? Dictated by: Benita Ambrosio M.D. on 02/13/2022 at 12:36 ? ? Approved by: Benita Ambrosio M.D. on 02/13/2022 at 12:36 ? MDM Narrative Medical decision making narrative: 51-year-old female who presents emergency department with a year long chest pain and left foot and ankle pain. X-rays and labs were all normal and do not garner spect anything dangerous at this time. Instructed patient to follow-up with her account manager [employer] service as needed for this chest pain and family doctor if the foot and ankle pain persists for possible MRI. Patient given a single Percocet due to her reported pain. Patient has a pain medication prescription ready for her at her pharmacy that she will picker/puller immediately after discharge. Discussed return precautions and plan of care with patient, who was agreeable with course of action. <Анна Plascencia, - Last Filed: 02/17/22 08:27> Lab Data Labs: Lab Results 02/13/22 02/13/22 Range/Units 12:00 12:00 WBC 9.0 (4.5-11.0) X10^3/uL RBC 4.39 (4.0-5.2) X10^6/uL Hgb 13.3 (12.0-16.0) g/dL Hct 39.1 (36-46) % MCV 89.1 (80-100) fL MCH 30.4 (26-34) PG MCHC 34.2 (30-36) % RDW 14.1 (11.6-14.8) % Plt Count 208 (150-400) X10^3/uL Neut % (Auto) 67.4 (50-75) % Lymph % (Auto) 22.1 L (25-40) % Vernon % (Auto) 6.7 (3-14) % Eos % (Auto) 3.2 (2-4) % Baso % (Auto) 0.6 (0-2) % Neut # (Auto) 6100 (7355-0485) /uL Lymph # (Auto) 2000 (8872-8135) /uL Vernon # (Auto) 600 (0-900) /uL Eos # (Auto) 300 (0-450) /uL Baso # (Auto) 100 (0-100) /uL Sodium 140 (137-145) mmol/L Potassium 3.8 (3.4-5.1) mmol/L Chloride 106 (98-107) mmol/L Carbon Dioxide 27 (22-32) mmol/L BUN 15 (7-17) mg/dL Creatinine 0.74 (0.52-1.04) mg/dL Estimated GFR > 60 (>60) mL/min BUN/Creatinine Ratio 20.3 (6-22) Glucose 111 H (70-100) mg/dL Calcium 9.0 (8.4-10.2) mg/dL Magnesium 2.1 (1.6-2.3) mg/dL Total Bilirubin 0.5 (0.2-1.3) mg/dL AST 22 (14-36) IU/L ALT 16 (<35) IU/L Alkaline Phosphatase 60 (38-126) U/L Total Creatine Kinase 71 (30-135) U/L CK-MB (CK-2) TNP CK-MB (CK-2) Rel Index TNP Troponin I < 0.012 (0.01-0.034) ng/mL Total Protein 7.3 (6.3-8.2) g/dL Albumin 4.1 (3.5-5.0) g/dL Globulin 3.2 (1.7-4.1) g/dL Albumin/Globulin Ratio 1.3 (1.0-2.8) Lipase 77 (23-300) U/L Discharge Plan Departure Patient Disposition: Home Clinical Impression: Atypical chest pain, Acute left ankle pain Instructions: DI for Atypical Chest Pain Activity Restrictions/Additional Instructions: *You have been diagnosed with a left ankle sprain and atypical chest pain. Your x-rays and labs were all normal. 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 For your left foot/ankle sprain, you should try Rest (modified activity), along with ice, compression wrap/splint-immobilize as directed and elevation above heart. Tylenol or Ibuprofen for discomfort. If you are still having significant pain by the end of the week, follow-up with your family doctor for potential scheduling of advanced imaging. *What to do: *Please continue to take your regular medications as directed. [ ] New medication prescriptions sent to your pharmacy: [ ] [ ] New medication written as a paper prescription [ x] No new medications given *Please follow up with your primary care provider in 2-3 days, call for an appointment. Let them know you were seen in the Emergency Department and that we ask that you be seen in follow up. We will electronically transmit a record of today's note if your PCP is in our system *If you do not have a primary care provider please contact the [facility] Resource line at [phone]. They will ask some questions about your medical history and help get you set up with a doctor in the community. ? Return to ER if you should have any new, worsening or concerning symptoms, such as worsening pain, severe headache, confusion, chest pain, difficulty breathing, fever greater than 101 F, shaking chills, persistent vomiting to the point that you cannot drink fluids, or other new or worsening symptoms. Prescriptions: No Action levothyroxine 50 mcg tablet 50 mcg PO DAILY Qty: 90 1RF Rx Instructions: Take 1 tab on an empty stomach daily 30 mins prior to eating. trazodone 50 mg tablet 100 mg PO BEDTIME Qty: 180 3RF Rx Instructions: Take 2 tabs at bedtime daily for insomnia. metoprolol succinate 50 mg tablet extended release 24 hr See Rx Instructions .ROUTE .COMPLEX Qty: 180 3RF Dose Instruction: TAKE 1 TABLET BY MOUTH TWICE DAILY Rx Instructions: TAKE 1 TABLET BY MOUTH TWICE DAILY ropinirole 0.5 mg tablet See Rx Instructions .ROUTE .COMPLEX Qty: 30 2RF Dose Instruction: TAKE 1 TABLET BY MOUTH 1-3 HOURS BEFORE BEDTIME Rx Instructions: TAKE 1 TABLET BY MOUTH 1-3 HOURS BEFORE BEDTIME hydrocodone-acetaminophen 10-325 mg tablet 2 tab PO Q6-8H PRN (Reason: pain) Qty: 60 0RF Label Comments: TAKE 1 TABLET BY MOUTH ONCE DAILY NEEDED FOR PAIN aspirin [Adult Aspirin Regimen] 81 mg tablet,delayed release (DR/EC) 81 mg PO DAILY Qty: 90 3RF Rx Instructions: Take 1 tab daily amlodipine 10 mg tablet 5 mg PO DAILY Qty: 90 3RF nitroglycerin 0.4 mg tablet, sublingual 0.4 mg sublingual Q5M PRN (Reason: chest pain) Qty: 30 2RF Rx Instructions: do not exceed 3 doses per episode lamotrigine 25 mg tablet 25 mg PO ONCE Qty: 90 1RF Rx Instructions: Take 1 tab daily x7 days, then increase to 2 tabs daily as tolerated. ondansetron HCl 4 mg tablet 4 mg PO Q8H Qty: 30 1RF Rx Instructions: Take 1 tab every 8 hours for nausea. rosuvastatin 40 mg tablet 40 mg PO DAILY Qty: 30 0RF Hold Instructions: muscular pain and weakness legs isosorbide mononitrate 120 mg tablet extended release 24 hr 120 mg PO QAM Qty: 90 3RF Rx Instructions: Take 1 tab daily duloxetine 20 mg capsule,delayed release(DR/EC) 60 mg PO BID Qty: 180 2RF Rx Instructions: Take (3) 20mg tabs (60mg) twice per day for depression and anxiety gabapentin 300 mg capsule 600 mg PO TID Qty: 540 3RF Rx Instructions: Take 2 capsule three times per day for both pain and anxiety clonazepam 1 mg tablet 1 mg PO BID PRN (Reason: anxiety or sleeplessness) Qty: 60 3RF protein [Ensure High Protein] Powder 1 ea PO BID Qty: 480 3RF Rx Instructions: Mix scoopful with almond milk for meal replacement twice per day nitrofurantoin macrocrystal 100 mg capsule 100 mg PO Q12H Qty: 10 0RF Rx Instructions: must administer with a meal/food every 12 hours x 5 days phenazopyridine 100 mg tablet 100 mg PO TID PRN (Reason: pain) Qty: 6 0RF ketorolac 10 mg tablet 10 mg PO Q6H PRN (Reason: pain) Qty: 20 0RF ranolazine 1,000 mg tablet extended release 12 hr 1,000 mg PO ONCE meloxicam 15 mg tablet 15 mg PO DAILY Qty: 30 2RF oxybutynin chloride 5 mg/5 mL syrup 5 mg PO TID Qty: 473 3RF Referrals: Destiny Mckeon ARNP [Primary Care Provider] - Visit Report Forms: Patient Portal/API <Анна Plascencia DO - Last Filed: 02/17/22 08:27> Cosign ED Attending Coschuckature Attestation: I was immediately available in the department for consultation. Documentation has been reviewed.
--- NOTE | 2022-02-13 14:22 | PC.NURSE ---
PT seen at [facility] and had imaging for foot and was given a walking boot and prescription for pain medication yesterday. Pt today at [employer] c/o chronic chest pain 12/16 unchanged and her l foot pain. Pt has not filled prescription and has not taken anything for her foot pain today.
[2022-02-13 14:30] VITALS: BP 108/72; PULSE 84; RESP 20; O2SAT 98
[2022-02-13] MEDS: OXYCODONE/ACETAMINOPHEN 5/325 TABLET 1 TAB PO (14:55)
[2022-02-13 15:03] VITALS: BP 107/73; PULSE 90; RESP 16; TEMP 36.3; O2SAT 97
== END 2022-02-13 15:05 | disposition home or self-care (01) ==
PROVIDERS: Emergency Medicine; Emergency Provider Registered Nurse; Family Provider Physician Assistant Surgical; PCP Nurse Practitioner; Referring Provider Internal Medicine Cardiovascular Disease
DX: R07.9 Chest pain, unspecified (principal); M25.572 Pain in left ankle and joints of left foot; X50.1XXA Overexertion from prolonged static or awkward postures, initial encounter
CPT/HCPCS: 36415; 71045; 73610; 73630; 80053; 82550; 83690; 83735; 84484; 85025; 93005; 93010; 96372; 99284; J1885

== ENCOUNTER → 2022-04-11 11:11 | Outpatient (CLI) | payer OTHER, MEDICAID, SELFPAY ==
[2022-01-23 12:15] VITALS: BMI 23.1
[2022-04-11 12:41] LABS: COVID19 -Nasal RAPID Negative (Negative)
--- NOTE | 2022-04-11 17:39 | DI.NM.S_ITS ---
DATE OF SERVICE: 04/11/2022 PROCEDURE: Pharmacological perfusion study. INDICATION: Chest pain, known small vessel coronary artery disease, history of VFib arrest, AICD. RADIOPHARMACEUTICAL: 26.5 millicurie technetium-99m Myoview IV was injected at stress and 11.8 millicurie technetium-99m Myoview IV was injected at rest. CARDIAC STRESS: The patient underwent IV Lexiscan perfusion study under the supervision of an attending staff using standard intravenous Lexiscan, as per protocol. The patient has baseline chest discomfort prior to Lexiscan, which, on a scale of 1 to 10, 7 in intensity. During Lexiscan injection and after Lexiscan, the patient had minimal dyspnea. Chest pain remained with same intensity. She also had headache and nausea, for which she was given 100 mg of intravenous aminophylline and her symptoms improved. Baseline rhythm was sinus without any obvious ischemic changes. During stress, there were no new inducible ischemic changes or significant arrhythmias. RAW DATA: Breast shadow was seen. There was increased subdiaphragmatic activity. GATED STUDY: Resting LV ejection fraction 65 and stress LV ejection fraction 69 percent. No obvious wall motion abnormalities. Resting end-diastolic volume 66 mL. TID ratio 1.10, which is within normal limits. Lung/heart ratio 0.38, which is within normal limits. MYOCARDIAL PERFUSION SCAN: Stress supine, resting supine and stress prone images were compared to each other. The stress supine and resting supine images revealed small size, minimally decreased perfusion of the septum, which got improved during stress prone images. Overall, no convincing ischemia infarction pattern seen. CONCLUSION: I will call this study likely a normal myocardial perfusion study with some breast tissue attenuation artifact, which improved during stress prone images. No convincing ischemia or infarction pattern seen. Preserved left ventricular function. The patient has baseline chest pain without any ischemic electrocardiographic changes. No significant arrhythmias. Overall, low-risk myocardial perfusion scan. Cecy Fields - MARISSA/shahab/dewayne doc#: [id number]/job#: [id number] dd: 04/11/2022 16:40:00 dt: 04/11/2022 17:26:00 DICTATING MD/COPIES TO: Jose Mora MD COPIES MNE: ROSALINA;
== END ==
PROVIDERS: Family Provider Physician Assistant Surgical; PCP Nurse Practitioner; Referring Provider Nurse Practitioner Family; Visit Provider Nurse Practitioner Family
DX: I25.10 Atherosclerotic heart disease of native coronary artery without angina pectoris (principal); Z20.822 Contact with and (suspected) exposure to COVID-19; Z95.810 Presence of automatic (implantable) cardiac defibrillator; R07.9 Chest pain, unspecified
CPT/HCPCS: 78452; 87635; 93017; A9502; J2785

== ENCOUNTER → 2022-08-07 14:10 | Outpatient (CLI) | payer OTHER, MEDICAID, SELFPAY ==
[2022-01-23 12:15] VITALS: BMI 23.1
[2022-08-07 15:07] LABS: Add Manual Diff / Slide Review NO; Basophils Absolute Auto 100 /uL (0-100); Eosinophils Absolute Auto 300 /uL (0-450); Eosinophils Percent Auto 3.6 % (2-4); Hematocrit 35.2 % (36-46); Lymphocytes Absolute Auto 1800 /uL (1100-4500); Lymphocytes Percent Auto 23.3 % (25-40); Mean Corpuscular Hemoglobin 30.7 PG (26-34); Mean Corpuscular Volume 90.3 fL (80-100); Monocytes Absolute Auto 400 /uL (0-900); Monocytes Percent Auto 5.5 % (3-14); Neutrophils Absolute Auto 5200 /uL (1500-7000); Neutrophils Percent Auto 66.6 % (50-75); Platelet Count 237 X10^3/uL (150-400); Red Cell Distribution Width 13.7 % (11.6-14.8); White Blood Cell Count 7.9 X10^3/uL (4.5-11.0)
[2022-08-07 15:41] LABS: BUN Creatinine Ratio 26.5 (6-22); Blood Urea Nitrogen 18 mg/dL (7-17); Calcium 8.5 mg/dL (8.4-10.2); Carbon Dioxide 23 mmol/L (22-32); Chloride 106 mmol/L (98-107); Estimated Glomerular Filt Rate > 60 mL/min (>60); Glucose 92 mg/dL (70-100); HEMOLYSIS < 15 (0-50); Potassium 3.7 mmol/L (3.4-5.1); Sodium 139 mmol/L (137-145)
== END ==
PROVIDERS: Family Provider Physician Assistant Surgical; Referring Provider Internal Medicine Cardiovascular Disease; Visit Provider Internal Medicine Cardiovascular Disease
DX: Z45.02 Encounter for adjustment and management of automatic implantable cardiac defibrillator (principal)
CPT/HCPCS: 36415; 80048; 85025

== ENCOUNTER 2022-08-07 14:37 | Emergency (ER) | payer OTHER, MEDICAID, SELFPAY ==
[2022-01-23 12:15] VITALS: BMI 23.1
[2022-08-07] VITALS (7 sets, daily range): BP systolic 110–128; BP diastolic 65–82; PULSE 69–95; RESP 18–26; O2SAT 94–99
--- NOTE | 2022-08-07 15:11 | DI.RAD.S_ITS ---
PROCEDURE: XR CHEST 1V INDICATIONS: Flu like symptoms TECHNIQUE: One view of the chest was acquired. COMPARISON: [facility], CR, XR CHEST 1V, 02/13/2022, 12:13. FINDINGS: Surgical changes and devices: Surgical clips are projected over the right hemithorax. Single lead cardiac defibrillator is unchanged. Lungs and pleura: Lungs are clear. No pleural effusions or pneumothorax. Mediastinum: Mediastinal contours appear normal. Heart size is normal. Bones and chest wall: No suspicious bony lesions. Overlying soft tissues appear unremarkable. IMPRESSION: No acute cardiopulmonary findings. Dictated by: Benita Ambrosio M.D. on 08/07/2022 at 16:01 Approved by: Benita Ambrosio M.D. on 08/07/2022 at 16:02
[2022-08-07 15:25] LABS: Add Manual Diff / Slide Review NO; Alanine Aminotransferase 26 IU/L (<35); Albumin Globulin Ratio 1.3 (1.0-2.8); Alkaline Phosphatase 79 U/L (38-126); BUN Creatinine Ratio 26.9 (6-22); Basophils Absolute Auto 0 /uL (0-100); Basophils Percent Auto 0.5 % (0-2); Bilirubin Total 0.4 mg/dL (0.2-1.3); Blood Urea Nitrogen 18 mg/dL (7-17); Calcium 8.5 mg/dL (8.4-10.2); Carbon Dioxide 25 mmol/L (22-32); Chloride 105 mmol/L (98-107); Creatine Kinase 65 U/L (30-135); Eosinophils Absolute Auto 300 /uL (0-450); Eosinophils Percent Auto 3.3 % (2-4); Estimated Glomerular Filt Rate > 60 mL/min (>60); Globulin 3.2 g/dL (1.7-4.1); Glucose 87 mg/dL (70-100); Hematocrit 36.1 % (36-46); Hemoglobin 12.1 g/dL (12.0-16.0); Lipase 167 U/L (23-300); Lymphocytes Absolute Auto 2100 /uL (1100-4500); Lymphocytes Percent Auto 22.3 % (25-40); Magnesium 2.2 mg/dL (1.6-2.3); Mean Corpuscular HGB Conc 33.4 % (30-36); Mean Corpuscular Hemoglobin 30.1 PG (26-34); Mean Corpuscular Volume 89.9 fL (80-100); Monocytes Absolute Auto 600 /uL (0-900); Neutrophils Absolute Auto 6400 /uL (1500-7000); Neutrophils Percent Auto 67.9 % (50-75); Platelet Count 244 X10^3/uL (150-400); Red Blood Cell Count 4.01 X10^6/uL (4.0-5.2); Sodium 139 mmol/L (137-145); Total Protein 7.2 g/dL (6.3-8.2); White Blood Cell Count 9.5 X10^3/uL (4.5-11.0)
[2022-08-07 15:32] LABS: HEMOLYSIS 76 (0-50)
[2022-08-07 15:33] LABS: Aspartate Aminotransferase 37 IU/L (14-36); Potassium 4.3 mmol/L (3.4-5.1)
[2022-08-07 15:37] LABS: NT-proBNP (BNP-Adult 18+) 278 pg/mL (<125); Troponin I < 0.012 ng/mL (0.01-0.034)
--- NOTE | 2022-08-07 16:46 | DI.CT.S_ITS ---
PROCEDURE: CT ABDOMEN PELVIS W CON INDICATIONS: epigastric pain TECHNIQUE: After the administration of intravenous contrast, axial sections acquired from the lung bases to the pubic symphysis. Coronal and sagittal reformats were performed. For radiation dose reduction, the following was used: automated exposure control, adjustment of mA and/or kV according to patient size. COMPARISON: [facility], CT, CT ABDOMEN PELVIS W CON, 11/09/2020, 12:30. FINDINGS: Image quality: Excellent. Lung bases: Unremarkable. Heart: Heart size is normal. Pacemaker leads are seen in right atrium and right ventricle. No pericardial effusion. ABDOMEN: Liver: Unremarkable. Gallbladder: Gallbladder is surgically absent. Biliary ducts: Unremarkable. Pancreas: Unremarkable. Spleen: Unremarkable. Adrenal Glands: Unremarkable. Kidneys and Ureters: Unremarkable. Stomach and Bowel: There is suggestion of diffuse gastric wall thickening and edema particularly involving gastric antrum and pylorus with narrowing of the lumen. No gross abnormal small bowel wall colon wall thickening. Fecal stasis in the colon is seen. No abscess collection. Peritoneum: No abnormal intraperitoneal fluid. No free air. Ventral Wall: Small umbilical hernia is seen containing fat only. Abdominal Nodes: No retroperitoneal or mesenteric adenopathy by size criteria. Vessels: Aorta and inferior vena cava are normal in size. PELVIS: Pelvic Organs: Unremarkable. Bladder: Unremarkable. Pelvic Nodes: No enlarged lymph nodes. Miscellaneous: No hernias are seen. Bones: No suspicious bony lesions. No acute vertebral body compression fracture. IMPRESSION: 1. Finding is concerning for infectious inflammatory gastritis with significant gastric wall thickening and edema suggest GI correlation. 2. No bowel obstruction or abnormal bowel wall thickening. Mild constipation. No abscess collection. No free fluid or free air. Dictated by: Johnny Cruz M.D. on 08/07/2022 at 17:12 Approved by: Johnny Cruz M.D. on 08/07/2022 at 17:15
[2022-08-07] MEDS: ONDANSETRON 4 MG/2 ML INJ IV (17:06)
[2022-08-07] MEDS: MORPHINE 4 MG/ML INJ IV (17:06)
[2022-08-07] MEDS: FAMOTIDINE 20 MG/2 ML VIAL IV (17:06)
[2022-08-07] MEDS: MAG HYDROX/ALUMINUM/SIMETH SUS 20 ML, LIDOCAINE VISCOUS 2% 15 ML PO (17:06)
--- NOTE | 2022-08-07 19:02 | ED.ABDPAIN ---
HPI - Abdominal Pain <Jori Celeste PA-C - Last Filed: 08/07/22 19:14> General Chief Complaint: Abdominal Pain Stated Complaint: abd pain mid to lt side for ab 5 days, naus Time Seen by Provider: 08/07/22 15:27 Source: patient Mode of arrival: Ambulatory History of Present Illness HPI narrative: 51-year-old female with past medical history depression, panic disorder, overactive bladder, ACS, status post AICD, cardiomyopathy, IBS, Live's disease presents to the ED with 5 days of epigastric pain that radiates to the back. Patient states that pain is aggravated by eating. Patient also endorses nausea, vomiting. Patient denies fever, chills, chest pain, shortness of breath, dysuria, flank pain, lightheadedness, dizziness, syncope. Patient denies diarrhea, constipation, hematochezia, melena. Patient endorses very occasional alcohol use. Patient denies NSAID use. Patient endorses marijuana use. Patient denies other recreational drug use. Related Data Home Medications Medication Instructions Recorded Confirmed ranolazine 1,000 mg 1,000 mg PO ONCE 12/26/21 03/29/22 tablet,extended release,12 hr Previous Rx's Medication Instructions Recorded aspirin 81 mg tablet,delayed 81 mg PO DAILY #90 tabs 01/28/21 release (Adult Aspirin Regimen) rosuvastatin 40 mg tablet 40 mg PO DAILY #30 tabs 08/18/21 metoprolol succinate 50 mg See Rx Instructions .Route 01/18/22 tablet,extended release 24 hr .COMPLEX #180 tabs nitroglycerin 0.4 mg sublingual 0.4 mg sublingual Q5M PRN chest 01/18/22 tablet pain #30 tabs oxybutynin chloride 5 mg/5 mL oral 5 mg (5 mL) PO TID #473 mL 01/20/22 syrup protein (Ensure High Protein oral 1 ea PO BID #480 grams 01/23/22 powder) phenazopyridine 100 mg tablet 100 mg PO TID PRN pain 6 doses #6 01/31/22 tabs solifenacin 1 mg/mL oral suspension 10 mg (10 mL) PO DAILY Overactive 02/21/22 bladder lactose allergy #300 mL cane #1 ea 03/22/22 ondansetron HCl 4 mg tablet 4 mg PO Q8H #30 tabs 03/22/22 amlodipine 2.5 mg tablet 2.5 mg PO DAILY #90 tabs 03/31/22 isosorbide mononitrate 60 mg 60 mg PO QAM #90 tabs 03/31/22 tablet,extended release 24 hr levothyroxine 50 mcg tablet 50 mcg PO DAILY #90 tabs 04/11/22 meloxicam 15 mg tablet 15 mg PO DAILY #30 tabs 04/11/22 ropinirole 0.5 mg tablet See Rx Instructions .Route 04/25/22 .COMPLEX #30 tabs hydrocodone 10 mg-acetaminophen 2 tab PO Q6-8H PRN pain #60 tabs 06/07/22 325 mg tablet clonazepam 1 mg tablet 1 mg PO BID PRN muscle spasm #30 07/25/22 tabs duloxetine 60 mg capsule,delayed 60 mg PO BID #60 caps 07/25/22 release gabapentin 300 mg capsule 600 mg PO BEDTIME #30 caps 07/25/22 hydroxyzine pamoate 50 mg capsule 50 mg PO BEDTIME #30 caps 07/25/22 lamotrigine 25 mg tablet 50 mg PO BEDTIME #60 tabs 07/25/22 prazosin 2 mg capsule 2 mg PO BEDTIME #30 caps 07/25/22 Allergies Allergy/AdvReac Type Severity Reaction Status Date / Time Beef Containing Products Allergy Severe throat Verified 03/29/22 11:11 swelling gluten Allergy Severe Anaphylaxis Verified 03/29/22 11:11 pineapple Allergy Severe throat Verified 03/29/22 11:11 swelling watermelon Allergy Severe throat Verified 03/29/22 11:11 swelling lactose Allergy Intermediate Swelling Verified 03/29/22 11:11 of Lip/Tongue/Throat Penicillins Allergy Intermediate Rash Verified 03/29/22 11:11 codeine [CODEINE] Allergy Mild RASH Verified 03/29/22 11:11 itching egg AdvReac Severe Diarrhea Verified 03/29/22 11:11 Review of Systems <Jori Celeste PA-C - Last Filed: 08/07/22 19:14> Review of Systems ROS Unobtainable: All systems reviewed & are unremarkable except as noted in HPI and below Constitutional Constitutional: Denies chills, Denies fatigue, Denies fever(s), Denies frequent falls, Denies lethargy and Denies weakness Eyes Eyes: Denies change in vision, Denies eye discharge, Denies irritation and Denies loss of vision ENT Ears, Nose, Mouth, and Throat: Denies change in voice, Denies dizziness, Denies neck pain, Denies sore throat and Denies throat swelling Cardiovascular Cardiovascular: Denies chest pain, Denies irregular heart rhythm, Denies lightheadedness, Denies palpitations, Denies dyspnea, Denies dyspnea on exertion and Denies orthopnea Respiratory Respiratory: Denies cough, Denies dyspnea, Denies dyspnea on exertion and Denies wheezing Gastrointestinal Gastrointestinal: Reports abdominal pain, Denies change in bowel habits, Denies diarrhea, Reports nausea and Reports vomiting Genitourinary Genitourinary: Denies hematuria, Denies flank pain, Denies urinary incontinence and Denies urinary urgency Musculoskeletal Musculoskeletal: Denies back pain, Denies muscle weakness, Denies neck pain, Denies numbness and Denies tingling Integumentary/Breasts Skin/Breast: Denies pruritus, Denies erythema, Denies rash and Denies wounds Neurologic Neurologic: Denies behavioral changes, Denies confusion, Denies dizziness, Denies frequent falls, Denies loss of vision, Denies numbness, Denies tingling and Denies weakness Psychiatric Psychiatric: Denies anxiety, Denies behavioral changes, Denies confusion, Denies depression, Denies homicidal ideation and Denies suicidal ideation Endocrine Endocrine: Denies fatigue, Denies flushing and Denies palpitations Hematologic/Lymphatic Hematologic/Lymphatic: Denies easy bruising Allergic/Immunologic Allergic/Immunologic: Denies urticaria, Denies throat swelling and Denies wheezing Patient History <Jori Celeste PA-C - Last Filed: 08/07/22 19:14> Medical History Abdominal pain Acute coronary syndrome Arrhythmia Bright red rectal bleeding Bulging of cervical intervertebral disc Cardiac arrest with ventricular fibrillation Cardiomyopathy Chronic anticoagulation Colon polyps Colonic mass Coronary artery disease Depression with anxiety Dilation of bladder Diverticulosis Eczema Elevated liver enzymes Elevated WBC count Eosinophilic esophagitis Eosinophilic esophagitis Esophageal obstruction Facet arthropathy, lumbar Fibromyalgia Frequent falls Frequent falls Gallstones Generalized weakness Grief at loss of child Live's disease Hemorrhage of surgical anastomosis site of digestive tract Hemorrhoids Herniated nucleus pulposus, L5-S1, left History of heart attack Hydronephrosis, right Hypertension IBS (irritable bowel syndrome) Insomnia Interstitial cystitis Lower urinary tract symptoms Lumbar pain Lumbar pain with radiation down left leg Muscle spasms of both lower extremities 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 Nicotine addiction NSTEMI (non-ST elevated myocardial infarction) (08/20/20) Overactive bladder Panic disorder Protein calorie malnutrition PTSD (post-traumatic stress disorder) Restless leg syndrome Right leg numbness Severe depression Shingles Stool fat increased Suicidal thoughts Tobacco abuse Tobacco abuse counseling Well woman exam with routine gynecological exam Surgical History AICD (automatic cardioverter/defibrillator) present H/O left breast biopsy H/O: hysterectomy History of abdominal surgery History of bilateral tubal ligation History of bladder suspension procedure Hx of fusion of cervical spine Hx of tonsillectomy S/P cervical spinal fusion (2013) S/P surgery on nasal septum Status post right hemicolectomy Family History Father Alcoholism Cancer Lung cancer Mother Age: 73 Lung cancer Diabetes mellitus Hypertension Blood disease Inflammatory bowel disease CAD in [place] artery Social History marital status: number of children: 4 household members: other occupational status: employed Smoking Status: Current every day smoker alcohol intake: current substance use type: does not use Smoking Status: Current every day smoker tobacco type: cigarettes alcohol intake frequency: a few times a month Alcohol type: hard liquor Substance Use Type: does not use Exam <Jori Celeste PA-C - Last Filed: 08/07/22 19:14> Narrative Exam Narrative: Const General:?cooperative, healthy appearing and comfortable [facility] Head:?normal to inspection Ears:?hearing grossly normal bilaterally Nose:?external nose normal Face and sinus:?normal facial exam and sinuses nontender Mouth:?oral mucosae normal Throat:?posterior oropharynx normal Eyes General:?appearance normal, both eyes and all related structures Neck Neck:?normal visual inspection and no lymphadenopathy noted Resp Effort & Inspection:?normal respiratory effort Auscultation:?clear to auscultation bilaterally Cardio Rate:?regular rate Rhythm:?regular rhythm GI Abdomen is soft, nondistended. Abdomen is tender to palpation in the epigastric region. There is no CVA tenderness. Neuro General:?patient alert, patient awake and patient oriented x3 Initial Vital Signs Initial Vital Signs: Vital Signs Pulse Rate 95 H 08/07/22 14:50 Respiratory Rate 18 08/07/22 14:50 Blood Pressure 120/79 08/07/22 14:50 Pulse Oximetry 97 08/07/22 14:50 Oxygen Delivery Method 08/07/22 14:50 <Анна Plascencia DO - Last Filed: 08/08/22 10:46> Initial Vital Signs Initial Vital Signs: Vital Signs Pulse Rate 95 H 08/07/22 14:50 Respiratory Rate 18 08/07/22 14:50 Blood Pressure 120/79 08/07/22 14:50 Pulse Oximetry 97 08/07/22 14:50 Oxygen Delivery Method 08/07/22 14:50 Course <Jori Celeste PA-C - Last Filed: 08/07/22 19:14> Orders Ordered: Discontinued Medications Al Hydrox/Mg Hydrox/Simethicone 20 ml/ Lidocaine HCl 15 ml 0 ml PO NOW ONE Stop: 08/07/22 16:47 Last Admin: 08/07/22 17:06 Dose: 35 ml Documented By: RL Famotidine (Famotidine 20 Mg/2 Ml Vial) 20 mg IV NOW SANDRINE Last Admin: 08/07/22 17:06 Dose: 20 mg Documented By: RL Morphine Sulfate (Morphine 4 Mg/Ml Inj) 4 mg IV NOW ONE Stop: 08/07/22 16:48 Last Admin: 08/07/22 17:06 Dose: 4 mg Documented By: RL Ondansetron HCl (Ondansetron 4 Mg/2 Ml Inj) 4 mg IV NOW ONE Stop: 08/07/22 16:48 Last Admin: 08/07/22 17:06 Dose: 4 mg Documented By: RL Vital Signs Vital signs: Vital Signs - 8 hr 08/07/22 14:50 08/07/22 17:04 08/07/22 17:05 Pulse Rate 95 H 78 Respiratory Rate 18 26 H Blood Pressure 120/79 128/82 Pulse Oximetry 97 99 Oxygen Delivery Method Room Air <Анна Plascencia DO - Last Filed: 08/08/22 10:46> Orders Ordered: Discontinued Medications Al Hydrox/Mg Hydrox/Simethicone 20 ml/ Lidocaine HCl 15 ml 0 ml PO NOW ONE Stop: 08/07/22 16:47 Last Admin: 08/07/22 17:06 Dose: 35 ml Documented By: RL Famotidine (Famotidine 20 Mg/2 Ml Vial) 20 mg IV NOW SANDRINE Last Admin: 08/07/22 17:06 Dose: 20 mg Documented By: RL Morphine Sulfate (Morphine 4 Mg/Ml Inj) 4 mg IV NOW ONE Stop: 08/07/22 16:48 Last Admin: 08/07/22 17:06 Dose: 4 mg Documented By: RL Ondansetron HCl (Ondansetron 4 Mg/2 Ml Inj) 4 mg IV NOW ONE Stop: 08/07/22 16:48 Last Admin: 08/07/22 17:06 Dose: 4 mg Documented By: RL Vital Signs Vital signs: Vital Signs - 8 hr 08/07/22 14:50 08/07/22 17:04 08/07/22 17:05 Pulse Rate 95 H 78 Respiratory Rate 18 26 H Blood Pressure 120/79 128/82 Pulse Oximetry 97 99 Oxygen Delivery Method Room Air MDM - Abdominal Pain <Jori Celeste PA-C - Last Filed: 08/07/22 19:14> Lab Data 08/07/22 15:00 08/07/22 15:00 Labs: Lab Results 08/07/22 08/07/22 08/07/22 Range/Units 15:00 15:00 15:00 WBC 9.5 (4.5-11.0) X10^3/uL RBC 4.01 (4.0-5.2) X10^6/uL Hgb 12.1 (12.0-16.0) g/dL Hct 36.1 (36-46) % MCV 89.9 (80-100) fL MCH 30.1 (26-34) PG MCHC 33.4 (30-36) % RDW 14.0 (11.6-14.8) % Plt Count 244 (150-400) X10^3/uL Neut % (Auto) 67.9 (50-75) % Lymph % (Auto) 22.3 L (25-40) % [place] % (Auto) 6.0 (3-14) % Eos % (Auto) 3.3 (2-4) % Baso % (Auto) 0.5 (0-2) % Neut # (Auto) 6400 (2063-7527) /uL Lymph # (Auto) 2100 (9558-6356) /uL [place] # (Auto) 600 (0-900) /uL Eos # (Auto) 300 (0-450) /uL Baso # (Auto) 0 (0-100) /uL Sodium 139 (137-145) mmol/L Potassium 4.3 (3.4-5.1) mmol/L Chloride 105 (98-107) mmol/L Carbon Dioxide 25 (22-32) mmol/L BUN 18 H (7-17) mg/dL Creatinine 0.67 (0.52-1.04) mg/dL Estimated GFR > 60 (>60) mL/min BUN/Creatinine Ratio 26.9 H (6-22) Glucose 87 (70-100) mg/dL Calcium 8.5 (8.4-10.2) mg/dL Magnesium 2.2 (1.6-2.3) mg/dL Total Bilirubin 0.4 (0.2-1.3) mg/dL AST 37 H (14-36) IU/L ALT 26 (<35) IU/L Alkaline Phosphatase 79 (38-126) U/L Total Creatine Kinase 65 (30-135) U/L CK-MB (CK-2) TNP CK-MB (CK-2) Rel Index TNP Troponin I < 0.012 (0.01-0.034) ng/mL NT-Pro-B Natriuret Pep 278 H (<125) pg/mL Total Protein 7.2 (6.3-8.2) g/dL Albumin 4.0 (3.5-5.0) g/dL Globulin 3.2 (1.7-4.1) g/dL Albumin/Globulin Ratio 1.3 (1.0-2.8) Lipase 167 (23-300) U/L MDM Narrative Medical decision making narrative: 51-year-old female with past medical history depression, panic disorder, overactive bladder, ACS, status post AICD, cardiomyopathy, IBS, Live's disease presents to the ED with 5 days of epigastric pain that radiates to the back. Concern for gastritis versus GERD versus PUD versus pancreatitis versus bowel obstruction versus other intra-abdominal pathology versus other will obtain labs, lipase, lactate, CT abdomen pelvis. Will give morphine, GI cocktail, Pepcid AC, Zofran for symptoms. Will reassess. CT abdomen pelvis shows inflammatory gastritis of the stomach. Labs unremarkable. Patient's symptoms minimally improved with the medications. Discussed findings with patient. Patient agrees to follow-up with GI specialist for further evaluation and treatment. Recommend Pepcid AC until GI consult. ED return precautions were discussed with patient. Patient verbalized understanding. ? Medical records reviewed:??Yes ? Disposition: see below, along with detailed discharge instructions that have been reviewed with patient as well as indications for ED re-evaluation and additional outpatient follow up <Анна Plascencia, DO - Last Filed: 08/08/22 10:46> Lab Data Labs: Lab Results 08/07/22 08/07/22 08/07/22 Range/Units 15:00 15:00 15:00 WBC 9.5 (4.5-11.0) X10^3/uL RBC 4.01 (4.0-5.2) X10^6/uL Hgb 12.1 (12.0-16.0) g/dL Hct 36.1 (36-46) % MCV 89.9 (80-100) fL MCH 30.1 (26-34) PG MCHC 33.4 (30-36) % RDW 14.0 (11.6-14.8) % Plt Count 244 (150-400) X10^3/uL Neut % (Auto) 67.9 (50-75) % Lymph % (Auto) 22.3 L (25-40) % [place] % (Auto) 6.0 (3-14) % Eos % (Auto) 3.3 (2-4) % Baso % (Auto) 0.5 (0-2) % Neut # (Auto) 6400 (8030-5998) /uL Lymph # (Auto) 2100 (2144-7837) /uL [place] # (Auto) 600 (0-900) /uL Eos # (Auto) 300 (0-450) /uL Baso # (Auto) 0 (0-100) /uL Sodium 139 (137-145) mmol/L Potassium 4.3 (3.4-5.1) mmol/L Chloride 105 (98-107) mmol/L Carbon Dioxide 25 (22-32) mmol/L BUN 18 H (7-17) mg/dL Creatinine 0.67 (0.52-1.04) mg/dL Estimated GFR > 60 (>60) mL/min BUN/Creatinine Ratio 26.9 H (6-22) Glucose 87 (70-100) mg/dL Calcium 8.5 (8.4-10.2) mg/dL Magnesium 2.2 (1.6-2.3) mg/dL Total Bilirubin 0.4 (0.2-1.3) mg/dL AST 37 H (14-36) IU/L ALT 26 (<35) IU/L Alkaline Phosphatase 79 (38-126) U/L Total Creatine Kinase 65 (30-135) U/L CK-MB (CK-2) TNP CK-MB (CK-2) Rel Index TNP Troponin I < 0.012 (0.01-0.034) ng/mL NT-Pro-B Natriuret Pep 278 H (<125) pg/mL Total Protein 7.2 (6.3-8.2) g/dL Albumin 4.0 (3.5-5.0) g/dL Globulin 3.2 (1.7-4.1) g/dL Albumin/Globulin Ratio 1.3 (1.0-2.8) Lipase 167 (23-300) U/L ECG Data Attestation: I personally reviewed and interpreted this ECG as follows: Prior ECG tracings: available for review Interpretation: Sinus rhythm rate 88 OK 130 QRS 80 QTC 476. No acute changes. Patient has prior from 02/14/2020 which appears similar. Discharge Plan Departure Patient Disposition: Home Clinical Impression: Gastritis Activity Restrictions/Additional Instructions: You were evaluated in the ED today for abdominal pain. Your labs were normal. Your CT did show some inflammatory gastritis, which is an inflammation of your stomach lining. This could be due to multiple reasons such as NSAID use with ibuprofen or naproxen, alcohol use, H pylori infection, stress. It is important that you follow-up with a GI specialist for further evaluation treatment including an endoscopy. In the meantime, you may take Pepcid AC twice daily for your symptoms. Return to the ED if your symptoms worsen, you are persistently vomiting, you experience chest pain or shortness of breath. Prescriptions: No Action clonazepam 1 mg tablet 1 mg PO BID PRN (Reason: muscle spasm) Qty: 30 0RF duloxetine 60 mg capsule,delayed release(DR/EC) 60 mg PO BID Qty: 60 3RF gabapentin 300 mg capsule 600 mg PO BEDTIME Qty: 30 3RF hydroxyzine pamoate 50 mg capsule 50 mg PO BEDTIME Qty: 30 3RF lamotrigine 25 mg tablet 50 mg PO BEDTIME Qty: 60 1RF prazosin 2 mg capsule 2 mg PO BEDTIME Qty: 30 3RF metoprolol succinate 50 mg tablet extended release 24 hr See Rx Instructions .ROUTE .COMPLEX Qty: 180 3RF Dose Instruction: TAKE 1 TABLET BY MOUTH TWICE DAILY Rx Instructions: TAKE 1 TABLET BY MOUTH TWICE DAILY ondansetron HCl 4 mg tablet 4 mg PO Q8H Qty: 30 1RF Rx Instructions: Take 1 tab every 8 hours for nausea. (DME) cane Device See Rx Instructions .Route Qty: 1 0RF Rx Instructions: As directed isosorbide mononitrate 60 mg tablet extended release 24 hr 60 mg PO QAM Qty: 90 3RF amlodipine 2.5 mg tablet 2.5 mg PO DAILY Qty: 90 3RF levothyroxine 50 mcg tablet 50 mcg PO DAILY Qty: 90 1RF Rx Instructions: Take 1 tab on an empty stomach daily 30 mins prior to eating. meloxicam 15 mg tablet 15 mg PO DAILY Qty: 30 2RF ropinirole 0.5 mg tablet See Rx Instructions .ROUTE .COMPLEX Qty: 30 1RF Dose Instruction: TAKE 1 TABLET BY MOUTH 1-3 HOURS BEFORE BEDTIME Rx Instructions: TAKE 1 TABLET BY MOUTH 1-3 HOURS BEFORE BEDTIME hydrocodone-acetaminophen 10-325 mg tablet 2 tab PO Q6-8H PRN (Reason: pain) Qty: 60 0RF aspirin [Adult Aspirin Regimen] 81 mg tablet,delayed release (DR/EC) 81 mg PO DAILY Qty: 90 3RF Rx Instructions: Take 1 tab daily nitroglycerin 0.4 mg tablet, sublingual 0.4 mg sublingual Q5M PRN (Reason: chest pain) Qty: 30 2RF Rx Instructions: do not exceed 3 doses per episode rosuvastatin 40 mg tablet 40 mg PO DAILY Qty: 30 0RF Hold Instructions: muscular pain and weakness legs protein [Ensure High Protein] Powder 1 ea PO BID Qty: 480 3RF Rx Instructions: Mix scoopful with almond milk for meal replacement twice per day phenazopyridine 100 mg tablet 100 mg PO TID PRN (Reason: pain) Qty: 6 0RF ranolazine 1,000 mg tablet extended release 12 hr 1,000 mg PO ONCE solifenacin 1 mg/mL suspension 10 mg PO DAILY Qty: 300 6RF Rx Instructions: This patient has a lactose allergy and it appears that most if not all of the pills have lactose therefore the liquid form is selected. oxybutynin chloride 5 mg/5 mL syrup 5 mg PO TID Qty: 473 3RF Referrals: Miscellaneous,Doctor, [Primary Care Provider] - Stand Alone Forms: Patient Portal/API <Анна Plascencia DO - Last Filed: 08/08/22 10:46> Cosign ED Attending Marvinature Attestation: I was immediately available in the department for consultation. Documentation has been reviewed.
== END 2022-08-07 19:09 | disposition home or self-care (01) ==
PROVIDERS: Emergency Medicine; Emergency Provider Student in an Organized Health Care Education/Training Program; Family Provider Physician Assistant Surgical
DX: K29.70 Gastritis, unspecified, without bleeding (principal); Z79.899 Other long term (current) drug therapy
CPT/HCPCS: 36415; 71045; 74177; 80048; 80053; 82550; 83690; 83735; 83880; 84484; 85025; 93005; 96374; 96375; 99284; J2270; J2405; Q9967

== ENCOUNTER 2022-10-20 11:45 | Emergency (ER) | payer OTHER, MEDICAID, SELFPAY ==
[2022-10-05 13:44] VITALS: BMI 23.1
[2022-10-20] VITALS (9 sets, daily range): BP systolic 121–142; BP diastolic 72–93; PULSE 88–107; RESP 17–27; TEMP 37.2; O2SAT 96–99; BMI 22.2
--- NOTE | 2022-10-20 11:58 | DI.RAD.S_ITS ---
PROCEDURE: XR CHEST 1V INDICATIONS: chest pain TECHNIQUE: One view of the chest was acquired. COMPARISON: [facility], CR, XR CHEST 1V, 08/07/2022, 15:35. FINDINGS: Surgical changes and devices: Pacemaker, right lumpectomy clips Lungs and pleura: Lungs are clear. No pleural effusions or pneumothorax. Mediastinum: Mediastinal contours appear normal. Heart size is normal. Bones and chest wall: No suspicious bony lesions. Overlying soft tissues appear unremarkable. IMPRESSION: No evidence acute pulmonary process. Dictated by: Monty Shirley M.D. on 10/20/2022 at 13:14 Approved by: Monty Shirley M.D. on 10/20/2022 at 13:14
[2022-10-20 12:36] LABS: Add Manual Diff / Slide Review NO; Basophils Absolute Auto 100 /uL (0-100); Basophils Percent Auto 0.9 % (0-2); Eosinophils Absolute Auto 400 /uL (0-450); Eosinophils Percent Auto 3.6 % (2-4); Hemoglobin 14.3 g/dL (12.0-16.0); Lymphocytes Absolute Auto 2000 /uL (1100-4500); Mean Corpuscular HGB Conc 33.9 % (30-36); Mean Corpuscular Hemoglobin 30.4 PG (26-34); Mean Corpuscular Volume 89.5 fL (80-100); Monocytes Absolute Auto 600 /uL (0-900); Monocytes Percent Auto 5.9 % (3-14); Neutrophils Absolute Auto 6900 /uL (1500-7000); Neutrophils Percent Auto 69.6 % (50-75); Platelet Count 264 X10^3/uL (150-400); Red Blood Cell Count 4.69 X10^6/uL (4.0-5.2); Red Cell Distribution Width 13.9 % (11.6-14.8); White Blood Cell Count 9.9 X10^3/uL (4.5-11.0)
[2022-10-20 12:47] LABS: Prothrombin Time 11.4 SECONDS (10.1-12.7)
[2022-10-20 12:48] LABS: COVID19 -Nasal RAPID Negative (Negative)
[2022-10-20 12:50] LABS: PTT Partial Thromboplastin Tim 29 SECONDS (26-36)
[2022-10-20 12:52] LABS: Alanine Aminotransferase 32 IU/L (<35); Albumin 4.2 g/dL (3.5-5.0); Albumin Globulin Ratio 1.2 (1.0-2.8); Alkaline Phosphatase 74 U/L (38-126); Aspartate Aminotransferase 26 IU/L (14-36); BUN Creatinine Ratio 29.4 (6-22); Bilirubin Total 0.5 mg/dL (0.2-1.3); Blood Urea Nitrogen 20 mg/dL (7-17); Calcium 8.9 mg/dL (8.4-10.2); Carbon Dioxide 25 mmol/L (22-32); Chloride 112 mmol/L (98-107); Creatine Kinase 55 U/L (30-135); Estimated Glomerular Filt Rate > 60 mL/min (>60); Globulin 3.4 g/dL (1.7-4.1); Glucose 115 mg/dL (70-100); HEMOLYSIS < 15 (0-50); Lipase 115 U/L (23-300); Magnesium 2.1 mg/dL (1.6-2.3); Potassium 3.5 mmol/L (3.4-5.1); Sodium 144 mmol/L (137-145); Total Protein 7.6 g/dL (6.3-8.2)
[2022-10-20 13:03] LABS: Troponin I < 0.012 ng/mL (0.01-0.034)
--- NOTE | 2022-10-20 13:17 | ED.CHESTPAIN ---
HPI - Chest Pain General Chief Complaint: Chest Pain Stated Complaint: 8hrtattack/post defribulator surg/pain down lt arm Time Seen by Provider: 10/20/22 12:05 Source: patient Mode of arrival: Ambulatory Limitations: no limitations History of Present Illness HPI narrative: Patient is a 51-year-old female who has had multiple prior heart issues. Has a defibrillator in place. It has been in place for several months. She states that over the past month she has had issues with pain over the area. States she is tingling when she touches the area. Hospitalist tingling down her arm. She can not get in to see her enrollment management coordinator for several weeks. She was recently admitted to the hospital for mental health illness which is why she is not had it evaluated before now. She also feels like the defibrillator has moved down in her chest. Related Data Home Medications Medication Instructions Recorded Confirmed ranolazine 1,000 mg 1,000 mg PO ONCE 12/26/21 03/29/22 tablet,extended release,12 hr Previous Rx's Medication Instructions Recorded aspirin 81 mg tablet,delayed 81 mg PO DAILY #90 tabs 01/28/21 release (Adult Aspirin Regimen) rosuvastatin 40 mg tablet 40 mg PO DAILY #30 tabs 08/18/21 metoprolol succinate 50 mg See Rx Instructions .Route 01/18/22 tablet,extended release 24 hr .COMPLEX #180 tabs nitroglycerin 0.4 mg sublingual 0.4 mg sublingual Q5M PRN chest 01/18/22 tablet pain #30 tabs oxybutynin chloride 5 mg/5 mL oral 5 mg (5 mL) PO TID #473 mL 01/20/22 syrup protein (Ensure High Protein oral 1 ea PO BID #480 grams 01/23/22 powder) phenazopyridine 100 mg tablet 100 mg PO TID PRN pain 6 doses #6 01/31/22 tabs solifenacin 1 mg/mL oral suspension 10 mg (10 mL) PO DAILY Overactive 02/21/22 bladder lactose allergy #300 mL cane #1 ea 03/22/22 ondansetron HCl 4 mg tablet 4 mg PO Q8H #30 tabs 03/22/22 amlodipine 2.5 mg tablet 2.5 mg PO DAILY #90 tabs 03/31/22 isosorbide mononitrate 60 mg 60 mg PO QAM #90 tabs 03/31/22 tablet,extended release 24 hr levothyroxine 50 mcg tablet 50 mcg PO DAILY #90 tabs 04/11/22 meloxicam 15 mg tablet 15 mg PO DAILY #30 tabs 04/11/22 ropinirole 0.5 mg tablet See Rx Instructions .Route 04/25/22 .COMPLEX #30 tabs hydrocodone 10 mg-acetaminophen 2 tab PO Q6-8H PRN pain #60 tabs 06/07/22 325 mg tablet clonazepam 1 mg tablet 1 mg PO BID PRN muscle spasm #30 07/25/22 tabs gabapentin 300 mg capsule 600 mg PO BEDTIME #30 caps 07/25/22 hydroxyzine pamoate 50 mg capsule 50 mg PO BEDTIME #30 caps 07/25/22 lamotrigine 25 mg tablet 50 mg PO BEDTIME #60 tabs 07/25/22 prazosin 2 mg capsule 2 mg PO BEDTIME #30 caps 07/25/22 aripiprazole 5 mg tablet 5 mg PO BEDTIME #30 tabs 10/12/22 Allergies Allergy/AdvReac Type Severity Reaction Status Date / Time Beef Containing Products Allergy Severe throat Verified 10/20/22 11:58 swelling gluten Allergy Severe Anaphylaxis Verified 10/20/22 11:58 pineapple Allergy Severe throat Verified 10/20/22 11:58 swelling watermelon Allergy Severe throat Verified 10/20/22 11:58 swelling lactose Allergy Intermediate Swelling Verified 10/20/22 11:58 of Lip/Tongue/Throat Penicillins Allergy Intermediate Rash Verified 10/20/22 11:58 codeine [CODEINE] Allergy Mild RASH Verified 10/20/22 11:58 itching egg AdvReac Severe Diarrhea Verified 10/20/22 11:58 Review of Systems Constitutional Constitutional: Reports system reviewed and no additional complaints, except as documented Cardiovascular Cardiovascular: Reports system reviewed and no additional complaints, except as documented Respiratory Respiratory: Reports system reviewed and no additional complaints, except as documented Integumentary/Breasts Skin/Breast: Reports system reviewed and no additional complaints, except as documented Neurologic Neurologic: Reports system reviewed and no additional complaints, except as documented Patient History Medical History Abdominal pain Acute coronary syndrome Arrhythmia Bright red rectal bleeding Bulging of cervical intervertebral disc Cardiac arrest with ventricular fibrillation Cardiomyopathy Chronic anticoagulation Colon polyps Colonic mass Coronary artery disease Depression with anxiety Dilation of bladder Diverticulosis Eczema Elevated liver enzymes Elevated WBC count Eosinophilic esophagitis Eosinophilic esophagitis Esophageal obstruction Facet arthropathy, lumbar Fibromyalgia Frequent falls Frequent falls Gallstones Generalized weakness Grief at loss of child Live's disease Hemorrhage of surgical anastomosis site of digestive tract Hemorrhoids Herniated nucleus pulposus, L5-S1, left History of heart attack Hydronephrosis, right Hypertension IBS (irritable bowel syndrome) Insomnia Interstitial cystitis Lower urinary tract symptoms Lumbar pain Lumbar pain with radiation down left leg Muscle spasms of both lower extremities 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 Nicotine addiction NSTEMI (non-ST elevated myocardial infarction) (08/20/20) Overactive bladder Panic disorder Protein calorie malnutrition PTSD (post-traumatic stress disorder) Restless leg syndrome Right leg numbness Severe depression Shingles Stool fat increased Suicidal thoughts Tobacco abuse Tobacco abuse counseling Well woman exam with routine gynecological exam Surgical History AICD (automatic cardioverter/defibrillator) present H/O left breast biopsy H/O: hysterectomy History of abdominal surgery History of bilateral tubal ligation History of bladder suspension procedure Hx of fusion of cervical spine Hx of tonsillectomy S/P cervical spinal fusion (2013) S/P surgery on nasal septum Status post right hemicolectomy Family History Father Alcoholism Cancer Lung cancer Mother Age: 73 Lung cancer Diabetes mellitus Hypertension Blood disease Inflammatory bowel disease CAD in [place] artery Social History marital status: number of children: 4 household members: other occupational status: employed Smoking Status: Current every day smoker alcohol intake: current substance use type: does not use Smoking Status: Current every day smoker tobacco type: cigarettes alcohol intake frequency: a few times a month Alcohol type: hard liquor Substance Use Type: does not use Exam Initial Vital Signs Initial Vital Signs: Vital Signs Temperature 99.0 F 10/20/22 11:52 Pulse Rate 107 H 10/20/22 11:52 Respiratory Rate 18 10/20/22 11:52 Blood Pressure 139/93 H 10/20/22 11:52 Pulse Oximetry 99 10/20/22 11:52 Oxygen Delivery Method Room Air 10/20/22 11:52 Const General: cooperative and healthy appearing Nutritional Appearance: average body habitus Chest Other: Defibrillator left upper chest. Incisions look well. Is tender to palpation over the area. There is no skin infection over the area. Resp Effort & Inspection: normal respiratory effort Cardio Rate: regular rate Skin General: no rashes or lesions noted Neuro General: patient alert, patient awake and moves all extremities Course Orders Ordered: ED Orders 10/20/22 11:58 XR chest 1V Stat 10/20/22 12:10 EKG-12 Lead Stat 10/20/22 12:20 COVID19 -Nasal RAPID Stat Complete Blood Count AUTO DIFF Stat Comprehensive Metabolic Panel Stat Lipase Stat Magnesium Stat PTT Partial Thromboplastin Jose Stat Prothrombin Time INR Stat Troponin & CK Cardiac Panel Stat 10/20/22 14:20 Troponin & CK Cardiac Panel Stat Discontinued Medications Aspirin (Aspirin 81 Mg Chew Tab) 324 mg PO NOW ONE Stop: 10/20/22 11:59 Last Admin: 10/20/22 13:16 Dose: Not Given Documented By: NATHALIA Ibuprofen (Ibuprofen 400 Mg Tablet) 800 mg PO NOW ONE Stop: 10/20/22 13:17 Last Admin: 10/20/22 14:26 Dose: 800 mg Documented By: NATHALIA Vital Signs Vital signs: Vital Signs - 8 hr 10/20/22 11:52 10/20/22 12:07 10/20/22 12:08 Temperature 99.0 F Pulse Rate 107 H 103 H Respiratory Rate 18 Blood Pressure 139/93 H Pulse Oximetry 99 96 96 Oxygen Delivery Method Room Air 10/20/22 12:08 10/20/22 12:30 10/20/22 12:30 Temperature Pulse Rate 98 H Respiratory Rate 18 Blood Pressure 129/72 129/75 Pulse Oximetry 97 Oxygen Delivery Method Room Air 10/20/22 13:00 10/20/22 13:00 10/20/22 13:30 Temperature Pulse Rate 96 H Respiratory Rate 27 H Blood Pressure 124/78 135/89 Pulse Oximetry 98 Oxygen Delivery Method 10/20/22 13:30 10/20/22 14:00 10/20/22 14:00 Temperature Pulse Rate 95 H 92 H Respiratory Rate 17 22 Blood Pressure 138/78 Pulse Oximetry 98 99 Oxygen Delivery Method 10/20/22 14:30 10/20/22 14:30 10/20/22 15:00 Temperature Pulse Rate 90 Respiratory Rate 24 Blood Pressure 121/85 142/84 H Pulse Oximetry 99 Oxygen Delivery Method 10/20/22 15:00 Temperature Pulse Rate 88 Respiratory Rate 20 Blood Pressure Pulse Oximetry 99 Oxygen Delivery Method Room Air MDM - Chest Pain Lab Data Attestation: I reviewed the patient's lab results. 10/20/22 12:20 10/20/22 12:20 Labs: Lab Results 10/20/22 10/20/22 10/20/22 Range/Units 12:20 12:20 12:20 WBC 9.9 (4.5-11.0) X10^3/uL RBC 4.69 (4.0-5.2) X10^6/uL Hgb 14.3 (12.0-16.0) g/dL Hct 42.0 (36-46) % MCV 89.5 (80-100) fL MCH 30.4 (26-34) PG MCHC 33.9 (30-36) % RDW 13.9 (11.6-14.8) % Plt Count 264 (150-400) X10^3/uL Neut % (Auto) 69.6 (50-75) % Lymph % (Auto) 20.0 L (25-40) % [place] % (Auto) 5.9 (3-14) % Eos % (Auto) 3.6 (2-4) % Baso % (Auto) 0.9 (0-2) % Neut # (Auto) 6900 (1176-3031) /uL Lymph # (Auto) 2000 (0696-3820) /uL [place] # (Auto) 600 (0-900) /uL Eos # (Auto) 400 (0-450) /uL Baso # (Auto) 100 (0-100) /uL PT 11.4 (10.1-12.7) SECONDS INR 1.0 (0.9-1.3) APTT 29 (26-36) SECONDS Sodium 144 (137-145) mmol/L Potassium 3.5 (3.4-5.1) mmol/L Chloride 112 H (98-107) mmol/L Carbon Dioxide 25 (22-32) mmol/L BUN 20 H (7-17) mg/dL Creatinine 0.68 (0.52-1.04) mg/dL Estimated GFR > 60 (>60) mL/min BUN/Creatinine Ratio 29.4 H (6-22) Glucose 115 H (70-100) mg/dL Calcium 8.9 (8.4-10.2) mg/dL Magnesium 2.1 (1.6-2.3) mg/dL Total Bilirubin 0.5 (0.2-1.3) mg/dL AST 26 (14-36) IU/L ALT 32 (<35) IU/L Alkaline Phosphatase 74 (38-126) U/L Total Creatine Kinase 55 (30-135) U/L CK-MB (CK-2) TNP CK-MB (CK-2) Rel Index TNP Troponin I < 0.012 (0.01-0.034) ng/mL Total Protein 7.6 (6.3-8.2) g/dL Albumin 4.2 (3.5-5.0) g/dL Globulin 3.4 (1.7-4.1) g/dL Albumin/Globulin Ratio 1.2 (1.0-2.8) Lipase 115 (23-300) U/L SARS-CoV-2 (PCR) (Negative) 10/20/22 10/20/22 Range/Units 12:20 14:20 WBC (4.5-11.0) X10^3/uL RBC (4.0-5.2) X10^6/uL Hgb (12.0-16.0) g/dL Hct (36-46) % MCV (80-100) fL MCH (26-34) PG MCHC (30-36) % RDW (11.6-14.8) % Plt Count (150-400) X10^3/uL Neut % (Auto) (50-75) % Lymph % (Auto) (25-40) % [place] % (Auto) (3-14) % Eos % (Auto) (2-4) % Baso % (Auto) (0-2) % Neut # (Auto) (9962-2657) /uL Lymph # (Auto) (3923-4579) /uL [place] # (Auto) (0-900) /uL Eos # (Auto) (0-450) /uL Baso # (Auto) (0-100) /uL PT (10.1-12.7) SECONDS INR (0.9-1.3) APTT (26-36) SECONDS Sodium (137-145) mmol/L Potassium (3.4-5.1) mmol/L Chloride (98-107) mmol/L Carbon Dioxide (22-32) mmol/L BUN (7-17) mg/dL Creatinine (0.52-1.04) mg/dL Estimated GFR (>60) mL/min BUN/Creatinine Ratio (6-22) Glucose (70-100) mg/dL Calcium (8.4-10.2) mg/dL Magnesium (1.6-2.3) mg/dL Total Bilirubin (0.2-1.3) mg/dL AST (14-36) IU/L ALT (<35) IU/L Alkaline Phosphatase (38-126) U/L Total Creatine Kinase 49 (30-135) U/L CK-MB (CK-2) TNP CK-MB (CK-2) Rel Index TNP Troponin I < 0.012 (0.01-0.034) ng/mL Total Protein (6.3-8.2) g/dL Albumin (3.5-5.0) g/dL Globulin (1.7-4.1) g/dL Albumin/Globulin Ratio (1.0-2.8) Lipase (23-300) U/L SARS-CoV-2 (PCR) Negative (Negative) Imaging Data Chest x-ray: Radiologist's Impression: PROCEDURE:? XR CHEST 1V ? INDICATIONS:? chest pain ? TECHNIQUE:? One view of the chest was acquired.? ? COMPARISON:? [facility], , XR CHEST 1V, 08/07/2022, 15:35. ? FINDINGS:? ? Surgical changes and devices:? Pacemaker, right lumpectomy clips ? Lungs and pleura:? Lungs are clear.? No pleural effusions or pneumothorax.? ? Mediastinum:? Mediastinal contours appear normal.? Heart size is normal.? ? Bones and chest wall:? No suspicious bony lesions.? Overlying soft tissues appear unremarkable.? ? IMPRESSION:? No evidence acute pulmonary process. ECG Data Attestation: I personally reviewed and interpreted this ECG as follows: Interpretation: Sinus tachycardia Ventricular rate 102 Normal axis Normal QTC Nonspecific ST T wave changes MDM Narrative Medical decision making narrative: Patient has had the paresthesias and tingling and discomfort over the defibrillator site for the past several weeks if not month or longer. Under physical exam today the defibrillator seems to be an appropriate position. The skin over top of the area appears well. No signs of infection. Minimal if any swelling. The surgical scar is healing appropriately. Troponins are negative x2. The rest of her labs are unremarkable. No further workup required in the emergency department. No urgent surgical or cardiovascular consultation needed. She was given return precautions. She has a follow-up with her primary doctor the end of this month. She expressed understanding and agreement plan. Discharge Plan Departure Patient Disposition: Home Clinical Impression: Anterior chest wall pain Activity Restrictions/Additional Instructions: I recommend that you continue to take all of your medications as directed and keep all of your scheduled medical appointments. Return to the emergency department for any worsening symptoms. Prescriptions: No Action clonazepam 1 mg tablet 1 mg PO BID PRN (Reason: muscle spasm) Qty: 30 0RF gabapentin 300 mg capsule 600 mg PO BEDTIME Qty: 30 3RF hydroxyzine pamoate 50 mg capsule 50 mg PO BEDTIME Qty: 30 3RF lamotrigine 25 mg tablet 50 mg PO BEDTIME Qty: 60 1RF prazosin 2 mg capsule 2 mg PO BEDTIME Qty: 30 3RF aripiprazole 5 mg tablet 5 mg PO BEDTIME Qty: 30 1RF metoprolol succinate 50 mg tablet extended release 24 hr See Rx Instructions .ROUTE .COMPLEX Qty: 180 3RF Dose Instruction: TAKE 1 TABLET BY MOUTH TWICE DAILY Rx Instructions: TAKE 1 TABLET BY MOUTH TWICE DAILY ondansetron HCl 4 mg tablet 4 mg PO Q8H Qty: 30 1RF Rx Instructions: Take 1 tab every 8 hours for nausea. (DME) cane Device See Rx Instructions .Route Qty: 1 0RF Rx Instructions: As directed isosorbide mononitrate 60 mg tablet extended release 24 hr 60 mg PO QAM Qty: 90 3RF amlodipine 2.5 mg tablet 2.5 mg PO DAILY Qty: 90 3RF levothyroxine 50 mcg tablet 50 mcg PO DAILY Qty: 90 1RF Rx Instructions: Take 1 tab on an empty stomach daily 30 mins prior to eating. meloxicam 15 mg tablet 15 mg PO DAILY Qty: 30 2RF ropinirole 0.5 mg tablet See Rx Instructions .ROUTE .COMPLEX Qty: 30 1RF Dose Instruction: TAKE 1 TABLET BY MOUTH 1-3 HOURS BEFORE BEDTIME Rx Instructions: TAKE 1 TABLET BY MOUTH 1-3 HOURS BEFORE BEDTIME hydrocodone-acetaminophen 10-325 mg tablet 2 tab PO Q6-8H PRN (Reason: pain) Qty: 60 0RF aspirin [Adult Aspirin Regimen] 81 mg tablet,delayed release (DR/EC) 81 mg PO DAILY Qty: 90 3RF Rx Instructions: Take 1 tab daily nitroglycerin 0.4 mg tablet, sublingual 0.4 mg sublingual Q5M PRN (Reason: chest pain) Qty: 30 2RF Rx Instructions: do not exceed 3 doses per episode rosuvastatin 40 mg tablet 40 mg PO DAILY Qty: 30 0RF Hold Instructions: muscular pain and weakness legs protein [Ensure High Protein] Powder 1 ea PO BID Qty: 480 3RF Rx Instructions: Mix scoopful with almond milk for meal replacement twice per day phenazopyridine 100 mg tablet 100 mg PO TID PRN (Reason: pain) Qty: 6 0RF ranolazine 1,000 mg tablet extended release 12 hr 1,000 mg PO ONCE solifenacin 1 mg/mL suspension 10 mg PO DAILY Qty: 300 6RF Rx Instructions: This patient has a lactose allergy and it appears that most if not all of the pills have lactose therefore the liquid form is selected. oxybutynin chloride 5 mg/5 mL syrup 5 mg PO TID Qty: 473 3RF Referrals: Miscellaneous,Doctor, MD [Primary Care Provider] - Stand Alone Forms: Patient Portal/API
[2022-10-20] MEDS: IBUPROFEN 400 MG TABLET 800 MG PO (14:26)
[2022-10-20 14:39] LABS: Creatine Kinase 49 U/L (30-135)
[2022-10-20 14:53] LABS: Troponin I < 0.012 ng/mL (0.01-0.034)
== END 2022-10-20 15:18 | disposition home or self-care (01) ==
PROVIDERS: Emergency Provider Emergency Medicine; Family Provider Physician Assistant Surgical
DX: R07.89 Other chest pain (principal); Z95.810 Presence of automatic (implantable) cardiac defibrillator
CPT/HCPCS: 36415; 71045; 80053; 82550; 83690; 83735; 84484; 85025; 85610; 85730; 87635; 93005; 93010; 99284; C9803

== ENCOUNTER → 2024-04-28 13:26 | Outpatient (CLI) | payer MEDICARE, MEDICAID, SELFPAY ==
[2023-10-04 13:49] VITALS: BMI 23.1
[2024-04-28 14:33] LABS: Add Manual Diff / Slide Review NO; Basophils Absolute Auto 0 /uL (0-100); Basophils Percent Auto 0.6 % (0-2); Eosinophils Absolute Auto 100 /uL (0-450); Hemoglobin 13.1 g/dL (12.0-16.0); Lymphocytes Absolute Auto 2000 /uL (1100-4500); Lymphocytes Percent Auto 28.7 % (25-40); Mean Corpuscular HGB Conc 33.6 % (30-36); Mean Corpuscular Hemoglobin 30.1 PG (26-34); Mean Corpuscular Volume 89.6 fL (80-100); Monocytes Absolute Auto 500 /uL (0-900); Monocytes Percent Auto 7.1 % (3-14); Neutrophils Absolute Auto 4300 /uL (1500-7000); Neutrophils Percent Auto 61.6 % (50-75); Platelet Count 245 X10^3/uL (150-400); Red Blood Cell Count 4.35 X10^6/uL (4.0-5.2); White Blood Cell Count 6.9 X10^3/uL (4.5-11.0)
[2024-04-28 14:43] LABS: Lithium 0.3 mmol/L (0.6-1.2)
[2024-04-28 14:51] LABS: Alanine Aminotransferase 27 IU/L (<35); Albumin 4.3 g/dL (3.5-5.0); Albumin Globulin Ratio 1.8 (1.0-2.8); Alkaline Phosphatase 64 U/L (38-126); Aspartate Aminotransferase 22 IU/L (14-36); BUN Creatinine Ratio 22.5 (6-22); Bilirubin Total 0.6 mg/dL (0.2-1.3); Blood Urea Nitrogen 20 mg/dL (7-17); Calcium 9.3 mg/dL (8.4-10.2); Carbon Dioxide 23 mmol/L (22-32); Chloride 109 mmol/L (98-107); Estimated Glomerular Filt Rate > 60 mL/min (>60); Globulin 2.4 g/dL (1.7-4.1); Glucose 116 mg/dL (70-100); HEMOLYSIS < 15 (0-50); Sodium 141 mmol/L (137-145); Total Protein 6.7 g/dL (6.3-8.2)
== END ==
LOC: LAB 13:27
PROVIDERS: Family Provider Physician Assistant Surgical; Referring Provider Psychiatry & Neurology Psychiatry; Visit Provider Psychiatry & Neurology Psychiatry
DX: Z79.899 Other long term (current) drug therapy (principal); F41.8 Other specified anxiety disorders
CPT/HCPCS: 36415; 80053; 80178; 84443; 85025

== ENCOUNTER → 2024-06-03 08:08 | Outpatient (CLI) | payer MEDICARE, MEDICAID, SELFPAY ==
[2023-10-04 13:49] VITALS: BMI 23.1
[2024-06-03 09:26] LABS: Lithium 0.3 mmol/L (0.6-1.2)
== END ==
PROVIDERS: Family Provider Physician Assistant Surgical; Referring Provider Psychiatry & Neurology Psychiatry; Visit Provider Psychiatry & Neurology Psychiatry
DX: Z79.899 Other long term (current) drug therapy (principal)
CPT/HCPCS: 36415; 80178

== ENCOUNTER → 2024-08-12 07:55 | Outpatient (CLI) | payer MEDICARE, MEDICAID, SELFPAY ==
[2023-10-04 13:49] VITALS: BMI 23.1
[2024-08-12 09:01] LABS: Lithium 0.9 mmol/L (0.6-1.2)
== END ==
PROVIDERS: Family Provider Physician Assistant Surgical; Referring Provider Psychiatry & Neurology Psychiatry; Visit Provider Psychiatry & Neurology Psychiatry
DX: Z79.899 Other long term (current) drug therapy (principal)
CPT/HCPCS: 36415; 80178